=== PATIENT | male | born 1950 | race Hispanic/Latino ===

== ENCOUNTER 2016-08-18 17:25 | Emergency (ER) | payer MEDICAID ==
[2016-08-18 17:47] VITALS: BP 210/121
--- NOTE | 2016-08-19 23:27 | ED Elopement Review ---
ED Pt Elopement review - Call Back decision Pt Call Back Decision: Call pt to return to ED [facility]
== END 2016-08-18 18:26 | disposition left against medical advice (07) ==
LOC: ED 17:25
DX: T18.128A Food in esophagus causing other injury, initial encounter (principal); Z53.21 Procedure and treatment not carried out due to patient leaving prior to being seen by health care provider; X58.XXXA Exposure to other specified factors, initial encounter; Y93.9 Activity, unspecified; Y92.9 Unspecified place or not applicable

== ENCOUNTER 2016-10-05 18:11 | Emergency (ER) | payer MEDICAID | END 2016-10-05 19:30 | disposition left against medical advice (07) | LOC: ED 18:11 | DX: R07.0 Pain in throat (principal); Z88.8 Allergy status to other drugs, medicaments and biological substances; Z53.21 Procedure and treatment not carried out due to patient leaving prior to being seen by health care provider ==

== ENCOUNTER 2017-04-03 16:49 | Emergency (ER) | payer MEDICAID ==
[2017-04-03] MEDS ORDERED: NACL 0.9% 1000 ML 1,000 ML IV ONE (17:11)
[2017-04-03 17:12] VITALS: BP 186/118
[2017-04-03 17:51] LABS: Basophils % (Auto) 0.8 % (0.0-1.8); Eosinophils % (Auto) 5.3 % (0.0-4.3); Hematocrit 47.4 % (35.5-45.6); Hemoglobin 15.8 gm/dl (11.8-15.2); Mean Corpuscular HGB Conc 33 % (32-34); Mean Corpuscular Hemoglobin 29 pg (28-32); Mean Corpuscular Volume 85 fl (84-94); Platelet Count 210 K/mm3 (140-440); Red Blood Count 5.55 M/mm3 (3.65-5.03); White Blood Count 6.6 K/mm3 (4.5-11.0)
[2017-04-03 18:09] LABS: Albumin 4.6 g/dL (3.9-5); Albumin/Globulin Ratio 1.7 %; BUN/Creatinine Ratio 6.92; Bilirubin,Total 0.4 mg/dL (0.1-1.2); Calcium 9.1 mg/dL (8.4-10.2); Chloride 104.2 mmol/L (98-107); Potassium 3.9 mmol/L (3.6-5.0); Total Protein 7.3 g/dL (6.3-8.2)
[2017-04-03 18:26] LABS: INR 0.99 (0.87-1.13)
== END 2017-04-03 18:05 | disposition left against medical advice (07) ==
LOC: ED 16:49
DX: K92.1 Melena (principal); Z53.21 Procedure and treatment not carried out due to patient leaving prior to being seen by health care provider
CPT/HCPCS: 36415; 80053; 83690; 85025; 85610; 85730; 86850; 86900; 86901

== ENCOUNTER 2017-09-21 18:41 | Emergency (ER) | payer MEDICARE, MEDICAID ==
[2017-09-21 20:18] VITALS: BP 183/99
[2017-09-21 21:27] LABS: Basophils # (Auto) 0.1 K/mm3 (0.0-0.1); Basophils % (Auto) 1.2 % (0.0-1.8); Eosinophils # (Auto) 0.2 K/mm3 (0.0-0.4); Lymphocytes # (Auto) 1.1 K/mm3 (1.2-5.4); Lymphocytes % (Auto) 16.7 % (13.4-35.0); Mean Corpuscular HGB Conc 30 % (32-34); Mean Corpuscular Volume 85 fl (84-94); Monocytes # (Auto) 0.4 K/mm3 (0.0-0.8); Monocytes % (Auto) 6.2 % (0.0-7.3); Platelet Count 147 K/mm3 (140-440); Red Blood Count 4.38 M/mm3 (3.65-5.03); Red Cell Distribution Width 14.9 % (13.2-15.2)
[2017-09-21 21:28] LABS: Hematocrit 37.2 % (35.5-45.6); Hemoglobin 11.3 gm/dl (11.8-15.2); Mean Corpuscular Hemoglobin 26 pg (28-32)
[2017-09-21 21:35] LABS: BUN/Creatinine Ratio 9; Blood Urea Nitrogen 10 mg/dL (9-20); Calcium 8.5 mg/dL (8.4-10.2); Hemolysis Index 24
--- NOTE | 2017-09-21 22:43 | XRay Report ---
FINAL REPORT PROCEDURE: XR CHEST ROUTINE 2V TECHNIQUE: PA and lateral chest radiographs were obtained. CPT 18702 HISTORY: Shortness of breath COMPARISON: No prior studies are available for comparison. FINDINGS: Heart: Normal. Mediastinum/Vessels: Prominent jenny, right greater than left. Lungs/Pleural space: There is right perihilar opacity and diffuse bilateral increased reticular markings. Bony thorax: No acute osseous abnormality. Other: IMPRESSION: Findings may be related to congestive heart failure with pulmonary edema. Recommend follow-up radiograph after treatment to exclude possible right perihilar infiltrate or mass.
== END 2017-09-21 21:00 | disposition left against medical advice (07) ==
LOC: ED 18:41
DX: R06.09 Other forms of dyspnea (principal); Z53.21 Procedure and treatment not carried out due to patient leaving prior to being seen by health care provider
CPT/HCPCS: 36415; 71046; 80048; 84484; 85025; 93005; 93010

== ENCOUNTER 2017-10-05 16:36 | Inpatient (IN) | payer MEDICAID, MEDICARE ==
[2017-10-05] MEDS ORDERED: NORMODYNE IV ONE ×2 (16:55→16:57)
[2017-10-05] MEDS ORDERED: ATROVENT IH ONE ×2 (17:31→18:53)
[2017-10-05] MEDS ORDERED: PROVENTIL IH ONE ×2 (17:31→18:52)
[2017-10-05 17:45] LABS: Basophils # (Auto) 0.1 K/mm3 (0.0-0.1); Eosinophils # (Auto) 0.3 K/mm3 (0.0-0.4); Eosinophils % (Auto) 3.9 % (0.0-4.3); Hematocrit 45.6 % (35.5-45.6); Hemoglobin 14.9 gm/dl (11.8-15.2); Lymphocytes # (Auto) 1.8 K/mm3 (1.2-5.4); Lymphocytes % (Auto) 22.6 % (13.4-35.0); Mean Corpuscular HGB Conc 33 % (32-34); Mean Corpuscular Hemoglobin 27 pg (28-32); Mean Corpuscular Volume 81 fl (84-94); Monocytes # (Auto) 0.3 K/mm3 (0.0-0.8); Monocytes % (Auto) 4.3 % (0.0-7.3); Platelet Count 248 K/mm3 (140-440)
[2017-10-05 18:05] LABS: Alanine Aminotransferase 19 units/L (7-56); Albumin 4.3 g/dL (3.9-5); BUN/Creatinine Ratio 8; Blood Urea Nitrogen 9 mg/dL (9-20); Calcium 8.6 mg/dL (8.4-10.2); Hemolysis Index 7
[2017-10-05] MEDS ORDERED: LASIX IV ONE (18:25)
[2017-10-05] MEDS ORDERED: SUBLIMAZE IV ONE (18:40)
[2017-10-05] MEDS ORDERED: BABY ASPIRIN PO ONE (18:57)
--- NOTE | 2017-10-05 18:57 | Emergency Department Report ---
HPI - General Chief Complaint: Dyspnea/Respdistress Time Seen by Provider: 10/05/17 16:52 - HPI HPI: The patient since 67-year-old male with a history of hypertension, who presents for evaluation of chest pain or shortness of breath. The patient reports chest pain for the past 1-2 hours prior to arrival, tightness like in quality, and shortness of breath for the past day, both severe, exacerbated with exertion or activity, improved at rest. The patient denies fever, trauma to the chest, syncope, hemoptysis, unilateral leg swelling, recent immobilization, history of DVT or PE, recent cancer. 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, bronchitis - Surgical History Past Surgical History?: Yes Additional Surgical History: finger surgery - Social History Smoking Status: Former Smoker Substance Use Type: None - Medications Home Medications: Home Medications Medication Instructions Recorded Confirmed Last Taken Type Lisinopril [Zestril TAB] 20 mg PO QDAY #30 tablet 07/14/16 10/05/17 Unknown Rx Aspirin 81 mg PO DAILY 10/05/17 10/05/17 Unknown History AtorvaSTATin 80 mg PO HS 10/05/17 10/05/17 Unknown History Carvedilol 6.25 mg PO DAILY 10/05/17 10/05/17 Unknown History Imdur ER 30 mg PO DAILY 10/05/17 10/05/17 Unknown History Plavix 75 mg PO DAILY 10/05/17 10/05/17 Unknown History Tamsulosin 0.4 mg PO HS 10/05/17 10/05/17 Unknown History ED Review of Systems ROS: Stated complaint: CHEST PAIN/DIFFICULTY BREATHING Other details as noted in HPI Constitutional: denies: fever ENT: denies: throat or neck pain Respiratory: denies: cough reports shortness of breath Cardiovascular: reports chest pain Endocrine: denies unexplained weight loss or gain Gastrointestinal: denies: abdominal pain, nausea Genitourinary: denies: dysuria Musculoskeletal: denies: leg swelling Skin: denies: rash Neurological: denies: headache Hematological/Lymphatic: denies: easy bleeding or easy bruising Psych: denies sadness or hopelessness Physical Exam - Physical Exam Vital Signs: Vital Signs 10/05/17 10/05/17 10/05/17 16:40 17:02 18:11 Temperature 97.4 F L Pulse Rate 114 H 95 H 98 H Respiratory 40 H 20 Rate Blood Pressure 256/154 212/134 Blood Pressure 153/97 [Left] O2 Sat by Pulse 95 97 Oximetry Physical Exam: General: well-nourished, well-developed, no acute distress Head: Normocephalic, atraumatic Eyes: normal sclera ENT: Mucous membranes are pale and dry Neck: trachea midline, neck supple, No neck stiffness, no cervical adenopathy Respiratory: Diminished breath sounds and crackles present and bibasilar lung baez Cardio: S1 and S2 present, no murmurs, rubs, gallops, capillary refill is delayed Abdomen: Normoactive bowel sounds, soft abdomen, no rigidity, no guarding or rebound tenderness Chest WALL/Back: No tenderness to palpation of the chest wall, no CVA tenderness with percussion Musc: 1+ pitting edema of bilateral legs present Skin: No rash Neuro: no facial drooping, normal speech Psych: Normal affect ED Course Vital Signs 10/05/17 10/05/17 10/05/17 16:40 17:02 18:11 Temperature 97.4 F L Pulse Rate 114 H 95 H 98 H Respiratory 40 H 20 Rate Blood Pressure 256/154 212/134 Blood Pressure 153/97 [Left] O2 Sat by Pulse 95 97 Oximetry ED Medical Decision Making - Lab Data Result diagrams: 10/05/17 17:23 10/05/17 17:23 - Medical Decision Making The patient was seen and examined by myself. The patient is placed on a cardiac exercise specialist and continuous pulse ox. On initial evaluation, the patient was found to be in no distress, although with critically elevated blood pressure 156 /150. The patient is given labetalol for crit elevated blood pressure. EKG was negative for findings suggestive of acute cardiac infarct. The patient is given an aspirin and a nitroglycerin tablet. Labs and imaging are obtained. Chest x-ray exhibits pulmonary vascular congestion. Lab results exhibited elevated BNP >1000, and otherwise labs were non-revealing including negative troponin, WBC, hemoglobin, hematocrit, electrolytes, renal function. As the patient's found to have elevated BNP vascular congestion on chest x-ray, the patient likely has undiagnosed congestive heart failure. The patient is given Lasix for treatment of likely undiagnosed congestive heart failure. The patient was reevaluated and reported that their symptoms were improved. As the patient has chest pain and risk factors for development of acute coronary event, and is found to have evaluation findings concerning for undiagnosed congestive heart failure, the patient will be admitted for close cardiopulmonary monitoring, serial troponins, likely echocardiogram, and evaluation by cardiology. The physician on-call was contacted. They presented to the emergency department and evaluated the patient. They agreed to admit the patient. The ED admit order was placed. The patient was admitted in guarded condition. Critical care attestation.: If time is entered above; I have spent that time in minutes in the direct care of this critically ill patient, excluding procedure time. ED Disposition Clinical Impression: Acute chest pain, New onset of congestive heart failure, Hypertensive crisis Disposition: 09 OP ADMIT IP TO THIS HOSP Is pt being admited?: Yes Does the pt Need Aspirin: Yes Condition: Serious Instructions: Chest Pain (ED) Referrals: PRIMARY CARE, [Primary Care Provider] - 3-5 Days Time of Disposition: 17:57
--- NOTE | 2017-10-05 20:28 | XRay Report ---
FINAL REPORT EXAM: XR CHEST 1V AP HISTORY: chest pain TECHNIQUE: Portable AP upright chest x-ray Comparison: 09/21/2017 FINDINGS: Heart size is enlarged. There is calcified right hilar lymph nodes. The previously noted prominence of the right hilum has become more congested. There is pulmonary vascular cephalization. There is blooming of bilateral perihilar infiltrates with a lower lobe predominance. There is dense consolidative change in the infrahilar regions. Heart size is mildly enlarged. IMPRESSION: Constellation of findings most suggestive of progressive congestive heart failure versus less likely infectious infiltrates.
[2017-10-05] MEDS ORDERED: TRIDIL DRIP 50MG/250ML 50 MG/250 ML BOTTLE IV ONE (21:03)
[2017-10-06] MEDS ORDERED: ZOFRAN IV PRN (00:50)
[2017-10-06] MEDS ORDERED: MILK OF MAGNESIA PO PRN (00:50)
[2017-10-06] MEDS ORDERED: TYLENOL PO PRN (00:50)
[2017-10-06] MEDS ORDERED: REGLAN IV PRN (00:50)
[2017-10-06] MEDS ORDERED: DULCOLAX PR PRN (00:50)
--- NOTE | 2017-10-06 01:04 | History and Physical Report ---
History of Present Illness Date of examination: 10/06/17 Chief complaint: Chest pain and shortness of breath History of present illness: Patient is a 67-year-old male who presents to the ED after several days of tenderness. No shortness of breath which he said there has been progressive but just Was today. Patient does have a cardiac history . At this point patient denies any chest pain and states he's feeling a little better since presentation to the ED. [facility] but does not remember the particular name of the physician patient was evaluated the ED and found to be in congestive heart failure. Patient is thus admitted for congestive heart failure. Past History Past Medical History: acute [place], hypertension, other (Asthma) Past Surgical History: No surgical history Medications and Allergies Allergies Allergy/AdvReac Type Severity Reaction Status Date / Time hydralazine AdvReac Unknown Verified 10/05/17 16:47 Home Medications Medication Instructions Recorded Confirmed Last Taken Type Lisinopril [Zestril TAB] 20 mg PO QDAY #30 tablet 07/14/16 10/05/17 Unknown Rx Aspirin 81 mg PO DAILY 10/05/17 10/05/17 Unknown History AtorvaSTATin 80 mg PO HS 10/05/17 10/05/17 Unknown History Carvedilol 6.25 mg PO DAILY 10/05/17 10/05/17 Unknown History Imdur ER 30 mg PO DAILY 10/05/17 10/05/17 Unknown History Plavix 75 mg PO DAILY 10/05/17 10/05/17 Unknown History Tamsulosin 0.4 mg PO HS 10/05/17 10/05/17 Unknown History Active Meds: Active Medications Acetaminophen (Tylenol) 650 mg PO Q4H PRN PRN Reason: Pain MILD(1-3)/Fever >100.5/RAMOS Bisacodyl (Dulcolax) 10 mg [place] QDAY PRN PRN Reason: Constipation unrelieved by MOM Enoxaparin Sodium (Lovenox) 40 mg SUB-Q QDAY QUAN Nitroglycerin/Dextrose (Tridil Drip 50mg/250ml) 50 mg in 250 mls @ 3 mls/hr IV TITR ONE; 10 MCG/MIN PRN Reason: Protocol Stop: 10/09/17 08:22 Last Admin: 10/05/17 23:37 Dose: 10 mcg/min, 3 mls/hr Magnesium Hydroxide (Milk Of Magnesia) 30 ml PO Q4H PRN PRN Reason: Constipation Metoclopramide HCl (Reglan) 10 mg IV Q6H PRN PRN Reason: Nausea And Vomiting Ondansetron HCl (Zofran) 4 mg IV Q8H PRN PRN Reason: N/V unrelieved by Reglan Review of Systems All systems: negative (SOB) Exam - Constitutional Vitals: Temp Pulse Resp BP Pulse Ox 97.4 F L 85 19 154/106 96 10/05/17 16:40 10/06/17 00:15 10/06/17 00:15 10/06/17 00:15 10/06/17 00:15 General appearance: Present: no acute distress, well-nourished - EENT Eyes: Present: PERRL ENT: hearing intact, clear oral mucosa - Neck Neck: Present: supple, normal ROM - Respiratory Respiratory effort: normal Respiratory: bilateral: CTA, rales - Cardiovascular Heart Sounds: Present: S1 & S2, gallop (S3). Absent: rub, click - Extremities Extremities: pulses symmetrical Extremity abnormal: edema (1+) Peripheral Pulses: within normal limits - Abdominal General gastrointestinal: Present: soft, non-tender, non-distended, normal bowel sounds Male genitourinary: Present: normal - Integumentary Integumentary: Present: clear, warm, dry - Musculoskeletal Musculoskeletal: gait normal, strength equal bilaterally - Psychiatric Psychiatric: appropriate mood/affect, intact judgment & insight - Neurologic Neurologic: CNII-XII intact, moves all extremities Results - Labs CBC & Chem 7: 10/05/17 17:23 10/05/17 17:23 Labs: Laboratory Last Values WBC 8.2 K/mm3 (4.5-11.0) 10/05/17 17:23 RBC 5.60 M/mm3 (3.65-5.03) H 10/05/17 17:23 Hgb 14.9 gm/dl (11.8-15.2) 10/05/17 17:23 Hct 45.6 % (35.5-45.6) 10/05/17 17:23 MCV 81 fl (84-94) L 10/05/17 17:23 MCH 27 pg (28-32) L 10/05/17 17:23 MCHC 33 % (32-34) 10/05/17 17:23 RDW 16.0 % (13.2-15.2) H 10/05/17 17:23 Plt Count 248 K/mm3 (140-440) 10/05/17 17:23 Lymph % (Auto) 22.6 % (13.4-35.0) 10/05/17 17:23 [place] % (Auto) 4.3 % (0.0-7.3) 10/05/17 17:23 Eos % (Auto) 3.9 % (0.0-4.3) 10/05/17 17:23 Baso % (Auto) 1.0 % (0.0-1.8) 10/05/17 17:23 Lymph # 1.8 K/mm3 (1.2-5.4) 10/05/17 17:23 [place] # 0.3 K/mm3 (0.0-0.8) 10/05/17 17:23 Eos # 0.3 K/mm3 (0.0-0.4) 10/05/17 17:23 Baso # 0.1 K/mm3 (0.0-0.1) 10/05/17 17:23 Seg Neutrophils % 68.2 % (40.0-70.0) 10/05/17 17:23 Seg Neutrophils # 5.6 K/mm3 (1.8-7.7) 10/05/17 17:23 Sodium 137 mmol/L (137-145) 10/05/17 17:23 Potassium 4.0 mmol/L (3.6-5.0) 10/05/17 17:23 Chloride 99.5 mmol/L (98-107) 10/05/17 17:23 Carbon Dioxide 20 mmol/L (22-30) L 10/05/17 17:23 Anion Gap 22 mmol/L 10/05/17 17:23 BUN 9 mg/dL (9-20) 10/05/17 17:23 Creatinine 1.1 mg/dL (0.8-1.5) 10/05/17 17:23 Estimated GFR > 60 ml/min 10/05/17 17:23 BUN/Creatinine Ratio 8 % 10/05/17 17:23 Glucose 141 mg/dL (75-100) H 10/05/17 17:23 Calcium 8.6 mg/dL (8.4-10.2) 10/05/17 17:23 Total Bilirubin 0.70 mg/dL (0.1-1.2) 10/05/17 17:23 AST 14 units/L (5-40) 10/05/17 17:23 ALT 19 units/L (7-56) 10/05/17 17:23 Alkaline Phosphatase 91 units/L (35-129) 10/05/17 17:23 NT-Pro-B Natriuret Pep 1263 pg/mL (0-900) H 10/05/17 17:23 Total Protein 7.0 g/dL (6.3-8.2) 10/05/17 17:23 Albumin 4.3 g/dL (3.9-5) 10/05/17 17:23 Albumin/Globulin Ratio 1.6 % 10/05/17 17:23 Assessment and Plan Assessment and plan: Congestive heart failure--acute systolic Advance Directives: No VTE prophylaxis?: Chemical Plan of care discussed with patient/family: Yes
[2017-10-06] MEDS: LOVENOX SUB-Q SCH (09:10)
--- NOTE | 2017-10-06 12:10 | Progress Note ---
Assessment and Plan Assessment and plan: --Acute hypoxic respiratory failure; secondary to acute exacerbation of systolic congestive heart failure Continue oxygen and titrate O2 sats to more than 90%, anti-failure medications --Acute on chronic systolic congestive heart failure; ejection fraction: --Coronary artery disease; continue aspirin and Plavix, beta blockers and juli inhibitors nitrates and statins --Hypertension; closely monitor blood pressures continue current antihypertensives and when necessary medications --Dyslipidemia; stable on lipid-lowering medications --DVT prophylaxis; on Lovenox and Lovenox. Cardiology evaluation and recommendations were appreciated, continue current management Plan of care reviewed with the patient, answered all his questions. History Interval history: Patient seen and examined medical records reviewed Admitted with chest pain and shortness of breath, Feels slightly better Cardiology evaluation noted and appreciated Patient is alert awake oriented 3 Vital signs reviewed Hospitalist Physical - Constitutional Vitals: Temp Pulse Resp BP Pulse Ox 97.4 F L 74 24 116/74 97 10/05/17 16:40 10/06/17 01:10 10/06/17 10:00 10/06/17 01:10 10/06/17 10:00 General appearance: Present: no acute distress, well-nourished - EENT Eyes: Present: PERRL, EOM intact - Neck Neck: Present: supple, normal ROM - Respiratory Respiratory effort: normal - Cardiovascular Rhythm: regular Heart Sounds: Present: S1 & S2 - Extremities Extremities: no ischemia Extremity abnormal: edema - Abdominal General gastrointestinal: soft, non-tender, non-distended, normal bowel sounds - Integumentary Integumentary: Present: clear, warm - Psychiatric Psychiatric: appropriate mood/affect, cooperative - Neurologic Neurologic: CNII-XII intact, moves all extremities Results - Labs CBC & Chem 7: 10/05/17 17:23 10/05/17 17:23 Labs: Laboratory Last Values WBC 8.2 K/mm3 (4.5-11.0) 10/05/17 17:23 RBC 5.60 M/mm3 (3.65-5.03) H 10/05/17 17:23 Hgb 14.9 gm/dl (11.8-15.2) 10/05/17 17:23 Hct 45.6 % (35.5-45.6) 10/05/17 17:23 MCV 81 fl (84-94) L 10/05/17 17:23 MCH 27 pg (28-32) L 10/05/17 17:23 MCHC 33 % (32-34) 10/05/17 17:23 RDW 16.0 % (13.2-15.2) H 10/05/17 17:23 Plt Count 248 K/mm3 (140-440) 10/05/17 17:23 Lymph % (Auto) 22.6 % (13.4-35.0) 10/05/17 17:23 [place] % (Auto) 4.3 % (0.0-7.3) 10/05/17 17:23 Eos % (Auto) 3.9 % (0.0-4.3) 10/05/17 17:23 Baso % (Auto) 1.0 % (0.0-1.8) 10/05/17 17:23 Lymph # 1.8 K/mm3 (1.2-5.4) 10/05/17 17:23 [place] # 0.3 K/mm3 (0.0-0.8) 10/05/17 17:23 Eos # 0.3 K/mm3 (0.0-0.4) 10/05/17 17:23 Baso # 0.1 K/mm3 (0.0-0.1) 10/05/17 17:23 Seg Neutrophils % 68.2 % (40.0-70.0) 10/05/17 17:23 Seg Neutrophils # 5.6 K/mm3 (1.8-7.7) 10/05/17 17:23 Sodium 137 mmol/L (137-145) 10/05/17 17:23 Potassium 4.0 mmol/L (3.6-5.0) 10/05/17 17:23 Chloride 99.5 mmol/L (98-107) 10/05/17 17:23 Carbon Dioxide 20 mmol/L (22-30) L 10/05/17 17:23 Anion Gap 22 mmol/L 10/05/17 17:23 BUN 9 mg/dL (9-20) 10/05/17 17:23 Creatinine 1.1 mg/dL (0.8-1.5) 10/05/17 17:23 Estimated GFR > 60 ml/min 10/05/17 17:23 BUN/Creatinine Ratio 8 % 10/05/17 17:23 Glucose 141 mg/dL (75-100) H 10/05/17 17:23 Calcium 8.6 mg/dL (8.4-10.2) 10/05/17 17:23 Total Bilirubin 0.70 mg/dL (0.1-1.2) 10/05/17 17:23 AST 14 units/L (5-40) 10/05/17 17:23 ALT 19 units/L (7-56) 10/05/17 17:23 Alkaline Phosphatase 91 units/L (35-129) 10/05/17 17:23 NT-Pro-B Natriuret Pep 2311 pg/mL (0-900) H 10/06/17 02:42 Total Protein 7.0 g/dL (6.3-8.2) 10/05/17 17:23 Albumin 4.3 g/dL (3.9-5) 10/05/17 17:23 Albumin/Globulin Ratio 1.6 % 10/05/17 17:23
--- NOTE | 2017-10-06 12:56 | Consultation ---
History of Present Illness Consult date: 10/06/17 Consult reason: congestive heart failure History of present illness: The patient is a 67-year-old man who presents to the hospital with several days of shortness of breath, chest x-ray and clinical findings consistent with decompensated congestive heart failure. EKG was sinus tachycardia at 115, old anterior myocardial infarction, but no acute ischemic changes. Had a consultation was requested. The patient has an extensive, recent cardiac history. Three months ago, he was admitted to this hospital with an acute inferior ST elevation myocardial infarction. On emergency cardiac catheterization was found a chronic total occlusion of the LAD in its proximal segment, an eccentric 80% stenosis of the proximal circumflex, and the infarct related lesion was a proximal 100% occlusion of the right coronary artery. There was an underlying severe ischemic cardiomyopathy. We recommended emergency surgical revascularization, and he was transferred to [facility] with intra-aortic balloon pump counterpulsation. Ultimately, he was turned down for surgery, assessed as high risk. He then underwent single-vessel revascularization with angioplasty of the right coronary artery with stenting. His chronic total LAD occlusion and the 80% stenosis of the circumflex were recommended for medical management. Patient is currently on the telemetry floor, still appears dyspneic on bedrest, denies chest pain. Past History Past Medical History: acute CT, CAD, heart failure, hypertension, other (Asthma) Past Surgical History: No surgical history Medications and Allergies Allergies Allergy/AdvReac Type Severity Reaction Status Date / Time hydralazine AdvReac Unknown Verified 10/05/17 16:47 Home Medications Medication Instructions Recorded Confirmed Last Taken Type Lisinopril [Zestril TAB] 20 mg PO QDAY #30 tablet 07/14/16 10/05/17 Unknown Rx Aspirin 81 mg PO DAILY 10/05/17 10/05/17 Unknown History AtorvaSTATin 80 mg PO HS 10/05/17 10/05/17 Unknown History Carvedilol 6.25 mg PO DAILY 10/05/17 10/05/17 Unknown History Imdur ER 30 mg PO DAILY 10/05/17 10/05/17 Unknown History Plavix 75 mg PO DAILY 10/05/17 10/05/17 Unknown History Tamsulosin 0.4 mg PO HS 10/05/17 10/05/17 Unknown History Active Meds: Active Medications Acetaminophen (Tylenol) 650 mg PO Q4H PRN PRN Reason: Pain MILD(1-3)/Fever >100.5/RAMOS Bisacodyl (Dulcolax) 10 mg [place] QDAY PRN PRN Reason: Constipation unrelieved by MOM Enoxaparin Sodium (Lovenox) 40 mg SUB-Q QDAY QUAN Last Admin: 10/06/17 09:10 Dose: 40 mg Furosemide (Lasix) 40 mg IV QDAY QUAN Nitroglycerin/Dextrose (Tridil Drip 50mg/250ml) 50 mg in 250 mls @ 3 mls/hr IV TITR ONE; Protocol Stop: 10/09/17 08:22 Last Admin: 10/05/17 23:37 Dose: 10 mcg/min, 3 mls/hr Magnesium Hydroxide (Milk Of Magnesia) 30 ml PO Q4H PRN PRN Reason: Constipation Metoclopramide HCl (Reglan) 10 mg IV Q6H PRN PRN Reason: Nausea And Vomiting Ondansetron HCl (Zofran) 4 mg IV Q8H PRN PRN Reason: N/V unrelieved by Reglan Review of Systems Cardiovascular: orthopnea, shortness of breath, no chest pain, no palpitations, no rapid/irregular heart beat, no edema, no syncope, no lightheadedness Physical Examination Vital Signs Temp Pulse Resp BP Pulse Ox 97.4 F L 114 H 40 H 256/154 95 10/05/17 16:40 10/05/17 16:40 10/05/17 16:40 10/05/17 16:40 10/05/17 16:40 General appearance: mild distress HEENT: Positive: PERRL Neck: Positive: neck supple Cardiac: Positive: Reg Rate and Rhythm Lungs: Positive: Decreased Breath Sounds Neuro: Positive: Grossly Intact Abdomen: Positive: Soft Male genitourinary: Positive: deferred Skin: Positive: Clear Extremities: Absent: edema Results 10/05/17 17:23 10/05/17 17:23 Cardiac Enzymes 10/05/17 Range/Units 17:23 AST 14 (5-40) units/L CBC 10/05/17 Range/Units 17:23 WBC 8.2 (4.5-11.0) K/mm3 RBC 5.60 H (3.65-5.03) M/mm3 Hgb 14.9 (11.8-15.2) gm/dl Hct 45.6 (35.5-45.6) % Plt Count 248 (140-440) K/mm3 Lymph # 1.8 (1.2-5.4) K/mm3 [place] # 0.3 (0.0-0.8) K/mm3 Eos # 0.3 (0.0-0.4) K/mm3 Baso # 0.1 (0.0-0.1) K/mm3 Comprehensive Metabolic Panel 10/05/17 Range/Units 17:23 Sodium 137 (137-145) mmol/L Potassium 4.0 (3.6-5.0) mmol/L Chloride 99.5 (98-107) mmol/L Carbon Dioxide 20 L (22-30) mmol/L BUN 9 (9-20) mg/dL Creatinine 1.1 (0.8-1.5) mg/dL Glucose 141 H (75-100) mg/dL Calcium 8.6 (8.4-10.2) mg/dL AST 14 (5-40) units/L ALT 19 (7-56) units/L Alkaline Phosphatase 91 (35-129) units/L Total Protein 7.0 (6.3-8.2) g/dL Albumin 4.3 (3.9-5) g/dL EKG interpretations - Telemetry EKG Rhythm: Sinus Tachycardia Assessment and Plan - Patient Problems (1) Acute on chronic systolic heart failure Current Visit: Yes Status: Acute Plan to address problem: Patient has a severe ischemic cardiomyopathy, partial coronary revascularization 3 months ago, and presents with decompensated heart failure. Recommendations: 1. Aggressive heart failure treatment with diuretics, and intravenous inotropic support. In addition, optimal medical therapy with afterload recently agents, beta blockers and dual oral antiplatelet therapy. 2. Ultimately, he will need further ischemic workup with a myocardial perfusion scan predischarge after heart failure is resolved. He may need a second vessel intervention to the circumflex if ischemia is demonstrated in this territory. 3. He is also a candidate for LifeVest on discharge.
[2017-10-06] MEDS: PLAVIX PO SCH (14:26)
[2017-10-06] MEDS: IMDUR PO SCH (14:26)
[2017-10-06] MEDS ORDERED: MILRINONE-D5W 20 MG/100 ML 20 MG/100 ML BAG IV SCH (14:30)
[2017-10-06] MEDS: BABY ASPIRIN PO SCH (14:32)
[2017-10-06] MEDS: LASIX IV SCH (17:11)
[2017-10-06] MEDS ORDERED: XANAX PO PRN (17:13)
[2017-10-06] MEDS ORDERED: AMBIEN PO PRN (20:43)
[2017-10-06] MEDS: COREG PO SCH (21:48)
[2017-10-07] MEDS: LASIX IV SCH (06:19)
[2017-10-07 08:29] LABS: BUN/Creatinine Ratio 13; Blood Urea Nitrogen 16 mg/dL (9-20); Calcium 8.9 mg/dL (8.4-10.2); Hemolysis Index 5
[2017-10-07] MEDS ORDERED: LASIX IV SCH (10:00)
--- NOTE | 2017-10-07 10:20 | Progress Note ---
Assessment and Plan Assessment and plan: --Acute hypoxic respiratory failure; secondary to acute exacerbation of systolic congestive heart failure Symptoms slightly improved, continue oxygen and telemetry medications and supportive care, cardiology following --Acute on chronic systolic congestive heart failure; continue anti-failure medications --Severe ischemic cardiomyopathy; fluid restriction, low sodium diet, anti-failure medications ,input output monitoring --Coronary artery disease; partial coronary revascularization 3 months ago, per cardiology, Continue aspirin and Plavix and beta blockers and DIAZ inhibitor since statins Stress test tomorrow --Hypertension; closely monitor blood pressures continue current antihypertensives and when necessary medications --Dyslipidemia; stable on lipid-lowering medications --DVT prophylaxis; on Lovenox Follow stress test, if negative and patient is stable can be discharged home tomorrow Plan of care reviewed with the patient, and his nurse History Interval history: Patient seen and examined in his room this morning medical records reviewed No new events reported by the nursing staff Patient denies chest pain or shortness of breath Vital signs reviewed Alert awake oriented 3 not in acute distress Hospitalist Physical - Constitutional Vitals: Temp Pulse Resp BP Pulse Ox 98.4 F 60 16 121/69 94 10/07/17 03:58 10/07/17 04:00 10/07/17 03:58 10/07/17 03:58 10/07/17 03:58 General appearance: Present: no acute distress, well-nourished - EENT Eyes: Present: PERRL, EOM intact - Neck Neck: Present: supple, normal ROM - Respiratory Respiratory effort: normal Respiratory: bilateral: diminished, negative: rales, rhonchi, wheezing - Cardiovascular Rhythm: regular Heart Sounds: Present: S1 & S2 - Extremities Extremities: no ischemia, No edema - Abdominal General gastrointestinal: soft, non-tender, non-distended, normal bowel sounds - Integumentary Integumentary: Present: clear, warm - Psychiatric Psychiatric: appropriate mood/affect, cooperative - Neurologic Neurologic: CNII-XII intact, moves all extremities Results - Labs CBC & Chem 7: 10/05/17 17:23 10/07/17 07:04 Labs: Laboratory Last Values WBC 8.2 K/mm3 (4.5-11.0) 10/05/17 17:23 RBC 5.60 M/mm3 (3.65-5.03) H 10/05/17 17:23 Hgb 14.9 gm/dl (11.8-15.2) 10/05/17 17:23 Hct 45.6 % (35.5-45.6) 10/05/17 17:23 MCV 81 fl (84-94) L 10/05/17 17:23 MCH 27 pg (28-32) L 10/05/17 17:23 MCHC 33 % (32-34) 10/05/17 17:23 RDW 16.0 % (13.2-15.2) H 10/05/17 17:23 Plt Count 248 K/mm3 (140-440) 10/05/17 17:23 Lymph % (Auto) 22.6 % (13.4-35.0) 10/05/17 17:23 [place] % (Auto) 4.3 % (0.0-7.3) 10/05/17 17:23 Eos % (Auto) 3.9 % (0.0-4.3) 10/05/17 17:23 Baso % (Auto) 1.0 % (0.0-1.8) 10/05/17 17:23 Lymph # 1.8 K/mm3 (1.2-5.4) 10/05/17 17:23 [place] # 0.3 K/mm3 (0.0-0.8) 10/05/17 17:23 Eos # 0.3 K/mm3 (0.0-0.4) 10/05/17 17:23 Baso # 0.1 K/mm3 (0.0-0.1) 10/05/17 17:23 Seg Neutrophils % 68.2 % (40.0-70.0) 10/05/17 17:23 Seg Neutrophils # 5.6 K/mm3 (1.8-7.7) 10/05/17 17:23 Sodium 140 mmol/L (137-145) 10/07/17 07:04 Potassium 4.1 mmol/L (3.6-5.0) 10/07/17 07:04 Chloride 100.4 mmol/L (98-107) 10/07/17 07:04 Carbon Dioxide 25 mmol/L (22-30) 10/07/17 07:04 Anion Gap 19 mmol/L 10/07/17 07:04 BUN 16 mg/dL (9-20) 10/07/17 07:04 Creatinine 1.2 mg/dL (0.8-1.5) 10/07/17 07:04 Estimated GFR > 60 ml/min 10/07/17 07:04 BUN/Creatinine Ratio 13 % 10/07/17 07:04 Glucose 95 mg/dL (75-100) 10/07/17 07:04 Calcium 8.9 mg/dL (8.4-10.2) 10/07/17 07:04 Total Bilirubin 0.70 mg/dL (0.1-1.2) 10/05/17 17:23 AST 14 units/L (5-40) 10/05/17 17:23 ALT 19 units/L (7-56) 10/05/17 17:23 Alkaline Phosphatase 91 units/L (35-129) 10/05/17 17:23 NT-Pro-B Natriuret Pep 2311 pg/mL (0-900) H 10/06/17 02:42 Total Protein 7.0 g/dL (6.3-8.2) 10/05/17 17:23 Albumin 4.3 g/dL (3.9-5) 10/05/17 17:23 Albumin/Globulin Ratio 1.6 % 10/05/17 17:23
--- NOTE | 2017-10-07 10:50 | Progress Note ---
Assessment and Plan Decompenstated systolic heart failure Hx of CAD [facility] 06/2017: showed ROR ENGINEER's of the LAD and RCA and eccentric 80% stenosis of the proximal circumflex. We recommended emergency surgical revascularization, and he was transferred to [place] with intra-aortic balloon pump counterpulsation. Ultimately, he was turned down for surgery, assessed as high risk. He then underwent single-vessel revascularization with angioplasty of the RCA with stenting. His chronic total LAD occlusion and the 80% stenosis of the circumflex were recommended for medical management. Severe ischemic cardiomyopathy Hypertension Recommendations: Medical management for heart failure treatment with IV diuretics. Echocardiogram for LVEF assessment. Ischemic workup with a myocardial perfusion scan tomorrow morning. LifeVest placement on discharge. Subjective Date of service: 10/07/17 Interval history: IV milrinone held as patient reports "feeling hot all over". Objective Vital Signs Temp Pulse Resp BP BP Pulse Ox 10/07/17 04:00 60 10/07/17 03:58 98.4 F 63 16 121/69 94 10/07/17 00:52 98.3 F 64 18 117/69 92 10/06/17 22:04 98.7 F 73 18 122/78 94 10/06/17 22:00 20 97 10/06/17 21:48 68 122/78 10/06/17 20:47 98.7 F 73 18 122/78 94 10/06/17 20:00 76 10/06/17 16:31 98.0 F 77 18 133/83 93 10/06/17 14:56 97.5 F L 99 H 24 172/98 94 10/06/17 13:30 98.1 F 89 18 146/102 100 10/06/17 13:21 97.8 F 78 18 130/79 94 - Physical Examination General: No Apparent Distress HEENT: Positive: PERRL Cardiac: Positive: Reg Rate and Rhythm Lungs: Positive: clear to auscultation Neuro: Positive: Grossly Intact Extremities: Absent: edema - Labs and Meds Comprehensive Metabolic Panel 10/07/17 Range/Units 07:04 Sodium 140 (137-145) mmol/L Potassium 4.1 (3.6-5.0) mmol/L Chloride 100.4 (98-107) mmol/L Carbon Dioxide 25 (22-30) mmol/L BUN 16 (9-20) mg/dL Creatinine 1.2 (0.8-1.5) mg/dL Glucose 95 (75-100) mg/dL Calcium 8.9 (8.4-10.2) mg/dL
[2017-10-07] MEDS: LOVENOX SUB-Q SCH (11:19)
[2017-10-07] MEDS: IMDUR PO SCH (11:20)
[2017-10-07] MEDS: BABY ASPIRIN PO SCH (11:20)
[2017-10-07] MEDS: ZESTRIL PO SCH (11:21)
[2017-10-07] MEDS: COREG PO SCH ×2 (11:22→21:24)
[2017-10-07] MEDS: PLAVIX PO SCH (11:22)
[2017-10-07] MEDS: LASIX PO SCH (19:19)
[2017-10-07] MEDS: FLOMAX PO SCH (21:24)
[2017-10-07] MEDS ORDERED: NON-FORMULARY (Tamsulosin 0.4 MG) PO SCH (22:00)
[2017-10-07] MEDS ORDERED: NON-FORMULARY (Atorvastatin 80 MG) PO SCH (22:00)
[2017-10-08] MEDS: LASIX PO SCH ×3 (05:55→19:00)
[2017-10-08] MEDS: ZESTRIL PO SCH (09:19)
[2017-10-08] MEDS: IMDUR PO SCH (09:20)
[2017-10-08] MEDS: BABY ASPIRIN PO SCH (09:21)
[2017-10-08] MEDS: LOVENOX SUB-Q SCH (09:21)
[2017-10-08] MEDS: COREG PO SCH ×2 (09:30→21:38)
[2017-10-08] MEDS ORDERED: LEXISCAN IV ONE ×2 (10:28→10:29)
[2017-10-08] MEDS: PLAVIX PO SCH (12:37)
--- NOTE | 2017-10-08 16:34 | Discharge Summary ---
Providers - Providers Date of Admission: 10/05/17 22:00 Date of discharge: 10/08/17 Attending physician: BAILEE KIRKLAND 10/06/17 00:50 Consult to Physician [CONS] Routine Consulting Provider: JACKSON DORADO Reason For Exam: CHF Place consult to:: Dr. Dorado Notified:: Alexandra ELIZONDO Phone number called:: Was contact made?: Yes If yes, spoke with:: Emilio service Time called:: 08:16 Primary care physician: REHABILITATION CASE COORDINATOR Hospitalization Condition: Serious Disposition: DC-01 TO HOME OR SELFCARE Core Measure Documentation - Palliative Care Palliative Care/ Comfort Measures: Not Applicable - Core Measures Any of the following diagnoses?: heart failure - Heart Failure Discharge Requirements DIAZ/ARB for LVSD if EF <40%: Yes Beta luis at discharge: Yes Exam - Constitutional Vitals: Temp Pulse Resp BP Pulse Ox 97.8 F 71 18 127/72 96 10/08/17 12:07 10/08/17 12:07 10/08/17 12:07 10/08/17 12:07 10/08/17 12:07 General appearance: Present: no acute distress, well-nourished - EENT Eyes: Present: PERRL, EOM intact - Neck Neck: Present: supple, normal ROM - Respiratory Respiratory effort: normal Respiratory: bilateral: diminished, negative: rales, rhonchi, wheezing - Cardiovascular Rhythm: regular Heart Sounds: Present: S1 & S2 - Extremities Extremities: no ischemia, No edema - Abdominal General gastrointestinal: Present: soft, non-tender, non-distended, normal bowel sounds - Integumentary Integumentary: Present: clear, warm - Musculoskeletal Musculoskeletal: strength equal bilaterally, generalized weakness - Psychiatric Psychiatric: appropriate mood/affect, cooperative - Neurologic Neurologic: CNII-XII intact, moves all extremities Plan Activity: advance as tolerated Diet: low salt, other (cardiac diet) Special Instructions: restrict fluid intake to (< 1200 ml/24 hrs) Follow up with: JUNE STONE MD [Primary Care Provider] - 3-5 Days JACKSON DORADO MD [Staff Physician] - 3 Days Prescriptions: Furosemide [Lasix TAB] 40 mg PO DAILY #30 tablet
--- NOTE | 2017-10-08 20:14 | Progress Note ---
Assessment and Plan Assessment and plan: --Stress test is negative; no current cardiac medications --Acute hypoxic respiratory failure; secondary to acute exacerbation of systolic congestive heart failure Symptoms slightly improved, continue oxygen and telemetry medications and supportive care, cardiology following --Acute on chronic systolic congestive heart failure; continue anti-failure medications --Severe ischemic cardiomyopathy; ejection fraction 10-20% fluid restriction, low sodium diet, anti-failure medications ,input output monitoring LifeVest prior to discharge --Coronary artery disease; partial coronary revascularization 3 months ago, per cardiology, Continue aspirin and Plavix and beta blockers and DIAZ inhibitor since statins Stress test tomorrow --Hypertension; closely monitor blood pressures continue current antihypertensives and when necessary medications --Dyslipidemia; stable on lipid-lowering medications --DVT prophylaxis; on Lovenox Plan of care reviewed with the patient, and his nurse LifeVest prior to discharge Patient is medically stable to be discharged home, waiting for LifeVest History Interval history: Patient seen and examined medical records reviewed Patient underwent stress test which was negative Denies chest pain shortness of breath Vital signs stable Hospitalist Physical - Constitutional Vitals: Temp Pulse Resp BP Pulse Ox 97.7 F 73 18 151/84 97 10/08/17 16:04 10/08/17 16:04 10/08/17 16:04 10/08/17 16:04 10/08/17 16:04 General appearance: Present: no acute distress, well-nourished - EENT Eyes: Present: PERRL, EOM intact - Neck Neck: Present: supple, normal ROM - Respiratory Respiratory effort: normal Respiratory: bilateral: diminished, negative: rales, rhonchi, wheezing - Cardiovascular Rhythm: regular Heart Sounds: Present: S1 & S2 - Extremities Extremities: no ischemia, No edema - Abdominal General gastrointestinal: soft, non-tender, non-distended, normal bowel sounds - Integumentary Integumentary: Present: clear, warm - Psychiatric Psychiatric: appropriate mood/affect, cooperative - Neurologic Neurologic: CNII-XII intact, moves all extremities Results - Labs CBC & Chem 7: 10/05/17 17:23 10/07/17 07:04 Labs: Laboratory Last Values WBC 8.2 K/mm3 (4.5-11.0) 10/05/17 17:23 RBC 5.60 M/mm3 (3.65-5.03) H 10/05/17 17:23 Hgb 14.9 gm/dl (11.8-15.2) 10/05/17 17:23 Hct 45.6 % (35.5-45.6) 10/05/17 17:23 MCV 81 fl (84-94) L 10/05/17 17:23 MCH 27 pg (28-32) L 10/05/17 17: MCHC 33 % (32-34) 10/05/17 17:23 RDW 16.0 % (13.2-15.2) H 10/05/17 17:23 Plt Count 248 K/mm3 (140-440) 10/05/17 17:23 Lymph % (Auto) 22.6 % (13.4-35.0) 10/05/17 17:23 [place] % (Auto) 4.3 % (0.0-7.3) 10/05/17 17:23 Eos % (Auto) 3.9 % (0.0-4.3) 10/05/17 17:23 Baso % (Auto) 1.0 % (0.0-1.8) 10/05/17 17:23 Lymph # 1.8 K/mm3 (1.2-5.4) 10/05/17 17:23 [place] # 0.3 K/mm3 (0.0-0.8) 10/05/17 17:23 Eos # 0.3 K/mm3 (0.0-0.4) 10/05/17 17:23 Baso # 0.1 K/mm3 (0.0-0.1) 10/05/17 17:23 Seg Neutrophils % 68.2 % (40.0-70.0) 10/05/17 17: Seg Neutrophils # 5.6 K/mm3 (1.8-7.7) 10/05/17 17:23 Sodium 140 mmol/L (137-145) 10/07/17 07:04 Potassium 4.1 mmol/L (3.6-5.0) 10/07/17 07:04 Chloride 100.4 mmol/L (98-107) 10/07/17 07:04 Carbon Dioxide 25 mmol/L (22-30) 10/07/17 07:04 Anion Gap 19 mmol/L 10/07/17 07:04 BUN 16 mg/dL (9-20) 10/07/17 07:04 Creatinine 1.2 mg/dL (0.8-1.5) 10/07/17 07:04 Estimated GFR > 60 ml/min 10/07/17 07:04 BUN/Creatinine Ratio 13 % 10/07/17 07:04 Glucose 95 mg/dL (75-100) 10/07/17 07:04 Calcium 8.9 mg/dL (8.4-10.2) 10/07/17 07:04 Total Bilirubin 0.70 mg/dL (0.1-1.2) 10/05/17 17:23 AST 14 units/L (5-40) 10/05/17 17:23 ALT 19 units/L (7-56) 10/05/17 17:23 Alkaline Phosphatase 91 units/L (35-129) 10/05/17 17:23 NT-Pro-B Natriuret Pep 2311 pg/mL (0-900) H 10/06/17 02:42 Total Protein 7.0 g/dL (6.3-8.2) 10/05/17 17:23 Albumin 4.3 g/dL (3.9-5) 10/05/17 17:23 Albumin/Globulin Ratio 1.6 % 10/05/17 17:23
[2017-10-08] MEDS: FLOMAX PO SCH (21:38)
[2017-10-09] MEDS: LASIX PO SCH ×2 (06:28→17:23)
[2017-10-09] MEDS: COREG PO SCH (09:58)
[2017-10-09] MEDS: BABY ASPIRIN PO SCH (09:58)
[2017-10-09] MEDS: PLAVIX PO SCH (09:58)
[2017-10-09] MEDS: ZESTRIL PO SCH (09:58)
[2017-10-09] MEDS: LOVENOX SUB-Q SCH (09:58)
[2017-10-09] MEDS: IMDUR PO SCH (09:58)
--- NOTE | 2017-10-09 10:25 | Progress Note ---
Assessment and Plan Decompenstated systolic heart failure Hx of CAD [facility] 06/2017: showed SUPERVISOR INTERMEDIATES's of the LAD and RCA and eccentric 80% stenosis of the proximal circumflex. We recommended emergency surgical revascularization, and he was transferred to [place] with intra-aortic balloon pump counterpulsation. Ultimately, he was turned down for surgery, assessed as high risk. He then underwent single-vessel revascularization with angioplasty of the RCA with stenting. His chronic total LAD occlusion and the 80% stenosis of the circumflex were recommended for medical management. no ischemia on MPI this admission. Severe ischemic cardiomyopathy 15-20% on echocardiogram this admission Hypertension Recommendations: Continue medical therapy for coronary and ischemic cardiomyopathy. LifeVest placement on discharge. In the future, patient should be considered for elective ICD therapy by his primary maintenance data analyst. Once discharged, follow up with [facility]. as scheduled on October 14. Subjective Date of service: 10/09/17 Interval history: Patient has no complaints. Reports his breathing is better. Awaits lifevest placement. Objective Vital Signs Temp Pulse Resp BP BP Pulse Ox 10/09/17 08:40 98.4 F 64 20 132/83 96 10/09/17 06:21 113/69 10/09/17 04:43 63 95 10/09/17 04:42 97.7 F 67 20 105/64 96 10/09/17 01:34 97.5 F L 62 20 93/56 92 10/09/17 01:06 61 93 10/08/17 22:00 20 10/08/17 21:38 75 110/64 10/08/17 21:13 97.9 F 63 20 110/64 96 10/08/17 20:41 61 96 10/08/17 19:41 62 10/08/17 16:04 97.7 F 73 18 151/84 97 10/08/17 12:07 97.8 F 71 18 127/72 96 10/08/17 10:57 76 139/83 10/08/17 10:56 80 151/82 10/08/17 10:55 91 H 147/87 10/08/17 10:54 98 H 154/85 10/08/17 10:53 108 H 154/89 10/08/17 10:38 61 145/91 - Physical Examination General: No Apparent Distress HEENT: Positive: PERRL Cardiac: Positive: Reg Rate and Rhythm Neuro: Positive: Grossly Intact Extremities: Absent: edema
--- NOTE | 2017-10-09 15:35 | Progress Note ---
Assessment and Plan Assessment and plan: --Stress test is negative; no current cardiac medications --Acute hypoxic respiratory failure; secondary to acute exacerbation of systolic congestive heart failure Symptoms slightly improved, continue oxygen and telemetry medications and supportive care, cardiology following --Acute on chronic systolic congestive heart failure; continue anti-failure medications --Severe ischemic cardiomyopathy; ejection fraction 10-20% fluid restriction, low sodium diet, anti-failure medications ,input output monitoring LifeVest prior to discharge --Coronary artery disease; partial coronary revascularization 3 months ago, per cardiology, Continue aspirin and Plavix and beta blockers and DIAZ inhibitor since statins Stress test tomorrow --Hypertension; closely monitor blood pressures continue current antihypertensives and when necessary medications --Dyslipidemia; stable on lipid-lowering medications --DVT prophylaxis; on Lovenox Plan of care reviewed with the patient, and his nurse LifeVest prior to discharge Patient is medically stable to be discharged home, waiting for LifeVest Hospitalist Physical - Constitutional Vitals: Temp Pulse Resp BP Pulse Ox 98.9 F 63 20 110/61 97 10/09/17 11:33 10/09/17 11:33 10/09/17 11:33 10/09/17 11:33 10/09/17 11:33 General appearance: Present: no acute distress, well-nourished Results - Labs CBC & Chem 7: 10/05/17 17:23 10/07/17 07:04 Labs: Laboratory Last Values WBC 8.2 K/mm3 (4.5-11.0) 10/05/17 17:23 RBC 5.60 M/mm3 (3.65-5.03) H 10/05/17 17:23 Hgb 14.9 gm/dl (11.8-15.2) 10/05/17 17:23 Hct 45.6 % (35.5-45.6) 10/05/17 17:23 MCV 81 fl (84-94) L 10/05/17 17:23 MCH 27 pg (28-32) L 10/05/17 17:23 MCHC 33 % (32-34) 10/05/17 17:23 RDW 16.0 % (13.2-15.2) H 10/05/17 17:23 Plt Count 248 K/mm3 (140-440) 10/05/17 17:23 Lymph % (Auto) 22.6 % (13.4-35.0) 10/05/17 17:23 [place] % (Auto) 4.3 % (0.0-7.3) 10/05/17 17:23 Eos % (Auto) 3.9 % (0.0-4.3) 10/05/17 17:23 Baso % (Auto) 1.0 % (0.0-1.8) 10/05/17 17: Lymph # 1.8 K/mm3 (1.2-5.4) 10/05/17 17:23 [place] # 0.3 K/mm3 (0.0-0.8) 10/05/17 17: Eos # 0.3 K/mm3 (0.0-0.4) 10/05/17 17: Baso # 0.1 K/mm3 (0.0-0.1) 10/05/17 17: Seg Neutrophils % 68.2 % (40.0-70.0) 10/05/17 17: Seg Neutrophils # 5.6 K/mm3 (1.8-7.7) 10/05/17 17:23 Sodium 140 mmol/L (137-145) 10/07/17 07:04 Potassium 4.1 mmol/L (3.6-5.0) 10/07/17 07:04 Chloride 100.4 mmol/L (98-107) 10/07/17 07:04 Carbon Dioxide 25 mmol/L (22-30) 10/07/17 07:04 Anion Gap 19 mmol/L 10/07/17 07:04 BUN 16 mg/dL (9-20) 10/07/17 07:04 Creatinine 1.2 mg/dL (0.8-1.5) 10/07/17 07:04 Estimated GFR > 60 ml/min 10/07/17 07:04 BUN/Creatinine Ratio 13 % 10/07/17 07:04 Glucose 95 mg/dL (75-100) 10/07/17 07:04 Calcium 8.9 mg/dL (8.4-10.2) 10/07/17 07:04 Total Bilirubin 0.70 mg/dL (0.1-1.2) 10/05/17 17:23 AST 14 units/L (5-40) 10/05/17 17:23 ALT 19 units/L (7-56) 10/05/17 17:23 Alkaline Phosphatase 91 units/L (35-129) 10/05/17 17:23 NT-Pro-B Natriuret Pep 2311 pg/mL (0-900) H 10/06/17 02:42 Total Protein 7.0 g/dL (6.3-8.2) 10/05/17 17:23 Albumin 4.3 g/dL (3.9-5) 10/05/17 17:23 Albumin/Globulin Ratio 1.6 % 10/05/17 17:23
--- NOTE | 2017-10-09 20:33 | Discharge Summary ---
Providers - Providers Date of Admission: 10/05/17 22:00 Date of discharge: 10/09/17 Attending physician: BAILEE KIRKLAND 10/06/17 00:50 Consult to Physician [CONS] Routine Consulting Provider: JACKSON DORADO Reason For Exam: CHF Place consult to:: Dr. Dorado Notified:: Alexandra ELIZODNO Phone number called:: Was contact made?: Yes If yes, spoke with:: Leni-answering service Time called:: 08:16 Primary care physician: ANIMAL PATHOLOGY TEACHER Hospitalization Condition: Serious Hospital course: --Stress test is negative; no current cardiac medications --Acute hypoxic respiratory failure; secondary to acute exacerbation of systolic congestive heart failure Symptoms slightly improved, continue oxygen and telemetry medications and supportive care, cardiology following --Acute on chronic systolic congestive heart failure; continue anti-failure medications --Severe ischemic cardiomyopathy; ejection fraction 10-20% fluid restriction, low sodium diet, anti-failure medications ,input output monitoring LifeVest prior to discharge --Coronary artery disease; partial coronary revascularization 3 months ago, per cardiology, Continue aspirin and Plavix and beta blockers and DIAZ inhibitor since statins Stress test tomorrow --Hypertension; closely monitor blood pressures continue current antihypertensives and when necessary medications --Dyslipidemia; stable on lipid-lowering medications Disposition: DC-01 TO HOME OR SELFCARE Exam - Constitutional Vitals: Temp Pulse Resp BP Pulse Ox 97.8 F 59 L 18 123/73 96 10/09/17 16:12 10/09/17 16:12 10/09/17 16:12 10/09/17 16:12 10/09/17 16:12 Plan Follow up with: JACKSON DORADO MD [Staff Physician] - 3 Days PRIMARY CAREMD [Primary Care Provider] - 3-5 Days Prescriptions: Furosemide [Lasix TAB] 40 mg PO DAILY #30 tablet Potassium Chloride 10 meq PO QDAY #30 capsule.er
[2017-10-09 21:58] VITALS: BP 168/86
== END 2017-10-09 22:00 | disposition home or self-care (01) | DRG 291 ==
LOC: ED 16:36 → 4A 22:00
PROVIDERS: ADMIT Family Medicine; ATTEND Internal Medicine
DX: I11.0 Hypertensive heart disease with heart failure (principal); J96.01 Acute respiratory failure with hypoxia; I50.23 Acute on chronic systolic (congestive) heart failure; I25.5 Ischemic cardiomyopathy; I25.10 Atherosclerotic heart disease of native coronary artery without angina pectoris; E78.5 Hyperlipidemia, unspecified; I16.9 Hypertensive crisis, unspecified; I25.82 Chronic total occlusion of coronary artery; I25.2 Old myocardial infarction; Z79.82 Long term (current) use of aspirin; Z79.899 Other long term (current) drug therapy
CPT/HCPCS: 36415; 71045; 78452; 80048; 80053; 83880; 85025; 93005; 93010; 93017; 93306; 94640; 94760; 96365; 96375; A9270-GY; A9502; J1650; J1940; J2260; J2785; J3010

== ENCOUNTER 2017-11-15 10:07 | Emergency (ER) | payer MEDICARE ==
[2017-11-15 11:55] LABS: Creatine Kinase MB 2.9 ng/mL (0.0-4.0)
[2017-11-15 12:00] LABS: Alanine Aminotransferase 19 units/L (7-56); Albumin 4.2 g/dL (3.9-5); BUN/Creatinine Ratio 18; Blood Urea Nitrogen 22 mg/dL (9-20); Hemolysis Index 5
[2017-11-15 12:15] LABS: Bacteria,Urine 1+ /HPF (Negative); Bilirubin,Urine NEG (Negative); Blood,Urine LG (Negative); Color,Urine Red (Yellow); Mucus,Urine FEW /HPF; Urobilinogen,Urine < 2.0 mg/dL (<2.0)
[2017-11-15 12:16] LABS: Bilirubin,Direct < 0.2 mg/dL (0-0.2)
[2017-11-15 12:17] LABS: Basophils % (Auto) 0.4 % (0.0-1.8); Eosinophils # (Auto) 0.1 K/mm3 (0.0-0.4); Eosinophils % (Auto) 1.2 % (0.0-4.3); Hematocrit 45.5 % (35.5-45.6); Hemoglobin 14.9 gm/dl (11.8-15.2); Lymphocytes # (Auto) 1.4 K/mm3 (1.2-5.4); Lymphocytes % (Auto) 14.6 % (13.4-35.0); Mean Corpuscular HGB Conc 33 % (32-34); Mean Corpuscular Hemoglobin 26 pg (28-32); Mean Corpuscular Volume 80 fl (84-94); Monocytes # (Auto) 0.8 K/mm3 (0.0-0.8); Monocytes % (Auto) 7.7 % (0.0-7.3); Platelet Count 188 K/mm3 (140-440); Red Blood Count 5.72 M/mm3 (3.65-5.03); Red Cell Distribution Width 16.3 % (13.2-15.2)
[2017-11-15 12:27] LABS: INR 0.95 (0.87-1.13); Partial Thromboplastin Time 27.3 Sec. (24.2-36.6)
[2017-11-15] MEDS ORDERED: XYLOCAINE 1% MPF 5 mL INFILTRATI ONE (12:35)
[2017-11-15] MEDS ORDERED: ROCEPHIN IM ONE (12:35)
--- NOTE | 2017-11-15 12:55 | Emergency Department Report ---
ED General Adult HPI - General Chief complaint: Urogenital-Male Stated complaint: HEMATURIA Time Seen by Provider: 11/15/17 11:02 Source: patient Mode of arrival: Ambulatory Limitations: No Limitations - History of Present Illness Initial comments: This is a 67-year-old man who is recently admitted for a cardiac workup and diuresis. He had a Jaimes catheter. He was discharged yesterday and improved condition. There was no apparent complication in the hospital. I did note that his creatinine was 1.4 on discharge. Patient has a long history of prostate enlargement but states he has never seen a urologist. He has an appointment to see one tomorrow. The reason why he is here today is because he has dysuria and has noted some hematuria. He denies fever or chills. He has had prior UTIs. He does not complain of abdominal or back pain. He is not nauseated. -: Gradual, hour(s) Severity scale (0 -10): 0 Consistency: intermittent Improves with: none Worsens with: none Associated Symptoms: denies other symptoms (states able to empty his bladder) - Related Data Home Medications Medication Instructions Recorded Confirmed Last Taken Aspirin [Aspirin EC] 81 mg PO DAILY #0 10/05/17 11/12/17 1 Day Ago ~11/11/17 Atorvastatin Calcium [Lipitor] 80 mg PO QHS #0 10/05/17 11/12/17 1 Day Ago ~11/11/17 Carvedilol [Coreg] 6.25 mg PO DAILY #0 10/05/17 11/12/17 1 Day Ago ~11/11/17 Clopidogrel Bisulfate [Plavix] 75 mg PO DAILY #0 10/05/17 11/12/17 1 Day Ago ~11/11/17 ISOSORBIDE MONOnitrate [Imdur ER] 30 mg PO DAILY #0 10/05/17 11/12/17 1 Day Ago ~11/11/17 Tamsulosin [Flomax] 0.4 mg PO QHS #0 10/05/17 11/12/17 1 Day Ago ~11/11/17 Previous Rx's Medication Instructions Recorded Last Taken Type Lisinopril [Zestril TAB] 20 mg PO QDAY #30 tablet 07/14/16 1 Day Ago Rx ~11/11/17 Furosemide [Lasix TAB] 40 mg PO DAILY #30 tablet 10/08/17 1 Day Ago Rx ~11/11/17 Potassium Chloride 10 meq PO QDAY #30 capsule.er 10/08/17 1 Day Ago Rx ~11/11/17 Polyethylene Glycol 3350 [Miralax 17 gm PO QDAY 14 Days powd.pack 11/14/17 Unknown Rx 3350] Cefuroxime [Ceftin] 250 mg PO Q12H #20 tablet 11/15/17 Unknown Rx Allergies Allergy/AdvReac Type Severity Reaction Status Date / Time hydralazine AdvReac Unknown Verified 10/05/17 16:47 ED Review of Systems ROS: Stated complaint: HEMATURIA Other details as noted in HPI Constitutional: denies: chills, fever Eyes: denies: eye pain, eye discharge, vision change ENT: denies: ear pain, throat pain Respiratory: denies: cough, shortness of breath, wheezing Cardiovascular: denies: chest pain, palpitations Endocrine: no symptoms reported Gastrointestinal: denies: abdominal pain, nausea, diarrhea Genitourinary: dysuria, frequency, hematuria. 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, bronchitis - Surgical History Past Surgical History?: Yes Hx Coronary Stent: Yes (unknown date) Additional Surgical History: finger surgery - Social History Smoking Status: Never Smoker Substance Use Type: None - Medications Home Medications: Home Medications Medication Instructions Recorded Confirmed Last Taken Type Lisinopril [Zestril TAB] 20 mg PO QDAY #30 tablet 07/14/16 11/12/17 1 Day Ago Rx ~11/11/17 Aspirin [Aspirin EC] 81 mg PO DAILY #0 10/05/17 11/12/17 1 Day Ago History ~11/11/17 Atorvastatin Calcium [Lipitor] 80 mg PO QHS #0 10/05/17 11/12/17 1 Day Ago History ~11/11/17 Carvedilol [Coreg] 6.25 mg PO DAILY #0 10/05/17 11/12/17 1 Day Ago History ~11/11/17 Clopidogrel Bisulfate [Plavix] 75 mg PO DAILY #0 10/05/17 11/12/17 1 Day Ago History ~11/11/17 ISOSORBIDE MONOnitrate [Imdur ER] 30 mg PO DAILY #0 10/05/17 11/12/17 1 Day Ago History ~11/11/17 Tamsulosin [Flomax] 0.4 mg PO QHS #0 10/05/17 11/12/17 1 Day Ago History ~11/11/17 Furosemide [Lasix TAB] 40 mg PO DAILY #30 tablet 10/08/17 11/12/17 1 Day Ago Rx ~11/11/17 Potassium Chloride 10 meq PO QDAY #30 capsule.er 10/08/17 11/12/17 1 Day Ago Rx ~11/11/17 Polyethylene Glycol 3350 [Miralax 17 gm PO QDAY 14 Days powd.pack 11/14/17 Unknown Rx 3350] Cefuroxime [Ceftin] 250 mg PO Q12H #20 tablet 11/15/17 Unknown Rx ED Physical Exam - General Limitations: No Limitations General appearance: alert, in no apparent distress - Head Head exam: Present: atraumatic, normocephalic - Eye Eye exam: Present: normal appearance, PERRL, EOMI. Absent: scleral icterus - ENT ENT exam: Present: mucous membranes moist - Neck Neck exam: Present: normal inspection. Absent: tenderness, meningismus - Respiratory Respiratory exam: Present: normal lung sounds bilaterally. Absent: respiratory distress - Cardiovascular Cardiovascular Exam: Present: regular rate, normal rhythm. Absent: systolic murmur, diastolic murmur, rubs, gallop - GI/Abdominal GI/Abdominal exam: Present: soft, normal bowel sounds. Absent: distended, tenderness, guarding, rebound, rigid - Rectal Rectal exam: Present: deferred - Extremities Exam Extremities exam: Present: normal inspection. Absent: pedal edema, calf tenderness - Back Exam Back exam: Present: normal inspection - Neurological Exam Neurological exam: Present: alert, oriented X3, CN II-XII intact, normal gait. Absent: motor sensory deficit - Psychiatric Psychiatric exam: Present: normal affect, normal mood - Skin Skin exam: Present: warm, dry, intact, normal color. Absent: rash ED Course Vital Signs 11/15/17 11/15/17 10:14 11:00 Temperature 98 F 97.5 F L Pulse Rate 74 80 Respiratory 18 10 L Rate Blood Pressure 134/78 Blood Pressure 123/61 [Left] O2 Sat by Pulse 97 97 Oximetry - Reevaluation(s) Reevaluation #1: Patient was given IM ceftriaxone while he was here. He looked well and was requesting discharge. He will follow-up with the urologist tomorrow as planned. A urine culture is pending. 11/15/17 12:56 ED Medical Decision Making - Lab Data Result diagrams: 11/15/17 11:25 11/15/17 11:25 Laboratory Results - last 24 hr 11/15/17 11/15/17 11/15/17 10:26 11:25 11:25 WBC 9.8 RBC 5.72 H Hgb 14.9 Hct 45.5 MCV 80 L MCH 26 L MCHC 33 RDW 16.3 H Plt Count 188 Lymph % (Auto) 14.6 [place] % (Auto) 7.7 H Eos % (Auto) 1.2 Baso % (Auto) 0.4 Lymph # 1.4 [place] # 0.8 Eos # 0.1 Baso # 0.0 Seg Neutrophils % 76.1 H Seg Neutrophils # 7.4 PT 13.2 INR 0.95 APTT 27.3 Sodium Potassium Chloride Carbon Dioxide Anion Gap BUN Creatinine Estimated GFR BUN/Creatinine Ratio Glucose Calcium Total Bilirubin Direct Bilirubin AST ALT Alkaline Phosphatase Total Creatine Kinase CK-MB (CK-2) CK-MB (CK-2) Rel Index Total Protein Albumin Albumin/Globulin Ratio Prostate Specific Ag Urine Color Red Urine Turbidity Clear Urine pH 8.0 H Ur Specific [place] 1.013 Urine Protein 100 mg/dl Urine Glucose (UA) Neg Urine Ketones Neg Urine Blood Lg Urine Nitrite Neg Urine Bilirubin Neg Urine Urobilinogen < 2.0 Ur Leukocyte Esterase Lg Urine WBC (Auto) 154.0 H Urine RBC (Auto) 167.0 Urine Bacteria (Auto) 1+ Urine WBC Clumps 2+ Urine Mucus Few 11/15/17 11/15/17 11:25 11:25 WBC RBC Hgb Hct MCV MCH MCHC RDW Plt Count Lymph % (Auto) [place] % (Auto) Eos % (Auto) Baso % (Auto) Lymph # [place] # Eos # Baso # Seg Neutrophils % Seg Neutrophils # PT INR APTT Sodium 138 Potassium 3.6 Chloride 95.2 L Carbon Dioxide 29 D Anion Gap 17 BUN 22 H Creatinine 1.2 Estimated GFR > 60 BUN/Creatinine Ratio 18 Glucose 114 H Calcium 9.0 Total Bilirubin 1.00 Direct Bilirubin < 0.2 AST 13 ALT 19 Alkaline Phosphatase 71 Total Creatine Kinase 143 CK-MB (CK-2) 2.9 CK-MB (CK-2) Rel Index 2.0 Total Protein 7.1 Albumin 4.2 Albumin/Globulin Ratio 1.4 Prostate Specific Ag 5.99 H Urine Color Urine Turbidity Urine pH Ur Specific [place] Urine Protein Urine Glucose (UA) Urine Ketones Urine Blood Urine Nitrite Urine Bilirubin Urine Urobilinogen Ur Leukocyte Esterase Urine WBC (Auto) Urine RBC (Auto) Urine Bacteria (Auto) Urine WBC Clumps Urine Mucus Critical care attestation.: If time is entered above; I have spent that time in minutes in the direct care of this critically ill patient, excluding procedure time. ED Disposition Clinical Impression: Acute cystitis with hematuria, Elevated PSA Disposition: TO HOME OR SELFCARE Is pt being admited?: No Does the pt Need Aspirin: No Condition: Stable Instructions: Urinary Tract Infection in Men (ED) Additional Instructions: Increase fluids. Follow-up with urologist on your urine culture. Keep her appointment tomorrow. Rx as directed. May start antibiotic in a.m. as you have already had your first dose here. Your PSA test was 5.99. Your urologist will like to know that information. Prescriptions: Cefuroxime [Ceftin] 250 mg PO Q12H #20 tablet Referrals: JAXSON WILKINSON JR, MD [Primary Care Provider] - 3-5 Days [facility] [Provider Group] - 24 Hours Time of Disposition: 13:01
[2017-11-15 13:45] VITALS: BP 129/75
== END 2017-11-15 13:35 | disposition home or self-care (01) ==
LOC: ED 10:07
DX: N30.01 Acute cystitis with hematuria (principal)
CPT/HCPCS: 36415; 80048; 80074; 81001; 82550; 82553; 84153; 85025; 85610; 85730; 87086; 96372; 99283; J0696; 87076; 87186

== ENCOUNTER 2018-01-19 10:37 | Emergency (ER) | payer MEDICARE ==
[2018-01-19 10:44] VITALS: BP 177/100
--- NOTE | 2018-01-19 12:22 | Emergency Department Report ---
ED ENT HPI - General Chief complaint: Earache Stated complaint: EAR PAIN Time Seen by Provider: 01/19/18 12:17 Source: patient Mode of arrival: Ambulatory Limitations: No Limitations - History of Present Illness Initial comments: Patient appears for earache 4 days history of same patient pain medicines and antibiotics present to pain no shortness of breath no dizziness no lightheadedness no fever or chills complaint: ear pain Onset/Timin -: days(s) Location: L ear Severity: moderate Severity scale (0 -10): 4 Quality: aching Consistency: intermittent Improves with: none Worsens with: none Context-Epistaxis: other Associated Symptoms: tinnitus - Related Data Home Medications Medication Instructions Recorded Confirmed Last Taken Aspirin [Aspirin EC] 81 mg PO DAILY #0 10/05/17 11/12/17 1 Day Ago ~11/11/17 Atorvastatin Calcium [Lipitor] 80 mg PO QHS #0 10/05/17 11/12/17 1 Day Ago ~11/11/17 Carvedilol [Coreg] 6.25 mg PO DAILY #0 10/05/17 11/12/17 1 Day Ago ~11/11/17 Clopidogrel Bisulfate [Plavix] 75 mg PO DAILY #0 10/05/17 11/12/17 1 Day Ago ~11/11/17 ISOSORBIDE MONOnitrate [Imdur ER] 30 mg PO DAILY #0 10/05/17 11/12/17 1 Day Ago ~11/11/17 Tamsulosin [Flomax] 0.4 mg PO QHS #0 10/05/17 11/12/17 1 Day Ago ~11/11/17 Previous Rx's Medication Instructions Recorded Last Taken Type Lisinopril [Zestril TAB] 20 mg PO QDAY #30 tablet 07/14/16 1 Day Ago Rx ~11/11/17 Furosemide [Lasix TAB] 40 mg PO DAILY #30 tablet 10/08/17 1 Day Ago Rx ~11/11/17 Potassium Chloride 10 meq PO QDAY #30 capsule.er 10/08/17 1 Day Ago Rx ~11/11/17 Polyethylene Glycol 3350 [Miralax 17 gm PO QDAY 14 Days powd.pack 11/14/17 Unknown Rx 3350] Cefuroxime [Ceftin] 250 mg PO Q12H #20 tablet 11/15/17 Unknown Rx Acetaminophen [Tylenol Extra 500 mg PO QID PRN #30 tablet 01/19/18 Unknown Rx Strength] Amoxicillin 500 mg PO TID #30 capsule 01/19/18 Unknown Rx Allergies Allergy/AdvReac Type Severity Reaction Status Date / Time hydralazine AdvReac Unknown Verified 10/05/17 16:47 ED Dental HPI - General Chief complaint: Earache Stated complaint: EAR PAIN Time Seen by Provider: 01/19/18 12:17 Source: patient Mode of arrival: Ambulatory Limitations: No Limitations - Related Data Home Medications Medication Instructions Recorded Confirmed Last Taken Aspirin [Aspirin EC] 81 mg PO DAILY #0 10/05/17 11/12/17 1 Day Ago ~11/11/17 Atorvastatin Calcium [Lipitor] 80 mg PO QHS #0 10/05/17 11/12/17 1 Day Ago ~11/11/17 Carvedilol [Coreg] 6.25 mg PO DAILY #0 10/05/17 11/12/17 1 Day Ago ~11/11/17 Clopidogrel Bisulfate [Plavix] 75 mg PO DAILY #0 10/05/17 11/12/17 1 Day Ago ~11/11/17 ISOSORBIDE MONOnitrate [Imdur ER] 30 mg PO DAILY #0 10/05/17 11/12/17 1 Day Ago ~11/11/17 Tamsulosin [Flomax] 0.4 mg PO QHS #0 10/05/17 11/12/17 1 Day Ago ~11/11/17 Previous Rx's Medication Instructions Recorded Last Taken Type Lisinopril [Zestril TAB] 20 mg PO QDAY #30 tablet 07/14/16 1 Day Ago Rx ~11/11/17 Furosemide [Lasix TAB] 40 mg PO DAILY #30 tablet 10/08/17 1 Day Ago Rx ~11/11/17 Potassium Chloride 10 meq PO QDAY #30 capsule.er 10/08/17 1 Day Ago Rx ~11/11/17 Polyethylene Glycol 3350 [Miralax 17 gm PO QDAY 14 Days powd.pack 11/14/17 Unknown Rx 3350] Cefuroxime [Ceftin] 250 mg PO Q12H #20 tablet 11/15/17 Unknown Rx Acetaminophen [Tylenol Extra 500 mg PO QID PRN #30 tablet 01/19/18 Unknown Rx Strength] Amoxicillin 500 mg PO TID #30 capsule 01/19/18 Unknown Rx Allergies Allergy/AdvReac Type Severity Reaction Status Date / Time hydralazine AdvReac Unknown Verified 10/05/17 16:47 ED Review of Systems ROS: Stated complaint: EAR PAIN Other details as noted in HPI Constitutional: denies: chills, fever Eyes: eye discharge ENT: denies: ear pain, throat pain Respiratory: denies: cough, shortness of breath, wheezing Cardiovascular: denies: chest pain, palpitations Endocrine: no symptoms reported Gastrointestinal: denies: abdominal pain, nausea, diarrhea Genitourinary: denies: urgency, dysuria Musculoskeletal: denies: back pain, joint swelling, arthralgia Skin: denies: rash, lesions Neurological: denies: headache, weakness, paresthesias Psychiatric: denies: anxiety, depression Hematological/Lymphatic: denies: easy bleeding, easy bruising ED Past Medical Hx - Past Medical History Hx Hypertension: Yes Hx Heart Attack/AMI: Yes Hx Congestive Heart Failure: Yes Hx Asthma: Yes Additional medical history: 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, bronchitis - Surgical History Hx Coronary Stent: Yes (unknown date) Additional Surgical History: finger surgery - Social History Smoking Status: Never Smoker Substance Use Type: None - Medications Home Medications: Home Medications Medication Instructions Recorded Confirmed Last Taken Type Lisinopril [Zestril TAB] 20 mg PO QDAY #30 tablet 07/14/16 11/12/17 1 Day Ago Rx ~11/11/17 Aspirin [Aspirin EC] 81 mg PO DAILY #0 10/05/17 11/12/17 1 Day Ago History ~11/11/17 Atorvastatin Calcium [Lipitor] 80 mg PO QHS #0 10/05/17 11/12/17 1 Day Ago History ~11/11/17 Carvedilol [Coreg] 6.25 mg PO DAILY #0 10/05/17 11/12/17 1 Day Ago History ~11/11/17 Clopidogrel Bisulfate [Plavix] 75 mg PO DAILY #0 10/05/17 11/12/17 1 Day Ago History ~11/11/17 ISOSORBIDE MONOnitrate [Imdur ER] 30 mg PO DAILY #0 10/05/17 11/12/17 1 Day Ago History ~11/11/17 Tamsulosin [Flomax] 0.4 mg PO QHS #0 10/05/17 11/12/17 1 Day Ago History ~11/11/17 Furosemide [Lasix TAB] 40 mg PO DAILY #30 tablet 10/08/17 11/12/17 1 Day Ago Rx ~11/11/17 Potassium Chloride 10 meq PO QDAY #30 capsule.er 10/08/17 11/12/17 1 Day Ago Rx ~11/11/17 Polyethylene Glycol 3350 [Miralax 17 gm PO QDAY 14 Days powd.pack 11/14/17 Unknown Rx 3350] Cefuroxime [Ceftin] 250 mg PO Q12H #20 tablet 11/15/17 Unknown Rx Acetaminophen [Tylenol Extra 500 mg PO QID PRN #30 tablet 01/19/18 Unknown Rx Strength] Amoxicillin 500 mg PO TID #30 capsule 01/19/18 Unknown Rx ED Physical Exam - General Limitations: No Limitations General appearance: alert, in no apparent distress - Head Head exam: Present: atraumatic, normocephalic - Eye Eye exam: Present: normal appearance, PERRL, EOMI Pupils: Present: normal accommodation - ENT ENT exam: Present: normal orophraynx, mucous membranes moist, normal external ear exam - Expanded ENT Exam Expanded TM/Canal exam: Erythema: Left TM, Right TM, Canal Tenderness: Left TM, Right TM Mouth exam: Absent: trismus Teeth exam: Present: normal inspection Throat exam: Positive: normal inspection - Neck Neck exam: Present: normal inspection, full ROM. Absent: tenderness - Respiratory Respiratory exam: Present: normal lung sounds bilaterally. Absent: respiratory distress - Cardiovascular Cardiovascular Exam: Present: regular rate, normal rhythm. Absent: systolic murmur, diastolic murmur, rubs, gallop - GI/Abdominal GI/Abdominal exam: Present: soft, normal bowel sounds - Rectal Rectal exam: Present: deferred - Extremities Exam Extremities exam: Present: normal inspection - Back Exam Back exam: Present: normal inspection - Neurological Exam Neurological exam: Present: alert, oriented X3, CN II-XII intact, normal gait, reflexes normal - Psychiatric Psychiatric exam: Present: normal affect, normal mood - Skin Skin exam: Present: warm, dry, intact, normal color. Absent: rash ED Course Vital Signs 01/19/18 10:42 Temperature 98.5 F Pulse Rate 68 Respiratory 17 Rate Blood Pressure 177/100 O2 Sat by Pulse 97 Oximetry ED Medical Decision Making - Medical Decision Making AOM, OE plan amoxicillin , tylenol, follow up with pcp in 2-3 days. Critical care attestation.: If time is entered above; I have spent that time in minutes in the direct care of this critically ill patient, excluding procedure time. ED Disposition Clinical Impression: AOM (acute otitis media) Qualifiers: Otitis media type: unspecified Qualified Code(s): H66.90 - Otitis media, unspecified, unspecified ear Disposition: - TO HOME OR SELFCARE Is pt being admited?: No Does the pt Need Aspirin: No Condition: Good Instructions: Otitis Media (ED) Prescriptions: Acetaminophen [Tylenol Extra Strength] 500 mg PO QID PRN #30 tablet PRN Reason: Pain , Severe (7-10) Amoxicillin 500 mg PO TID #30 capsule Referrals: PRIMARY CARE,MD [Primary Care Provider] - 3-5 Days Forms: Work/School Release Form(ED) Time of Disposition: 12:24
== END 2018-01-19 12:29 | disposition home or self-care (01) ==
LOC: ED 10:37
DX: H66.91 Otitis media, unspecified, right ear (principal); I10 Essential (primary) hypertension; I25.2 Old myocardial infarction; I50.9 Heart failure, unspecified; J45.909 Unspecified asthma, uncomplicated; Z88.8 Allergy status to other drugs, medicaments and biological substances; Z79.82 Long term (current) use of aspirin; Z95.5 Presence of coronary angioplasty implant and graft
CPT/HCPCS: 99282

== ENCOUNTER 2018-02-17 15:19 | Emergency (ER) | payer MEDICARE ==
[2018-02-17] MEDS ORDERED: CATAPRES ONE (18:09)
[2018-02-17] MEDS ORDERED: CATAPRES PO ONE (18:13)
[2018-02-17] MEDS ORDERED: EAR WAX DROPS AU ONE (20:34)
[2018-02-17] MEDS ORDERED: ZESTRIL PO ONE (20:34)
[2018-02-17] MEDS ORDERED: COREG PO ONE (20:34)
[2018-02-17] MEDS ORDERED: ZOFRAN ODT PO ONE (20:35)
[2018-02-17 20:50] LABS: Basophils # (Auto) 0.1 K/mm3 (0.0-0.1); Basophils % (Auto) 0.8 % (0.0-1.8); Eosinophils # (Auto) 0.1 K/mm3 (0.0-0.4); Eosinophils % (Auto) 2.2 % (0.0-4.3); Hemoglobin 14.8 gm/dl (11.8-15.2); Lymphocytes # (Auto) 1.8 K/mm3 (1.2-5.4); Mean Corpuscular HGB Conc 33 % (32-34); Mean Corpuscular Hemoglobin 28 pg (28-32); Mean Corpuscular Volume 84 fl (84-94); Monocytes # (Auto) 0.5 K/mm3 (0.0-0.8); Monocytes % (Auto) 7.6 % (0.0-7.3); Platelet Count 177 K/mm3 (140-440); Red Blood Count 5.37 M/mm3 (3.65-5.03); Red Cell Distribution Width 16.6 % (13.2-15.2)
[2018-02-17 21:06] LABS: BUN/Creatinine Ratio 13; Blood Urea Nitrogen 12 mg/dL (9-20); Calcium 9.3 mg/dL (8.4-10.2); Hemolysis Index 3
--- NOTE | 2018-02-17 21:49 | Emergency Department Report ---
ED General Adult HPI - General Chief complaint: Earache Stated complaint: EAR PAIN AND HTN Time Seen by Provider: 02/17/18 20:11 Source: patient, EMS Mode of arrival: Ambulatory Limitations: Other - History of Present Illness Initial comments: Earlier today, patient heard buzzing and thought an insect flew into his left ear. He called EMS, which flushed his ear. While EMS was there they noted that his blood pressure is high with a systolic in the 200s. Patient has been compliant with his home blood pressure medication. He says for the past couple of days he has been having intermittent lightheaded episodes, which is consistent with his blood pressure being high. Normally, his blood pressure runs systolic in the 180s. Severity scale (0 -10): 0 - Related Data Home Medications Medication Instructions Recorded Confirmed Last Taken Aspirin [Aspirin EC] 81 mg PO DAILY #0 10/05/17 11/12/17 1 Day Ago ~11/11/17 Atorvastatin Calcium [Lipitor] 80 mg PO QHS #0 10/05/17 11/12/17 1 Day Ago ~11/11/17 Carvedilol [Coreg] 6.25 mg PO DAILY #0 10/05/17 11/12/17 1 Day Ago ~11/11/17 Clopidogrel Bisulfate [Plavix] 75 mg PO DAILY #0 10/05/17 11/12/17 1 Day Ago ~11/11/17 ISOSORBIDE MONOnitrate [Imdur ER] 30 mg PO DAILY #0 10/05/17 11/12/17 1 Day Ago ~11/11/17 Tamsulosin [Flomax] 0.4 mg PO QHS #0 10/05/17 11/12/17 1 Day Ago ~11/11/17 Previous Rx's Medication Instructions Recorded Last Taken Type Lisinopril [Zestril TAB] 20 mg PO QDAY #30 tablet 07/14/16 1 Day Ago Rx ~11/11/17 Furosemide [Lasix TAB] 40 mg PO DAILY #30 tablet 10/08/17 1 Day Ago Rx ~11/11/17 Potassium Chloride 10 meq PO QDAY #30 capsule.er 10/08/17 1 Day Ago Rx ~11/11/17 Polyethylene Glycol 3350 [Miralax 17 gm PO QDAY 14 Days powd.pack 11/14/17 Unknown Rx 3350] Cefuroxime [Ceftin] 250 mg PO Q12H #20 tablet 11/15/17 Unknown Rx Acetaminophen [Tylenol Extra 500 mg PO QID PRN #30 tablet 01/19/18 Unknown Rx Strength] Amoxicillin 500 mg PO TID #30 capsule 01/19/18 Unknown Rx Allergies Allergy/AdvReac Type Severity Reaction Status Date / Time ampicillin Allergy Nausea Verified 02/17/18 15:29 hydralazine AdvReac Unknown Verified 10/05/17 16:47 ED Review of Systems ROS: Stated complaint: EAR PAIN AND HTN Other details as noted in HPI Comment: All other systems reviewed and negative Neurological: other (lightheaded) ED Past Medical Hx - Past Medical History Previous Medical History?: Yes Hx Hypertension: Yes Hx Heart Attack/AMI: Yes Hx Congestive Heart Failure: Yes Hx Asthma: Yes Additional medical history: 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, bronchitis, Left ear infection - Surgical History Past Surgical History?: Yes Hx Coronary Stent: Yes (unknown date) Additional Surgical History: finger surgery - Social History Smoking Status: Former Smoker Substance Use Type: Prescribed - Medications Home Medications: Home Medications Medication Instructions Recorded Confirmed Last Taken Type Lisinopril [Zestril TAB] 20 mg PO QDAY #30 tablet 07/14/16 11/12/17 1 Day Ago Rx ~11/11/17 Aspirin [Aspirin EC] 81 mg PO DAILY #0 10/05/17 11/12/17 1 Day Ago History ~11/11/17 Atorvastatin Calcium [Lipitor] 80 mg PO QHS #0 10/05/17 11/12/17 1 Day Ago History ~11/11/17 Carvedilol [Coreg] 6.25 mg PO DAILY #0 10/05/17 11/12/17 1 Day Ago History ~11/11/17 Clopidogrel Bisulfate [Plavix] 75 mg PO DAILY #0 10/05/17 11/12/17 1 Day Ago History ~11/11/17 ISOSORBIDE MONOnitrate [Imdur ER] 30 mg PO DAILY #0 10/05/17 11/12/17 1 Day Ago History ~11/11/17 Tamsulosin [Flomax] 0.4 mg PO QHS #0 10/05/17 11/12/17 1 Day Ago History ~11/11/17 Furosemide [Lasix TAB] 40 mg PO DAILY #30 tablet 10/08/17 11/12/17 1 Day Ago Rx ~11/11/17 Potassium Chloride 10 meq PO QDAY #30 capsule.er 10/08/17 11/12/17 1 Day Ago Rx ~11/11/17 Polyethylene Glycol 3350 [Miralax 17 gm PO QDAY 14 Days powd.pack 11/14/17 Unknown Rx 3350] Cefuroxime [Ceftin] 250 mg PO Q12H #20 tablet 11/15/17 Unknown Rx Acetaminophen [Tylenol Extra 500 mg PO QID PRN #30 tablet 01/19/18 Unknown Rx Strength] Amoxicillin 500 mg PO TID #30 capsule 01/19/18 Unknown Rx ED Physical Exam - General Limitations: Other General appearance: alert, in no apparent distress - Head Head exam: Present: atraumatic, normocephalic - Eye Eye exam: Present: normal appearance - ENT ENT exam: Present: mucous membranes moist, other (left ear with significant amouot of cerumen. No insects seen. ) - Neck Neck exam: Present: normal inspection - Respiratory Respiratory exam: Present: normal lung sounds bilaterally. Absent: respiratory distress - Cardiovascular Cardiovascular Exam: Present: regular rate, normal rhythm. Absent: systolic murmur, diastolic murmur, rubs, gallop - GI/Abdominal GI/Abdominal exam: Present: soft, normal bowel sounds. Absent: tenderness - Rectal Rectal exam: Present: deferred - Extremities Exam Extremities exam: Present: normal inspection - Back Exam Back exam: Present: normal inspection - Neurological Exam Neurological exam: Present: alert, oriented X3 - Psychiatric Psychiatric exam: Present: normal affect, normal mood - Skin Skin exam: Present: warm, dry, intact, normal color. Absent: rash ED Course Vital Signs 02/17/18 02/17/18 02/17/18 15:25 18:06 18:16 Temperature 97.8 F 98.6 F Pulse Rate 100 H 95 H 95 H Respiratory 20 18 Rate Blood Pressure 206/104 203/110 203/110 Blood Pressure [Right] O2 Sat by Pulse 97 99 Oximetry 02/17/18 02/17/18 02/17/18 20:13 21:00 21:30 Temperature 98 F Pulse Rate 83 68 63 Respiratory 17 18 12 Rate Blood Pressure 161/90 158/95 Blood Pressure 183/124 [Right] O2 Sat by Pulse 100 99 97 Oximetry ED Medical Decision Making - Lab Data Result diagrams: 02/17/18 20:39 02/17/18 20:39 - EKG Data -: EKG Interpreted by Me EKG shows normal: sinus rhythm, axis, intervals, QRS complexes Rate: normal - EKG Data When compared to previous EKG there are: no significant change Interpretation: nonspecific ST-T wave leo - Medical Decision Making 67-year-old male with past medical history of hypertension on lisinopril/ carvedilol that presents with concerns for insect in the ear and lightheadedness. EKG is unremarkable. Patient is asymptomatic at time of presentation. Vital signs significant for systolic blood pressure in the low 200s. Patient was given an extra dose of his home blood pressure medication lisinopril/carvedilol. His ears were cleaned out. Labs unremarkable. 2212: Pt feels better on re-eval. Bilateral ears look improved. Cleared for dc. he will follow up with his PCP in 2 days for a recheck. - Differential Diagnosis AOM, AOE, insect foreign body, htn malignancy vs urgency Critical care attestation.: If time is entered above; I have spent that time in minutes in the direct care of this critically ill patient, excluding procedure time. ED Disposition Clinical Impression: Hypertension, Impacted cerumen of left ear Disposition: DC-01 TO HOME OR SELFCARE Is pt being admited?: No Does the pt Need Aspirin: No Condition: Stable Instructions: Hypertension (ED) Additional Instructions: Please follow up with your family doctor in 2 days for re-check of your blood pressure and ears. Referrals: PRIMARY CARE, [Primary Care Provider] - 3-5 Days
[2018-02-17 21:51] VITALS: BP 158/95
== END 2018-02-17 22:46 | disposition home or self-care (01) ==
LOC: ED 15:19
DX: H61.22 Impacted cerumen, left ear (principal); I11.0 Hypertensive heart disease with heart failure; I25.2 Old myocardial infarction; I50.9 Heart failure, unspecified; J45.909 Unspecified asthma, uncomplicated; Z87.891 Personal history of nicotine dependence
CPT/HCPCS: 36415; 80048; 84484; 85025; 93005; 93010; Q0162

== ENCOUNTER 2018-02-19 14:04 | Emergency (ER) | payer MEDICARE, MEDICAID ==
[2018-02-19 14:24] VITALS: BP 191/112
== END 2018-02-19 14:30 | disposition left against medical advice (07) ==
LOC: ED 14:04
DX: K59.00 Constipation, unspecified (principal); Z53.21 Procedure and treatment not carried out due to patient leaving prior to being seen by health care provider

== ENCOUNTER 2018-04-09 13:36 | Emergency (ER) | payer MEDICARE ==
[2018-04-09 15:54] LABS: Bilirubin,Urine NEG (Negative); Blood,Urine NEG (Negative); Color,Urine Yellow (Yellow); Mucus,Urine FEW /HPF; Protein,Urine <15 mg/dL mg/dL (Negative); Urobilinogen,Urine < 2.0 mg/dL (<2.0); WBC,Urine < 1.0 /HPF (0.0-6.0)
[2018-04-09] MEDS ORDERED: NORCO 7.5/325 PO ONE (16:43)
[2018-04-09] MEDS ORDERED: ZOFRAN ODT PO ONE (16:43)
[2018-04-09] MEDS ORDERED: PEPCID PO ONE (16:43)
--- NOTE | 2018-04-09 16:46 | Emergency Department Report ---
Blank Doc - Documentation Documentation: Patient is a 68-year-old male who is presenting with right upper quadrant pain. Patient states this started several hours ago after eating a soft taco. Patient states he is nauseous but has not vomited denies any fever. Patient focused physical exam does have some right upper quadrant discomfort on palpation but no rebound or guarding.
[2018-04-09 17:24] LABS: Basophils # (Auto) 0.1 K/mm3 (0.0-0.1); Eosinophils # (Auto) 0.4 K/mm3 (0.0-0.4); Eosinophils % (Auto) 6.2 % (0.0-4.3); Hematocrit 44.1 % (35.5-45.6); Hemoglobin 14.8 gm/dl (11.8-15.2); Lymphocytes # (Auto) 1.9 K/mm3 (1.2-5.4); Lymphocytes % (Auto) 27.7 % (13.4-35.0); Mean Corpuscular HGB Conc 34 % (32-34); Mean Corpuscular Hemoglobin 29 pg (28-32); Mean Corpuscular Volume 86 fl (84-94); Monocytes # (Auto) 0.5 K/mm3 (0.0-0.8); Monocytes % (Auto) 6.9 % (0.0-7.3); Platelet Count 209 K/mm3 (140-440); Red Blood Count 5.15 M/mm3 (3.65-5.03); Red Cell Distribution Width 14.3 % (13.2-15.2)
[2018-04-09 17:41] LABS: Alanine Aminotransferase 23 units/L (7-56); Albumin 4.5 g/dL (3.9-5); BUN/Creatinine Ratio 11; Blood Urea Nitrogen 12 mg/dL (9-20); Calcium 9.2 mg/dL (8.4-10.2); Hemolysis Index 4; Lipase 31 units/L (13-60)
--- NOTE | 2018-04-09 18:04 | Emergency Department Report ---
ED Abdominal Pain HPI - General Chief Complaint: Abdominal Pain Stated Complaint: ABD PAIN Time Seen by Provider: 04/09/18 16:35 Source: patient Mode of arrival: Ambulatory Limitations: No Limitations - History of Present Illness Initial Comments: 68-year-old male with an extensive past medical history of hypertension uncontrolled, heart failure, stents placed, high cholesterol, with sudden onset of right-sided flank pain at about 1321. Patient also reported right upper abdominal pain. Patient denies any nausea vomiting. Patient patient now denies any pain no nausea no vomiting. Patient is noted to have elevated blood pressure of 161/100. A repeat of his blood pressure showed it was 190/110 by this provider. Patient is followed by Dr. Vernon his primary care provider. Patient reports he is taking his blood pressure medicine as prescribed. He denies any chest pain no shortness of breathing no headache or change in vision no swelling of his lower extremities. MD Complaint: abdominal pain -: This afternoon Time: 13:20 Location: RLQ, R flank Radiation: none Migration to: no migration Severity scale (0 -10): 8 Quality: aching Consistency: intermittent Improves With: nothing Worsens With: nothing Associated Symptoms: denies: nausea, vomiting, diarrhea, fever, chills, constipation, dysuria - Related Data Home Medications Medication Instructions Recorded Confirmed Last Taken Aspirin [Aspirin EC] 81 mg PO DAILY #0 10/05/17 03/02/18 1 Day Ago ~11/11/17 Atorvastatin Calcium [Lipitor] 80 mg PO QHS #0 10/05/17 03/02/18 1 Day Ago ~11/11/17 Carvedilol [Coreg] 12.5 mg PO DAILY #0 10/05/17 03/02/18 1 Day Ago ~11/11/17 Clopidogrel Bisulfate [Plavix] 75 mg PO DAILY #0 10/05/17 03/02/18 1 Day Ago ~11/11/17 ISOSORBIDE MONOnitrate [Imdur ER] 30 mg PO DAILY #0 10/05/17 03/02/18 1 Day Ago ~11/11/17 Tamsulosin [Flomax] 0.4 mg PO QHS #0 10/05/17 03/02/18 1 Day Ago ~11/11/17 Lisinopril [Zestril TAB] 40 mg PO QDAY 03/02/18 03/02/18 Unknown Previous Rx's Medication Instructions Recorded Last Taken Type Furosemide [Lasix TAB] 40 mg PO DAILY #30 tablet 10/08/17 1 Day Ago Rx ~11/11/17 Meclizine [Antivert] 12.5 mg PO BID PRN #30 tablet 03/04/18 Unknown Rx Allergies Allergy/AdvReac Type Severity Reaction Status Date / Time ampicillin Allergy Nausea Verified 03/02/18 16:07 hydralazine AdvReac Unknown Verified 03/02/18 16:07 ED Review of Systems ROS: Stated complaint: ABD PAIN Other details as noted in HPI Comment: All other systems reviewed and negative Gastrointestinal: abdominal pain (right upper quadrant pain) Musculoskeletal: other (right flank pain) ED Past Medical Hx - Past Medical History Previous Medical History?: Yes Hx Hypertension: Yes Hx Heart Attack/AMI: Yes Hx Congestive Heart Failure: Yes Hx Asthma: Yes Additional medical history: 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, bronchitis, Left ear infection - Surgical History Past Surgical History?: Yes Hx Coronary Stent: Yes (unknown date) Additional Surgical History: finger surgery - Social History Smoking Status: Never Smoker - Medications Home Medications: Home Medications Medication Instructions Recorded Confirmed Last Taken Type Aspirin [Aspirin EC] 81 mg PO DAILY #0 10/05/17 03/02/18 1 Day Ago History ~11/11/17 Atorvastatin Calcium [Lipitor] 80 mg PO QHS #0 10/05/17 03/02/18 1 Day Ago History ~11/11/17 Carvedilol [Coreg] 12.5 mg PO DAILY #0 10/05/17 03/02/18 1 Day Ago History ~11/11/17 Clopidogrel Bisulfate [Plavix] 75 mg PO DAILY #0 10/05/17 03/02/18 1 Day Ago History ~11/11/17 ISOSORBIDE MONOnitrate [Imdur ER] 30 mg PO DAILY #0 10/05/17 03/02/18 1 Day Ago History ~11/11/17 Tamsulosin [Flomax] 0.4 mg PO QHS #0 10/05/17 03/02/18 1 Day Ago History ~11/11/17 Furosemide [Lasix TAB] 40 mg PO DAILY #30 tablet 10/08/17 03/02/18 1 Day Ago Rx ~11/11/17 Lisinopril [Zestril TAB] 40 mg PO QDAY 03/02/18 03/02/18 Unknown History Meclizine [Antivert] 12.5 mg PO BID PRN #30 tablet 03/04/18 Unknown Rx ED Physical Exam - General Limitations: No Limitations General appearance: alert, in no apparent distress - Head Head exam: Present: atraumatic, normocephalic - Eye Eye exam: Present: EOMI - ENT ENT exam: Present: mucous membranes moist - Respiratory Respiratory exam: Present: normal lung sounds bilaterally. Absent: respiratory distress - Cardiovascular Cardiovascular Exam: Present: regular rate, normal rhythm. Absent: systolic murmur, diastolic murmur, rubs, gallop - GI/Abdominal GI/Abdominal exam: Present: soft, normal bowel sounds. Absent: distended, tenderness, guarding, rebound, rigid - Extremities Exam Extremities exam: Present: normal inspection, full ROM. Absent: tenderness - Back Exam Back exam: Present: normal inspection, full ROM. Absent: tenderness, CVA tenderness (R), CVA tenderness (L), muscle spasm - Neurological Exam Neurological exam: Present: alert, oriented X3 - Psychiatric Psychiatric exam: Present: normal affect, normal mood - Skin Skin exam: Present: warm, dry, intact, normal color. Absent: rash ED Course Vital Signs 04/09/18 04/09/18 04/09/18 14:21 14:50 16:54 Temperature 97.7 F 97.7 F Pulse Rate 73 87 Respiratory 20 22 18 Rate Blood Pressure 169/100 203/115 Blood Pressure [Right] O2 Sat by Pulse 97 98 Oximetry 04/09/18 04/09/18 20:07 20:17 Temperature Pulse Rate 103 H Respiratory 18 Rate Blood Pressure Blood Pressure 190/110 [Right] O2 Sat by Pulse 98 Oximetry - Reevaluation(s) Reevaluation #1: 04/09/18 21:12 Since patient has been evaluated by this provider he denies any right flank pain denies any right upper quadrant pain. ED Medical Decision Making - Lab Data Result diagrams: 04/09/18 16:58 04/09/18 16:58 - Radiology Data Radiology results: report reviewed, image reviewed FINAL REPORT PROCEDURE: US ABDOMEN COMPLETE TECHNIQUE: Real-time sonography in multiple planes of the abdomen was performed with image documentation. HISTORY: Right upper quadrant pain COMPARISON: No prior studies are available for comparison. FINDINGS: Liver: Normal size and echotexture with no evidence of cystic or solid mass lesions. Gallbladder: Fluid filled. No gallstones, wall thickening, pericholecystic fluid, or sonographic Rojas's sign. Gallbladder wall thickness 2 mm. Common bile duct 2 mm. Intrahepatic bile ducts: Normal caliber . Extrahepatic bile ducts: Normal caliber. Pancreas: Pancreas is echogenic. Aorta: Visualized portions appear normal. Proximal abdominal aorta 2.6 cm. IVC: Visualized portions appear normal. RIGHT kidney: Normal echotexture. No focal renal mass, calculus, or hydronephrosis. 11.1 x 4.8 x 5.8 cm, cortical thickness 1.3 cm. LEFT kidney: Normal echotexture. No focal renal mass, calculus, or hydronephrosis. 11.5 x 5.7 x 5.9 cm, cortical thickness 1.6 cm. 6 x 4.5 mm cyst. Spleen: Normal size and echotexture. No focal lesions. Intraperitoneal fluid: None . Other: None . IMPRESSION: Echogenic pancreas, likely fatty infiltration. Subcentimeter left renal cyst. Transcribed By: DIO Dictated By: DEYANIRA RIVERO MD Electronically Authenticated By: DEYANIRA RIVERO MD Signed Date/Time: 04/09/181927 DD/ 27 TD/TT: 04/09/181927 - Medical Decision Making Patient has been evaluated by this provider in fast track. Patient was also evaluated by Dr. Maher and orders were placed. Ultrasound of abdomen shows echogenic pancreas and a small renal cysts on the left. IV contrast for CT of abdomen and pelvis, labs troponin CK and CK-MB. Patient declined to have any further testing. This provider explained to patient her concerns regarding to his multiple comorbidities and abrupt right flank pain and right upper quadrant pain. Patient declined to stay stating that his son needed to get home and it would be too much for his son to come back to pick him up. Critical care attestation.: If time is entered above; I have spent that time in minutes in the direct care of this critically ill patient, excluding procedure time. ED Disposition Clinical Impression: Acute right flank pain Disposition: DC-07 LEFT AGAINST MED ADVICE Is pt being admited?: No Does the pt Need Aspirin: No Condition: Stable Referrals: PRIMARY CARE, [Primary Care Provider] - 3-5 Days Forms: AMA Form
--- NOTE | 2018-04-09 19:30 | Ultrasound Report ---
FINAL REPORT PROCEDURE: US ABDOMEN COMPLETE TECHNIQUE: Real-time sonography in multiple planes of the abdomen was performed with image documentation. HISTORY: Right upper quadrant pain COMPARISON: No prior studies are available for comparison. FINDINGS: Liver: Normal size and echotexture with no evidence of cystic or solid mass lesions. Gallbladder: Fluid filled. No gallstones, wall thickening, pericholecystic fluid, or sonographic Rojas's sign. Gallbladder wall thickness 2 mm. Common bile duct 2 mm. Intrahepatic bile ducts: Normal caliber . Extrahepatic bile ducts: Normal caliber. Pancreas: Pancreas is echogenic. Aorta: Visualized portions appear normal. Proximal abdominal aorta 2.6 cm. IVC: Visualized portions appear normal. RIGHT kidney: Normal echotexture. No focal renal mass, calculus, or hydronephrosis. 11.1 x 4.8 x 5.8 cm, cortical thickness 1.3 cm. LEFT kidney: Normal echotexture. No focal renal mass, calculus, or hydronephrosis. 11.5 x 5.7 x 5.9 cm, cortical thickness 1.6 cm. 6 x 4.5 mm cyst. Spleen: Normal size and echotexture. No focal lesions. Intraperitoneal fluid: None . Other: None . IMPRESSION: Echogenic pancreas, likely fatty infiltration. Subcentimeter left renal cyst.
[2018-04-09 20:08] VITALS: BP 190/110
[2018-04-09 22:02] LABS: Creatine Kinase MB 2.9 ng/mL (0.0-4.0)
== END 2018-04-09 21:45 | disposition left against medical advice (07) ==
LOC: ED 13:36
DX: R10.11 Right upper quadrant pain (principal); I11.0 Hypertensive heart disease with heart failure; I21.9 Acute myocardial infarction, unspecified; J45.909 Unspecified asthma, uncomplicated; Z79.82 Long term (current) use of aspirin; Z88.8 Allergy status to other drugs, medicaments and biological substances; Z88.1 Allergy status to other antibiotic agents
CPT/HCPCS: 36415; 76700; 80053; 81001; 82550; 82553; 83690; 84484; 85025; 93005; 93010; Q0162

== ENCOUNTER 2018-05-04 16:00 | Emergency (ER) | payer MEDICARE ==
[2018-05-04 16:10] VITALS: BP 139/92
--- NOTE | 2018-05-04 18:09 | Emergency Department Report ---
ED Male HPI - General Chief complaint: Extremity Problem,Nontraumatic Stated complaint: SWOLLEN GROIN Time Seen by Provider: 05/04/18 18:02 Source: patient, family, EMS Mode of arrival: Ambulatory Limitations: No Limitations - History of Present Illness Initial comments: This is a 68-year-old male here report that he has swelling to his left groin for 3 days. He denies any trauma. Pain is 2/10 and sore. Pain is worse with bending, lifting and weightbearing. Denies any abdominal pain or back pain. Denies any blood in his urine. Denies any penile discharge or rash or lesions. Denies any concerns of STD. Denies any redness or drainage site. No medication taken. Pain is alleviated with rest. MD Complaint: groin pain (swelling left groin) Onset/Timin -: days(s) Location: left inguinal region Radiation: none Severity: mild Severity scale (0 -10): 3 Quality: other (sore) Consistency: constant Improves with: rest Worsens with: palpation, movement swelling (left groin). denies: discharge, mass, rash, urinary retention, blood in urine, dysuria, fever, nausea/vomiting, incontinence, other - Related Data Sexually active: Yes Home Medications Medication Instructions Recorded Confirmed Last Taken Aspirin [Aspirin EC] 81 mg PO DAILY #0 10/05/17 03/02/18 1 Day Ago ~11/11/17 Atorvastatin Calcium [Lipitor] 80 mg PO QHS #0 10/05/17 03/02/18 1 Day Ago ~11/11/17 Carvedilol [Coreg] 12.5 mg PO DAILY #0 10/05/17 03/02/18 1 Day Ago ~11/11/17 Clopidogrel Bisulfate [Plavix] 75 mg PO DAILY #0 10/05/17 03/02/18 1 Day Ago ~11/11/17 ISOSORBIDE MONOnitrate [Imdur ER] 30 mg PO DAILY #0 10/05/17 03/02/18 1 Day Ago ~11/11/17 Tamsulosin [Flomax] 0.4 mg PO QHS #0 10/05/17 03/02/18 1 Day Ago ~11/11/17 Lisinopril [Zestril TAB] 40 mg PO QDAY 03/02/18 03/02/18 Unknown Previous Rx's Medication Instructions Recorded Last Taken Type Furosemide [Lasix TAB] 40 mg PO DAILY #30 tablet 10/08/17 1 Day Ago Rx ~11/11/17 Meclizine [Antivert] 12.5 mg PO BID PRN #30 tablet 03/04/18 Unknown Rx Ibuprofen [Motrin] 600 mg PO Q8H PRN #12 tablet 05/04/18 Unknown Rx Allergies Allergy/AdvReac Type Severity Reaction Status Date / Time ampicillin Allergy Nausea Verified 03/02/18 16:07 hydralazine AdvReac Unknown Verified 03/02/18 16:07 ED Review of Systems ROS: Stated complaint: SWOLLEN GROIN Other details as noted in HPI Constitutional: denies: chills, fever Eyes: denies: eye pain, eye discharge, vision change Respiratory: denies: cough, shortness of breath, SOB with exertion, SOB at rest , stridor, wheezing Cardiovascular: denies: chest pain, palpitations, dyspnea on exertion, edema, syncope, paroxysmal nocturnal dyspnea Endocrine: no symptoms reported Gastrointestinal: denies: abdominal pain, nausea, vomiting, diarrhea, constipation, hematemesis, melena, hematochezia Genitourinary: other (left groin swelling and pain). 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, bronchitis, Left ear infection - Surgical History Past Surgical History?: Yes Hx Coronary Stent: Yes (unknown date) Additional Surgical History: finger surgery - Family History Family history: hypertension - Social History Smoking Status: Never Smoker Substance Use Type: None - Medications Home Medications: Home Medications Medication Instructions Recorded Confirmed Last Taken Type Aspirin [Aspirin EC] 81 mg PO DAILY #0 10/05/17 03/02/18 1 Day Ago History ~11/11/17 Atorvastatin Calcium [Lipitor] 80 mg PO QHS #0 10/05/17 03/02/18 1 Day Ago History ~11/11/17 Carvedilol [Coreg] 12.5 mg PO DAILY #0 10/05/17 03/02/18 1 Day Ago History ~11/11/17 Clopidogrel Bisulfate [Plavix] 75 mg PO DAILY #0 10/05/17 03/02/18 1 Day Ago History ~11/11/17 ISOSORBIDE MONOnitrate [Imdur ER] 30 mg PO DAILY #0 10/05/17 03/02/18 1 Day Ago History ~11/11/17 Tamsulosin [Flomax] 0.4 mg PO QHS #0 10/05/17 03/02/18 1 Day Ago History ~11/11/17 Furosemide [Lasix TAB] 40 mg PO DAILY #30 tablet 10/08/17 03/02/18 1 Day Ago Rx ~11/11/17 Lisinopril [Zestril TAB] 40 mg PO QDAY 03/02/18 03/02/18 Unknown History Meclizine [Antivert] 12.5 mg PO BID PRN #30 tablet 03/04/18 Unknown Rx Ibuprofen [Motrin] 600 mg PO Q8H PRN #12 tablet 05/04/18 Unknown Rx ED Physical Exam - General Limitations: No Limitations General appearance: alert, in no apparent distress - Head Head exam: Present: atraumatic, normocephalic, normal inspection - Eye Eye exam: Present: normal appearance, PERRL, EOMI - ENT ENT exam: Present: normal exam, normal orophraynx, mucous membranes moist - Neck Neck exam: Present: normal inspection, full ROM. Absent: tenderness, lymphadenopathy - Respiratory Respiratory exam: Present: normal lung sounds bilaterally. Absent: respiratory distress, chest wall tenderness - Cardiovascular Cardiovascular Exam: Present: regular rate, normal rhythm, normal heart sounds - GI/Abdominal GI/Abdominal exam: Present: soft, normal bowel sounds. Absent: distended, tenderness, guarding, rebound, rigid, organomegaly, mass - Expanded Exam Expanded Male exam: Absent: phimosis, paraphimosis, penile swelling, lesions, induration, erythema, perineal induration, balanitis, priapism exam: Inguinal Hernia: Left (reducible) - Extremities Exam Extremities exam: Present: normal inspection, full ROM, normal capillary refill , calf tenderness, other (No cce. + 2 pulses in all extremities, no neurovascular compromise). Absent: tenderness, pedal edema, joint swelling - Back Exam Back exam: Present: normal inspection, full ROM (1), other (tablets without any difficulties). Absent: tenderness, CVA tenderness (R), CVA tenderness (L), muscle spasm, paraspinal tenderness, vertebral tenderness, rash noted - Neurological Exam Neurological exam: Present: alert, oriented X3, normal gait - Psychiatric Psychiatric exam: Present: normal affect, normal mood - Skin Skin exam: Present: warm, dry, intact, normal color. Absent: rash ED Course Vital Signs 05/04/18 16:04 Temperature 97.9 F Pulse Rate 96 H Respiratory 16 Rate Blood Pressure 139/92 O2 Sat by Pulse 95 Oximetry - Reevaluation(s) Reevaluation #1: 05/04/18 18:28 Patient's stable. Hernia to left inguinal ear reducible. Reduction done without any problems. ED Medical Decision Making - Medical Decision Making This is a 68-year-old male here report that he has left groin swelling 3 days and here for evaluation. Assessment/plan 1: Left inguinal hernia-reduced at bedside. Patient tolerated well. Patient's will be sent home with Motrin and to follow up with urologist. I discussed the patient diagnoses, treatment plan, medication and need to follow up with urologist regarding left inguinal hernia and he voiced understanding. Patient is stable and discharged home in stable condition with prescription for Motrin. Vital signs stable, he is afebrile and he is in no pain at present. Critical care attestation.: If time is entered above; I have spent that time in minutes in the direct care of this critically ill patient, excluding procedure time. ED Disposition Clinical Impression: Reducible left inguinal hernia Disposition: DC-01 TO HOME OR SELFCARE Is pt being admited?: No Does the pt Need Aspirin: No Condition: Stable Instructions: Inguinal Hernia (ED) Additional Instructions: Avoid heavy lifting , straining and stooping for too long Follow up urologist as instructed in 2-3 days See discharge instructions on hernia. Referrals: PRIMARY CARE, [Primary Care Provider] - 2-3 Days [facility] [Provider Group] - 2-3 Days Forms: Work/School Release Form(ED)
== END 2018-05-04 18:40 | disposition home or self-care (01) ==
LOC: ED 16:00
DX: K40.90 Unilateral inguinal hernia, without obstruction or gangrene, not specified as recurrent (principal); I10 Essential (primary) hypertension; I21.9 Acute myocardial infarction, unspecified; I50.9 Heart failure, unspecified; J45.909 Unspecified asthma, uncomplicated; Z88.1 Allergy status to other antibiotic agents; Z88.8 Allergy status to other drugs, medicaments and biological substances
CPT/HCPCS: 99283

== ENCOUNTER 2018-05-06 10:42 | Emergency (ER) | payer MEDICARE ==
[2018-05-06 11:00] VITALS: BP 170/103
--- NOTE | 2018-05-06 11:18 | Emergency Department Report ---
ED General Adult HPI - General Chief complaint: Abdominal Pain Stated complaint: ABD PAIN Time Seen by Provider: 05/06/18 11:09 Source: patient Mode of arrival: Ambulatory Limitations: No Limitations - History of Present Illness Initial comments: Patient is 68-year-old male who has had some swelling to the left groin for the past week. Patient denies any nausea vomiting diarrhea or painful urination. Patient was here several days ago diagnosed with inguinal hernia but referred to [facility] who Patient away because they don't do that type surgery. Patient is here trying to find out where he needs to go next. - Related Data Home Medications Medication Instructions Recorded Confirmed Last Taken Aspirin [Aspirin EC] 81 mg PO DAILY #0 10/05/17 03/02/18 1 Day Ago ~11/11/17 Atorvastatin Calcium [Lipitor] 80 mg PO QHS #0 10/05/17 03/02/18 1 Day Ago ~11/11/17 Carvedilol [Coreg] 12.5 mg PO DAILY #0 10/05/17 03/02/18 1 Day Ago ~11/11/17 Clopidogrel Bisulfate [Plavix] 75 mg PO DAILY #0 10/05/17 03/02/18 1 Day Ago ~11/11/17 ISOSORBIDE MONOnitrate [Imdur ER] 30 mg PO DAILY #0 10/05/17 03/02/18 1 Day Ago ~11/11/17 Tamsulosin [Flomax] 0.4 mg PO QHS #0 10/05/17 03/02/18 1 Day Ago ~11/11/17 Lisinopril [Zestril TAB] 40 mg PO QDAY 03/02/18 03/02/18 Unknown Previous Rx's Medication Instructions Recorded Last Taken Type Furosemide [Lasix TAB] 40 mg PO DAILY #30 tablet 10/08/17 1 Day Ago Rx ~11/11/17 Meclizine [Antivert] 12.5 mg PO BID PRN #30 tablet 03/04/18 Unknown Rx Ibuprofen [Motrin] 600 mg PO Q8H PRN #12 tablet 05/04/18 Unknown Rx Docusate Sodium [Colace] 100 mg PO BID #30 capsule 05/06/18 Unknown Rx methOCARBAMOL [Robaxin TAB] 500 mg PO Q6H PRN #15 tablet 05/06/18 Unknown Rx Allergies Allergy/AdvReac Type Severity Reaction Status Date / Time ampicillin Allergy Nausea Verified 03/02/18 16:07 hydralazine AdvReac Unknown Verified 03/02/18 16:07 ED Review of Systems ROS: Stated complaint: ABD PAIN Other details as noted in HPI Comment: All other systems reviewed and negative ED Past Medical Hx - Past Medical History Previous Medical History?: Yes Hx Hypertension: Yes Hx Heart Attack/AMI: Yes Hx Congestive Heart Failure: Yes Hx Asthma: Yes Additional medical history: 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, bronchitis, Left ear infection - Surgical History Past Surgical History?: Yes Hx Coronary Stent: Yes (unknown date) Additional Surgical History: finger surgery - Social History Smoking Status: Never Smoker Substance Use Type: None - Medications Home Medications: Home Medications Medication Instructions Recorded Confirmed Last Taken Type Aspirin [Aspirin EC] 81 mg PO DAILY #0 10/05/17 03/02/18 1 Day Ago History ~11/11/17 Atorvastatin Calcium [Lipitor] 80 mg PO QHS #0 10/05/17 03/02/18 1 Day Ago History ~11/11/17 Carvedilol [Coreg] 12.5 mg PO DAILY #0 10/05/17 03/02/18 1 Day Ago History ~11/11/17 Clopidogrel Bisulfate [Plavix] 75 mg PO DAILY #0 10/05/17 03/02/18 1 Day Ago History ~11/11/17 ISOSORBIDE MONOnitrate [Imdur ER] 30 mg PO DAILY #0 10/05/17 03/02/18 1 Day Ago History ~11/11/17 Tamsulosin [Flomax] 0.4 mg PO QHS #0 10/05/17 03/02/18 1 Day Ago History ~11/11/17 Furosemide [Lasix TAB] 40 mg PO DAILY #30 tablet 10/08/17 03/02/18 1 Day Ago Rx ~11/11/17 Lisinopril [Zestril TAB] 40 mg PO QDAY 03/02/18 03/02/18 Unknown History Meclizine [Antivert] 12.5 mg PO BID PRN #30 tablet 03/04/18 Unknown Rx Ibuprofen [Motrin] 600 mg PO Q8H PRN #12 tablet 05/04/18 Unknown Rx Docusate Sodium [Colace] 100 mg PO BID #30 capsule 05/06/18 Unknown Rx methOCARBAMOL [Robaxin TAB] 500 mg PO Q6H PRN #15 tablet 05/06/18 Unknown Rx ED Physical Exam - General Limitations: No Limitations General appearance: alert, in no apparent distress - Head Head exam: Present: atraumatic, normocephalic - Eye Eye exam: Present: normal appearance - ENT ENT exam: Present: mucous membranes moist - Neck Neck exam: Present: normal inspection - Respiratory Respiratory exam: Present: normal lung sounds bilaterally. Absent: respiratory distress - Cardiovascular Cardiovascular Exam: Present: regular rate, normal rhythm. Absent: systolic murmur, diastolic murmur, rubs, gallop - GI/Abdominal GI/Abdominal exam: Present: soft, normal bowel sounds - Rectal Rectal exam: Present: deferred - exam: Present: other (patient has a reducible hernia in the left inguinal area). Absent: testicular tenderness, urethral discharge, scrotal swelling - Extremities Exam Extremities exam: Present: normal inspection - Back Exam Back exam: Present: normal inspection - Neurological Exam Neurological exam: Present: alert, oriented X3 - Psychiatric Psychiatric exam: Present: normal affect, normal mood - Skin Skin exam: Present: warm, dry, intact, normal color. Absent: rash ED Course Vital Signs 05/06/18 10:56 Temperature 97.5 F L Pulse Rate 86 Respiratory 18 Rate Blood Pressure 170/103 O2 Sat by Pulse 97 Oximetry ED Medical Decision Making - Medical Decision Making A sugar referred to general surgery will be discharged home Critical care attestation.: If time is entered above; I have spent that time in minutes in the direct care of this critically ill patient, excluding procedure time. ED Disposition Clinical Impression: Inguinal hernia Disposition: DC-01 TO HOME OR SELFCARE Is pt being admited?: No Does the pt Need Aspirin: No Condition: Stable Instructions: Inguinal Hernia (ED) Referrals: BRANDON CAMPBELL DO [Staff Physician] - 3-5 Days Time of Disposition: 11:17
== END 2018-05-06 11:29 | disposition home or self-care (01) ==
LOC: ED 10:42
DX: K40.90 Unilateral inguinal hernia, without obstruction or gangrene, not specified as recurrent (principal); I11.0 Hypertensive heart disease with heart failure; I21.9 Acute myocardial infarction, unspecified; J45.909 Unspecified asthma, uncomplicated; Z79.82 Long term (current) use of aspirin; Z88.1 Allergy status to other antibiotic agents; Z88.8 Allergy status to other drugs, medicaments and biological substances
CPT/HCPCS: 99282

== ENCOUNTER 2018-05-08 13:10 | Emergency (ER) | payer MEDICARE ==
[2018-05-08] MEDS ORDERED: ASPIRIN PO ONE (13:19)
[2018-05-08 13:48] LABS: Basophils # (Auto) 0.1 K/mm3 (0.0-0.1); Basophils % (Auto) 1.1 % (0.0-1.8); Eosinophils # (Auto) 0.2 K/mm3 (0.0-0.4); Eosinophils % (Auto) 3.1 % (0.0-4.3); Hematocrit 44.8 % (35.5-45.6); Lymphocytes # (Auto) 1.9 K/mm3 (1.2-5.4); Lymphocytes % (Auto) 32.8 % (13.4-35.0); Mean Corpuscular HGB Conc 34 % (32-34); Mean Corpuscular Hemoglobin 29 pg (28-32); Mean Corpuscular Volume 87 fl (84-94); Monocytes # (Auto) 0.4 K/mm3 (0.0-0.8); Platelet Count 188 K/mm3 (140-440); Red Blood Count 5.14 M/mm3 (3.65-5.03)
[2018-05-08 14:02] LABS: INR 0.99 (0.87-1.13); Partial Thromboplastin Time 26.9 Sec. (24.2-36.6)
[2018-05-08 14:21] LABS: BUN/Creatinine Ratio 10; Blood Urea Nitrogen 12 mg/dL (9-20); Calcium 9.2 mg/dL (8.4-10.2); Hemolysis Index 4; Lipase 29 units/L (13-60)
[2018-05-08] MEDS ORDERED: NACL 0.9% 500 ML 500 ML IV ONE (15:41)
[2018-05-08] MEDS ORDERED: MORPHINE IV ONE (15:41)
[2018-05-08] MEDS ORDERED: ZOFRAN IV ONE (15:41)
--- NOTE | 2018-05-08 15:47 | Emergency Department Report ---
ED Abdominal Pain HPI - General Chief Complaint: Dizziness Stated Complaint: ABD PAIN Time Seen by Provider: 05/08/18 15:21 Source: patient, EMS Mode of arrival: Wheelchair Limitations: No Limitations - History of Present Illness Initial Comments: 68-year-old male presents to the ED with complaints of abdominal pain since yesterday. Patient reports epigastric pain after eating pizza. Reports history of stomach ulcer. Patient reports loose stools last night with nausea. Pt denies vomiting, fever, chills, chest pain. Reports dizziness because pain was so bad. Did not take anything for pain at home. MD Complaint: abdominal pain -: Last night Location: epigastric Radiation: none Migration to: no migration Severity: moderate Quality: fullness Consistency: constant Improves With: nothing Worsens With: nothing Associated Symptoms: nausea, diarrhea, other (reports dizziness). denies: vomiting, fever, chills - Related Data Home Medications Medication Instructions Recorded Confirmed Last Taken Aspirin [Aspirin EC] 81 mg PO DAILY #0 10/05/17 03/02/18 1 Day Ago ~11/11/17 Atorvastatin Calcium [Lipitor] 80 mg PO QHS #0 10/05/17 03/02/18 1 Day Ago ~11/11/17 Carvedilol [Coreg] 12.5 mg PO DAILY #0 10/05/17 03/02/18 1 Day Ago ~11/11/17 Clopidogrel Bisulfate [Plavix] 75 mg PO DAILY #0 10/05/17 03/02/18 1 Day Ago ~11/11/17 ISOSORBIDE MONOnitrate [Imdur ER] 30 mg PO DAILY #0 10/05/17 03/02/18 1 Day Ago ~11/11/17 Tamsulosin [Flomax] 0.4 mg PO QHS #0 10/05/17 03/02/18 1 Day Ago ~11/11/17 Lisinopril [Zestril TAB] 40 mg PO QDAY 03/02/18 03/02/18 Unknown Previous Rx's Medication Instructions Recorded Last Taken Type Furosemide [Lasix TAB] 40 mg PO DAILY #30 tablet 10/08/17 1 Day Ago Rx ~11/11/17 Meclizine [Antivert] 12.5 mg PO BID PRN #30 tablet 03/04/18 Unknown Rx Ibuprofen [Motrin] 600 mg PO Q8H PRN #12 tablet 05/04/18 Unknown Rx Docusate Sodium [Colace] 100 mg PO BID #30 capsule 05/06/18 Unknown Rx methOCARBAMOL [Robaxin TAB] 500 mg PO Q6H PRN #15 tablet 05/06/18 Unknown Rx Dicyclomine [Bentyl] 20 mg PO QID PRN #20 tablet 05/08/18 Unknown Rx Ondansetron [Zofran Odt] 4 mg PO Q8HR PRN #20 tab.rapdis 05/08/18 Unknown Rx Allergies Allergy/AdvReac Type Severity Reaction Status Date / Time ampicillin Allergy Nausea Verified 03/02/18 16:07 hydralazine AdvReac Unknown Verified 03/02/18 16:07 ED Review of Systems ROS: Stated complaint: ABD PAIN Other details as noted in HPI Comment: All other systems reviewed and negative Constitutional: denies: chills, fever Respiratory: denies: shortness of breath Cardiovascular: denies: chest pain Gastrointestinal: abdominal pain, nausea, diarrhea. 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 hx Inguinal hernia - Surgical History Hx Coronary Stent: Yes (unknown date) Additional Surgical History: finger surgery - Social History Smoking Status: Never Smoker - Medications Home Medications: Home Medications Medication Instructions Recorded Confirmed Last Taken Type Aspirin [Aspirin EC] 81 mg PO DAILY #0 10/05/17 03/02/18 1 Day Ago History ~11/11/17 Atorvastatin Calcium [Lipitor] 80 mg PO QHS #0 10/05/17 03/02/18 1 Day Ago History ~11/11/17 Carvedilol [Coreg] 12.5 mg PO DAILY #0 10/05/17 03/02/18 1 Day Ago History ~11/11/17 Clopidogrel Bisulfate [Plavix] 75 mg PO DAILY #0 10/05/17 03/02/18 1 Day Ago History ~11/11/17 ISOSORBIDE MONOnitrate [Imdur ER] 30 mg PO DAILY #0 10/05/17 03/02/18 1 Day Ago History ~11/11/17 Tamsulosin [Flomax] 0.4 mg PO QHS #0 10/05/17 03/02/18 1 Day Ago History ~11/11/17 Furosemide [Lasix TAB] 40 mg PO DAILY #30 tablet 10/08/17 03/02/18 1 Day Ago Rx ~11/11/17 Lisinopril [Zestril TAB] 40 mg PO QDAY 03/02/18 03/02/18 Unknown History Meclizine [Antivert] 12.5 mg PO BID PRN #30 tablet 03/04/18 Unknown Rx Ibuprofen [Motrin] 600 mg PO Q8H PRN #12 tablet 05/04/18 Unknown Rx Docusate Sodium [Colace] 100 mg PO BID #30 capsule 05/06/18 Unknown Rx methOCARBAMOL [Robaxin TAB] 500 mg PO Q6H PRN #15 tablet 05/06/18 Unknown Rx Dicyclomine [Bentyl] 20 mg PO QID PRN #20 tablet 05/08/18 Unknown Rx Ondansetron [Zofran Odt] 4 mg PO Q8HR PRN #20 tab.rapdis 05/08/18 Unknown Rx ED Physical Exam - General Limitations: No Limitations General appearance: alert, other (appears uncomfortable) - Head Head exam: Present: atraumatic, normocephalic - Eye Eye exam: Present: normal appearance - ENT ENT exam: Present: mucous membranes moist - Neck Neck exam: Present: normal inspection - Respiratory Respiratory exam: Present: normal lung sounds bilaterally. Absent: respiratory distress - Cardiovascular Cardiovascular Exam: Present: regular rate, normal rhythm - GI/Abdominal GI/Abdominal exam: Present: soft, tenderness (epigastric tenderness present). 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, otherwise normal extremity inspection) - Neurological Exam Neurological exam: Present: alert, oriented X3 - Psychiatric Psychiatric exam: Present: normal affect, normal mood - Skin Skin exam: Present: warm, dry, intact, normal color ED Course Vital Signs 05/08/18 13:15 Temperature 97.3 F L Pulse Rate 88 Blood Pressure 142/96 ED Medical Decision Making - Lab Data Result diagrams: 05/08/18 13:35 05/08/18 13:35 - EKG Data -: EKG Interpreted by Nh EKG shows normal: sinus rhythm, axis, intervals, QRS complexes Rate: normal - EKG Data When compared to previous EKG there are: no significant change Interpretation: no acute changes, other (lateral T wave inversions, old anterior infarct) - Radiology Data Radiology results: report reviewed, image reviewed - Medical Decision Making 68 yo M with epigastric abdominal pain, nausea, and diarrhea since yesterday. Morphine ordered, but pt did not want anything for pain. Labs unremarkable. EKG unchanged from previous, trop negative. Likely not cardiac. CT shows no cause for epigastric pain. Possibly gastritis, since pt has hx of ulcer, or gastroenteritis. Of note, small saccular abdominal aneurysm found on CT. Pt informed of this finding and advised to f/u with vascular surgeon. Pt appears well, feels better. Will d/c home. Return precautions given. - Differential Diagnosis pancreatitis, ACS, bowel obstruction, bowel perforation Critical care attestation.: If time is entered above; I have spent that time in minutes in the direct care of this critically ill patient, excluding procedure time. ED Disposition Clinical Impression: Gastroenteritis, Abdominal aneurysm without mention of rupture Disposition: DC-01 TO HOME OR SELFCARE Is pt being admited?: No Condition: Stable Instructions: Gastroenteritis (ED) Additional Instructions: Your CT scan shows that you have a saccular abdominal aneurysm. This needs to be followed up by a surgeon so that they may monitor the size of it and determine need for repair. Prescriptions: Dicyclomine [Bentyl] 20 mg PO QID PRN #20 tablet PRN Reason: abdominal pain Ondansetron [Zofran Odt] 4 mg PO Q8HR PRN #20 tab.rapdis PRN Reason: Vomiting Referrals: RANJAN DAVILA MD [Staff Physician] - 2-3 Days PRIMARY CARE, [Primary Care Provider] - 2-3 Days Time of Disposition: 17:04
[2018-05-08 16:21] LABS: Albumin 4.9 g/dL (3.9-5); Bilirubin,Direct 0.2 mg/dL (0-0.2)
--- NOTE | 2018-05-08 16:54 | Cat Scan Report ---
FINAL REPORT EXAM: CT ABDOMEN PELVIS W CON HISTORY: abd pain TECHNIQUE: CT examination of the ABDOMEN after IV contrast CT examination of the PELVIS after IV contrast PRIORS: Abdomen ultrasound 04/09/2018 FINDINGS: Minimal nonspecific focal fluid in the anterior pericardium may be physiologic. Normal-appearing liver, gallbladder, adrenals, pancreas, and spleen. Small left saccular aneurysm abdominal aorta with 3.2 cm diameter. Moderate calcified and noncalcified plaque throughout the abdominal aorta and its branches. No evidence of aortic dissection. Normal caliber IVC. A nonspecific, smoothly marginated, low density, simple appearing left renal lesion is statistically most likely a cyst. It is too small to characterize. No renal calculus or hydronephrosis. No ureteral calculus or distention. Moderate fat containing left inguinal hernia. No right inguinal or umbilical hernia. No retroperitoneal adenopathy. No evidence of mesenteric mass. Normal-appearing stomach and duodenum. No small bowel distention in the abdomen and pelvis. No pelvic free fluid. Normal-appearing rectum. No gross ascites, free air, or colonic distention. Normal-appearing cecum and terminal ileum. Normal appendix. Prostate enlargement with mass effect on the urinary bladder base. Nonspecific prominence of seminal vesicles without focal lesion. Small Hutch diverticulum right posterolateral urinary bladder adjacent to the trigone. No definite urinary bladder wall thickening. Minimal sigmoid diverticulosis without CT evidence of diverticulitis. 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 Nonspecific prominence of the seminal vesicles Right posterolateral urinary bladder Hutch diverticulum Minimal sigmoid diverticulosis
[2018-05-08 17:57] VITALS: BP 140/82
== END 2018-05-08 17:42 | disposition home or self-care (01) ==
LOC: ED 13:10
DX: K52.9 Noninfective gastroenteritis and colitis, unspecified (principal); I71.4 Abdominal aortic aneurysm, without rupture; I11.0 Hypertensive heart disease with heart failure; I50.9 Heart failure, unspecified; J45.909 Unspecified asthma, uncomplicated; I25.2 Old myocardial infarction; Z88.1 Allergy status to other antibiotic agents
CPT/HCPCS: 36415; 74177; 80048; 80074; 82150; 83690; 84484; 85025; 85610; 85730; 93005; 93010; 96374; 99285; J2405; J7040; Q9967; J2270

== ENCOUNTER 2018-05-13 13:06 | Emergency (ER) | payer MEDICARE ==
[2018-05-13 13:24] VITALS: BP 174/106
[2018-05-13] MEDS ORDERED: LIDOCAINE VISCOUS 2% PO ONE (14:19)
[2018-05-13] MEDS ORDERED: ALUM-MAG HYDROX-SIMETH 200-200-20MG/5ML PO ONE (14:19)
--- NOTE | 2018-05-13 14:21 | Emergency Department Report ---
Blank Doc - Documentation Documentation: Patient is a 68-year-old male who has been to the emergency department multiple times in the last 2 weeks for very abdominal complaints. Patient was diagnosed with inguinal hernia a suspected ulcer as well as a small aortic aneurysm in the abdomen. Patient previous visit show the patient had some nausea vomiting diarrhea with some generalized abdominal discomfort mostly in the epigastrium. CT was performed that was relatively within normal limits except for a small aneurysm in the abdomen. Patient is complaining today of epigastric and right upper flank pain. Patient's gallbladder appeared normal on CT and ultrasound within the last several weeks. Because of the patient's aneurysm d-dimer has been ordered. D-dimer should be elevated the patient has a dissection as well as elevated if the patient is having a PE. Patient does have some pleuritic component to the right flank pain that he states is in the lower ribs. Patient's should be a candidate for discharge if the d-dimer is normal. His d-dimer is elevated additional studies will be obtained.
[2018-05-13] MEDS ORDERED: BENTYL IM ONE (14:49)
--- NOTE | 2018-05-13 15:22 | Emergency Department Report ---
ED Abdominal Pain HPI - General Chief Complaint: Abdominal Pain Stated Complaint: STOMACH PAIN Time Seen by Provider: 05/13/18 14:10 Source: patient Mode of arrival: Ambulatory Limitations: No Limitations - History of Present Illness Initial Comments: This is a 68-year-old male nontoxic, well nourished in appearance, no acute signs of distress presents to the ED with c/o of acute on chronic intermittent abdominal pain 1 2 weeks. Patient denies any nausea or vomiting. Patient describes abdominal pain as cramping and aching with level of 3/10 in epigastric area. Patient stated was here last week and was diagnosed with ulcer and a small aortic aneurysm in the abdomen. Patient denies chest pain, short of breath, fever, chills, headache, stiff neck, numbness or tingling. Patient denies any diarrhea or constipation. Patient denies any recent travels. Patient stated allergies to Ampicillin and Hydralazine. PMH includes asthma, CHF, [place], hypertension. MD Complaint: abdominal pain -: week(s) (2) Location: epigastric Radiation: R flank Migration to: no migration Severity: mild Severity scale (0 -10): 3 Quality: cramping Consistency: intermittent Improves With: nothing Worsens With: nothing Associated Symptoms: denies other symptoms. denies: nausea, vomiting, diarrhea , fever, chills, constipation, dysuria, hematemesis, hematochezia, melena, hematuria, anorexia, syncope - Related Data Home Medications Medication Instructions Recorded Confirmed Last Taken Aspirin [Aspirin EC] 81 mg PO DAILY #0 10/05/17 03/02/18 1 Day Ago ~11/11/17 Atorvastatin Calcium [Lipitor] 80 mg PO QHS #0 10/05/17 03/02/18 1 Day Ago ~11/11/17 Carvedilol [Coreg] 12.5 mg PO DAILY #0 10/05/17 03/02/18 1 Day Ago ~11/11/17 Clopidogrel Bisulfate [Plavix] 75 mg PO DAILY #0 10/05/17 03/02/18 1 Day Ago ~11/11/17 ISOSORBIDE MONOnitrate [Imdur ER] 30 mg PO DAILY #0 10/05/17 03/02/18 1 Day Ago ~11/11/17 Tamsulosin [Flomax] 0.4 mg PO QHS #0 10/05/17 03/02/18 1 Day Ago ~11/11/17 Lisinopril [Zestril TAB] 40 mg PO QDAY 03/02/18 03/02/18 Unknown Previous Rx's Medication Instructions Recorded Last Taken Type Furosemide [Lasix TAB] 40 mg PO DAILY #30 tablet 10/08/17 1 Day Ago Rx ~11/11/17 Meclizine [Antivert] 12.5 mg PO BID PRN #30 tablet 03/04/18 Unknown Rx Ibuprofen [Motrin] 600 mg PO Q8H PRN #12 tablet 05/04/18 Unknown Rx Docusate Sodium [Colace] 100 mg PO BID #30 capsule 05/06/18 Unknown Rx methOCARBAMOL [Robaxin TAB] 500 mg PO Q6H PRN #15 tablet 05/06/18 Unknown Rx Dicyclomine [Bentyl] 20 mg PO QID PRN #20 tablet 05/08/18 Unknown Rx Ondansetron [Zofran Odt] 4 mg PO Q8HR PRN #20 tab.rapdis 05/08/18 Unknown Rx Dicyclomine [Bentyl] 20 mg PO QID #10 tablet 05/13/18 Unknown Rx Omeprazole 20 mg PO DAILY #30 tablet. 05/13/18 Unknown Rx Tramadol HCl [Ultram] 50 mg PO Q6HR #7 tablet 05/13/18 Unknown Rx Allergies Allergy/AdvReac Type Severity Reaction Status Date / Time ampicillin Allergy Nausea Verified 05/13/18 13:21 hydralazine AdvReac Unknown Verified 05/13/18 13:21 ED Review of Systems ROS: Stated complaint: STOMACH PAIN Other details as noted in HPI Constitutional: denies: chills, fever Eyes: denies: eye pain, eye discharge, vision change ENT: denies: ear pain, throat pain Respiratory: denies: cough, shortness of breath, wheezing Cardiovascular: denies: chest pain, palpitations Endocrine: no symptoms reported Gastrointestinal: denies: abdominal pain, nausea, diarrhea Genitourinary: denies: urgency, dysuria Musculoskeletal: denies: back pain, joint swelling, arthralgia Skin: denies: rash, lesions Neurological: denies: headache, weakness, paresthesias Psychiatric: denies: anxiety, depression Hematological/Lymphatic: denies: easy bleeding, easy bruising ED Past Medical Hx - Past Medical History Hx Hypertension: Yes Hx Heart Attack/AMI: Yes Hx Congestive Heart Failure: Yes Hx Asthma: Yes Additional medical history: 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 hx Inguinal hernia - Surgical History Hx Coronary Stent: Yes (unknown date) Additional Surgical History: finger surgery - Social History Smoking Status: Never Smoker Substance Use Type: None - Medications Home Medications: Home Medications Medication Instructions Recorded Confirmed Last Taken Type Aspirin [Aspirin EC] 81 mg PO DAILY #0 10/05/17 03/02/18 1 Day Ago History ~11/11/17 Atorvastatin Calcium [Lipitor] 80 mg PO QHS #0 10/05/17 03/02/18 1 Day Ago History ~11/11/17 Carvedilol [Coreg] 12.5 mg PO DAILY #0 10/05/17 03/02/18 1 Day Ago History ~11/11/17 Clopidogrel Bisulfate [Plavix] 75 mg PO DAILY #0 10/05/17 03/02/18 1 Day Ago History ~11/11/17 ISOSORBIDE MONOnitrate [Imdur ER] 30 mg PO DAILY #0 10/05/17 03/02/18 1 Day Ago History ~11/11/17 Tamsulosin [Flomax] 0.4 mg PO QHS #0 10/05/17 03/02/18 1 Day Ago History ~11/11/17 Furosemide [Lasix TAB] 40 mg PO DAILY #30 tablet 10/08/17 03/02/18 1 Day Ago Rx ~11/11/17 Lisinopril [Zestril TAB] 40 mg PO QDAY 03/02/18 03/02/18 Unknown History Meclizine [Antivert] 12.5 mg PO BID PRN #30 tablet 03/04/18 Unknown Rx Ibuprofen [Motrin] 600 mg PO Q8H PRN #12 tablet 05/04/18 Unknown Rx Docusate Sodium [Colace] 100 mg PO BID #30 capsule 05/06/18 Unknown Rx methOCARBAMOL [Robaxin TAB] 500 mg PO Q6H PRN #15 tablet 05/06/18 Unknown Rx Dicyclomine [Bentyl] 20 mg PO QID PRN #20 tablet 05/08/18 Unknown Rx Ondansetron [Zofran Odt] 4 mg PO Q8HR PRN #20 tab.rapdis 05/08/18 Unknown Rx Dicyclomine [Bentyl] 20 mg PO QID #10 tablet 05/13/18 Unknown Rx Omeprazole 20 mg PO DAILY #30 tablet. 05/13/18 Unknown Rx Tramadol HCl [Ultram] 50 mg PO Q6HR #7 tablet 05/13/18 Unknown Rx ED Physical Exam - General Limitations: No Limitations General appearance: alert, in no apparent distress - Head Head exam: Present: atraumatic, normocephalic - Eye Eye exam: Present: normal appearance - ENT ENT exam: Present: mucous membranes moist - Neck Neck exam: Present: normal inspection, full ROM. Absent: tenderness, meningismus - Respiratory Respiratory exam: Present: normal lung sounds bilaterally. Absent: respiratory distress, wheezes, rales, rhonchi, stridor, chest wall tenderness, accessory muscle use, decreased breath sounds, prolonged expiratory - Cardiovascular Cardiovascular Exam: Present: regular rate, normal rhythm, normal heart sounds. Absent: irregular rhythm, systolic murmur, diastolic murmur, rubs, gallop - GI/Abdominal GI/Abdominal exam: Present: soft, normal bowel sounds. Absent: distended, tenderness, guarding, rebound, rigid, diminished bowel sounds - Expanded GI/Abdominal Exam Expanded GI/Abdominal exam: Absent: psoas sign, Rojas's sign, Rovsing's sign, tenderness at Mcburney's Point - Rectal Rectal exam: Present: deferred - Extremities Exam Extremities exam: Present: normal inspection, full ROM, normal capillary refill. Absent: tenderness - Back Exam Back exam: Present: normal inspection, full ROM. Absent: tenderness, CVA tenderness (R), CVA tenderness (L), muscle spasm, paraspinal tenderness, vertebral tenderness, rash noted - Neurological Exam Neurological exam: Present: alert, oriented X3, normal gait - Psychiatric Psychiatric exam: Present: normal affect, normal mood - Skin Skin exam: Present: warm, dry, intact, normal color. Absent: rash ED Course Vital Signs 05/13/18 13:21 Temperature 97.9 F Pulse Rate 109 H Respiratory 20 Rate Blood Pressure 174/106 O2 Sat by Pulse 96 Oximetry - Reevaluation(s) Reevaluation #1: 05/13/18 15:23 Patient is speaking in full sentences with no signs of distress noted. - Consultations Consultation #1: 05/13/18 15:23 Patient has been consulted with Will Valadez about patient history, physical exam, and labs and examined and screened patient and pt for discharge with follow-up. ED Medical Decision Making - Medical Decision Making This is a 68-year-old male that presents with abdominal pain. Patient is stable and was examined by me and Dr. Maher. Due to recent labs and CTs obtained, no more imaging and labs to be obtained today as per Dr. Maher. D- dimmer normal. There is no abdominal tenderness. Negative signs of symptoms of appendicitis. Labs obtained. UA obtained. US of abdomen obtained and dictated by the radiologist. Patient is notified of the report with no questions noted by the patient. Vital signs are stable prior to discharge. Patient was notified of strict precatuions of appendictis symptoms and to return to the ED if symptoms occurs as soon as possible. Patient discharged by Dr. Maher. Patient was also instructed to Follow-up with a primary care doctor in 3-5 days or if symptoms worsen and continue return to emergency room as soon as possible. At time of discharge, the patient does not seem toxic or ill in appearance. No acute signs of distress noted. Patient agrees to discharge treatment plan of care. No further questions noted by the patient. Critical care attestation.: If time is entered above; I have spent that time in minutes in the direct care of this critically ill patient, excluding procedure time. ED Disposition Clinical Impression: PUD (peptic ulcer disease) Disposition: DC-01 TO HOME OR SELFCARE Is pt being admited?: No Condition: Stable Instructions: Peptic Ulcer (ED) Prescriptions: Dicyclomine [Bentyl] 20 mg PO QID #10 tablet Omeprazole 20 mg PO DAILY #30 tablet. Tramadol HCl [Ultram] 50 mg PO Q6HR #7 tablet Referrals: KELLY MATHEWS MD [Staff Physician] - 3-5 Days
== END 2018-05-13 15:43 | disposition home or self-care (01) ==
LOC: ED 13:06
DX: K27.9 Peptic ulcer, site unspecified, unspecified as acute or chronic, without hemorrhage or perforation (principal); I11.0 Hypertensive heart disease with heart failure; I50.9 Heart failure, unspecified; I25.2 Old myocardial infarction; J45.909 Unspecified asthma, uncomplicated; Z79.82 Long term (current) use of aspirin; Z88.1 Allergy status to other antibiotic agents; Z88.8 Allergy status to other drugs, medicaments and biological substances
CPT/HCPCS: 36415; 85379; 99283

== ENCOUNTER 2018-08-19 05:47 | Inpatient (IN) | payer MEDICARE, MEDICAID ==
[2018-08-16 12:52] LABS: Basophils # (Auto) 0.1 K/mm3 (0.0-0.1); Basophils % (Auto) 1.2 % (0.0-1.8); Eosinophils # (Auto) 0.1 K/mm3 (0.0-0.4); Eosinophils % (Auto) 2.1 % (0.0-4.3); Hematocrit 42.8 % (35.5-45.6); Hemoglobin 14.6 gm/dl (11.8-15.2); Lymphocytes # (Auto) 1.5 K/mm3 (1.2-5.4); Lymphocytes % (Auto) 25.4 % (13.4-35.0); Mean Corpuscular HGB Conc 34 % (32-34); Mean Corpuscular Volume 87 fl (84-94); Monocytes # (Auto) 0.5 K/mm3 (0.0-0.8); Monocytes % (Auto) 7.7 % (0.0-7.3); Platelet Count 184 K/mm3 (140-440); Red Cell Distribution Width 13.7 % (13.2-15.2)
[2018-08-16 13:14] LABS: BUN/Creatinine Ratio 8; Blood Urea Nitrogen 7 mg/dL (9-20); Calcium 8.8 mg/dL (8.4-10.2); Hemolysis Index 45
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
[2018-08-19] MEDS ORDERED: NACL BACTERIOSTATIC INFILTRATI ONE (06:28)
[2018-08-19] MEDS ORDERED: MARCAINE 0.25% INFILTRATI ONE (06:30)
[2018-08-19] MEDS ORDERED: XYLOCAINE 1% 20 mL ONE (06:30)
[2018-08-19] MEDS ORDERED: LACTATED RINGERS 1,000 ML IV SCH ×2 (07:00→08:00)
[2018-08-19] MEDS ORDERED: DILAUDID IV PRN (07:09)
--- NOTE | 2018-08-19 07:09 | Anesthesia Day of Surgery ---
Anesthesia Day of Surgery - Day of Surgery Patient Examined: Yes Patient H&P Reviewed: Yes Patient is NPO: Yes
[2018-08-19] MEDS ORDERED: XYLOCAINE CARDIAC IV ONE (07:28)
[2018-08-19] MEDS ORDERED: DIPRIVAN 10 MG/ML IV ONE (07:28)
[2018-08-19] MEDS ORDERED: QUELICIN ONE (07:29)
[2018-08-19] MEDS ORDERED: ZOFRAN ONE (07:29)
[2018-08-19] MEDS ORDERED: DECADRON ONE (07:29)
[2018-08-19] MEDS ORDERED: VANCOMYCIN/NS 1 GM/250 ML 1 GM/250 ML BAG IV NR (07:30)
[2018-08-19] MEDS ORDERED: SUBLIMAZE ONE (07:36)
[2018-08-19] MEDS ORDERED: ZOFRAN IV PRN (08:57)
[2018-08-19] MEDS ORDERED: MORPHINE IV PRN (08:57)
[2018-08-19] MEDS ORDERED: NARCAN 0.4 MG/1 ML IV PRN (08:57)
[2018-08-19] MEDS ORDERED: TYLENOL PO PRN (08:57)
[2018-08-19] MEDS ORDERED: SODIUM CHLORIDE FLUSH SYRINGE 10 ML IV PRN (08:57)
--- NOTE | 2018-08-19 09:05 | Post Operative Note ---
Date of procedure: 08/19/18 Pre-op diagnosis: left inguinal hernia Post-op diagnosis: same Findings: direct inguinal hernia, small cord lipoma. hernia repaired with bard medium plug and patch Procedure: left inguinal hernia repair with mesh Anesthesia: RAO, local Surgeon: BRANDON CAMPBELL Fire Engine Pump Operator: JESSICA MEREDITH Estimated blood loss: minimal Pathology: list (cord lipoma) Specimen disposition: to lab Condition: stable Disposition: PACU
[2018-08-19] MEDS: ZOFRAN IV PRN (10:20)
--- NOTE | 2018-08-19 10:49 | Consultation ---
History of Present Illness Consult date: 08/19/18 Requesting physician: BRANDON CAMPBELL Reason for consult: other (S/P Left Inguinal Hernioraphy; Chronic CHF (EF 10- 15%)) History of present illness: PULMONARY/CCM CONSULT NOTE (Full dictation # [id number]) Please see dictated notes for full details Medications and Allergies Allergies Allergy/AdvReac Type Severity Reaction Status Date / Time ampicillin Allergy Nausea Verified 08/13/18 10:27 hydralazine AdvReac Unknown Verified 08/13/18 10:27 Home Medications Medication Instructions Recorded Confirmed Last Taken Type ISOSORBIDE MONOnitrate [Imdur ER] 30 mg PO DAILY #0 10/05/17 08/19/18 08/19/18 04:30 History Aspirin [Aspirin EC] 81 mg PO DAILY #30 05/24/18 08/16/18 08/18/18 Rx Atorvastatin Calcium [Lipitor] 80 mg PO QHS #30 05/24/18 08/16/18 08/18/18 Rx Carvedilol [Coreg] 12.5 mg PO BID #60 05/24/18 08/19/18 08/19/18 04:30 Rx Clopidogrel Bisulfate [Plavix] 75 mg PO DAILY #30 05/24/18 08/16/18 08/13/18 Rx Furosemide [Lasix TAB] 40 mg PO DAILY #30 tablet 05/24/18 08/16/18 08/18/18 Rx Lisinopril [Zestril] 40 mg PO QDAY #30 05/24/18 08/16/18 08/18/18 Rx Tamsulosin HCl [Flomax] 0.4 mg PO QHS #30 05/24/18 08/16/18 08/18/18 Rx Active Meds: Active Medications Acetaminophen (Tylenol) 650 mg PO Q4H PRN PRN Reason: Pain MILD(1-3)/Fever >100.5/RAMOS Acetaminophen/Hydrocodone Bitart ([place]liver 5/325) 2 each PO Q6H PRN PRN Reason: Pain, Moderate (4-6) Aspirin (Halfprin Ec) 81 mg PO QDAY QUAN Atorvastatin Calcium (Lipitor) 80 mg PO QHS QUAN Carvedilol (Coreg) 12.5 mg PO BID QUAN Furosemide (Lasix) 40 mg PO QDAY QUAN Heparin Sodium (Porcine) (Heparin) 5,000 unit SUB-Q Q8HR QUAN Hydromorphone HCl (Dilaudid) 0.5 mg IV Q10MIN PRN PRN Reason: Pain , Severe (7-10) Stop: 08/19/18 20:00 Vancomycin HCl (Vancomycin/Ns 1 Gm/250 Ml) 1 gm in 250 mls @ 167.007 mls/hr IV PREOP NR; Protocol Stop: 08/19/18 23:59 Last Admin: 08/19/18 07:01 Dose: 167.007 mls/hr Documented by: Lactated Ringer's (Lactated Ringers) 1,000 mls @ 100 mls/hr IV DIRECT QUAN Isosorbide Mononitrate (Imdur) 30 mg PO QDAY QUAN Lisinopril (Zestril) 40 mg PO QDAY QUAN Morphine Sulfate (Morphine) 2 mg IV Q4H PRN PRN Reason: Pain , Severe (7-10) Naloxone HCl (Narcan 0.4 Mg/1 Ml) 0.1 mg IV Q2MIN PRN PRN Reason: Res Rate </= 8 or 02 SAT < 92% Ondansetron HCl (Zofran) 4 mg IV Q6H PRN PRN Reason: Nausea And Vomiting Last Admin: 08/19/18 10:20 Dose: 4 mg Documented by: Sodium Chloride (Sodium Chloride Flush Syringe 10 Ml) 10 ml IV BID QUAN Sodium Chloride (Sodium Chloride Flush Syringe 10 Ml) 10 ml IV PRN PRN PRN Reason: LINE FLUSH Physical Examination Vital signs: Vital Signs Temp Pulse Resp BP 98 F 80 20 180/100 08/16/18 12:30 08/16/18 12:30 08/16/18 12:30 08/16/18 12:30 Results - Laboratory Findings CBC and BMP: 08/16/18 12:35 08/16/18 12:35 Abnormal lab findings: Abnormal Labs 08/16/18 08/16/18 12:35 12:35 [place] % (Auto) 7.7 H BUN 7 L
--- NOTE | 2018-08-19 11:18 | XRay Report ---
AP CHEST: HISTORY: Cardiomyopathy, hypoxemia AP view of the chest demonstrates a normal mediastinal and cardiac contour with clear lungs and normal bony and soft tissue structures. IMPRESSION: Unremarkable AP chest.
[2018-08-19] MEDS ORDERED: IMDUR PO SCH (12:00)
[2018-08-19 12:56] LABS: Hematocrit 44.6 % (35.5-45.6); Hemoglobin 15.2 gm/dl (11.8-15.2); Mean Corpuscular HGB Conc 34 % (32-34); Mean Corpuscular Volume 86 fl (84-94); Platelet Count 192 K/mm3 (140-440); Red Blood Count 5.16 M/mm3 (3.65-5.03); Red Cell Distribution Width 13.9 % (13.2-15.2)
--- NOTE | 2018-08-19 13:01 | Operative Report ---
PREOPERATIVE DIAGNOSIS: Left inguinal hernia. POSTOPERATIVE DIAGNOSIS: Left inguinal hernia. FINDINGS: Direct inguinal hernia and a small cord lipoma, hernia repaired with a Bard medium plug and patch mesh. PROCEDURE: Left inguinal hernia repair with mesh, ilioinguinal nerve block all the way down. ANESTHESIA: General endotracheal anesthesia, local. SURGEON: Josefina Ware DO. OIL WINTERIZER: Liset Santana MD ESTIMATED BLOOD LOSS: Minimal. PATHOLOGY: Cord lipoma specimen. DISPOSITION: To lab. CONDITION: Stable. DISPOSITION: To PACU. HISTORY OF PRESENT ILLNESS: The patient is a 68-year-old male with a past medical history significant for CAD, CHF, who presented to the office as a referral for a left inguinal hernia. The patient also has a history of a drug-eluting stent, placed back in 06/2016 and managed on Plavix. The patient was having pain in his left groin for several months and was found to have a moderate-sized inguinal hernia on physical exam. The hernia was reducible and repair was recommended and the patient did obtain Cardiology clearance prior to surgery. All risks, benefits, alternatives to surgery were discussed with the patient and his son at the bedside and consent was obtained in the office. PROCEDURE IN DETAIL: The patient was identified in the preoperative area and taken back to the operating room and placed on the operating table in supine position. After anesthesia was induced, the left groin hair was clipped and the abdomen was prepped and draped in the usual sterile fashion. A timeout was performed. An oblique incision was made in the left groin between ASIS and pubic tubercle using a 15 blade. Local anesthetic was infiltrated into the skin incision site prior to incision. Dissection was carried down through the skin and subcutaneous tissue using Bovie electrocautery until the external oblique fascia was encountered. A small luis was made in the external oblique fascia using a #15 blade and the external oblique fascia was opened in the direction of its fibers using a Metzenbaum scissor. The two leaves of the external oblique fascia were grasped using hemostat respectively. The underlying cord structures and cremaster muscles were then from the underside of the external oblique fascia and the shelving edge was visualized. The ilioinguinal nerve was identified and protected. The cord structures were then encircled with a [place] drain and retracted laterally. A moderate-size direct inguinal hernia was visualized along with a small cord lipoma. The cord lipoma was from the cord using Metzenbaum scissors. No indirect hernia sac was identified. At this point, because of the laxity of the floor of the inguinal canal, the direct inguinal hernia was imbricated by suturing the transversalis fascia to the shelving edge of the inguinal ligament using 2-0 PDS interrupted sutures. It was then decided to repair the hernia with a plug and patch mesh by Bard. A medium-size was chosen. The plug was then sutured to the proximal part of the cord lipoma using a 2-0 PDS suture and the remaining cord lipoma was transected and passed off the table as a specimen. The plug was then placed into the deep inguinal ring and the leaflets sutured to the shelving edge of the inguinal ligament and the transversalis fascia using 2-0 PDS interrupted sutures. The patch was then cut to size and a slit made to accommodate the cord structures. The apex of the patch was sutured to the pubic tubercle using a 2-0 PDS suture. The lateral edge was sutured to the shelving edge of the inguinal ligament and the medial edge was sutured to the transverse fascia using interrupted 2-0 PDS sutures. The two leaflets were brought around the cord structures and sutured to each other using 2-0 PDS and then tucked underneath the external oblique fascia. The hemostasis was meticulously achieved and then the external oblique fascia was closed over the cord structures using a 2-0 Vicryl running suture. Prior to this, the ilioinguinal nerve was identified and protected. The subcutaneous tissue was irrigated and hemostasis was ensured. The deep dermal layer was then closed with interrupted 3-0 Vicryl sutures. The skin closed with 4-0 Monocryl subcuticular running stitch and skin glue. The scrotum was palpated and both testicles were in an anatomic position. At the end of the case, all sponge, instrument and sharp counts were correct x 2. The patient was awoken from anesthesia, extubated, and taken to PACU in stable condition. JOB# [id number] RICH/SANDRA PACHECO
--- NOTE | 2018-08-19 13:09 | Progress Note ---
Addendum entered and electronically signed by JACKSON DORADO MD 08/19/18 13:39: Patient is status post hernia surgery, currently in the ICU, awake and comfortab le. A Jaimes catheter is being inserted for complaints of urinary retention and inability to void. On the telemetry monitoring sinus sinus rhythm, blood pressure 160 systolic. Recommendations: Patient has severe multivessel coronary artery disease and severe ischemic cardiomyopathy, status post hernia surgery with a moderate to high risk perioperative assessment. We will continue aggressive postoperative cardiac management with daily ECGs, beta blockers, nitrates and oral antiplatelet therapy. For the first 24hr, will use intravenous nitroglycerin in place of oral nitrates for better management of his elevated blood pressure. Original Note: Assessment and Plan s/p inguinal hernia repair Hx of COPD Hx of CAD [facility] 06/2017: pt was turned down for bypass and instead had coronary intervention to the right coronary artery due to his multiple co-morbidities.The LAD and circumflex occlusions were recommended for medical therapy. [facility] 09/2017: no ischemia. Ischemic cardiomyopathy, EF 20-25% patient has previously declined an AICD implant. Hypertension Recommendations: Continue medical therapy for coronary artery disease and ischemic cardiomyopathy. We will initiate intravenous nitroglycerin for optimal BP control. Daily ECG, post op, for 2 days. Fluid/sodium restriction. Subjective Date of service: 08/19/18 Interval history: Patient is post hernia surgery. There are no reports of chest pain or shortness of breath. post operative ECG reviewed, no acute ischemic changes. Noted with a systolic blood pressure of 167. Objective Vital Signs Temp Pulse Resp BP Pulse Ox 08/19/18 10:00 63 18 163/89 100 08/19/18 09:45 98 F 68 22 147/90 100 08/19/18 09:30 66 16 127/89 100 08/19/18 09:15 64 20 140/85 100 08/19/18 09:10 65 18 139/79 100 08/19/18 09:05 65 20 128/84 99 08/19/18 09:00 97.2 F L 68 20 143/80 99 08/19/18 07:03 156/91 08/19/18 06:45 98.3 F 70 20 156/91 98 08/19/18 06:20 98.3 F 70 20 157/103 98 - Physical Examination General: No Apparent Distress HEENT: Positive: PERRL Cardiac: Positive: Reg Rate and Rhythm Lungs: Positive: Decreased Breath Sounds Neuro: Positive: Grossly Intact
--- NOTE | 2018-08-19 13:13 | Post Anesthesia Evaluation ---
- Post Anesthesia Evaluation Patient Participated: Yes Airway Patent: Yes Stable Respiratory Function: Yes Nausea/Vomiting: No Temp > 96.8F: Yes Pain Manageable: Yes Adequeate Hydration: Yes Anesthesia Complications: No
[2018-08-19 13:20] LABS: BUN/Creatinine Ratio 9; Blood Urea Nitrogen 8 mg/dL (9-20); Calcium 9.1 mg/dL (8.4-10.2); Hemolysis Index 4
[2018-08-19] MEDS: ZESTRIL PO SCH (13:50)
[2018-08-19] MEDS: HALFPRIN EC PO SCH (13:50)
[2018-08-19] MEDS: LASIX PO SCH (13:50)
[2018-08-19] MEDS: FLOMAX PO SCH (13:50)
[2018-08-19] MEDS: HEPARIN SUB-Q SCH ×2 (13:51→22:15)
[2018-08-19] MEDS: SODIUM CHLORIDE FLUSH SYRINGE 10 ML IV SCH ×2 (13:53→22:15)
[2018-08-19] MEDS: COREG PO SCH ×2 (13:54→22:15)
[2018-08-19 13:57] LABS: Basophils % (Manual) 0 % (0.0-1.8); Eosinophils % (Manual) 0 % (0.0-4.3); Total Cells Counted 100
[2018-08-19 13:59] LABS: Platelet Estimate Consistent w Auto
[2018-08-19] MEDS ORDERED: TRIDIL DRIP 50MG/250ML 50 MG/250 ML BOTTLE IV SCH (14:00)
[2018-08-19] MEDS: NORCO 5/325 PO PRN (16:31)
--- NOTE | 2018-08-19 16:41 | Event Note ---
Date: 08/19/18 Checked on patient post op. He sitting up in a chair in his room. VSS. Incisional pain is moderate. He was having issues with urinary retention and a bladder scan showed 600cc. An attempt was made to insert a cruz by nursing, however this was unsuccessful due to patient's hx of BPH. Now, he has been urinating clear yellow urine in small amounts. Total of 450cc voided with 400cc residual on bladder scan. Dr. Mazariegos was consulted by ICU. The patient is refusing cruz at this time. He does not c/o abdominal pain. He understands that if he cannot urinate and his bladder is holding too much urine, he can have issues such as infection. He understands. Will continue to monitor overnight and hold off on cruz. I discussed this with Dr. Mazariegos. ICU and cardiology input also appreciated.
--- NOTE | 2018-08-19 20:04 | Event Note ---
Date: 08/19/18 Unable to transfer patient from my out of hospital computer Asked Hospitalist team to please assist with transfer and input appreciated
--- NOTE | 2018-08-19 21:30 | Consultation ---
PULMONARY CRITICAL CARE CONSULT NOTE CONSULTING PHYSICIAN: Josefina Ware DO REASON FOR CONSULTATION: Status post repair of inguinal hernia, severe cardiomyopathy, need for ICU observation postop. CHIEF COMPLAINT AND HISTORY OF PRESENT ILLNESS: As follows: The patient is a 68-year-old male with past medical history significant indeed for a diagnosis of cardiomyopathy, ejection fraction reportedly about 20% or less, who came in for semi-elective inguinal herniorrhaphy, left inguinal hernia repair. He did undergo successful surgical intervention. No preoperative or perioperative complications as far as I can tell. Postop, he was transferred into the Intensive Care Unit on the advice of the ice cream dipper to monitor closely for hemodynamic instability. When I stopped by to see him, he was actually on supplemental oxygen, which is new. He did deny any chest pains. He denied palpitations. He was complaining mostly of suprapubic pain or urinary urgency, but not being able to void. He denied any cough or expectoration. Denied fevers or chills. He does have a remote 10+ pack year tobacco smoking history. He tells me he does not smoke again, but at the last visit a few months back, he was described as an everyday smoker. This really is as much of the history of presentation as I have. PAST MEDICAL HISTORY: Again, history of cardiomyopathy, heart failure with reduced ejection fraction, history of coronary artery disease, history of hypertension, history of benign prostatic hyperplasia, history of asthma. He also has a history of the inguinal hernia. PAST SURGICAL HISTORY: He has had finger surgery in the past. He has had coronary artery stenting and now he is status post left inguinal herniorrhaphy. MEDICATIONS: He was on at the time I stopped by to see him were reviewed. Pertinent medications include the following: Tylenol 650 mg p.o. q. 4 hours p.r.n. mild pain and fevers, Marshall 5/325 mg 2 tablets p.o. q. 6 hours p.r.n. moderate pain, aspirin 81 mg p.o. daily, Lipitor 80 mg p.o. at bedtime, carvedilol 12.5 mg p.o. b.i.d., Lasix 40 mg p.o. daily, heparin 5000 units subcutaneous q. 8 hours scheduled, Imdur 30 mg p.o. daily, lactated Ringer's was going at 100 mL per hour earlier, he is on lisinopril 40 mg p.o. daily, morphine 2 mg IV q. 4 hours p.r.n. severe pain, Zofran 4 mg IV q. 6 hours p.r.n. nausea and vomiting, vancomycin. He received a 1 gram dose preoperatively. ALLERGIES: AMPICILLIN AND HYDRALAZINE. Nature of this allergy is unknown. DIET: Obese gentleman. Denies acute weight loss or gain in the preceding few weeks to months. FAMILY AND SOCIAL HISTORY: Lives in the community, has a 10+ pack year tobacco smoking history. Denies current alcohol, tobacco or illicit drug use or abuse. Family history, otherwise, noncontributory. REVIEW OF SYSTEMS: No loss of consciousness. No new-onset seizures. No new onset focal weakness. No gross hematochezia or melena. He has dysuria. Denied hematuria. No palpitations, no chest pains. Denies heat or cold intolerance. Denies polydipsia or polyuria. Denies any new rashes or lesions on his body. Denies any new leg pain or swelling either unilaterally or bilaterally. Denies any uncontrolled anxiety or depression. Complete 13-system review of systems obtained. Pertinent positives and/or negatives as in the body of history above, otherwise, they are noncontributory. PHYSICAL EXAMINATION: VITAL SIGNS: At presentation, he was afebrile, temperature 97.2 degrees Fahrenheit with a pulse of 68, respiratory rate of 20, blood pressure 143/80, O2 sats were 99% that was on 2 liters nasal cannula. GENERAL: He is an elderly-looking male. Normocephalic, atraumatic, talking to me in full sentences at worst in mildly increased respiratory effort. HEAD, EYES, EARS, NOSE AND THROAT: He is anicteric. No conjunctival erythema. Oropharynx is moist. Oropharynx is a Mallampati #2 oropharynx. Grossly, no palpable lymph nodes in the supraclavicular or submandibular lymph node chains. No gross jugular venous distention. LUNGS: Auscultation of both lung baez really unremarkable. Lungs are clear bilaterally. HEART: Heart sounds 1 and 2 are heard. Regular rate and rhythm with a soft systolic murmur. ABDOMEN: Soft, full, bowel sounds are positive. He is tender over the lower abdominal regions, and in particular, over the left lower quadrant. He does have a scar about 10 cm clean postop scar. No significant suprapubic tenderness. EXTREMITIES: Without overt digital clubbing, cyanosis or pedal edema. NEUROLOGIC: Pupils are equal, round, about 4 mm, reactive to light. Extraocular muscle movements are intact. He moves all 4 extremities spontaneously. SKIN: The skin is of normal turgor without overt cellulitis or rashes. LABORATORY DATA: From my review from the 7th at that time, white count was 6100, hemoglobin 14.6, hematocrit 42.8, platelet count 184. No significant band forms. Serum sodium was 141, potassium 4.1, chloride 105, bicarb 25, BUN 7, creatinine 0.9 and glucose was 95. No microbiology studies. I do have radiographic studies from x-ray I just ordered and x-ray shows chronic-looking increased interstitial markings without overt cardiomegaly. He has some kyphoscoliosis. No gross pneumothorax. No gross bony fracture. No pleural effusion of significance. ASSESSMENT: 1. Left inguinal hernia, status post repair. 2. Cardiomyopathy, heart failure with reduced ejection fraction. 3. Acute hypoxemic respiratory failure, now on 2 liters nasal cannula. 4. History of benign prostatic hyperplasia. 5. Dysuria. 6. Coronary artery disease. 7. History of asthma. 8. Obesity. PLAN: We will continue supplemental oxygen. We will wean to keep sats greater than or equal to over 90%. Aspiration precautions will be maintained. Cardiology consultation has been requested. He may be started on a nitroglycerin drip. We will place a Urology consult. Bladder scan demonstrates about 700 mL of urine in his bladder. He is unable to go. We were unable to pass a Jaimes catheter at the bedside. I will get routine labs, BMP, CBC and make sure nothing is being missed, but in particular also get a magnesium level. He reportedly has a significant history of arrhythmias. He will be placed on GI prophylaxis as well as DVT prophylaxis. Flu and pneumonia vaccination will be addressed per protocol. Hopefully, he does well and can be transferred out of the Intensive Care Unit after an observation period of about 24 hours. Thank you very much for the consult Dr. Ware. We will follow along and make further recommendations as picture progresses/becomes clearer. JOB# [id number] AJM/SANDRA ELLERD
[2018-08-20] MEDS: HALFPRIN EC PO SCH (10:00)
[2018-08-20] MEDS ORDERED: FLOMAX PO SCH (10:00)
[2018-08-20] MEDS: ZESTRIL PO SCH (10:17)
[2018-08-20] MEDS: LASIX PO SCH (10:17)
[2018-08-20] MEDS: SODIUM CHLORIDE FLUSH SYRINGE 10 ML IV SCH ×2 (10:17→23:08)
[2018-08-20] MEDS ORDERED: TORADOL IV ONE ×3 (12:22→23:15)
--- NOTE | 2018-08-20 12:31 | Progress Note ---
Addendum entered and electronically signed by MARIO DICKEY MD 08/20/18 12:43: Cardiac rush stable postop with no events Cardiac meds resumed Follow-up daily ECG Original Note: Assessment and Plan s/p inguinal hernia repair Hx of COPD Hx of CAD [facility] 06/2017: pt was turned down for bypass and instead had coronary intervention to the right coronary artery due to his multiple co-morbidities.The LAD and circumflex occlusions were recommended for medical therapy. MPI 09/2017: no ischemia. Ischemic cardiomyopathy, EF 20-25% patient has previously declined an AICD implant. Hypertension Recommendations: Continue medical therapy for coronary artery disease and ischemic cardiomy opathy. Daily ECG, post op, for 2 days. Fluid/sodium restriction. Subjective Date of service: 08/20/18 Interval history: Patient denies chest pain and shortness of breath. ECG pending. Objective Vital Signs Temp Pulse Pulse Resp BP Pulse Ox 08/20/18 08:20 70 18 99 08/20/18 04:48 98.0 F 08/20/18 04:00 69 22 95 08/20/18 01:19 97.6 F 08/20/18 00:00 68 13 96 08/19/18 22:15 67 109/69 08/19/18 22:00 69 08/19/18 20:00 77 14 97 08/19/18 19:47 98.4 F 08/19/18 13:50 78 146/94 - Physical Examination General: No Apparent Distress HEENT: Positive: PERRL Cardiac: Positive: Reg Rate and Rhythm Lungs: Positive: Decreased Breath Sounds Neuro: Positive: Grossly Intact - Labs and Meds CBC 08/19/18 Range/Units 12:34 WBC 11.6 H (4.5-11.0) K/mm3 RBC 5.16 H (3.65-5.03) M/mm3 Hgb 15.2 (11.8-15.2) gm/dl Hct 44.6 (35.5-45.6) % Plt Count 192 (140-440) K/mm3 Comprehensive Metabolic Panel 08/19/18 Range/Units 12:34 Sodium 140 (137-145) mmol/L Potassium 4.0 (3.6-5.0) mmol/L Chloride 102.1 (98-107) mmol/L Carbon Dioxide 24 (22-30) mmol/L BUN 8 L (9-20) mg/dL Creatinine 0.9 (0.8-1.5) mg/dL Glucose 144 H (75-100) mg/dL Calcium 9.1 (8.4-10.2) mg/dL
[2018-08-20] MEDS: HEPARIN SUB-Q SCH ×3 (13:16→23:15)
--- NOTE | 2018-08-20 15:07 | Progress Note ---
Assessment and Plan Left inguinal hernia, status post repair. Cardiomyopathy, heart failure with reduced ejection fraction. Acute hypoxemic respiratory failure, now on 2 liters nasal cannula. History of benign prostatic hyperplasia. Dysuria. Coronary artery disease. History of asthma. Obesity. - continue supplemental oxygen as needed to keep O2 Sats > 90% - continue prn bronchodilators - cardiology evaluation ongoing - continue chronic DMOD's for CAD and COPD - resume Plavix once OK with surgeon - PT/OT as tolerated - prn BIPAP - will benefit from pulmonary / sleep clinic f/up post discharge - continue G.I. & VTE prophylaxis ..... re-evaluate in am & prn Subjective Date of service: 08/20/18 Principal diagnosis: L inguinal hernia (s/p repair); CMOP (EF 20-25%); Ac hypoxemic Resp failure Interval history: Patient is seen today for: Left inguinal hernia, status post repair; Cardiomyopathy (heart failure with reduced ejection fraction); Acute hypoxemic respiratory failure, now on 2 liters nasal cannula; History of benign prostatic hyperplasia. Seen and examined at bedside; 24hour events reviewed; nursing and respiratory care staff consulted; no adverse overnight events reported to me; resting peacefuly in bed; denies acute chest pains or palpitations; no N/V/F/C Objective Vital Signs - 12hr 08/20/18 08/20/18 08/20/18 04:00 04:48 08:20 Temperature 98.0 F Pulse Rate [ 69 70 From Monitor] Respiratory 22 18 Rate O2 Sat by Pulse 95 99 Oximetry Constitutional: no acute distress, alert, other (Elderly looking CM, normocephalic and atraumatic with mildly increased respiratory effort at rest) Eyes: non-icteric ENT: oropharynx moist Neck: supple, no lymphadenopathy, no JVD, other (large neck circumference) Effort: mildly labored Ascultation: Bilateral: clear, diminished breath sounds Percussion: Bilateral: not dull Cardiovascular: regular rate and rhythm, murmur noted (systolic) Gastrointestinal: normoactive bowel sounds, soft, non-tender, non-distended, other (LLQ post-op scar) Integumentary: normal Extremities: no cyanosis, no edema, pink and warm, pulses normal Neurologic: normal mental status, non-focal exam, pupils equal and round, CN II- XII normal Psychiatric: mood appropriate, affect normal CBC and BMP: 08/19/18 12:34 08/19/18 12:34 Abnormal lab findings: Abnormal Labs 08/16/18 08/16/18 08/19/18 12:35 12:35 12:34 WBC 11.6 H RBC 5.16 H Mayes % (Auto) 7.7 H Seg Neuts % (Manual) 94.0 H Lymphocytes % (Manual) 3.0 L Seg Neutrophils # Man 10.9 H Lymphocytes # (Manual) 0.3 L BUN 7 L Glucose 08/19/18 12:34 WBC RBC Mayes % (Auto) Seg Neuts % (Manual) Lymphocytes % (Manual) Seg Neutrophils # Man Lymphocytes # (Manual) BUN 8 L Glucose 144 H Chest x-ray: image reviewed (no acute process) Allied health notes reviewed: nursing
--- NOTE | 2018-08-20 16:19 | Progress Note ---
Assessment and Plan 68 yo M s/p left inguinal hernia repair with mesh, POD 1 1. left inguinal hernia 2. CHF 3. hx CAD with stent Plan: 1. cardiac diet with fluid restriction 2. Pt refuses narcotic pain medications, I encouraged him to take tylenol for incisional pain 3. OOB to chair 4. serial EKGs per cardiology, recommendations appreciated 5. start plavix tomorrow 6. c/w home meds 7. will discharge home when ok with cardiology. Subjective Date of service: 08/20/18 Narrative: Pt seen and examined. c/o burning pain at left groin incision. No drainage. No f/c, cp, sob, n/v, abd pain. Tolerating a diet and urinating without difficulty. Objective Vital Signs - 12hr 08/20/18 08/20/18 04:48 08:20 Temperature 98.0 F Pulse Rate [ 70 From Monitor] Respiratory 18 Rate O2 Sat by Pulse 99 Oximetry - General physical appearance Narrative Exam: Gen: AAOx3. NAD ENT: no scleral icterus or conjunctival pallor CV: s1, S2+ resp: even and unlabored Abd: soft, ND, mild TTP over left groin incision. Incision is c/d/i. Ext: no c/c/e - Labs 08/19/18 12:34 08/19/18 12:34
[2018-08-20] MEDS: COREG PO SCH ×2 (23:09→23:16)
[2018-08-20] MEDS: IMDUR PO SCH (23:16)
[2018-08-20] MEDS: FLOMAX PO SCH (23:16)
[2018-08-21] MEDS: HEPARIN SUB-Q SCH ×3 (06:10→22:58)
[2018-08-21] MEDS: IMDUR PO SCH (09:01)
[2018-08-21] MEDS: COREG PO SCH ×2 (09:01→23:00)
[2018-08-21] MEDS: LASIX PO SCH (09:50)
[2018-08-21] MEDS: ZESTRIL PO SCH (09:50)
[2018-08-21] MEDS: FLOMAX PO SCH (09:50)
[2018-08-21] MEDS: HALFPRIN EC PO SCH (09:50)
[2018-08-21] MEDS: PLAVIX PO SCH (09:51)
[2018-08-21] MEDS: SODIUM CHLORIDE FLUSH SYRINGE 10 ML IV SCH ×2 (09:54→23:27)
[2018-08-21] MEDS: NORCO 5/325 PO PRN (10:27)
[2018-08-21] MEDS ORDERED: ULTRAM PO PRN (12:07)
--- NOTE | 2018-08-21 12:07 | Progress Note ---
Assessment and Plan s/p inguinal hernia repair Hx of COPD Hx of CAD [facility] 06/2017: pt was turned down for bypass and instead had coronary intervention to the right coronary artery due to his multiple co-morbidities.The LAD and circumflex occlusions were recommended for medical therapy. MPI 09/2017: no ischemia. Ischemic cardiomyopathy, EF 20-25% patient has previously declined an AICD implant. Hypertension Recommendations: Continue medical therapy for coronary artery disease and ischemic cardiomyopathy - cardiac status is currently stable Continue post-operative management Subjective Date of service: 08/21/18 Interval history: Pt complains of surgical site pain and is having trouble urinating ECG reviewed and unremarkable. Objective Vital Signs Temp Pulse Pulse Pulse Resp BP Pulse Ox 08/21/18 10:00 58 L 08/21/18 09:50 60 117/68 08/21/18 09:01 56 L 100/56 08/21/18 08:12 95 08/21/18 08:00 97.5 F L 56 L 19 97 08/21/18 06:00 61 12 108/64 08/21/18 05:00 53 L 14 96/51 08/21/18 04:00 53 L 58 L 15 90/51 99 08/21/18 03:00 50 L 12 95/50 08/21/18 02:00 56 L 14 91/50 08/21/18 01:00 59 L 13 87/52 08/21/18 00:25 53 L 20 99 08/21/18 00:00 59 L 11 L 111/63 08/20/18 23:09 59 L 93/51 08/20/18 22:00 59 L 08/20/18 20:00 98.5 F 60 20 99 08/20/18 19:49 96 - Physical Examination General: No Apparent Distress HEENT: Positive: PERRL Cardiac: Positive: Reg Rate and Rhythm Lungs: Positive: clear to auscultation Neuro: Positive: Grossly Intact Abdomen: Positive: Soft, Active Bowel Sounds Extremities: Absent: edema
--- NOTE | 2018-08-21 12:10 | Discharge Summary ---
Providers - Providers Date of Admission: 08/19/18 08:57 Date of discharge: 08/21/18 Attending physician: BRANDON CAMPBELL DO 08/19/18 09:02 Consult to Physician [CONS] Routine Comment: Consulting Provider: JACKSON DORADO Physician Instructions: known to you Reason For Exam: periop comanagement Consult to Physician [CONS] Routine Comment: I discussed with Dr. Zhou Consulting Provider: REAL ZHOU Physician Instructions: Reason For Exam: ICU care 08/19/18 12:08 Consult to Physician [CONS] Routine Comment: Consulting Provider: TJ TAY Physician Instructions: Reason For Exam: Bladder obstruction/BPH hx/ unable to place cruz Primary care physician: JAXSON WILKINSON Hospitalization Reason for admission: inguinal hernia, CHF, CAD Condition: Good Procedures: left inguinal hernia repair with mesh Hospital course: Patient underwent uneventful left inguinal hernia repair with mesh. He was monitored per cardiology in ICU and IMCU postop and had serial EKGs. Patient remained stable and was cleared for dc from cardiology standpoint. Disposition: DC-01 TO HOME OR SELFCARE Core Measure Documentation - Palliative Care Palliative Care/ Comfort Measures: Not Applicable - Core Measures Any of the following diagnoses?: none Exam - Physical Exam Narrative exam: Gen: AAOx3. NAD CV: S1, S2+ Resp: no wheezes Abd: soft, NT, ND. left groin incision c/d/i. Ext: no c/c/e - Constitutional Vitals: Temp Pulse Resp BP Pulse Ox 97.5 F L 58 L 19 117/68 95 08/21/18 08:00 08/21/18 10:00 08/21/18 08:00 08/21/18 09:50 08/21/18 08:12 Plan Activity: other (no heavy lifting) Diet: low cholesterol, low salt Wound: open to air Follow up with: JAXSON WILKINSON JR, MD [Primary Care Provider] - 7 Days BRANDON CAMPBELL DO [Staff Physician] - 14 Days Prescriptions: traMADol [Ultram 50 MG tab] 50 mg PO Q6H PRN #30 tablet PRN Reason: Pain, Moderate (4-6)
--- NOTE | 2018-08-21 14:14 | Consultation ---
History of Present Illness - Reason for Consult Consult date: 08/21/18 Requesting physician: BRANDON CAMPBELL - History of Present Illness 68 YO Male with Ischemic Cardiomyopathy(EF 20%), CAD, HTN, MT admitted for elective hernia repair. Pt resting comfortable in bed. Pt denies fever, chills, CP, palpitations, NVD, skin rash, or recent ill contacts. Pt reports that he is anxious about going home and has limited family support. Pt reports that he has to walk up 5 steps to gain access to his home and is concerned that he will injure himself. No reported nursing events. Pt medically optimized. Past History Past Medical History: acute MT, CAD, heart failure, hypertension Past Surgical History: hernia repair Social history: . denies: smoking, alcohol abuse, prescription drug abuse Family history: no significant family history Medications and Allergies Allergies Allergy/AdvReac Type Severity Reaction Status Date / Time ampicillin Allergy Nausea Verified 08/13/18 10:27 hydralazine AdvReac Unknown Verified 08/13/18 10:27 Home Medications Medication Instructions Recorded Confirmed Last Taken Type ISOSORBIDE MONOnitrate [Imdur ER] 30 mg PO DAILY #0 10/05/17 08/19/18 08/19/18 04:30 History Aspirin [Aspirin EC] 81 mg PO DAILY #30 05/24/18 08/16/18 08/18/18 Rx Atorvastatin Calcium [Lipitor] 80 mg PO QHS #30 05/24/18 08/16/18 08/18/18 Rx Carvedilol [Coreg] 12.5 mg PO BID #60 05/24/18 08/19/18 08/19/18 04:30 Rx Clopidogrel Bisulfate [Plavix] 75 mg PO DAILY #30 05/24/18 08/16/18 08/13/18 Rx Furosemide [Lasix TAB] 40 mg PO DAILY #30 tablet 05/24/18 08/16/18 08/18/18 Rx Lisinopril [Zestril] 40 mg PO QDAY #30 05/24/18 08/16/18 08/18/18 Rx Tamsulosin HCl [Flomax] 0.4 mg PO QHS #30 05/24/18 08/16/18 08/18/18 Rx traMADol [Ultram 50 MG tab] 50 mg PO Q6H PRN #30 tablet 08/21/18 Unknown Rx Active Meds: Active Medications Acetaminophen (Tylenol) 650 mg PO Q4H PRN PRN Reason: Pain MILD(1-3)/Fever >100.5/RAMOS Acetaminophen/Hydrocodone Bitart (Hudson 5/325) 2 each PO Q6H PRN PRN Reason: Pain, Moderate (4-6) Last Admin: 08/21/18 10:27 Dose: 2 each Documented by: Aspirin (Halfprin Ec) 81 mg PO QDAY [facility] Last Admin: 08/21/18 09:50 Dose: 81 mg Documented by: Atorvastatin Calcium (Lipitor) 80 mg PO QHS [facility] Last Admin: 08/20/18 23:08 Dose: 80 mg Documented by: Carvedilol (Coreg) 12.5 mg PO BID [facility] Last Admin: 08/21/18 09:01 Dose: Not Given Documented by: Clopidogrel Bisulfate (Plavix) 75 mg PO QDAY [facility] Last Admin: 08/21/18 09:51 Dose: 75 mg Documented by: Furosemide (Lasix) 40 mg PO QDAY [facility] Last Admin: 08/21/18 09:50 Dose: 40 mg Documented by: Heparin Sodium (Porcine) (Heparin) 5,000 unit SUB-Q Q8HR [facility] Last Admin: 08/21/18 13:42 Dose: 5,000 unit Documented by: Isosorbide Mononitrate (Imdur) 30 mg PO QDAY [facility] Last Admin: 08/21/18 09:01 Dose: Not Given Documented by: Lisinopril (Zestril) 40 mg PO QDAY [facility] Last Admin: 08/21/18 09:50 Dose: 40 mg Documented by: Naloxone HCl (Narcan 0.4 Mg/1 Ml) 0.1 mg IV Q2MIN PRN PRN Reason: Res Rate </= 8 or 02 SAT < 92% Ondansetron HCl (Zofran) 4 mg IV Q6H PRN PRN Reason: Nausea And Vomiting Last Admin: 08/19/18 10:20 Dose: 4 mg Documented by: Sodium Chloride (Sodium Chloride Flush Syringe 10 Ml) 10 ml IV BID [facility] Last Admin: 08/21/18 09:54 Dose: 10 ml Documented by: Sodium Chloride (Sodium Chloride Flush Syringe 10 Ml) 10 ml IV PRN PRN PRN Reason: LINE FLUSH Tamsulosin HCl (Flomax) 0.4 mg PO QDAY [facility]AN Last Admin: 08/21/18 09:50 Dose: 0.4 mg Documented by: Tramadol HCl (Ultram) 50 mg PO Q6H PRN PRN Reason: Pain, Moderate (4-6) Review of Systems Constitutional: no weight loss, no weight gain, no fever, no chills Ears, nose, mouth and throat: no ear pain, no ear discharge, no tinnitis, no decreased hearing, no nose pain Respiratory: no cough, no cough with sputum, no excessive sputum, no hemoptysis Gastrointestinal: no nausea, no vomiting, no diarrhea, no constipation Genitourinary Male: no hematuria, no flank pain, no discharge, no urinary frequency, no urinary hesitancy Rectal: no pain, no incontinence, no bleeding Musculoskeletal: no neck stiffness, no neck pain, no shooting arm pain, no arm numbness/tingling, no low back pain Integumentary: no rash, no pruritis, no redness, no wounds, no jaundice Neurological: no head injury, no transient paralysis, no parathesias, no numbness Psychiatric: no anxiety, no memory loss, no change in sleep habits, no sleep disturbances, no insomnia, no hypersomnia Endocrine: no cold intolerance, no heat intolerance, no polyphagia, no excessive thirst, no polydipsia, no polyuria, no weight change Hematologic/Lymphatic: no easy bruising, no easy bleeding, no lymphadenopathy, no lymphedema Allergic/Immunologic: no urticaria, no persistent infections Exam - Constitutional Vitals: Temp Pulse Resp BP Pulse Ox 97.5 F L 61 15 117/68 97 08/21/18 08:00 08/21/18 12:00 08/21/18 12:00 08/21/18 09:50 08/21/18 12:00 General appearance: Present: no acute distress - EENT Eyes: Present: PERRL ENT: hearing intact, clear oral mucosa - Neck Neck: Present: supple, normal ROM - Respiratory Respiratory effort: normal Respiratory: bilateral: CTA - Cardiovascular Heart Sounds: Present: S1 & S2. Absent: rub, click - Extremities Extremities: pulses symmetrical, No edema Peripheral Pulses: within normal limits - Abdominal General gastrointestinal: Present: soft, non-tender, non-distended, normal bowel sounds Male genitourinary: Present: normal, left inguinal hernia (Incision CDI, no signs/symptoms of infection) - Integumentary Integumentary: Present: clear, warm, dry - Musculoskeletal Musculoskeletal: gait normal, strength equal bilaterally - Psychiatric Psychiatric: appropriate mood/affect, intact judgment & insight - Neurologic Neurologic: CNII-XII intact, moves all extremities Results - Labs CBC & Chem 7: 08/19/18 12:34 08/19/18 12:34 Assessment and Plan Pt counseled: Recommend Physical Therapy, Home Health, Bedside Commode, Shower chair.
--- NOTE | 2018-08-21 14:58 | Progress Note ---
Assessment and Plan 68 yo M s/p left inguinal hernia repair with mesh, POD 2 1. cleared by cards for dc 2. cleared from surgery standpoint and medical standpoint for dc 3. pt needs home health and shower chair per hospitalist service on dc 4. PT consult pending 5. case management consult pending Will cancel discharge as there is no way for us to set up home health care, get PT eval, or medical equipment needed at home on the weekend. This will likely de lay discharge until Thursday. Subjective Date of service: 08/21/18 Narrative: Pt seen and examined this am. mild incisional pain in groin. Tylenol helped with pain, he was declining stronger pain medication. Tolerating diet. Patient was OOB to chair however states he could not walk well due to pain. I explained to him that he will have pain at the incision but he needs to try and get OOB and walk. After I saw him and discharged him this am, the patient told the nurse he had lightheadedness. His VSS. I consulted hospitalist Dr. Berry who saw patient and cleared him for discharge with home health and shower chair. I was notified by nursing that there is no case management or PT here in hospital at this time and so these things cannot be arranged over the weekend. The patient also states now that he has trouble getting around at home and has no help. He has 2 sons. Objective Vital Signs - 12hr 08/21/18 08/21/18 08/21/18 03:00 04:00 05:00 Temperature Pulse Rate Pulse Rate [ 53 L From Monitor] Pulse Rate [ 50 L 58 L 53 L None] Respiratory 12 15 14 Rate Blood Pressure 95/50 90/51 96/51 O2 Sat by Pulse 99 Oximetry 08/21/18 08/21/18 08/21/18 06:00 08:00 08:12 Temperature 97.5 F L Pulse Rate Pulse Rate [ 56 L From Monitor] Pulse Rate [ 61 None] Respiratory 12 19 Rate Blood Pressure 108/64 O2 Sat by Pulse 97 95 Oximetry 08/21/18 08/21/18 08/21/18 09:01 09:50 10:00 Temperature Pulse Rate 56 L 60 58 L Pulse Rate [ From Monitor] Pulse Rate [ None] Respiratory Rate Blood Pressure 100/56 117/68 O2 Sat by Pulse Oximetry 08/21/18 12:00 Temperature Pulse Rate Pulse Rate [ 61 From Monitor] Pulse Rate [ None] Respiratory 15 Rate Blood Pressure O2 Sat by Pulse 97 Oximetry - General physical appearance Narrative Exam: Gen: AAOx3. NAD CV: S1, S2+ Resp: no wheezes Abd: soft, NT, ND. left groin incision c/d/i. Ext: no c/c/e - Labs 08/19/18 12:34 08/19/18 12:34
--- NOTE | 2018-08-21 20:43 | Progress Note ---
Assessment and Plan Patient alert, awake. No complaint of chest pain or shortness of breath or cough. Patient S/P left inguinal hernia repair.Patient is on room air. O2 saturation 95%. - Patient Problems (1) Acute chest pain Current Visit: No Status: Acute Plan to address problem: Patient has history of CAD and stent placement. Management as per cardiology. (2) Acute on chronic systolic heart failure Current Visit: No Status: Acute Plan to address problem: Management as per primary care and cardiology. (3) Acute respiratory failure Current Visit: No Status: Acute Qualifiers: Respiratory failure complication: hypoxia Qualified Code(s): J96.01 - Acute respiratory failure with hypoxia Plan to address problem: Improved. No complaint of shortness of breath or cough. (4) CVA (cerebral vascular accident) Current Visit: No Status: Acute Qualifiers: Laterality of affected vessel: unspecified Plan to address problem: Management as per primary care. (5) HTN (hypertension) Current Visit: No Status: Chronic Qualifiers: Hypertension type: essential hypertension Qualified Code(s): I10 - Essential (primary) hypertension Plan to address problem: Management as per primary care. Subjective Date of service: 08/21/18 Interval history: Patient alert, awake. No complaint of chest pain or shortness of breath or cough. Patient S/P left inguinal hernia repair.Patient is on room air. O2 saturation 95%. Objective Vital Signs - 12hr 08/21/18 08/21/18 08/21/18 09:01 09:50 10:00 Temperature Pulse Rate 56 L 60 58 L Pulse Rate [ From Monitor] Pulse Rate [ 60 None] Respiratory 16 Rate Blood Pressure 100/56 117/68 117/68 O2 Sat by Pulse 94 Oximetry 08/21/18 08/21/18 08/21/18 12:00 14:00 16:00 Temperature Pulse Rate Pulse Rate [ 61 69 From Monitor] Pulse Rate [ 54 L 81 77 None] Respiratory 19 13 13 Rate Blood Pressure 133/72 147/80 109/64 O2 Sat by Pulse 98 96 98 Oximetry 08/21/18 08/21/18 08/21/18 17:22 19:36 20:32 Temperature 97.5 F L 97.4 F L Pulse Rate 74 68 Pulse Rate [ From Monitor] Pulse Rate [ None] Respiratory 18 20 Rate Blood Pressure 148/88 115/64 O2 Sat by Pulse 97 96 95 Oximetry Constitutional: no acute distress, alert Eyes: non-icteric ENT: oropharynx moist Ascultation: Bilateral: other (Prolonged expiratory phase.) Cardiovascular: regular rate and rhythm Gastrointestinal: normoactive bowel sounds, soft, non-tender Integumentary: normal Extremities: no cyanosis, no edema Neurologic: normal mental status, non-focal exam, pupils equal and round, CN II- XII normal Psychiatric: mood appropriate CBC and BMP: 08/19/18 12:34 08/19/18 12:34 Abnormal lab findings: Abnormal Labs 08/16/18 08/16/18 08/19/18 12:35 12:35 12:34 WBC 11.6 H RBC 5.16 H [place] % (Auto) 7.7 H Seg Neuts % (Manual) 94.0 H Lymphocytes % (Manual) 3.0 L Seg Neutrophils # Man 10.9 H Lymphocytes # (Manual) 0.3 L BUN 7 L Glucose 08/19/18 12:34 WBC RBC [place] % (Auto) Seg Neuts % (Manual) Lymphocytes % (Manual) Seg Neutrophils # Man Lymphocytes # (Manual) BUN 8 L Glucose 144 H Chest x-ray: report reviewed (Reported unremarkable AP chest.), image reviewed
[2018-08-22] MEDS: NORCO 5/325 PO PRN (02:23)
[2018-08-22] MEDS: HEPARIN SUB-Q SCH ×4 (06:06→22:15)
[2018-08-22] MEDS: ZOFRAN IV PRN (09:20)
[2018-08-22] MEDS: SODIUM CHLORIDE FLUSH SYRINGE 10 ML IV SCH ×3 (09:21→22:16)
[2018-08-22] MEDS: LASIX PO SCH (09:23)
[2018-08-22] MEDS: PLAVIX PO SCH (09:23)
[2018-08-22] MEDS: FLOMAX PO SCH (09:23)
[2018-08-22] MEDS: HALFPRIN EC PO SCH (09:23)
[2018-08-22] MEDS: COREG PO SCH ×2 (09:28→22:15)
[2018-08-22] MEDS: IMDUR PO SCH (09:28)
[2018-08-22] MEDS: ZESTRIL PO SCH (09:29)
--- NOTE | 2018-08-22 09:55 | Progress Note ---
Assessment and Plan Assessment and plan: 68 YO Male with Ischemic Cardiomyopathy(EF 20%), CAD, HTN, MO admitted for elective hernia repair. Pt resting comfortable in bed. Pt denies fever, chills, CP, palpitations, NVD, skin rash, or recent ill contacts. Pt reports that he is anxious about going home and has limited family support. Pt reports that he has to walk up 5 steps to gain access to his home and is concerned that he will injure himself. No reported nursing events. Pt medically optimized. S/p inguinal hernia repair COPD CAD [facility] 06/2017: pt was turned down for bypass and instead had coronary intervention to the right coronary artery due to his multiple co-morbidities.The LAD and circumflex occlusions were recommended for medical therapy. MPI 09/2017: no ischemia. Ischemic cardiomyopathy, EF 20-25% patient has previously declined an AICD implant. Hypertension Deconditioning. Recommendations: Continue medical therapy for coronary artery disease and ischemic cardiomyopathy. PT/OT CONSULT Case management for Home Health set up [facility], SCHEDULED AND PRN Daily ECG, post op, for 2 days. Fluid/sodium restriction. cardiology and pulmonary input noted DVT/GI stable for discharge in am History Interval history: Patient seen and examined, no new complaints. Hospitalist Physical - Physical exam Narrative exam: VITAL SIGNS: Reviewed. GENERAL: The patient appeared well nourished and normally developed. Vital signs as documented. HEAD: No signs of head trauma. EYES: Pupils are equal. Extraocular motions intact. EARS: Hearing grossly intact. MOUTH: Oropharynx is normal. NECK: No adenopathy, no JVD. CHEST: Chest with clear breath sounds bilaterally. No wheezes, rales, or rhonchi. CARDIAC: Regular rate and rhythm. S1 and S2, without murmurs, gallops, or rubs. VASCULAR: No Edema. Peripheral pulses normal and equal in all extremities. ABDOMEN: Soft, without detectable tenderness. No sign of distention. No rebound or guarding, and no masses palpated. Bowel Sounds normal. MUSCULOSKELETAL: Good range of motion of all major joints. Extremities without clubbing, cyanosis or edema. NEUROLOGIC EXAM: Alert and oriented x 3. No focal sensory or strength deficits. Speech normal. Follows commands. PSYCHIATRIC: Mood normal. SKIN: left groin incision. - Constitutional Vitals: Temp Pulse Resp BP Pulse Ox 97.4 F L 71 18 120/62 96 08/22/18 07:37 08/22/18 09:29 08/22/18 07:37 08/22/18 09:29 08/22/18 07:37 General appearance: Present: no acute distress Results - Labs CBC & Chem 7: 08/19/18 12:34 08/19/18 12:34 Labs: Laboratory Last Values WBC 11.6 K/mm3 (4.5-11.0) H 08/19/18 12:34 RBC 5.16 M/mm3 (3.65-5.03) H 08/19/18 12:34 Hgb 15.2 gm/dl (11.8-15.2) 08/19/18 12:34 Hct 44.6 % (35.5-45.6) 08/19/18 12:34 MCV 86 fl (84-94) 08/19/18 12:34 MCH 29 pg (28-32) 08/19/18 12:34 MCHC 34 % (32-34) 08/19/18 12:34 RDW 13.9 % (13.2-15.2) 08/19/18 12:34 Plt Count 192 K/mm3 (140-440) 08/19/18 12:34 Lymph % (Auto) 25.4 % (13.4-35.0) 08/16/18 12:35 [place] % (Auto) 7.7 % (0.0-7.3) H 08/16/18 12:35 Eos % (Auto) 2.1 % (0.0-4.3) 08/16/18 12:35 Baso % (Auto) 1.2 % (0.0-1.8) 08/16/18 12:35 Lymph # 1.5 K/mm3 (1.2-5.4) 08/16/18 12:35 [place] # 0.5 K/mm3 (0.0-0.8) 08/16/18 12:35 Eos # 0.1 K/mm3 (0.0-0.4) 08/16/18 12:35 Baso # 0.1 K/mm3 (0.0-0.1) 08/16/18 12:35 Add Manual Diff Complete 08/19/18 12:34 Total Counted 100 08/19/18 12:34 Seg Neutrophils % Costing Manager 01/10/19 12:34 Seg Neuts % (Manual) 94.0 % (40.0-70.0) H 08/19/18 12:34 Band Neutrophils % 0 % 08/19/18 12:34 Lymphocytes % (Manual) 3.0 % (13.4-35.0) L 08/19/18 12:34 Reactive Lymphs % (Man) 0 % 08/19/18 12:34 Monocytes % (Manual) 3.0 % (0.0-7.3) 08/19/18 12:34 Eosinophils % (Manual) 0 % (0.0-4.3) 08/19/18 12:34 Basophils % (Manual) 0 % (0.0-1.8) 08/19/18 12:34 Metamyelocytes % 0 % 08/19/18 12:34 Myelocytes % 0 % 08/19/18 12:34 Promyelocytes % 0 % 08/19/18 12:34 Blast Cells % 0 % 08/19/18 12:34 Nucleated RBC % Not Reportable 08/19/18 12:34 Seg Neutrophils # 3.9 K/mm3 (1.8-7.7) 08/16/18 12:35 Seg Neutrophils # Man 10.9 K/mm3 (1.8-7.7) H 08/19/18 12:34 Band Neutrophils # 0.0 K/mm3 08/19/18 12:34 Lymphocytes # (Manual) 0.3 K/mm3 (1.2-5.4) L 08/19/18 12:34 Abs React Lymphs (Man) 0.0 K/mm3 08/19/18 12:34 Monocytes # (Manual) 0.3 K/mm3 (0.0-0.8) 08/19/18 12:34 Eosinophils # (Manual) 0.0 K/mm3 (0.0-0.4) 08/19/18 12:34 Basophils # (Manual) 0.0 K/mm3 (0.0-0.1) 08/19/18 12:34 Metamyelocytes # 0.0 K/mm3 08/19/18 12:34 Myelocytes # 0.0 K/mm3 08/19/18 12:34 Promyelocytes # 0.0 K/mm3 08/19/18 12:34 Blast Cells # 0.0 K/mm3 08/19/18 12:34 WBC Morphology Not Reportable 08/19/18 12:34 Hypersegmented Neuts Not Reportable 08/19/18 12:34 Hyposegmented Neuts Not Reportable 08/19/18 12:34 Hypogranular Neuts Not Reportable 08/19/18 12:34 Smudge Cells Not Reportable 08/19/18 12:34 Toxic Granulation Not Reportable 08/19/18 12:34 Toxic Vacuolation Not Reportable 08/19/18 12:34 Dohle Bodies Not Reportable 08/19/18 12:34 Pel[place]-Huet Anomaly Not Reportable 08/19/18 12:34 Jessica Rods Not Reportable 08/19/18 12:34 Platelet Estimate Consistent w auto 08/19/18 12:34 Clumped Platelets Not Reportable 08/19/18 12:34 Plt Clumps, EDTA Not Reportable 08/19/18 12:34 Large Platelets Not Reportable 08/19/18 12:34 Giant Platelets Not Reportable 08/19/18 12:34 Platelet Satelliting Not Reportable 08/19/18 12:34 Plt Morphology Comment Not Reportable 08/19/18 12:34 RBC Morphology Not Reportable 08/19/18 12:34 Dimorphic RBCs Not Reportable 08/19/18 12:34 Polychromasia 1+ 08/19/18 12:34 Hypochromasia Not Reportable 08/19/18 12:34 Poikilocytosis Not Reportable 08/19/18 12:34 Anisocytosis Not Reportable 08/19/18 12:34 Microcytosis Not Reportable 08/19/18 12:34 Macrocytosis Not Reportable 08/19/18 12:34 Spherocytes Not Reportable 08/19/18 12:34 Pappenheimer Bodies Not Reportable 08/19/18 12:34 Sickle Cells Not Reportable 08/19/18 12:34 Target Cells Not Reportable 08/19/18 12:34 Tear Drop Cells Not Reportable 08/19/18 12:34 Ovalocytes Not Reportable 08/19/18 12:34 Helmet Cells Not Reportable 08/19/18 12:34 [place] Bodies Not Reportable 08/19/18 12:34 [place] Rings Not Reportable 08/19/18 12:34 [place] Cells Not Reportable 08/19/18 12:34 Bite Cells Not Reportable 08/19/18 12:34 Crenated Cell Not Reportable 08/19/18 12:34 Elliptocytes Few 08/19/18 12:34 Acanthocytes (Spur) Not Reportable 08/19/18 12:34 Rouleaux Not Reportable 08/19/18 12:34 Hemoglobin C Crystals Not Reportable 08/19/18 12:34 Schistocytes Not Reportable 08/19/18 12:34 Malaria parasites Not Reportable 08/19/18 12:34 Elliot Bodies Not Reportable 08/19/18 12:34 Hem Pathologist Commnt No 08/19/18 12:34 Sodium 140 mmol/L (137-145) 08/19/18 12:34 Potassium 4.0 mmol/L (3.6-5.0) 08/19/18 12:34 Chloride 102.1 mmol/L (98-107) 08/19/18 12:34 Carbon Dioxide 24 mmol/L (22-30) 08/19/18 12:34 Anion Gap 18 mmol/L 08/19/18 12:34 BUN 8 mg/dL (9-20) L 08/19/18 12:34 Creatinine 0.9 mg/dL (0.8-1.5) 08/19/18 12:34 Estimated GFR > 60 ml/min 08/19/18 12:34 BUN/Creatinine Ratio 9 % 08/19/18 12:34 Glucose 144 mg/dL (75-100) H 08/19/18 12:34 Calcium 9.1 mg/dL (8.4-10.2) 08/19/18 12:34 Magnesium 2.00 mg/dL (1.7-2.3) 08/19/18 12:34
--- NOTE | 2018-08-22 11:01 | Progress Note ---
Assessment and Plan 68 yo M s/p left inguinal hernia repair with mesh, POD 3 1. c/w cardiac meds. cleared by cards for dc 2. cleared from surgery standpoint and medical standpoint for dc 3. pt needs home health and shower chair per hospitalist service on dc 4. PT consult pending 5. case management consult pending 6. OOB/ambulate with walker 7. prn PO pain control Anticipate dc tomorrow once home care and DME set up. Subjective Date of service: 08/22/18 Narrative: Pt seen and examined. He has no acute complaints. c/o some numbness around left groin incision. Pain is better control. He states he feels nauseated and lightheaded at times. This is NOT new. This happens to him at home from time to time. He is tolerating a diet. No f/c. He has been OOB with the walker. He is urinating. Objective Vital Signs - 12hr 08/21/18 08/21/18 08/22/18 23:00 23:09 02:00 Temperature Pulse Rate 60 57 L Respiratory 20 Rate Respiratory Rate [Left Groin] Blood Pressure 109/63 Blood Pressure [Right] O2 Sat by Pulse 96 95 96 Oximetry 08/22/18 08/22/18 08/22/18 02:20 02:23 02:45 Temperature 97.8 F Pulse Rate Respiratory 20 18 Rate Respiratory 20 Rate [Left Groin] Blood Pressure 84/46 Blood Pressure [Right] O2 Sat by Pulse Oximetry 08/22/18 08/22/18 08/22/18 03:23 06:05 07:37 Temperature 97.6 F 97.4 F L Pulse Rate 62 58 L Respiratory 20 20 18 Rate Respiratory Rate [Left Groin] Blood Pressure 109/64 110/63 Blood Pressure [Right] O2 Sat by Pulse 100 96 Oximetry 08/22/18 08/22/18 08/22/18 09:27 09:28 09:29 Temperature Pulse Rate 71 71 Respiratory Rate Respiratory Rate [Left Groin] Blood Pressure 120/62 120/62 120/62 Blood Pressure [Right] O2 Sat by Pulse Oximetry 08/22/18 10:21 Temperature 97.4 F L Pulse Rate 58 L Respiratory 18 Rate Respiratory Rate [Left Groin] Blood Pressure Blood Pressure 110/63 [Right] O2 Sat by Pulse 96 Oximetry - General physical appearance Narrative Exam: Gen: AAOx3. NAD CV: s1, s2+ resp: even and unlabored Abd: soft, NT, ND. incision left groin c/d/i Ext: no c/c/e - Labs 08/19/18 12:34 08/19/18 12:34
--- NOTE | 2018-08-22 15:11 | Progress Note ---
Assessment and Plan Patient alert, awake. No complaint of chest pain or shortness of breath or cough. Patient S/P left inguinal hernia repair.Patient is on room air. O2 saturation 96%. - Patient Problems (1) Acute chest pain Current Visit: No Status: Acute Plan to address problem: Patient has history of CAD and stent placement. Management as per cardiology. (2) Acute on chronic systolic heart failure Current Visit: No Status: Acute Plan to address problem: Management as per primary care and cardiology. (3) Acute respiratory failure Current Visit: No Status: Acute Qualifiers: Respiratory failure complication: hypoxia Qualified Code(s): J96.01 - Acute respiratory failure with hypoxia Plan to address problem: Improved. No complaint of shortness of breath or cough. O2 saturation 96% on room air. (4) CVA (cerebral vascular accident) Current Visit: No Status: Acute Qualifiers: Laterality of affected vessel: unspecified Plan to address problem: Management as per primary care. (5) HTN (hypertension) Current Visit: No Status: Chronic Qualifiers: Hypertension type: essential hypertension Qualified Code(s): I10 - Essential (primary) hypertension Plan to address problem: Management as per primary care. Subjective Date of service: 08/22/18 Interval history: Patient alert, awake. No complaint of chest pain or shortness of breath or cough. Patient S/P left inguinal hernia repair.Patient is on room air. O2 saturation 96%. Objective Vital Signs - 12hr 08/22/18 08/22/18 08/22/18 03:23 06:05 07:37 Temperature 97.6 F 97.4 F L Pulse Rate 62 58 L Respiratory 20 20 18 Rate Blood Pressure 109/64 110/63 Blood Pressure [Right] O2 Sat by Pulse 100 96 Oximetry 08/22/18 08/22/18 08/22/18 09:00 09:27 09:28 Temperature Pulse Rate 71 Respiratory 18 Rate Blood Pressure 120/62 120/62 Blood Pressure [Right] O2 Sat by Pulse 96 Oximetry 08/22/18 08/22/18 08/22/18 09:29 10:21 13:41 Temperature 97.4 F L 97.9 F Pulse Rate 71 58 L 81 Respiratory 18 18 Rate Blood Pressure 120/62 96/58 Blood Pressure 110/63 [Right] O2 Sat by Pulse 96 96 Oximetry Constitutional: no acute distress, alert Eyes: non-icteric ENT: oropharynx moist Ascultation: Bilateral: other (Prolonged expiratory phase.) Cardiovascular: regular rate and rhythm Gastrointestinal: normoactive bowel sounds, soft, non-tender Integumentary: normal Extremities: no cyanosis, no edema Neurologic: normal mental status, non-focal exam, pupils equal and round, CN II- XII normal Psychiatric: mood appropriate CBC and BMP: 08/19/18 12:34 08/19/18 12:34 Abnormal lab findings: Abnormal Labs 08/16/18 08/16/18 08/19/18 12:35 12:35 12:34 WBC 11.6 H RBC 5.16 H [place] % (Auto) 7.7 H Seg Neuts % (Manual) 94.0 H Lymphocytes % (Manual) 3.0 L Seg Neutrophils # Man 10.9 H Lymphocytes # (Manual) 0.3 L BUN 7 L Glucose 08/19/18 12:34 WBC RBC [place] % (Auto) Seg Neuts % (Manual) Lymphocytes % (Manual) Seg Neutrophils # Man Lymphocytes # (Manual) BUN 8 L Glucose 144 H
[2018-08-23] MEDS: HEPARIN SUB-Q SCH ×2 (05:07→15:18)
--- NOTE | 2018-08-23 08:59 | Progress Note ---
Assessment and Plan Left inguinal hernia, status post repair. Cardiomyopathy, heart failure with reduced ejection fraction. Acute hypoxemic respiratory failure, now on 2 liters nasal cannula. History of benign prostatic hyperplasia. Dysuria. Coronary artery disease. History of asthma. Obesity. - continue supplemental oxygen as needed to keep O2 Sats > 90% - continue prn bronchodilators - cardiology evaluation ongoing - continue chronic DMOD's for CAD and COPD - resume Plavix once OK with surgeon - PT/OT as tolerated - prn BIPAP - will benefit from pulmonary / sleep clinic f/up post discharge - continue G.I. & VTE prophylaxis ..... re-evaluate in am & prn Subjective Date of service: 08/23/18 Principal diagnosis: L inguinal hernia (s/p repair); CMOP (EF 20-25%); Ac hypoxemic Resp failure Interval history: Patient is seen today for: Left inguinal hernia, status post repair; Cardiomyopathy (heart failure with reduced ejection fraction); Acute hypoxemic respiratory failure, now on 2 liters nasal cannula; History of benign prostatic hyperplasia. Seen and examined at bedside; 24hour events reviewed; nursing and respiratory care staff consulted; no adverse overnight events reported to me; Objective Vital Signs - 12hr 08/22/18 08/23/18 08/23/18 22:00 03:15 07:30 Temperature 97.8 F 97.2 F L Pulse Rate 55 L Respiratory 18 18 20 Rate Blood Pressure 101/56 125/73 O2 Sat by Pulse 97 98 Oximetry 08/23/18 08:48 Temperature Pulse Rate Respiratory 20 Rate Blood Pressure O2 Sat by Pulse 98 Oximetry Constitutional: no acute distress, alert, other (Elderly looking CM, normocepha lic and atraumatic with mildly increased respiratory effort at rest) Eyes: non-icteric ENT: oropharynx moist Neck: supple, no lymphadenopathy, no JVD, other (large neck circumference) Effort: mildly labored Ascultation: Bilateral: clear, diminished breath sounds, other (Prolonged expiratory phase.) Percussion: Bilateral: not dull Cardiovascular: regular rate and rhythm, murmur noted (systolic) Gastrointestinal: normoactive bowel sounds, soft, non-tender, non-distended, other (LLQ post-op scar) Integumentary: normal Extremities: no cyanosis, no edema, pink and warm, pulses normal Neurologic: normal mental status, non-focal exam, pupils equal and round, CN II- XII normal Psychiatric: mood appropriate, affect normal CBC and BMP: 08/19/18 12:34 08/19/18 12:34 Abnormal lab findings: Abnormal Labs 08/16/18 08/16/18 08/19/18 12:35 12:35 12:34 WBC 11.6 H RBC 5.16 H [place] % (Auto) 7.7 H Seg Neuts % (Manual) 94.0 H Lymphocytes % (Manual) 3.0 L Seg Neutrophils # Man 10.9 H Lymphocytes # (Manual) 0.3 L BUN 7 L Glucose 08/19/18 12:34 WBC RBC [place] % (Auto) Seg Neuts % (Manual) Lymphocytes % (Manual) Seg Neutrophils # Man Lymphocytes # (Manual) BUN 8 L Glucose 144 H Allied health notes reviewed: nursing
[2018-08-23] MEDS: HALFPRIN EC PO SCH (09:36)
[2018-08-23] MEDS: FLOMAX PO SCH (09:36)
[2018-08-23] MEDS: LASIX PO SCH (09:36)
[2018-08-23] MEDS: IMDUR PO SCH (09:36)
[2018-08-23] MEDS: PLAVIX PO SCH (09:36)
[2018-08-23] MEDS: SODIUM CHLORIDE FLUSH SYRINGE 10 ML IV SCH (09:37)
[2018-08-23] MEDS: COREG PO SCH (09:38)
[2018-08-23] MEDS: ZESTRIL PO SCH (09:38)
--- NOTE | 2018-08-23 11:53 | Progress Note ---
Addendum entered and electronically signed by JACKSON DORADO MD 08/23/18 13:07: Postoperative cardiac status is stable, on medical therapy. Original Note: Assessment and Plan s/p inguinal hernia repair Hx of COPD Hx of CAD [facility] 06/2017: pt was turned down for bypass and instead had coronary intervention to the right coronary artery due to his multiple co-morbidities.The LAD and circumflex occlusions were recommended for medical therapy. MPI 09/2017: no ischemia. Ischemic cardiomyopathy, EF 20-25% patient has previously declined an AICD implant. Hypertension Recommendations: Fluid/sodium restriction. Continue medical therapy for coronary artery disease and ischemic cardiomyopathy. Subjective Date of service: 08/23/18 Principal diagnosis: L inguinal hernia (s/p repair); CMOP (EF 20-25%); Ac hypoxemic Resp failure Interval history: Patient is resting in bed comfortably. No cardiac events reported overnight. Objective Vital Signs Temp Pulse Resp BP Pulse Ox 08/23/18 10:00 20 98 08/23/18 09:36 73 120/51 08/23/18 07:30 97.2 F L 55 L 20 125/73 98 08/23/18 03:15 97.8 F 18 101/56 08/22/18 22:00 18 97 08/22/18 19:49 97.6 F 59 L 18 96/51 97 08/22/18 13:41 97.9 F 81 18 96/58 96 - Physical Examination General: No Apparent Distress HEENT: Positive: PERRL Cardiac: Positive: Reg Rate and Rhythm Lungs: Positive: Decreased Breath Sounds Neuro: Positive: Grossly Intact Abdomen: Positive: Soft, Active Bowel Sounds Extremities: Absent: edema - Allied health notes Allied health notes reviewed: nursing
--- NOTE | 2018-08-23 13:19 | Discharge Summary ---
Providers - Providers Date of Admission: 08/19/18 08:57 Date of discharge: 08/23/18 Attending physician: BRANDON CAMPBELL DO 08/19/18 09:02 Consult to Physician [CONS] Routine Comment: Consulting Provider: JACKSON DORADO Physician Instructions: known to you Reason For Exam: periop comanagement Consult to Physician [CONS] Routine Comment: I discussed with Dr. Zhou Consulting Provider: REAL ZHOU Physician Instructions: Reason For Exam: ICU care 08/19/18 12:08 Consult to Physician [CONS] Routine Comment: Consulting Provider: TJ TAY Physician Instructions: Reason For Exam: Bladder obstruction/BPH hx/ unable to place cruz 08/21/18 13:53 Consult to Physician [CONS] Routine Comment: Consulting Provider: DAMON WOOD Physician Instructions: I SPOKE WITH DR WOOD Reason For Exam: lightheadedness post op 08/21/18 13:57 Physical Therapy Evaluation and Treat [CONS] Routine Comment: PENDING DISCHARGE Reason For Exam: DECONDITIONING, POST OP 08/21/18 14:56 Consult to Case Management [CONS] Routine Services Needed at Discharge: Home Health Services Physical Therapy Notified:: LIONEL Comment:: stable for discharge Primary care physician: JAXSON WILKINSON Hospitalization Reason for admission: inguinal hernia, heart failure Condition: Good Procedures: inguinal hernia repair left with mesh Hospital course: 68 yo M admitted post operatively from left inguinal hernia repair per cardiology preop recommendations. The patient was monitored with serial EKGs and cardiac condition remained stable. On POD 2 the patient was deemed stable for discharge but did not feel he could go home because he did not have help. He refused to take anything stronger than tylenol for incisional pain and therefore found it difficult to ambulate. He was seen by physical therapy on POD 5 and was ok for dc from their standpoint without need for outpatient therapy. He was ordered a shower chair and rolling walker by case management and discharged home in stable condition. Disposition: DC-01 TO HOME OR SELFCARE Core Measure Documentation - Palliative Care Palliative Care/ Comfort Measures: Not Applicable - Core Measures Any of the following diagnoses?: none Exam - Physical Exam Narrative exam: Gen: AAOx3. NAD CV: S1, S2+ Resp: even and unlabored Abd: soft, NT. Left groin incision c/d/i Ext: no c/c/e - Constitutional Vitals: Temp Pulse Resp BP Pulse Ox 97.2 F L 73 20 120/51 98 08/23/18 07:30 08/23/18 09:36 08/23/18 10:00 08/23/18 09:36 08/23/18 10:00 Plan Activity: other (no heavy lifting) Diet: low fat, low salt Wound: open to air Additional Instructions: see paper printed dc instructions Follow up with: JAXSON WILKINSON JR, MD [Primary Care Provider] - 7 Days BRANDON CAMPBELL DO [Staff Physician] - 14 Days Prescriptions: traMADol [Ultram 50 MG tab] 50 mg PO Q6H PRN #30 tablet PRN Reason: Pain, Moderate (4-6) Other Discharge Orders: Home Health Care (Amb) Location: None Selected Physicial Therapy (Amb) Location: None Selected Bedside Commode- Elevator (Amb) Location: None Selected Shower Chair (Amb) Location: None Selected
--- NOTE | 2018-08-23 13:23 | Progress Note ---
Assessment and Plan Patient alert, awake. No complaint of chest pain or shortness of breath or cough. Patient S/P left inguinal hernia repair.Patient is on room air. O2 saturation 98%.Patient says he is going home to day.If any pulmonary help needed can come to my office for follow up. - Patient Problems (1) Acute chest pain Current Visit: No Status: Acute Plan to address problem: Patient has history of CAD and stent placement. Management as per cardiology. (2) Acute on chronic systolic heart failure Current Visit: No Status: Acute Plan to address problem: Management as per primary care and cardiology. (3) Acute respiratory failure Current Visit: No Status: Acute Qualifiers: Respiratory failure complication: hypoxia Qualified Code(s): J96.01 - Acute respiratory failure with hypoxia Plan to address problem: Improved. No complaint of shortness of breath or cough. O2 saturation 96% on room air. (4) CVA (cerebral vascular accident) Current Visit: No Status: Acute Qualifiers: Laterality of affected vessel: unspecified Plan to address problem: Management as per primary care. (5) HTN (hypertension) Current Visit: No Status: Chronic Qualifiers: Hypertension type: essential hypertension Qualified Code(s): I10 - Essential (primary) hypertension Plan to address problem: Management as per primary care. Subjective Date of service: 08/23/18 Principal diagnosis: L inguinal hernia (s/p repair); CMOP (EF 20-25%); Ac hypoxemic Resp failure Interval history: Patient alert, awake. No complaint of chest pain or shortness of breath or cough. Patient S/P left inguinal hernia repair.Patient is on room air. O2 saturation 98%.Patient says he is going home to day.If any pulmonary help needed can come to my office for follow up. Objective Vital Signs - 12hr 08/23/18 08/23/18 08/23/18 03:15 07:30 09:36 Temperature 97.8 F 97.2 F L Pulse Rate 55 L 73 Respiratory 18 20 Rate Blood Pressure 101/56 125/73 120/51 O2 Sat by Pulse 98 Oximetry 08/23/18 10:00 Temperature Pulse Rate Respiratory 20 Rate Blood Pressure O2 Sat by Pulse 98 Oximetry Constitutional: no acute distress, alert, other (Elderly looking CM, normocephalic and atraumatic with mildly increased respiratory effort at rest) Eyes: non-icteric ENT: oropharynx moist Neck: supple, no lymphadenopathy, no JVD, other (large neck circumference) Effort: mildly labored Ascultation: Bilateral: diminished breath sounds, other (Prolonged expiratory phase.) Percussion: Bilateral: not dull Cardiovascular: regular rate and rhythm, murmur noted (systolic) Gastrointestinal: normoactive bowel sounds, soft, non-tender, non-distended, other (LLQ post-op scar) Integumentary: normal Extremities: no cyanosis, no edema, pink and warm, pulses normal Neurologic: normal mental status, non-focal exam, pupils equal and round, CN II- XII normal Psychiatric: mood appropriate, affect normal CBC and BMP: 08/19/18 12:34 08/19/18 12:34 Abnormal lab findings: Abnormal Labs 08/16/18 08/16/18 08/19/18 12:35 12:35 12:34 WBC 11.6 H RBC 5.16 H Towner % (Auto) 7.7 H Seg Neuts % (Manual) 94.0 H Lymphocytes % (Manual) 3.0 L Seg Neutrophils # Man 10.9 H Lymphocytes # (Manual) 0.3 L BUN 7 L Glucose 08/19/18 12:34 WBC RBC Towner % (Auto) Seg Neuts % (Manual) Lymphocytes % (Manual) Seg Neutrophils # Man Lymphocytes # (Manual) BUN 8 L Glucose 144 H Allied health notes reviewed: nursing
[2018-08-23 15:01] VITALS: BP 121/71
--- NOTE | 2018-08-23 17:02 | Progress Note ---
Assessment and Plan Assessment and plan: 68 YO Male with Ischemic Cardiomyopathy(EF 20%), CAD, HTN, ME admitted for elective hernia repair. Pt resting comfortable in bed. Pt denies fever, chills, CP, palpitations, NVD, skin rash, or recent ill contacts. Pt reports that he is anxious about going home and has limited family support. Pt reports that he has to walk up 5 steps to gain access to his home and is concerned that he will injure himself. No reported nursing events. Pt medically optimized. S/p inguinal hernia repair COPD CAD [facility] 06/2017: pt was turned down for bypass and instead had coronary intervention to the right coronary artery due to his multiple co-morbidities.The LAD and circumflex occlusions were recommended for medical therapy. [facility] 09/2017: no ischemia. Ischemic cardiomyopathy, EF 20-25% patient has previously declined an AICD implant. Hypertension Deconditioning. Recommendations: Continue medical therapy for coronary artery disease and ischemic cardiomyopathy. PT/OT CONSULT Case management for Home Health set up NEBS, SCHEDULED AND PRN Daily ECG, post op, for 2 days. Fluid/sodium restriction. cardiology and pulmonary input noted DVT/GI stable for discharge today History Interval history: Patient seen and examined, no new complaints. Hospitalist Physical - Physical exam Narrative exam: VITAL SIGNS: Reviewed. GENERAL: The patient appeared well nourished and normally developed. Vital signs as documented. HEAD: No signs of head trauma. EYES: Pupils are equal. Extraocular motions intact. EARS: Hearing grossly intact. MOUTH: Oropharynx is normal. NECK: No adenopathy, no JVD. CHEST: Chest with clear breath sounds bilaterally. No wheezes, rales, or rhonchi. CARDIAC: Regular rate and rhythm. S1 and S2, without murmurs, gallops, or rubs. VASCULAR: No Edema. Peripheral pulses normal and equal in all extremities. ABDOMEN: Soft, without detectable tenderness. No sign of distention. No rebound or guarding, and no masses palpated. Bowel Sounds normal. MUSCULOSKELETAL: Good range of motion of all major joints. Extremities without clubbing, cyanosis or edema. NEUROLOGIC EXAM: Alert and oriented x 3. No focal sensory or strength deficits. Speech normal. Follows commands. PSYCHIATRIC: Mood normal. SKIN: left groin incision. - Constitutional Vitals: Temp Pulse Resp BP Pulse Ox 99.5 F 90 20 121/71 96 01/14/19 14:28 08/23/18 14:28 08/23/18 14:28 08/23/18 14:28 08/23/18 14:28 General appearance: Present: no acute distress Results - Labs CBC & Chem 7: 08/19/18 12:34 08/19/18 12:34 Labs: Laboratory Last Values WBC 11.6 K/mm3 (4.5-11.0) H 08/19/18 12:34 RBC 5.16 M/mm3 (3.65-5.03) H 08/19/18 12:34 Hgb 15.2 gm/dl (11.8-15.2) 08/19/18 12:34 Hct 44.6 % (35.5-45.6) 08/19/18 12:34 MCV 86 fl (84-94) 08/19/18 12:34 MCH 29 pg (28-32) 08/19/18 12:34 MCHC 34 % (32-34) 08/19/18 12:34 RDW 13.9 % (13.2-15.2) 08/19/18 12:34 Plt Count 192 K/mm3 (140-440) 08/19/18 12:34 Lymph % (Auto) 25.4 % (13.4-35.0) 08/16/18 12:35 [place] % (Auto) 7.7 % (0.0-7.3) H 08/16/18 12:35 Eos % (Auto) 2.1 % (0.0-4.3) 08/16/18 12:35 Baso % (Auto) 1.2 % (0.0-1.8) 08/16/18 12:35 Lymph # 1.5 K/mm3 (1.2-5.4) 08/16/18 12:35 [place] # 0.5 K/mm3 (0.0-0.8) 08/16/18 12:35 Eos # 0.1 K/mm3 (0.0-0.4) 08/16/18 12:35 Baso # 0.1 K/mm3 (0.0-0.1) 08/16/18 12:35 Add Manual Diff Complete 08/19/18 12:34 Total Counted 100 08/19/18 12:34 Seg Neutrophils % Railroad Car Repairman 08/19/18 12:34 Seg Neuts % (Manual) 94.0 % (40.0-70.0) H 08/19/18 12:34 Band Neutrophils % 0 % 08/19/18 12:34 Lymphocytes % (Manual) 3.0 % (13.4-35.0) L 08/19/18 12:34 Reactive Lymphs % (Man) 0 % 08/19/18 12:34 Monocytes % (Manual) 3.0 % (0.0-7.3) 08/19/18 12:34 Eosinophils % (Manual) 0 % (0.0-4.3) 08/19/18 12:34 Basophils % (Manual) 0 % (0.0-1.8) 08/19/18 12:34 Metamyelocytes % 0 % 08/19/18 12:34 Myelocytes % 0 % 08/19/18 12:34 Promyelocytes % 0 % 08/19/18 12:34 Blast Cells % 0 % 08/19/18 12:34 Nucleated RBC % Not Reportable 08/19/18 12:34 Seg Neutrophils # 3.9 K/mm3 (1.8-7.7) 08/16/18 12:35 Seg Neutrophils # Man 10.9 K/mm3 (1.8-7.7) H 08/19/18 12:34 Band Neutrophils # 0.0 K/mm3 08/19/18 12:34 Lymphocytes # (Manual) 0.3 K/mm3 (1.2-5.4) L 08/19/18 12:34 Abs React Lymphs (Man) 0.0 K/mm3 08/19/18 12:34 Monocytes # (Manual) 0.3 K/mm3 (0.0-0.8) 08/19/18 12:34 Eosinophils # (Manual) 0.0 K/mm3 (0.0-0.4) 08/19/18 12:34 Basophils # (Manual) 0.0 K/mm3 (0.0-0.1) 08/19/18 12:34 Metamyelocytes # 0.0 K/mm3 08/19/18 12:34 Myelocytes # 0.0 K/mm3 08/19/18 12:34 Promyelocytes # 0.0 K/mm3 08/19/18 12:34 Blast Cells # 0.0 K/mm3 08/19/18 12:34 WBC Morphology Not Reportable 08/19/18 12:34 Hypersegmented Neuts Not Reportable 08/19/18 12:34 Hyposegmented Neuts Not Reportable 08/19/18 12:34 Hypogranular Neuts Not Reportable 08/19/18 12:34 Smudge Cells Not Reportable 08/19/18 12:34 Toxic Granulation Not Reportable 08/19/18 12:34 Toxic Vacuolation Not Reportable 08/19/18 12:34 Dohle Bodies Not Reportable 08/19/18 12:34 Pelger-Huet Anomaly Not Reportable 08/19/18 12:34 Jessica Rods Not Reportable 08/19/18 12:34 Platelet Estimate Consistent w auto 08/19/18 12:34 Clumped Platelets Not Reportable 08/19/18 12:34 Plt Clumps, EDTA Not Reportable 08/19/18 12:34 Large Platelets Not Reportable 08/19/18 12:34 Giant Platelets Not Reportable 08/19/18 12:34 Platelet Satelliting Not Reportable 08/19/18 12:34 Plt Morphology Comment Not Reportable 08/19/18 12:34 RBC Morphology Not Reportable 08/19/18 12:34 Dimorphic RBCs Not Reportable 08/19/18 12:34 Polychromasia 1+ 08/19/18 12:34 Hypochromasia Not Reportable 08/19/18 12:34 Poikilocytosis Not Reportable 08/19/18 12:34 Anisocytosis Not Reportable 08/19/18 12:34 Microcytosis Not Reportable 08/19/18 12:34 Macrocytosis Not Reportable 08/19/18 12:34 Spherocytes Not Reportable 08/19/18 12:34 Pappenheimer Bodies Not Reportable 08/19/18 12:34 Sickle Cells Not Reportable 08/19/18 12:34 Target Cells Not Reportable 08/19/18 12:34 Tear Drop Cells Not Reportable 08/19/18 12:34 Ovalocytes Not Reportable 08/19/18 12:34 Helmet Cells Not Reportable 08/19/18 12:34 [place] Bodies Not Reportable 08/19/18 12:34 [place] Rings Not Reportable 08/19/18 12:34 [place] Cells Not Reportable 08/19/18 12:34 Bite Cells Not Reportable 08/19/18 12:34 Crenated Cell Not Reportable 08/19/18 12:34 Elliptocytes Few 08/19/18 12:34 Acanthocytes (Spur) Not Reportable 08/19/18 12:34 Rouleaux Not Reportable 08/19/18 12:34 Hemoglobin C Crystals Not Reportable 08/19/18 12:34 Schistocytes Not Reportable 08/19/18 12:34 Malaria parasites Not Reportable 08/19/18 12:34 Elliot Bodies Not Reportable 08/19/18 12:34 Hem Pathologist Commnt No 08/19/18 12:34 Sodium 140 mmol/L (137-145) 08/19/18 12:34 Potassium 4.0 mmol/L (3.6-5.0) 08/19/18 12:34 Chloride 102.1 mmol/L (98-107) 08/19/18 12:34 Carbon Dioxide 24 mmol/L (22-30) 08/19/18 12:34 Anion Gap 18 mmol/L 08/19/18 12:34 BUN 8 mg/dL (9-20) L 08/19/18 12:34 Creatinine 0.9 mg/dL (0.8-1.5) 08/19/18 12:34 Estimated GFR > 60 ml/min 08/19/18 12:34 BUN/Creatinine Ratio 9 % 08/19/18 12:34 Glucose 144 mg/dL (75-100) H 08/19/18 12:34 Calcium 9.1 mg/dL (8.4-10.2) 08/19/18 12:34 Magnesium 2.00 mg/dL (1.7-2.3) 08/19/18 12:34
== END 2018-08-23 18:30 | disposition home or self-care (01) | DRG 350 ==
LOC: OR 05:47 → CC1 08:57 → IMCU 20:48 → 2B-ACE 08-21 17:21
PROVIDERS: ADMIT Surgery; ATTEND Surgery
PROC: 0YU60JZ Supplement Left Inguinal Region with Synthetic Substitute, Open Approach (ICD-10-PCS; principal; 2018-08-19)
DX: K40.90 Unilateral inguinal hernia, without obstruction or gangrene, not specified as recurrent (principal); I50.23 Acute on chronic systolic (congestive) heart failure; J96.21 Acute and chronic respiratory failure with hypoxia; I25.5 Ischemic cardiomyopathy; I25.10 Atherosclerotic heart disease of native coronary artery without angina pectoris; I11.0 Hypertensive heart disease with heart failure; I25.2 Old myocardial infarction; J44.9 Chronic obstructive pulmonary disease, unspecified; E66.9 Obesity, unspecified; D17.79 Benign lipomatous neoplasm of other sites; N40.1 Benign prostatic hyperplasia with lower urinary tract symptoms; R33.8 Other retention of urine; Z68.29 Body mass index [BMI] 29.0-29.9, adult; Z86.73 Personal history of transient ischemic attack (TIA), and cerebral infarction without residual deficits
CPT/HCPCS: 36415; 71045; 80048; 83735; 85007; 85025; 88304; 93005; 93010; G0378; A9270-GY; C1781; G8978-GP; G8979-GP; J0330; J1100; J1644; J1885; J2001; J2405; J2704; J3010; J3370; J7120

== ENCOUNTER 2018-09-14 12:50 | Emergency (ER) | payer MEDICARE ==
[2018-09-14] MEDS ORDERED: IBUPROFEN PO ONE (17:09)
--- NOTE | 2018-09-14 17:09 | Emergency Department Report ---
ED Fall HPI - General Chief Complaint: Fall Stated Complaint: SIDE PAIN Source: patient Mode of arrival: Ambulatory - History of Present Illness Initial Comments: This is a 68-year-old male that reports with left sided rib pain from a fall last night. Patient states he was getting out of the shower when he slipped and fell hitting his left upper torso on the tub. He reports pain currently as 6 out of 10 on pain scale as a dull achy sensation that is constant. Past medical history of arthritis, congestive heart failure, GERD, migraines, hypertension, and AMI. Patient states he has not taken anything for pain or applied ice or heat. He denies loss of consciousness, nausea or vomiting, head injury, numbness or tingling, chest pain, swelling, or bruising. 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 Fall Witnessed: no Place Fall Occurred: home Loss of Consciousness: none Prolonged Down Time?: no Symptoms Prior to Fall: none Location: chest (left sided ribs) Severity: moderate Severity scale (0 -10): 6 Quality: dull, aching Context: tripped/slipped Associated Symptoms: denies - Related Data Home Medications Medication Instructions Recorded Confirmed Last Taken ISOSORBIDE MONOnitrate [Imdur ER] 30 mg PO DAILY #0 10/05/17 08/19/18 08/19/18 04:30 Previous Rx's Medication Instructions Recorded Last Taken Type Aspirin [Aspirin EC] 81 mg PO DAILY #30 05/24/18 08/18/18 Rx Atorvastatin Calcium [Lipitor] 80 mg PO QHS #30 05/24/18 08/18/18 Rx Carvedilol [Coreg] 12.5 mg PO BID #60 05/24/18 08/19/18 04:30 Rx Clopidogrel Bisulfate [Plavix] 75 mg PO DAILY #30 05/24/18 08/13/18 Rx Furosemide [Lasix TAB] 40 mg PO DAILY #30 tablet 05/24/18 08/18/18 Rx Lisinopril [Zestril] 40 mg PO QDAY #30 05/24/18 08/18/18 Rx Tamsulosin HCl [Flomax] 0.4 mg PO QHS #30 05/24/18 08/18/18 Rx traMADol [Ultram 50 MG tab] 50 mg PO Q6H PRN #30 tablet 08/21/18 Unknown Rx Ibuprofen [Motrin 600 MG tab] 600 mg PO Q8H PRN #12 tablet 09/14/18 Unknown Rx Allergies Allergy/AdvReac Type Severity Reaction Status Date / Time ampicillin Allergy Nausea Verified 08/13/18 10:27 hydralazine AdvReac Unknown Verified 08/13/18 10:27 ED Review of Systems ROS: Stated complaint: SIDE PAIN Other details as noted in HPI Constitutional: denies: chills, fever Respiratory: denies: cough, shortness of breath, wheezing Cardiovascular: other (left sided rib pain). denies: chest pain, palpitations Gastrointestinal: denies: abdominal pain, nausea, diarrhea Skin: denies: rash, lesions Neurological: denies: headache, weakness, paresthesias Psychiatric: denies: anxiety, depression ED Past Medical Hx - Past Medical History Hx Hypertension: Yes Hx Heart Attack/AMI: Yes (1 year ago) Hx Congestive Heart Failure: Yes Hx GERD: Yes Hx Arthritis: Yes (Hands) Hx Headaches / Migraines: Yes Additional medical history: 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 hx Inguinal hernia - Surgical History Hx Coronary Stent: Yes (1 year ago) Additional Surgical History: finger surgery, hernia repair - Social History Smoking Status: Former Smoker Substance Use Type: None - Medications Home Medications: Home Medications Medication Instructions Recorded Confirmed Last Taken Type ISOSORBIDE MONOnitrate [Imdur ER] 30 mg PO DAILY #0 10/05/17 08/19/18 08/19/18 04:30 History Aspirin [Aspirin EC] 81 mg PO DAILY #30 05/24/18 08/16/18 08/18/18 Rx Atorvastatin Calcium [Lipitor] 80 mg PO QHS #30 05/24/18 08/16/18 08/18/18 Rx Carvedilol [Coreg] 12.5 mg PO BID #60 05/24/18 08/19/18 08/19/18 04:30 Rx Clopidogrel Bisulfate [Plavix] 75 mg PO DAILY #30 05/24/18 08/16/18 08/13/18 Rx Furosemide [Lasix TAB] 40 mg PO DAILY #30 tablet 05/24/18 08/16/18 08/18/18 Rx Lisinopril [Zestril] 40 mg PO QDAY #30 05/24/18 08/16/18 08/18/18 Rx Tamsulosin HCl [Flomax] 0.4 mg PO QHS #30 05/24/18 08/16/18 08/18/18 Rx traMADol [Ultram 50 MG tab] 50 mg PO Q6H PRN #30 tablet 08/21/18 Unknown Rx Ibuprofen [Motrin 600 MG tab] 600 mg PO Q8H PRN #12 tablet 09/14/18 Unknown Rx ED Physical Exam - General Limitations: No Limitations General appearance: alert, in no apparent distress - Head Head exam: Present: atraumatic, normocephalic - Respiratory Respiratory exam: Present: normal lung sounds bilaterally, chest wall tenderness (tenderness on palpation of ribs 4th-6th). Absent: respiratory distress - Cardiovascular Cardiovascular Exam: Present: tachycardia. Absent: systolic murmur, diastolic murmur, rubs, gallop - GI/Abdominal GI/Abdominal exam: Present: soft, normal bowel sounds. Absent: distended, tenderness, guarding, rebound, rigid, organomegaly, mass, bruit, pulsatile mass, hernia - Neurological Exam Neurological exam: Present: alert, oriented X3 - Psychiatric Psychiatric exam: Present: normal affect, normal mood - Skin Skin exam: Present: warm, dry, intact, normal color. Absent: rash ED Course Vital Signs 09/14/18 09/14/18 09/14/18 12:59 17:37 18:11 Temperature 96 F L 98.7 F Pulse Rate 110 H 103 H Respiratory 17 18 16 Rate Blood Pressure 136/100 Blood Pressure 170/107 [Right] O2 Sat by Pulse 97 96 Oximetry 09/14/18 18:24 Temperature Pulse Rate Respiratory 16 Rate Blood Pressure Blood Pressure [Right] O2 Sat by Pulse Oximetry ED Medical Decision Making - Radiology Data Radiology results: report reviewed FINAL REPORT EXAM: XR RIBS UNI W PA CHEST 3+V LT HISTORY: left side rib pain 4th-8th TECHNIQUE: Left ribs 4 views PRIORS: None. FINDINGS: No rib fracture identified. No bony lesions seen. No evidence off pneumothorax or pleural effusion within the left yu thorax. Otherwise no acute findings. IMPRESSION: Negative rib series - Medical Decision Making Patient was examined by me. Vitals are normal and patient is in no acute distress. Obtained a x-rays of left ribs. X-rays dictated by radiologist report reviewed by myself. Negative rib series. Patient informed of results. Muscle strain Start ibuprofen for pain. Plan discussed with patient to discharge home and treat outpatient. He agrees with ER plan. Patient discharged home in stable condition. Follow up with PCP in 2-3 days. Critical care attestation.: If time is entered above; I have spent that time in minutes in the direct care of this critically ill patient, excluding procedure time. ED Disposition Clinical Impression: Rib pain on left side, Muscle strain, Acute costochondritis Fall Qualifiers: Encounter type: initial encounter Qualified Code(s): W19.XXXA - Unspecified fall, initial encounter Disposition: TO HOME OR SELFCARE Is pt being admited?: No Does the pt Need Aspirin: No Condition: Stable Instructions: Chest Pain (ED), Costochondritis (ED), Fall Prevention for Older Adults (ED) Additional Instructions: Take ibuprofen every 6-8 hours as needed for pain control. Follow up with primary care provider in 24-72 hours. Return to ER if chest pain unresolved, shortness of breath, or difficulty breathing. Prescriptions: Ibuprofen [Motrin 600 MG tab] 600 mg PO Q8H PRN #12 tablet PRN Reason: Pain Referrals: JAXSON WILKINSON JR, MD [Primary Care Provider] - 3-5 Days [facility] [Provider Group] - 3-5 Days [facility] [Provider Group] - 3-5 Days Time of Disposition: 19:09
[2018-09-14 18:24] VITALS: BP 136/100
--- NOTE | 2018-09-14 18:47 | XRay Report ---
FINAL REPORT EXAM: XR RIBS UNI W PA CHEST 3+V LT HISTORY: left side rib pain 4th-8th TECHNIQUE: Left ribs 4 views PRIORS: None. FINDINGS: No rib fracture identified. No bony lesions seen. No evidence off pneumothorax or pleural effusion wi thin the left yu thorax. Otherwise no acute findings. IMPRESSION: Negative rib series
== END 2018-09-14 19:14 | disposition home or self-care (01) ==
LOC: ED 12:50
DX: S29.011A Strain of muscle and tendon of front wall of thorax, initial encounter (principal); M94.0 Chondrocostal junction syndrome [Tietze]; I11.0 Hypertensive heart disease with heart failure; I50.9 Heart failure, unspecified; I25.2 Old myocardial infarction; K21.9 Gastro-esophageal reflux disease without esophagitis; M19.042 Primary osteoarthritis, left hand; M19.041 Primary osteoarthritis, right hand; Z87.891 Personal history of nicotine dependence; Z88.1 Allergy status to other antibiotic agents; Z88.8 Allergy status to other drugs, medicaments and biological substances; W01.0XXA Fall on same level from slipping, tripping and stumbling without subsequent striking against object, initial encounter; Y93.89 Activity, other specified; Y92.89 Other specified places as the place of occurrence of the external cause; Y99.8 Other external cause status

== ENCOUNTER 2018-11-30 09:30 | Emergency (ER) | payer MEDICARE ==
[2018-11-30 11:10] VITALS: BP 136/80
[2018-11-30] MEDS ORDERED: COLACE PO ONE (11:10)
--- NOTE | 2018-11-30 11:11 | Emergency Department Report ---
HPI - General Chief Complaint: Upper Respiratory Infection Time Seen by Provider: 11/30/18 10:52 - HPI HPI: 68-year-old male presents to the emergency department with a one-week history of chest congestion and cough. He also complains of some left ear congestion and discomfort. He has not taken anything for his symptoms prior to presentation. His primary care physician is Dr. Jaxson Masterson but he has not seen them regarding his symptoms. No recent travel or sick contacts at home. He has a past medical history of CHF, GERD, migraines, coronary artery disease with ND, hypertension. He denies any fever, chest pain, nausea, vomiting, s hortness of breath, back pain or diaphoresis. 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 hx Inguinal hernia - Surgical History Past Surgical History?: Yes Hx Coronary Stent: Yes (1 year ago) Additional Surgical History: finger surgery, hernia repair - Social History Smoking Status: Never Smoker Substance Use Type: None - Medications Home Medications: Home Medications Medication Instructions Recorded Confirmed Last Taken Type ISOSORBIDE MONOnitrate [Imdur ER] 30 mg PO DAILY #0 10/05/17 08/19/18 08/19/18 04:30 History Aspirin [Aspirin EC] 81 mg PO DAILY #30 05/24/18 08/16/18 08/18/18 Rx Atorvastatin Calcium [Lipitor] 80 mg PO QHS #30 05/24/18 08/16/18 08/18/18 Rx Carvedilol [Coreg] 12.5 mg PO BID #60 05/24/18 08/19/18 08/19/18 04:30 Rx Clopidogrel Bisulfate [Plavix] 75 mg PO DAILY #30 05/24/18 08/16/18 08/13/18 Rx Furosemide [Lasix TAB] 40 mg PO DAILY #30 tablet 05/24/18 08/16/18 08/18/18 Rx Lisinopril [Zestril] 40 mg PO QDAY #30 05/24/18 08/16/18 08/18/18 Rx Tamsulosin HCl [Flomax] 0.4 mg PO QHS #30 05/24/18 08/16/18 08/18/18 Rx traMADol [Ultram 50 MG tab] 50 mg PO Q6H PRN #30 tablet 08/21/18 Unknown Rx Ibuprofen [Motrin 600 MG tab] 600 mg PO Q8H PRN #12 tablet 09/14/18 Unknown Rx Sulfamethoxazole/Trimethoprim 1 each PO BID #14 tablet 11/30/18 Unknown Rx [Bactrim DS TAB] guaiFENesin [Mucinex] 600 mg PO BID #10 tab.er.12h 11/30/18 Unknown Rx guaiFENesin/CODEINE [Robitussin AC] 5 ml PO Q6H PRN #100 ml 11/30/18 Unknown Rx ED Review of Systems ROS: Stated complaint: CHEST PAIN WHEN COUGH Other details as noted in HPI Comment: All other systems reviewed and negative Constitutional: denies: chills, fever Eyes: denies: eye pain, vision change ENT: ear pain. denies: throat pain Respiratory: cough. denies: shortness of breath Cardiovascular: denies: chest pain, palpitations, edema Gastrointestinal: denies: abdominal pain, vomiting Genitourinary: denies: dysuria, discharge Musculoskeletal: denies: back pain, arthralgia Skin: denies: rash, lesions Neurological: denies: headache, weakness Physical Exam - Physical Exam Vital Signs: Vital Signs 11/30/18 09:35 Temperature 97.5 F L Pulse Rate 97 H Respiratory 24 Rate Blood Pressure 190/98 O2 Sat by Pulse 99 Oximetry Physical Exam: GENERAL: The patient is well-developed well-nourished. HEENT: Normocephalic. Atraumatic. Patient has moist mucous membranes. Normal-appearing right-sided tympanic membrane and external ear canal. Left external ear canal has cerumen impaction, but once removed the canal appears normal but there are signs of left otitis media with erythematous tympanic m embrane. EYES: Extraocular motions are intact. Pupils are equal and reactive to light bilaterally. NECK: Supple. Trachea is midline. CHEST/LUNGS: Clear to auscultation. Occasional productive sounding cough heard during examination. No tachypnea or accessory muscle use. There is no respiratory distress noted. HEART/CARDIOVASCULAR: Regular. There is no tachycardia. There is no obvious murmur. ABDOMEN: Abdomen is soft, nontender. Patient has normal bowel sounds. There is no abdominal distention. SKIN: Skin is warm and dry. NEURO: The patient is awake, alert, and oriented. The patient is cooperative. The patient has no focal neurologic deficits. The patient has normal speech. MUSCULOSKELETAL: There is no tenderness or deformity. There is no limitation range of motion. There is no evidence of acute injury. ED Course Vital Signs 11/30/18 09:35 Temperature 97.5 F L Pulse Rate 97 H Respiratory 24 Rate Blood Pressure 190/98 O2 Sat by Pulse 99 Oximetry ED Medical Decision Making - Radiology Data Radiology results: image reviewed interpreted by me: Chest x-ray does not show any pneumothorax, pleural effusion, pneumonia or obvious focal consolidation. - Medical Decision Making Patient presents with a one-week history of a productive cough and also complains of some left ear pain. He has not followed up with his primary care physician or taken anything prior to arrival. The left ear canal is impacted with cerumen but once it was cleaned out he appears to have a mild left otitis media. Chest x-ray does not show any pneumonia, pleural effusions, pneumothorax, focal consolidation, or any other acute process. He does not appear in any respiratory distress. The patient will be discharged home with some Robitussin-AC for his cough and an antibiotic for his otitis media. He is instructed to follow-up with his primary care physician and return to the ER with any worsening of his symptoms or any acute distress. - Differential Diagnosis otitis externa, otitis media, bronchitis, asthma, pneumonia Critical Care Time: No Critical care attestation.: If time is entered above; I have spent that time in minutes in the direct care of this critically ill patient, excluding procedure time. ED Disposition Clinical Impression: Bronchitis Left otitis media Qualifiers: Otitis media type: unspecified Qualified Code(s): H66.92 - Otitis media, unspec ified, left ear Impacted ear wax Qualifiers: Laterality: left Qualified Code(s): H61.22 - Impacted cerumen, left ear Disposition: -01 TO HOME OR SELFCARE Is pt being admited?: No Condition: Stable Instructions: Acute Bronchitis (ED) Additional Instructions: Please follow-up with your primary care physician in the next few days. Return to the emergency Department with any worsening of your symptoms or any acute distress. Take the antibiotics as prescribed. You have been prescribed a medication that can be sedating. Therefore, this medication cannot be taken prior to driving, working, being responsible for children, and cannot be mixed with alcohol of any quantity. Prescriptions: Sulfamethoxazole/Trimethoprim [Bactrim DS TAB] 1 each PO BID #14 tablet guaiFENesin [Mucinex] 600 mg PO BID #10 tab.er.12h guaiFENesin/CODEINE [Robitussin AC] 5 ml PO Q6H PRN #100 ml PRN Reason: Cough Referrals: JAXSON MASTERSON JR, MD [Primary Care Provider] - [facility] Time of Disposition: 16:16
--- NOTE | 2018-11-30 11:35 | XRay Report ---
XRAY CHEST TWO VIEWS: 11/30/18 09:30:00 CLINICAL: Cough. COMPARISON: 09/14/18 FINDINGS: Normal heart and pulmonary vasculature. The lungs are normally expanded and clear.Spondylosis of the thoracic spine. IMPRESSION: No acute cardiopulmonary process.
== END 2018-11-30 12:39 | disposition home or self-care (01) ==
LOC: ED 09:30
DX: J40 Bronchitis, not specified as acute or chronic (principal); H66.92 Otitis media, unspecified, left ear; H61.22 Impacted cerumen, left ear; I11.0 Hypertensive heart disease with heart failure; I50.9 Heart failure, unspecified; I25.2 Old myocardial infarction; K21.9 Gastro-esophageal reflux disease without esophagitis; M19.90 Unspecified osteoarthritis, unspecified site; G43.909 Migraine, unspecified, not intractable, without status migrainosus; Z95.5 Presence of coronary angioplasty implant and graft; Z79.899 Other long term (current) drug therapy; Z88.0 Allergy status to penicillin; Z88.6 Allergy status to analgesic agent
CPT/HCPCS: 71046; 99283

== ENCOUNTER 2020-04-18 16:54 | Emergency (ER) | payer MEDICARE ==
[2020-04-18 17:08] VITALS: BP 188/109
== END 2020-04-18 18:20 | disposition left against medical advice (07) ==
LOC: ED 16:54
DX: R13.10 Dysphagia, unspecified (principal); Z53.21 Procedure and treatment not carried out due to patient leaving prior to being seen by health care provider

== ENCOUNTER 2020-06-17 12:54 | Emergency (ER) | payer MEDICARE ==
--- NOTE | 2020-06-17 13:14 | Event Note ---
ED Screening Note Date of service: 06/17/20 Time: 13:13 ED Screening Note: 70-year-old male presents to the emergency room for chest congestion x1 week with no improvement with edcx-ref-heobmdu meds. Patient reports he has a history of hypertension and congestive heart failure. He denies any fever chills no nausea no vomiting. He denies any leg swelling. This initial assessment/diagnostic orders/clinical plan/treatment(s) is/are subject to change based on patients health status, clinical progression and re- assessment by fellow clinical providers in the ED. Further treatment and workup at subsequent clinical providers discretion. Patient/guardian urged not to elope from the ED as their condition may be serious if not clinically assessed and managed. Initial orders include: Chest x-ray BMP CMP hepatic function CBC and BNP
[2020-06-17 13:49] LABS: Hematocrit 45.8 % (35.5-45.6); Hemoglobin 15.3 gm/dl (11.8-15.2); Mean Corpuscular HGB Conc 34 % (32-34); Mean Corpuscular Volume 86 fl (84-94); Platelet Count 220 K/mm3 (140-440); Red Blood Count 5.31 M/mm3 (3.65-5.03)
--- NOTE | 2020-06-17 13:51 | XRay Report ---
CHEST 2 VIEWS INDICATION / CLINICAL INFORMATION: Chest congestion x1 week. COMPARISON: 11/30/2018 FINDINGS: SUPPORT DEVICES: None. HEART / MEDIASTINUM: No significant abnormality. LUNGS / PLEURA: No significant pulmonary or pleural abnormality. No pneumothorax. ADDITIONAL FINDINGS: No significant additional findings. IMPRESSION: 1. No acute findings. Signer Name: Donald Hunt MD Signed: 06/17/2020 1:47 PM Workstation Name: [id number]
[2020-06-17 14:16] LABS: Alanine Aminotransferase 19 units/L (7-56); Albumin 4.3 g/dL (3.9-5); BUN/Creatinine Ratio 11; Blood Urea Nitrogen 12 mg/dL (9-20); Calcium 9.3 mg/dL (8.4-10.2); Hemolysis Index 16
[2020-06-17 14:17] LABS: Bilirubin,Direct < 0.2 mg/dL (0-0.2)
[2020-06-17] MEDS ORDERED: IPRATROPIUM/ALBUTEROL SULFATE 3 ML AMPUL.NEB IH ONE (16:11)
[2020-06-17] MEDS ORDERED: predniSONE 50 MG TAB PO ONE (16:11)
[2020-06-17] MEDS ORDERED: BENZONATATE 100 MG CAP PO ONE (16:12)
--- NOTE | 2020-06-17 16:14 | Emergency Department Report ---
HPI - General Chief Complaint: Upper Respiratory Infection Time Seen by Provider: 06/17/20 16:04 - HPI HPI: This is a 70-year-old male presents to the emergency department from home with a complaint of a 1 week history of chest congestion and a mixed dry and productive cough. Patient says that he has used multiple different [id number] medications without any relief. He has a past medical history that includes hypertension, CHF, coronary artery disease, GERD, osteoarthritis. He denies any tobacco or illicit drug use. No known aggravating or alleviating factors. His primary care physician is Dr. Gabe Scott and his paralegal secretary is through [facility]. No recent travel or sick contacts at home. He denies any fever, chest pain, lower extremity swelling, nausea, vomiting or diaphoresis. 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 hx Inguinal hernia - Surgical History Past Surgical History?: Yes Hx Coronary Stent: Yes (1 year ago) Additional Surgical History: finger surgery, hernia repair - Social History Smoking Status: Former Smoker Substance Use Type: None - Medications Home Medications: Home Medications Medication Instructions Recorded Confirmed Last Taken Type ISOSORBIDE MONOnitrate [Imdur ER] 30 mg PO DAILY #0 10/05/17 08/19/18 08/19/18 04:30 History Aspirin [Aspirin EC] 81 mg PO DAILY #30 05/24/18 08/16/18 08/18/18 Rx Atorvastatin Calcium [Lipitor] 80 mg PO QHS #30 05/24/18 08/16/18 08/18/18 Rx Carvedilol [Coreg] 12.5 mg PO BID #60 05/24/18 08/19/18 08/19/18 04:30 Rx Clopidogrel Bisulfate [Plavix] 75 mg PO DAILY #30 05/24/18 08/16/18 08/13/18 Rx Furosemide [Lasix TAB] 40 mg PO DAILY #30 tablet 05/24/18 08/16/18 08/18/18 Rx Lisinopril [Zestril] 40 mg PO QDAY #30 05/24/18 08/16/18 08/18/18 Rx Tamsulosin HCl [Flomax] 0.4 mg PO QHS #30 05/24/18 08/16/18 08/18/18 Rx traMADoL [Ultram 50 MG tab] 50 mg PO Q6H PRN #30 tablet 08/21/18 Unknown Rx Ibuprofen [Motrin 600 MG tab] 600 mg PO Q8H PRN #12 tablet 09/14/18 Unknown Rx Sulfamethoxazole/Trimethoprim 1 each PO BID #14 tablet 11/30/18 Unknown Rx [Bactrim DS TAB] guaiFENesin [Mucinex] 600 mg PO BID #10 tab.er.12h 11/30/18 Unknown Rx guaiFENesin/CODEINE [Robitussin AC] 5 ml PO Q6H PRN #100 ml 11/30/18 Unknown Rx ALBUTEROL NEB's [Proventil 0.083% 2.5 mg IH Q6H PRN #1 box 06/17/20 Unknown Rx NEBS] Albuterol Mdi (or & Nicu Only) 2 puff IH QID PRN #8.5 gram 06/17/20 Unknown Rx [ProAir HFA Inhaler] Benzonatate [Tessalon Perles] 100 mg PO Q8HR PRN #20 capsule 06/17/20 Unknown Rx predniSONE [Deltasone] 20 mg PO QDAY #4 tab 06/17/20 Unknown Rx ED Review of Systems ROS: Stated complaint: CHEST CONGESTION Other details as noted in HPI Comment: All other systems reviewed and negative Constitutional: denies: chills, fever Eyes: denies: eye pain, vision change ENT: denies: ear pain, throat pain Respiratory: cough, wheezing Cardiovascular: denies: chest pain, edema Gastrointestinal: denies: abdominal pain, vomiting Genitourinary: denies: dysuria, discharge Musculoskeletal: denies: back pain, arthralgia Skin: denies: rash, lesions Neurological: denies: headache, weakness Physical Exam - Physical Exam Vital Signs: Vital Signs 06/17/20 13:04 Temperature 97.6 F Pulse Rate 97 H Respiratory 20 Rate Blood Pressure 194/104 O2 Sat by Pulse 96 Oximetry Physical Exam: GENERAL: The patient is well-developed well-nourished. HENT: Normocephalic. Atraumatic. Patient has moist mucous membranes. EYES: Extraocular motions are intact. NECK: Supple. Trachea is midline. CHEST/LUNGS: Mild wheezing throughout the chest. There is a dry cough heard during examination. No tachypnea or accessory muscle use. There is no respiratory distress noted. HEART/CARDIOVASCULAR: Regular. There is no tachycardia. There is no murmur. ABDOMEN: Abdomen is soft, nontender. Patient has normal bowel sounds. SKIN: Skin is warm and dry. NEURO: The patient is awake, alert, and oriented. The patient is cooperative. Normal speech. MUSCULOSKELETAL: There is no tenderness or deformity. There is no limitation range of motion. ED Course Vital Signs 06/17/20 13:04 Temperature 97.6 F Pulse Rate 97 H Respiratory 20 Rate Blood Pressure 194/104 O2 Sat by Pulse 96 Oximetry - Reevaluation(s) Reevaluation #1: 06/17/20 18:04 Lab Results 06/17/20 06/17/20 Range/Units 13:36 13:36 WBC 7.8 (4.5-11.0) K/mm3 RBC 5.31 H (3.65-5.03) M/mm3 Hgb 15.3 H (11.8-15.2) gm/dl Hct 45.8 H (35.5-45.6) % MCV 86 (84-94) fl MCH 29 (28-32) pg MCHC 34 (32-34) % RDW 15.0 (13.2-15.2) % Plt Count 220 (140-440) K/mm3 Sodium 141 (137-145) mmol/L Potassium 4.0 (3.6-5.0) mmol/L Chloride 104.0 (98-107) mmol/L Carbon Dioxide 26 (22-30) mmol/L Anion Gap 15 mmol/L BUN 12 (9-20) mg/dL Creatinine 1.1 (0.8-1.3) mg/dL Estimated GFR > 60 ml/min BUN/Creatinine Ratio 11 % Glucose 141 H (75-100) mg/dL Calcium 9.3 (8.4-10.2) mg/dL Total Bilirubin 0.40 (0.1-1.2) mg/dL Direct Bilirubin < 0.2 (0-0.2) mg/dL Indirect Bilirubin 0.2 mg/dL AST 17 (5-40) units/L ALT 19 (7-56) units/L Alkaline Phosphatase 64 (35-129) units/L NT-Pro-B Natriuret Pep 557.0 (0-900) pg/mL Total Protein 7.0 (6.3-8.2) g/dL Albumin 4.3 (3.9-5) g/dL Albumin/Globulin Ratio 1.6 % Reevaluation #2: 06/17/20 18:04 Vital Signs 06/17/20 06/17/20 06/17/20 13:04 16:43 16:47 Temperature 97.6 F Pulse Rate 97 H Pulse Rate [ 91 H Anterior Bilateral Throughout] Respiratory 20 Rate Respiratory 18 Rate [Anterior Bilateral Throughout] Blood Pressure 194/104 183/114 O2 Sat by Pulse 96 Oximetry 06/17/20 06/17/20 16:59 17:00 Temperature 98.4 F Pulse Rate Pulse Rate [ Anterior Bilateral Throughout] Respiratory 20 Rate Respiratory Rate [Anterior Bilateral Throughout] Blood Pressure O2 Sat by Pulse 96 97 Oximetry ED Medical Decision Making - Lab Data Result diagrams: 06/17/20 13:36 06/17/20 13:36 - Radiology Data Radiology results: image reviewed interpreted by me: Chest x-ray does not show any acute process. There are no pleural effusions, obvious pneumonia and there is no pneumothorax. No significant cardiomegaly. - Medical Decision Making This patient presents with some chest congestion and coughing has been going on for the past week. On examination the patient has some mild wheezing and a dry cough heard, but there is no tachypnea or accessory muscle use. He does not appear in any respiratory or acute distress. A chest x-ray was done that does not show any pneumonia, pleural effusions, pneumothorax, or any other acute process. Patient's labs have been mostly unremarkable including CBC, metabolic panel, BNP. Patient was given a dose of steroids, Tessalon Perles for his cough, and a DuoNeb breathing treatment. Upon reevaluation he says he is feeling greatly improved and asking for discharge home. He did not want any antihypertensive medications here and says that he will go home and take his meds. We also discussed staying away from foods that are high in salt and caffeinated products and keeping a blood pressure log. Patient has good outpatient follow-up with both primary care and cardiology. He will return to the ER with any worsening of his symptoms or with any acute distress. Critical Care Time: No Critical care attestation.: If time is entered above; I have spent that time in minutes in the direct care of this critically ill patient, excluding procedure time. ED Disposition Clinical Impression: Bronchitis, Bronchospasm Hypertension Qualifiers: Hypertension type: essential hypertension Qualified Code(s): I10 - Essential (primary) hypertension Disposition: TO HOME OR SELFCARE Is pt being admited?: No Condition: Stable Instructions: Bronchospasm, Adult, Hypertension, Adult, Acute Bronchitis, Adult, Chronic Bronchitis (ED), Hypertension (ED) Additional Instructions: Please follow-up with your primary care physician in the next few days. Take both your medications as prescribed. Try to stay away from foods that are high in salt and caffeinated products. Keep a blood pressure log. Return to the emergency department with any worsening of your symptoms, new or concerning symptoms not addressed during this current emergency department visit, or with any acute distress. Prescriptions: predniSONE [Deltasone] 20 mg PO QDAY #4 tab Albuterol Mdi (or & Nicu Only) [ProAir HFA Inhaler] 2 puff IH QID PRN #8.5 gram PRN Reason: Shortness Of Breath ALBUTEROL NEB's [Proventil 0.083% NEBS] 2.5 mg IH Q6H PRN #1 box PRN Reason: Wheezing Benzonatate [Tessalon Perles] 100 mg PO Q8HR PRN #20 capsule PRN Reason: Cough Referrals: GABE SCOTT MD [Staff Physician] - 2-3 Days Time of Disposition: 17:48
[2020-06-17] MEDS ORDERED: cloNIDine 0.2 MG TAB PO ONE (17:12)
[2020-06-17 17:30] VITALS: BP 183/114
== END 2020-06-17 17:58 | disposition home or self-care (01) ==
LOC: ED 12:54
DX: J40 Bronchitis, not specified as acute or chronic (principal); J98.01 Acute bronchospasm; I50.9 Heart failure, unspecified; I11.0 Hypertensive heart disease with heart failure; I25.2 Old myocardial infarction; K21.9 Gastro-esophageal reflux disease without esophagitis; M19.91 Primary osteoarthritis, unspecified site; G43.909 Migraine, unspecified, not intractable, without status migrainosus; Z98.890 Other specified postprocedural states; Z87.891 Personal history of nicotine dependence; Z79.1 Long term (current) use of non-steroidal anti-inflammatories (NSAID); Z79.899 Other long term (current) drug therapy; Z88.8 Allergy status to other drugs, medicaments and biological substances
CPT/HCPCS: 36415; 71046; 80048; 80076; 83880; 85027; 94640; 99284; J7512; 94644

== ENCOUNTER 2021-02-14 06:01 | Day surgery (SDC) | payer MEDICARE ==
--- NOTE | 2021-02-07 10:18 | Anesthesia Consultation ---
Anesthesia Consult and Med Hx Date of service: 02/14/21 - Airway Anesthetic Teeth Evaluation: Edentulous ROM Head & Neck: Adequate Mental/Hyoid Distance: Adequate Mallampati Class: Class I Intubation Access Assessment: Good - Pre-Operative Health Status ASA Pre-Surgery Classification: ASA3 Proposed Anesthetic Plan: General Nerve Block: TAP - Pulmonary Hx Smoking: Yes (STOPPED 1969') Hx Respiratory Symptoms: No SOB: Yes (SOB WITH ACTIVITY) Home Oxygen Therapy: No (Chronic bronchitits) Hx Sleep Apnea: No (MICKY PRE SCREEN HIGH RISK) - Cardiovascular System Hx Hypertension: Yes (X AT LEAST 10 YRS) Hx Coronary Artery Disease: Yes (Cardiomyopathy) Hx Heart Attack/AMI: Yes (2018) Hx Angina: No Hx Percutaneous Transluminal Coronary Angioplasty (PTCA): Yes (Stent-2018) - Central Nervous System CVA: Yes (2018 , 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 No records available at this time.
[2021-02-07 11:00] LABS: BUN/Creatinine Ratio 12; Blood Urea Nitrogen 13 mg/dL (9-20); Calcium 9.3 mg/dL (8.4-10.2); Hemolysis Index 7
[2021-02-07 11:54] LABS: Hematocrit 44.4 % (35.5-45.6); Hemoglobin 14.9 gm/dl (11.8-15.2); Mean Corpuscular HGB Conc 34 % (32-34); Mean Corpuscular Volume 84 fl (84-94); Platelet Count 187 K/mm3 (140-440); Red Blood Count 5.29 M/mm3 (3.65-5.03); Red Cell Distribution Width 16.2 % (13.2-15.2)
[~2021-02-14 06:01] MED LIST: ACETAMINOPHEN 325 MG TAB PO NR; CELECOXIB 200 MG CAP PO NR; LACTATED RINGERS 1,000 ML IV SCH; MAGNESIUM OXIDE 400 MG TAB PO NR; MIDAZOLAM 2 MG/2 ML INJ IV NR; VANCOMYCIN 1,500 MG in SODIUM CHLORIDE 0.9% 500 ML 500 ML IV NR; fentaNYL 100 MCG/2 ML INJ IV NR
[2021-02-14] MEDS ORDERED: LIDOCAINE MPF (2%) 20 MG/1 ML VIAL 5 ML ONE (06:34)
[2021-02-14] MEDS ORDERED: KETOROLAC 30 MG/1 ML INJ ONE (06:34)
[2021-02-14] MEDS ORDERED: fentaNYL 100 MCG/2 ML INJ ONE (06:34)
[2021-02-14] MEDS ORDERED: ONDANSETRON 4 MG/2 ML INJ ONE (06:34)
[2021-02-14] MEDS ORDERED: dexAMETHasone 20 MG/5 ML VIAL ONE (06:34)
[2021-02-14] MEDS ORDERED: ROCURONIUM 50 MG/5 ML INJ IV ONE (06:34)
[2021-02-14] MEDS ORDERED: GLYCOPYRROLATE 0.4 MG/2 ML INJ ONE (06:34)
[2021-02-14] MEDS ORDERED: KETAMINE/STERILE WATER 50 MG/ML SYRINGE ONE (06:35)
[2021-02-14] MEDS ORDERED: propofoL 200 MG/20 ML VIAL IV ONE (06:35)
[2021-02-14] MEDS ORDERED: VANCOMYCIN/NS 1 GM/250 ML 1 GM/250 ML BAG IV NR (07:00)
[2021-02-14] MEDS ORDERED: BUPIVACAINE/PF (0.25%) 2.5 MG/ML 30 ML VIAL INFILTRATI ONE (07:26)
[2021-02-14] MEDS ORDERED: dexAMETHasone 4 MG/ML VIAL ONE (07:27)
[2021-02-14] MEDS ORDERED: HYDROmorphone 1 MG/1 ML INJ IV PRN (07:44)
[2021-02-14] MEDS ORDERED: ONDANSETRON 4 MG/2 ML INJ IV PRN (07:44)
[2021-02-14] MEDS ORDERED: oxyCODONE /ACETAMINOPHEN 5-325MG TAB PO PRN (07:44)
--- NOTE | 2021-02-14 07:44 | Anesthesia Day of Surgery ---
Anesthesia Day of Surgery - Day of Surgery Patient Examined: Yes Patient H&P Reviewed: Yes Patient is NPO: Yes Cardiac Clearance: Yes
[2021-02-14] MEDS ORDERED: ePHEDrine SULFATE 50 MG/1 ML INJ ONE (08:25)
[2021-02-14] MEDS ORDERED: WATER FOR IRRIG STERILE 1,500 ML BOTTLE IR ONE (08:44)
[2021-02-14] MEDS ORDERED: PHENYLEPHRINE/NS 1,000 MCG/10 ML SYRINGE (OR USE) IV ONE (09:52)
[2021-02-14] MEDS ORDERED: NEOSTIGMINE 10MG/10 ML INJ MDV ONE (09:52)
--- NOTE | 2021-02-14 10:19 | Short Stay Summary ---
Short Stay Documentation Date of service: 02/14/21 - History Principal diagnosis: ventral hernia H&P: obtained from office - Allergies and Medications Current Medications: Allergies ampicillin Allergy (Verified 08/13/18 10:27) Nausea hydralazine Adverse Reaction (Verified 08/13/18 10:27) Unknown Home Medications Medication Instructions Recorded Confirmed Last Taken Type ISOSORBIDE MONOnitrate [Imdur ER] 30 mg PO DAILY #0 10/05/17 02/14/21 02/13/21 09:00 History Atorvastatin Calcium [Lipitor] 80 mg PO QHS #30 05/24/18 02/14/21 02/13/21 20:00 Rx Clopidogrel Bisulfate [Plavix] 75 mg PO DAILY #30 05/24/18 02/14/21 02/12/21 09:00 Rx Tamsulosin HCl [Flomax] 0.4 mg PO QHS #30 05/24/18 02/14/21 02/13/21 20:00 Rx ALBUTEROL NEB's [Proventil 0.083% 2.5 mg IH Q6H PRN #1 box 06/17/20 02/14/21 09:00 Rx NEBS] Albuterol Mdi (or & Nicu Only) 2 puff IH QID PRN #8.5 gram 06/17/20 02/14/21 02/13/21 17:00 Rx [ProAir HFA Inhaler] Doxazosin Mesylate 2 mg PO DAILY 02/14/21 02/14/21 02/14/21 05:00 History Nifedipine ER 60 mg PO DAILY 02/14/21 02/14/21 02/14/21 05:00 History Spironolactone 25 mg PO DAILY 02/14/21 02/14/21 02/13/21 09:00 History Active Medications Acetaminophen (Acetaminophen 325 Mg Tab) 650 mg PO ONCE NR Stop: 02/14/21 23:59 Last Admin: 02/14/21 06:35 Dose: 650 mg Documented by: Celecoxib (Celecoxib 200 Mg Cap) 200 mg PO PREOP NR Stop: 02/14/21 23:59 Last Admin: 02/14/21 06:35 Dose: 200 mg Documented by: Fentanyl (Fentanyl 100 Mcg/2 Ml Inj) 100 mcg IV ONCE NR Stop: 02/14/21 23:59 Last Admin: 02/14/21 07:28 Dose: 100 mcg Documented by: Hydromorphone HCl (Hydromorphone 1 Mg/1 Ml Inj) 0.5 mg IV Q10MIN PRN PRN Reason: Pain , Severe (7-10) Stop: 02/14/21 23:00 Lactated Ringer's (Lactated Ringers) 1,000 mls @ 75 mls/hr IV DIRECT QUAN Last Admin: 02/14/21 07:05 Dose: 75 mls/hr Documented by: Vancomycin HCl 1,500 mg/ (Sodium Chloride) 530 mls @ 333.333 mls/hr IV PREOP NR Stop: 02/14/21 20:00 Magnesium Oxide (Magnesium Oxide 400 Mg Tab) 400 mg PO ONCE NR Stop: 02/14/21 23:59 Last Admin: 02/14/21 06:35 Dose: 400 mg Documented by: Midazolam HCl (Midazolam 2 Mg/2 Ml Inj) 2 mg IV PREOP NR Stop: 02/14/21 23:59 Last Admin: 02/14/21 07:28 Dose: 2 mg Documented by: Ondansetron HCl (Ondansetron 4 Mg/2 Ml Inj) 4 mg IV ONCE PRN PRN Reason: Nausea And Vomiting Stop: 02/14/21 16:00 Oxycodone/Acetaminophen (Oxycodone /Acetaminophen 5-325mg Tab) 1 tab PO ONCE PRN PRN Reason: Pain, Moderate (4-6) Stop: 02/14/21 16:00 - Brief post op/procedure progress note Date of procedure: 02/14/21 Pre-op diagnosis: ventral hernia Post-op diagnosis: same Procedure: robotic assisted ventral hernia repair with mesh Anesthesia: RAO, other (Tap block) Findings: 1 cm supraumbilical ventral hernia containing preperitoneal fat Surgeon: BRANDON CAMPBELL Geriatrics Physician: GERARDO RUIZ Estimated blood loss: minimal Pathology: none Condition: stable - Hospital course Hospital course: Pt observed in PACU and discharged to home in stable condition when criteria met - Disposition Condition at discharge: Good Disposition: DC-01 TO HOME OR SELFCARE Short Stay Discharge Plan Activity: other (no heavy lifting greater than 15lbs for next 6 weeks) Diet: regular Wound: open to air, per your surgeon's advice Additional Instructions: Resume Plavix in 2 days - on 02/16/21 SEE PRINTED DISCHARGE INSTRUCTIONS Follow up with: ANGIE SCOTT MD [Primary Care Provider] - 7 Days BRANDON CAMPBELL DO [Staff Physician] - 14 Days Prescriptions: oxyCODONE /ACETAMINOPHEN [Percocet 5/325 mg] 1 tab PO Q6H PRN #20 tablet PRN Reason: Pain , Severe (7-10)
[2021-02-14] MEDS ORDERED: SCOPOLAMINE TRANSDERMAL PATCH 72 HR TD ONE ×2 (12:55→13:55)
[2021-02-14 13:33] LABS: Hematocrit 48.5 % (35.5-45.6); Hemoglobin 15.9 gm/dl (11.8-15.2); Mean Corpuscular HGB Conc 33 % (32-34); Mean Corpuscular Volume 85 fl (84-94); Platelet Count 227 K/mm3 (140-440); Red Blood Count 5.71 M/mm3 (3.65-5.03); Red Cell Distribution Width 15.8 % (13.2-15.2)
[2021-02-14] MEDS ORDERED: cloNIDine 0.1 MG TAB PO ONE (13:37)
[2021-02-14 13:56] LABS: BUN/Creatinine Ratio 12; Blood Urea Nitrogen 15 mg/dL (9-20); Calcium 8.3 mg/dL (8.4-10.2); Hemolysis Index 9
[2021-02-14] MEDS ORDERED: PROMETHAZINE 25 MG RECT SUPP PR ONE (14:11)
[2021-02-14] MEDS ORDERED: PROMETHAZINE 25 MG RECT SUPP PR SCH (14:30)
--- NOTE | 2021-02-14 15:49 | Post Anesthesia Evaluation ---
- Post Anesthesia Evaluation Patient Participated: Yes Airway Patent: Yes Stable Respiratory Function: Yes Nausea/Vomiting: Yes (improved with antiemetics) Temp > 96.8F: Yes Pain Manageable: Yes Adequeate Hydration: Yes Anesthesia Complications: No Other Comments: While in PACU, patient became increasingly diaphorectic, hypertensive, and dyspneic in addition to nausea/vomiting. Given significant cardiac hx, stat EKG, troponins, CBC, BMP were ordered. POCT glucose 190s. EKG showed no significant changes from previous on chart, troponins negative, no significant anemia or electrolyte abnormalities. During this time, symptoms resolved with IV/PO antihypertensives and IV/MN antiemetics. BP returned to preop baseline at time of d/c.
[2021-02-14 17:11] VITALS: BP 170/95
--- NOTE | 2021-02-14 21:31 | Operative Report ---
Operative Report Operative Report: Date of procedure: 02/14/21 Pre-op diagnosis: ventral hernia Post-op diagnosis: same Procedure: robotic assisted ventral hernia repair with mesh Anesthesia: GETA, other (Tap block) Findings: 1 cm supraumbilical ventral hernia containing preperitoneal fat Surgeon: BRANDON CAMPBELL Maintenance Apprentice: GERARDO RUIZ Estimated blood loss: minimal Pathology: none Condition: stable Hospital course: Pt observed in PACU and discharged to home in stable condition when criteria met HPI and indication: 70 yo M who was seen in surgery clinic with symptomatic ventral hernia. Hernia soft and reducible exam. It was recommended that hernia be repaired. All risks, benefits, and alternatives to surgery were discussed and questions answered. Consent obtained for robotic assisted ventral hernia repair with mesh, possible open. The patient was evaluated by his embossing machine operator helper and advised to hold plavix 5 days before surgery which has he done. Procedure in detail: Patient identified in preoperative area. TAP block perfo rmed by anesthesia. Patient was taken back to operating room and placed on operating room table in supine position. After anesthesia was induced, both arms were tucked and all bony prominences padded appropriately. The abdomen was prepped and draped in the usual sterile fashion and a time out performed. A luis incision was made at the umbilicus through which a veress needle was inserted. The veress needle positioning was confirmed using the saline drop test and the abdomen insufflated to 15mmHg without incident. A 5mm RUQ optiview trocar was then placed under direct visualization. The abdomen was inspected and there was no underlying injury to any of the abdominal structures. The hernia was visualized just superior to the umbilicus containing preperitoneal fat. An additional 12mm balloon trocar was placed in the right lateral abdomen and a 8mm RLQ robotic trocar under direct visualization. The 5mm RUQ trocar was replaced with an 8mm robotic trocar. A raytec was placed into the abdomen and the robot docked. A monopolar scissor was placed in arm 1 and a fenestrated bipolar in arm 2. The surgeon was transferred to the console. I started by creating a preperitoneal flap several cm to the right of the hernia. The peritoneum was scored and a flap created in an avascular place using blunt dissection and electrocautery. The hernia was encountered and preperitoneal fat and the hernia sac gently reduced. Once reduced, the flap was dissected to the left of the hernia defect to make room for mesh placement. Once the dissection was complete the flap was checked for hemostasis which was ensured. The hernia measured approximately 1cm. It was decided to repair the hernia with a 10cm Bard flat mesh. The mesh along with suture material was placed into the abdomen by the assistant toddler teacher surgeon. The abdominal pressure was reduced to 10mmHg. The hernia defect was closed using an 0-vloc running stitch. The mesh was positioned in the preperitoneal space and centered over the hernia with excellent overlap. The mesh was sutured to the abdominal wall in the center and in all 4 quadrants using interrupted 2-0 vicryl stitches. The mesh was seen to lay flat against the abdominal wall. The peritoneum was then reapproximated using 3-0 vlock running stitch. A few small holes in the peritoneum were closed using 3-0 vlock running stitch. The entire mesh was covered with peritoneum. The robot was then undocked and the surgeon scrubbed back in. The raytec and all suture/sharps were removed from the abdomen under direct visualization. The 8mm RLQ port and 12mm balloon port fascia was approximated using an interrupted 0 vicryl stitch with the jayme saba device. The remaining port was removed and the abdomen desufflated. The skin incisions were closed using 4-0 monocryl subcuticular stitches and skin glue. A 4x4 gauze was placed at the site of the hernia and secured with tegaderm. An abdominal binder was applied to the patient. At the end of the case, all sponge, instrument, sharp counts were correct x2. The patient was awoken from anesthesia and taken to PACU in stable condition.
== END 2021-02-14 15:50 | disposition home or self-care (01) ==
LOC: OR 06:01
PROVIDERS: ATTEND Surgery
DX: K43.9 Ventral hernia without obstruction or gangrene (principal); Z20.822 Contact with and (suspected) exposure to COVID-19; Z88.6 Allergy status to analgesic agent; Z88.8 Allergy status to other drugs, medicaments and biological substances; Z79.899 Other long term (current) drug therapy; Z98.890 Other specified postprocedural states; Z86.73 Personal history of transient ischemic attack (TIA), and cerebral infarction without residual deficits; G43.909 Migraine, unspecified, not intractable, without status migrainosus; I25.10 Atherosclerotic heart disease of native coronary artery without angina pectoris; I11.0 Hypertensive heart disease with heart failure; I50.9 Heart failure, unspecified; Z95.5 Presence of coronary angioplasty implant and graft; E78.00 Pure hypercholesterolemia, unspecified; K21.9 Gastro-esophageal reflux disease without esophagitis; Z85.46 Personal history of malignant neoplasm of prostate; M19.90 Unspecified osteoarthritis, unspecified site
CPT/HCPCS: 36415; 49560; 49568; 64488; 80048; 82962; 84484; 85027; 93005; C1781; J1100; J1170; J1885; J2250; J2370; J2405; J2704; J2710; J3010; J3370; J3490; J7040; J7120; U0003; 64450

== ENCOUNTER 2021-02-15 20:21 | Observation (INO) | payer MEDICARE ==
[2021-02-15 21:45] LABS: Basophils # (Auto) 0.1 K/mm3 (0.0-0.1); Basophils % (Auto) 0.6 % (0.0-1.8); Eosinophils # (Auto) 0.1 K/mm3 (0.0-0.4); Eosinophils % (Auto) 0.6 % (0.0-4.3); Hematocrit 41.8 % (35.5-45.6); Lymphocytes # (Auto) 2.1 K/mm3 (1.2-5.4); Lymphocytes % (Auto) 18.1 % (13.4-35.0); Mean Corpuscular HGB Conc 33 % (32-34); Mean Corpuscular Volume 84 fl (84-94); Monocytes # (Auto) 1.1 K/mm3 (0.0-0.8); Monocytes % (Auto) 9.7 % (0.0-7.3); Platelet Count 223 K/mm3 (140-440); Red Blood Count 5.01 M/mm3 (3.65-5.03); Red Cell Distribution Width 16.4 % (13.2-15.2)
[2021-02-15 21:53] LABS: Albumin 4.2 g/dL (3.9-5); Calcium 8.2 mg/dL (8.4-10.2)
[2021-02-15 21:54] LABS: Bilirubin,Urine NEG (Negative); Blood,Urine NEG (Negative); Color,Urine Yellow (Yellow); Mucus,Urine FEW /HPF; Protein,Urine <15 mg/dL mg/dL (Negative); RBC,Urine < 1.0 /HPF (0.0-6.0); Urobilinogen,Urine < 2.0 mg/dL (<2.0)
[2021-02-15] MEDS ORDERED: SODIUM CHLORIDE 0.9% 1000 ML 1,000 ML IV ONE (22:03)
[2021-02-15] MEDS ORDERED: ONDANSETRON 4 MG/2 ML INJ IV ONE (22:03)
[2021-02-15] MEDS ORDERED: HYDROmorphone 1 MG/1 ML INJ IV ONE (22:03)
--- NOTE | 2021-02-15 22:03 | Emergency Department Report ---
ED Abdominal Pain HPI - General Chief Complaint: Abdominal Pain Stated Complaint: ABD PAIN PUI?: No Time Seen by Provider: 02/15/21 22:00 Source: patient Mode of arrival: Ambulatory Limitations: No Limitations - History of Present Illness Initial Comments: Patient is a 70-year-old male that presents emergency room with complaints of abdominal pain. Patient states he is having generalized abdominal comfort and right flank pain. Patient states his symptoms started today. Patient states he had a hernia surgery yesterday. Patient states he is also having constipation. Patient states he called his surgeon she told him to take a laxative. Patient states had a bowel movement and with a laxative. Patient denies nausea vom iting. Patient denies diarrhea. Patient denies fever or chills. Patient states the pain is a 10 out of 10. Patient states the pain is better with rest and worse with movement. Patient denies chest pain and shortness of breath. Patient denies dysuria. Patient denies recent travel. Patient denies recent international travel. Patient denies exposure to the novel coronavirus. Patient denies sick contacts. Patient denies fever and chills. Patient denies cough. Patient denies diarrhea. Patient denies coming in contact with anybody with symptoms of the novel coronavirus. MD Complaint: abdominal pain -: Sudden Location: diffuse, R flank Radiation: none Migration to: no migration Severity: severe Severity scale (0 -10): 10 Quality: stabbing Consistency: constant Improves With: rest Worsens With: movement Context: recent surgery/procedure Associated Symptoms: constipation. denies: nausea, vomiting, diarrhea, fever, chills, dysuria, hematemesis, hematochezia, melena, hematuria, syncope Treatments Prior to Arrival: prescription analgesics - Related Data Home Medications Medication Instructions Recorded Confirmed Last Taken ISOSORBIDE MONOnitrate [Imdur ER] 30 mg PO DAILY #0 10/05/17 02/14/21 02/13/21 09:00 Doxazosin Mesylate 2 mg PO DAILY 02/14/21 02/14/21 02/14/21 05:00 Nifedipine ER 60 mg PO DAILY 02/14/21 02/14/21 02/14/21 05:00 Spironolactone 25 mg PO DAILY 02/14/21 02/14/21 02/13/21 09:00 Previous Rx's Medication Instructions Recorded Last Taken Type Atorvastatin Calcium [Lipitor] 80 mg PO QHS #30 05/24/18 02/13/21 20:00 Rx Clopidogrel Bisulfate [Plavix] 75 mg PO DAILY #30 05/24/18 02/12/21 09:00 Rx Tamsulosin HCl [Flomax] 0.4 mg PO QHS #30 05/24/18 02/13/21 20:00 Rx ALBUTEROL NEB's [Proventil 0.083% 2.5 mg IH Q6H PRN #1 box 06/17/20 02/13/21 09:00 Rx NEBS] Albuterol Mdi (or & Nicu Only) 2 puff IH QID PRN #8.5 gram 06/17/20 02/13/21 17:00 Rx [ProAir HFA Inhaler] oxyCODONE /ACETAMINOPHEN [Percocet 1 tab PO Q6H PRN #20 tablet 02/14/21 Unknown Rx 5/325 mg] Allergies Allergy/AdvReac Type Severity Reaction Status Date / Time ampicillin Allergy Nausea Verified 08/13/18 10:27 hydralazine AdvReac Unknown Verified 08/13/18 10:27 ED Review of Systems ROS: Stated complaint: ABD PAIN Other details as noted in HPI Constitutional: denies: chills, fever Eyes: denies: eye pain, eye discharge, vision change ENT: denies: ear pain, throat pain Respiratory: denies: cough, shortness of breath, wheezing Cardiovascular: denies: chest pain, palpitations Endocrine: no symptoms reported Gastrointestinal: abdominal pain, constipation. denies: nausea, diarrhea, hematemesis, melena Genitourinary: denies: urgency, dysuria Musculoskeletal: denies: back pain, joint swelling, arthralgia Skin: denies: rash, lesions Neurological: denies: headache, weakness, paresthesias Psychiatric: denies: anxiety, depression Hematological/Lymphatic: denies: easy bleeding, easy bruising ED Past Medical Hx - Past Medical History Previous Medical History?: Yes Hx Hypertension: Yes (X AT LEAST 10 YRS) Hx Heart Attack/AMI: Yes (2018) Hx Congestive Heart Failure: Yes (2019) Hx GERD: Yes Hx Arthritis: Yes (HANDS) Hx Headaches / Migraines: Yes (MIGRAINES) Additional medical history: 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 hx Inguinal hernia - Surgical History Past Surgical History?: Yes Hx Coronary Stent: Yes (X 2 (2018)) Additional Surgical History: finger surgery, hernia repair - Family History Family history: no significant - Social History Smoking Status: Never Smoker Substance Use Type: None - Medications Home Medications: Home Medications Medication Instructions Recorded Confirmed Last Taken Type ISOSORBIDE MONOnitrate [Imdur ER] 30 mg PO DAILY #0 10/05/17 02/14/21 02/13/21 09:00 History Atorvastatin Calcium [Lipitor] 80 mg PO QHS #30 05/24/18 02/14/21 02/13/21 20:00 Rx Clopidogrel Bisulfate [Plavix] 75 mg PO DAILY #30 05/24/18 02/14/21 02/12/21 09:00 Rx Tamsulosin HCl [Flomax] 0.4 mg PO QHS #30 05/24/18 02/14/21 02/13/21 20:00 Rx ALBUTEROL NEB's [Proventil 0.083% 2.5 mg IH Q6H PRN #1 box 06/17/20 02/14/21 02/13/21 09:00 Rx NEBS] Albuterol Mdi (or & Nicu Only) 2 puff IH QID PRN #8.5 gram 06/17/20 02/14/21 02/13/21 17:00 Rx [ProAir HFA Inhaler] Doxazosin Mesylate 2 mg PO DAILY 02/14/21 02/14/21 02/14/21 05:00 History Nifedipine ER 60 mg PO DAILY 02/14/21 02/14/21 02/14/21 05:00 History Spironolactone 25 mg PO DAILY 02/14/21 02/14/21 02/13/21 09:00 History oxyCODONE /ACETAMINOPHEN [Percocet 1 tab PO Q6H PRN #20 tablet 02/14/21 Unknown Rx 5/325 mg] ED Physical Exam - General Limitations: No Limitations General appearance: alert, in no apparent distress - Head Head exam: Present: atraumatic, normocephalic - Eye Eye exam: Present: normal appearance - ENT ENT exam: Present: mucous membranes moist - Neck Neck exam: Present: normal inspection - Respiratory Respiratory exam: Present: normal lung sounds bilaterally. Absent: respiratory distress, wheezes, rales, rhonchi - Cardiovascular Cardiovascular Exam: Present: regular rate, normal rhythm. Absent: systolic murmur, diastolic murmur, rubs, gallop - GI/Abdominal GI/Abdominal exam: Present: soft, distended, tenderness, normal bowel sounds - Rectal Rectal exam: Present: deferred - Extremities Exam Extremities exam: Present: normal inspection - Back Exam Back exam: Present: normal inspection - Neurological Exam Neurological exam: Present: alert, oriented X3 - Psychiatric Psychiatric exam: Present: normal affect, normal mood - Skin Skin exam: Present: warm, dry, intact, normal color. Absent: rash ED Course Vital Signs 02/15/21 02/15/21 02/15/21 21:01 22:40 22:41 Temperature 98.3 F Pulse Rate 99 H 90 Respiratory 16 20 20 Rate Blood Pressure 177/105 Blood Pressure 164/100 [Left] O2 Sat by Pulse 96 96 Oximetry 02/15/21 22:42 Temperature Pulse Rate Respiratory 20 Rate Blood Pressure Blood Pressure [Left] O2 Sat by Pulse 96 Oximetry - Reevaluation(s) Reevaluation #1: I discussed all results with patient. I discussed plan of care with patient. Patient agrees with plan of care and admission. Patient to be admitted to the hospitalist service. 02/16/21 02:01 - Consultations Consultation #1: I discussed case with Dr. Horvath the covering general surgeon. Dr. Horvath r ecommends transfer to place with urologic support. 02/16/21 01:38 Consultation #2: I discussed the case with [facility] transfer [facility]. The transfer center states they will contact the urologist. 02/16/21 01:44 I discussed the case with neurology at [facility], Dr Duckworth. Dr. Duckworth states that this does not require transfer and is not a urologic emergency. 02/16/21 01:59 Consultation #3: Hospitalist consulted for admission. Hospitalist to admit patient. 02/16/21 02:00 ED Medical Decision Making - Lab Data Result diagrams: 02/15/21 21:19 02/15/21 21:19 - Radiology Data Radiology results: report reviewed CT abdomen pelvis w con INDICATION / CLINICAL INFORMATION: abd pain. TECHNIQUE: Axial CT images were obtained through the abdomen and pelvis after IV contrast. All CT scans at this location are performed using CT dose reduction for ALARA by means of automated exposure control. COMPARISON: 05/08/2018 FINDINGS: LOWER CHEST: No significant abnormality LIVER: No significant abnormality GALLBLADDER/BILIARY TREE: No significant abnormality PANCREAS: No significant abnormality SPLEEN: No significant abnormality ADRENALS: No significant abnormality KIDNEYS / URETER: The kidneys enhance symmetrically. There is no solid renal mass. There is mild prominence of both renal collecting systems without leonarda hydronephrosis. Moderate bilateral fluid is seen along the course of the right ureter. No discrete obstructing stone identified. URINARY BLADDER: Bladder is distended. There is a prominent bladder diverticulum at the right posterolateral aspect of the bladder. REPRODUCTIVE ORGANS: Prostate is enlarged. STOMACH / BOWEL:Small hiatal hernia. Colonic diverticulosis without evidence of diverticulitis.Small bowel is normal in caliber. The appendix is normal in caliber. LYMPH NODES: No significant adenopathy. VASCULATURE: No significant abnormality. OTHER: Moderate volume free fluid along the right ureter and on the right paracolic gutter. No organized collection. SKELETAL SYSTEM: No acute osseous findings. IMPRESSION: 1. Moderate volume free fluid along the right ureter and in the right paracolic gutter. This is of uncertain etiology and may be postoperative. Right ureteral injury/forniceal rupture could produce these findings. No discrete ureteral calculus identified. Clinical correlation is recommended. If there is concern for injury of the ureter, recommend follow-up with CT abdomen/pelvis with delayed images. 2. There is distention of the bladder with prominent bladder diverticulum, likely related to chronic outlet obstruction given prostatomegaly. 3. No other acute findings in the abdomen or pelvis. - Medical Decision Making Patient is a 70-year-old male who presents emergency room complaints of gene ralized abdominal pain and right flank pain. Patient had a CT scan of the abdomen which showed moderate free fluid around the right ureter and the paracolic gutter of unknown etiology. Patient had labs done which were essentially unremarkable except for renal insufficiency. Patient admitted [facility] for further evaluation treatment. Critical care time documented due to the multiple reassessments, prolonged time at the bedside, interpretation of diagnostics and labs and multiple consultants.. - Differential Diagnosis Abdominal pain, constipation, obstruction, postop pain. Critical Care Time: Yes Critical care time in (mins) excluding proc time.: 35 Critical care attestation.: If time is entered above; I have spent that time in minutes in the direct care of this critically ill patient, excluding procedure time. Critical Care Time: 35 minutes ED Disposition Clinical Impression: Right flank pain, Renal insufficiency Right ureteral injury Qualifiers: Encounter type: initial encounter Qualified Code(s): S37.10XA - Unspecified injury of ureter, initial encounter Abdominal pain Qualifiers: Abdominal location: generalized Qualified Code(s): R10.84 - Generalized abdominal pain Constipation Qualifiers: Constipation type: unspecified constipation type Qualified Code(s): K59.00 - Constipation, unspecified Disposition: -09 OP ADMIT IP TO THIS HOSP Is pt being admited?: Yes Does the pt Need Aspirin: No Condition: Critical Time of Disposition: 02:02
--- NOTE | 2021-02-15 23:34 | Cat Scan Report ---
CT abdomen pelvis w con INDICATION / CLINICAL INFORMATION: abd pain. TECHNIQUE: Axial CT images were obtained through the abdomen and pelvis after IV contrast. All CT sc ans at this location are performed using CT dose reduction for ALARA by means of automated exposure c ontrol. COMPARISON: 05/08/2018 FINDINGS: LOWER CHEST: No significant abnormality LIVER: No significant abnormality GALLBLADDER/BILIARY TREE: No significant abnormality PANCREAS: No significant abnormality SPLEEN: No significant abnormality ADRENALS: No significant abnormality KIDNEYS / URETER: The kidneys enhance symmetrically. There is no solid renal mass. There is mild prom inence of both renal collecting systems without leonarda hydronephrosis. Moderate bilateral fluid is see n along the course of the right ureter. No discrete obstructing stone identified. URINARY BLADDER: Bladder is distended. There is a prominent bladder diverticulum at the right postero lateral aspect of the bladder. REPRODUCTIVE ORGANS: Prostate is enlarged. STOMACH / BOWEL:Small hiatal hernia. Colonic diverticulosis without evidence of diverticulitis.Small bowel is normal in caliber. The appendix is normal in caliber. LYMPH NODES: No significant adenopathy. VASCULATURE: No significant abnormality. OTHER: Moderate volume free fluid along the right ureter and on the right paracolic gutter. No organi zed collection. SKELETAL SYSTEM: No acute osseous findings. IMPRESSION: 1. Moderate volume free fluid along the right ureter and in the right paracolic gutter. This is of un certain etiology and may be postoperative. Right ureteral injury/forniceal rupture could produce thes e findings. No discrete ureteral calculus identified. Clinical correlation is recommended. If there i s concern for injury of the ureter, recommend follow-up with CT abdomen/pelvis with delayed images. 2. There is distention of the bladder with prominent bladder diverticulum, likely related to chronic outlet obstruction given prostatomegaly. 3. No other acute findings in the abdomen or pelvis. Signer Name: Nagi Loya MD Signed: 02/15/2021 11:30 PM Workstation Name: [id number]
[2021-02-16] MEDS ORDERED: PIPERACIL/TAZOBACTA 4.5/NS 100 4.5 GM/100 ML VIAL IV ONE (02:04)
--- NOTE | 2021-02-16 02:46 | History and Physical Report ---
History of Present Illness Date of examination: 02/16/21 Date of admission: 02/16/21 02:04 Chief complaint: abdominal pain History of present illness: Patient is a 70-year-old male that presents emergency room with complaints of abdominal pain. Patient states he is having generalized abdominal comfort and right flank pain. Patient states his symptoms started today. Patient states he had a hernia surgery yesterday. Patient states he is also having constipation. Patient states he called his surgeon she told him to take a laxative. Patient states had a bowel movement and with a laxative. Patient denies nausea vomiting. Patient denies diarrhea. Patient denies fever or chills. Patient states the pain is a 10 out of 10. Patient states the pain is better with rest and worse with movement. Patient denies chest pain and shortness of breath. Patient denies dysuria ED work-up WBC 11.8, hemoglobin 14.0, platelets 222, sodium 139, potassium 4.1 creatinine 1.5 serum glucose 111 calcium 8.2. Urinalysis done negative for evidence of UTI. CT of the abdomen and pelvis donemoderate volume free fluid along the right retina and in the right paracolic gutterpatient recently had surgerylikely etiology due to post operative course. Patient seen in the ED at bedside. Patient alert oriented x3. Patient denies abdominal pain at the time of assessment. Patient denies alcohol tobacco and drug use. Past History Past Medical History: hypertension, hyperlipidemia Past Surgical History: hernia repair Social history: lives with family Family history: diabetes, hypertension Medications and Allergies Allergies Allergy/AdvReac Type Severity Reaction Status Date / Time ampicillin Allergy Nausea Verified 08/13/18 10:27 hydralazine AdvReac Unknown Verified 08/13/18 10:27 Home Medications Medication Instructions Recorded Confirmed Last Taken Type ISOSORBIDE MONOnitrate [Imdur ER] 30 mg PO DAILY #0 10/05/17 02/16/21 02/13/21 09:00 History Atorvastatin Calcium [Lipitor] 80 mg PO QHS #30 05/24/18 02/16/21 02/13/21 20:00 Rx Clopidogrel Bisulfate [Plavix] 75 mg PO DAILY #30 05/24/18 02/16/21 02/12/21 09:00 Rx Tamsulosin HCl [Flomax] 0.4 mg PO QHS #30 10/02/16/21 02/13/21 20:00 Rx ALBUTEROL NEB's [Proventil 0.083% 2.5 mg IH Q6H PRN #1 box 06/17/20 02/16/21 02/13/21 09:00 Rx NEBS] Albuterol Mdi (or & Nicu Only) 2 puff IH QID PRN #8.5 gram 06/17/20 02/16/21 02/13/21 17:00 Rx [ProAir HFA Inhaler] Doxazosin Mesylate 2 mg PO DAILY 02/14/21 02/16/21 02/14/21 05:00 History Nifedipine ER 60 mg PO DAILY 02/14/21 02/16/21 02/14/21 05:00 History Spironolactone 25 mg PO DAILY 02/14/21 02/16/21 02/13/21 09:00 History oxyCODONE /ACETAMINOPHEN [Percocet 1 tab PO Q6H PRN #20 tablet 02/14/21 02/16/21 Unknown Rx 5/325 mg] Review of Systems Constitutional: other (abdominal pain) Ears, nose, mouth and throat: no epistaxis, no bleeding gums Cardiovascular: no chest pain Gastrointestinal: abdominal pain, nausea, no melena Rectal: no itching, no hemorrhoids Integumentary: no deferred, no rash, no pruritis Psychiatric: anxiety, no suicidal ideation, no disorientation, no hallucinations Endocrine: high blood sugars Hematologic/Lymphatic: no easy bruising, no easy bleeding Allergic/Immunologic: no urticaria Exam - Constitutional Vitals: Temp Pulse Resp BP Pulse Ox 98.3 F 90 20 164/100 96 02/15/21 21:01 02/15/21 22:41 02/15/21 22:42 02/15/21 22:41 02/15/21 22:42 General appearance: Present: mild distress, well-nourished - EENT Eyes: Present: PERRL ENT: hearing intact, clear oral mucosa - Neck Neck: Present: supple, normal ROM - Respiratory Respiratory effort: normal Respiratory: bilateral: CTA - Cardiovascular Heart Sounds: Present: S1 & S2. Absent: rub, click - Extremities Extremities: pulses symmetrical, No edema Peripheral Pulses: within normal limits - Abdominal General gastrointestinal: Present: soft, non-tender, non-distended, normal bowel sounds Male genitourinary: Present: normal - Integumentary Integumentary: Present: clear, warm, dry - Musculoskeletal Musculoskeletal: gait normal, strength equal bilaterally - Psychiatric Psychiatric: appropriate mood/affect, intact judgment & insight - Neurologic Neurologic: CNII-XII intact, moves all extremities - Allied Health Allied health notes reviewed: nursing Results - Labs CBC & Chem 7: 02/15/21 21:19 02/15/21 21:19 Labs: Abnormal lab results 02/15/21 02/15/21 Range/Units 21:19 21:19 WBC 11.8 H (4.5-11.0) K/mm3 RDW 16.4 H (13.2-15.2) % [place] % (Auto) 9.7 H (0.0-7.3) % [place] # (Auto) 1.1 H (0.0-0.8) K/mm3 Seg Neutrophils % 71.0 H (40.0-70.0) % Seg Neutrophils # 8.4 H (1.8-7.7) K/mm3 Creatinine 1.5 H (0.8-1.3) mg/dL Glucose 111 H (75-100) mg/dL Calcium 8.2 L (8.4-10.2) mg/dL Assessment and Plan - Patient Problems (1) Abdominal pain Current Visit: Yes Status: Acute Qualifiers: Abdominal location: generalized Qualified Code(s): R10.84 - Generalized abdominal pain Plan to address problem: Likely secondary to to hernia surgery As needed pain management Patient surgeon will see him in the morning per ED note (2) Constipation Current Visit: Yes Status: Acute Qualifiers: Constipation type: unspecified constipation type Qualified Code(s): K59.00 - Constipation, unspecified Plan to address problem: Questionable cause As needed laxative (3) S/P hernia surgery Current Visit: Yes Status: Acute Plan to address problem: Patient is status post hernia surgery repair Patient came with abdominal painas needed pain management ED doctor spoke to patient's surgeonthe surgeon agreed to see patient in the morning (4) Acute kidney injury Current Visit: Yes Status: Acute Plan to address problem: Monitor kidney function Avoid nephrotoxic drugs Gentle IV hydration (5) HTN (hypertension) Current Visit: No Status: Chronic Qualifiers: Hypertension type: essential hypertension Plan to address problem: Monitor blood pressure Resume home antihypertensive As needed hydralazine (6) DVT prophylaxis Current Visit: Yes Status: Acute Plan to address problem: SCD (7) Full code status Current Visit: Yes Status: Acute Plan to address problem: Patient is full
[2021-02-16] MEDS ORDERED: ALUM-MAG HYDROXIDE-SIMETHICONE 200-200-20MG/5ML ORAL LIQD 30 ML PO PRN (02:54)
[2021-02-16] MEDS ORDERED: ONDANSETRON 4 MG/2 ML INJ IV PRN (02:54)
[2021-02-16] MEDS ORDERED: ACETAMINOPHEN 325 MG TAB PO PRN (02:54)
[2021-02-16] MEDS ORDERED: MAGNESIUM HYDROXIDE (MOM) ORAL LIQD UDC PO PRN (02:54)
[2021-02-16] MEDS ORDERED: traZODone 50 MG TAB PO PRN (02:58)
[2021-02-16] MEDS ORDERED: hydrALAZINE 20 MG/1 ML INJ IV PRN (02:58)
[2021-02-16] MEDS ORDERED: traMADol 50 MG TAB PO PRN (02:58)
[2021-02-16] MEDS ORDERED: PIPERACILLIN/TAZOBACTAM 3.375 3.375 GM/50 ML BAG IV SCH (04:00)
[2021-02-16] MEDS: SODIUM CHLORIDE 0.9% 1000 ML 1,000 ML IV SCH ×2 (04:40→16:20)
[2021-02-16] MEDS ORDERED: NON-FORMULARY EACH (Spironolactone 25 MG) PO SCH (10:00)
[2021-02-16] MEDS ORDERED: DOXAZOSIN MESYLATE 2 MG PO SCH (10:00)
[2021-02-16] MEDS ORDERED: FAMOTIDINE 20 MG/2 ML INJ IV SCH (10:00)
[2021-02-16 11:41] LABS: Calcium 8.4 mg/dL (8.4-10.2)
[2021-02-16] MEDS: FAMOTIDINE 20 MG/2 ML INJ IV SCH ×3 (12:59→21:54)
[2021-02-16] MEDS: SPIRONOLACTONE 25 MG TAB PO SCH ×2 (12:59→14:32)
[2021-02-16] MEDS: SENNOSIDES 8.6 MG TAB PO SCH ×3 (12:59→21:53)
[2021-02-16] MEDS: TAMSULOSIN 0.4 MG CAP PO SCH ×2 (12:59→14:33)
[2021-02-16] MEDS: CLOPIDOGREL 75 MG TAB PO SCH ×2 (12:59→14:33)
--- NOTE | 2021-02-16 14:17 | Consultation ---
History of Present Illness Consult date: 02/16/21 Reason for consult: abdominal pain Chief complaint: abd pain - History of present illness History of present illness: 70-year-old male with a history of CAD, BPH, who is status post uncomplicated robotic assisted ventral hernia repair with mesh on 02/14/2021. Patient states he has been having pressure-like abdominal discomfort since the surgery and unable to have a bowel movement. He also complains of acute onset right flank pain that started yesterday. Patient states that he took 1 dose of a laxative yesterday without any resultant bowel movement. He has not tried any stool softeners or suppository. He is tolerating a diet without nausea or vomiting. He states that he is urinating very frequently. He states that he has a large prostate and is not established with a urologist at this time. Patient had a CT scan of the abdomen and pelvis with IV contrast performed in the emergency room which was read showing fluid around the right ureter, mild prominence of both renal collecting systems, enlarged prostate, markedly distended bladder. No free air, bowel wall thickening. No other acute abdominal findings. Surgery is consulted for postoperative pain. Per notes, on-call surgeon was contacted who recommended urologic evaluation for CT scan findings. ER physician spoke with [facility] on-call who did not feel this was an emergent issue. Patient was therefore accepted to hospitalist service for admission. Past History Past Medical History: CAD, hypertension, hyperlipidemia, other (BPH) Past Surgical History: hernia repair, Other (Cardiac stent) Social history: lives with family Family history: diabetes, hypertension Medications and Allergies Allergies Allergy/AdvReac Type Severity Reaction Status Date / Time ampicillin Allergy Nausea Verified 08/13/18 10:27 hydralazine AdvReac Unknown Verified 08/13/18 10:27 Home Medications Medication Instructions Recorded Confirmed Last Taken Type ISOSORBIDE MONOnitrate [Imdur ER] 30 mg PO DAILY #0 10/05/17 02/16/21 02/13/21 09:00 History Atorvastatin Calcium [Lipitor] 80 mg PO QHS #30 05/24/18 02/16/21 02/13/21 20:00 Rx Clopidogrel Bisulfate [Plavix] 75 mg PO DAILY #30 05/24/18 02/16/21 02/12/21 09:00 Rx Tamsulosin HCl [Flomax] 0.4 mg PO QHS #30 05/24/18 02/16/21 02/13/21 20:00 Rx ALBUTEROL NEB's [Proventil 0.083% 2.5 mg IH Q6H PRN #1 box 06/17/20 02/16/21 02/13/21 09:00 Rx NEBS] Albuterol Mdi (or & Nicu Only) 2 puff IH QID PRN #8.5 gram 06/17/20 02/16/21 02/13/21 17:00 Rx [ProAir HFA Inhaler] Doxazosin Mesylate 2 mg PO DAILY 02/14/21 02/16/21 02/14/21 05:00 History Nifedipine ER 60 mg PO DAILY 02/14/21 02/16/21 02/14/21 05:00 History Spironolactone 25 mg PO DAILY 02/14/21 02/16/21 02/13/21 09:00 History oxyCODONE /ACETAMINOPHEN [Percocet 1 tab PO Q6H PRN #20 tablet 02/14/21 02/16/21 Unknown Rx 5/325 mg] Active Meds: Active Medications Acetaminophen (Acetaminophen 325 Mg Tab) 650 mg PO Q4H PRN PRN Reason: Pain MILD(1-3)/Fever >100.5/RAMOS Al Hydrox/Mg Hydrox/Simethicone (Alum-Mag Hydroxide-Simethicone [phone]/5ml Oral Liqd 30 Ml) 30 ml PO Q4H PRN PRN Reason: Indigestion Atorvastatin Calcium (Atorvastatin 40 Mg Tab) 40 mg PO QHS [facility] Clopidogrel Bisulfate (Clopidogrel 75 Mg Tab) 75 mg PO DAILY [facility] Last Admin: 02/16/21 12:59 Dose: Not Given Documented by: Famotidine (Famotidine 20 Mg/2 Ml Inj) 20 mg IV BID [facility] Last Admin: 02/16/21 12:59 Dose: Not Given Documented by: Sodium Chloride (Nacl 0.9% 1000 Ml) 1,000 mls @ 75 mls/hr IV DIRECT [facility] Last Admin: 02/16/21 04:40 Dose: 75 mls/hr Documented by: Isosorbide Mononitrate (Isosorbide Mononitrate Er 30 Mg Tab) 30 mg PO DAILY [facility] Last Admin: 02/16/21 12:59 Dose: Not Given Documented by: Labetalol HCl (Labetalol 20 Mg/4 Ml Inj) 5 mg IV Q6H PRN PRN Reason: Hypertension Magnesium Hydroxide (Magnesium Hydroxide (Mom) Oral Liqd Udc) 30 ml PO Q4H PRN PRN Reason: Constipation Ondansetron HCl (Ondansetron 4 Mg/2 Ml Inj) 4 mg IV Q8H PRN PRN Reason: Nausea And Vomiting Senna (Sennosides 8.6 Mg Tab) 8.6 mg PO Q12HR [facility] Last Admin: 02/16/21 12:59 Dose: Not Given Documented by: Sodium Chloride (Sodium Chloride 0.9% 10 Ml Flush Syringe) 10 ml IV PRN PRN PRN Reason: LINE FLUSH Spironolactone (Spironolactone 25 Mg Tab) 25 mg PO QDAY [facility] Last Admin: 02/16/21 12:59 Dose: Not Given Documented by: Tamsulosin HCl (Tamsulosin 0.4 Mg Cap) 0.4 mg PO QDAY [facility] Last Admin: 02/16/21 12:59 Dose: Not Given Documented by: Tramadol HCl (Tramadol 50 Mg Tab) 50 mg PO Q6H PRN PRN Reason: Pain, Moderate (4-6) Trazodone HCl (Trazodone 50 Mg Tab) 50 mg PO QHS PRN PRN Reason: Insomnia Review of Systems All systems: negative (10 point ROS performed and negative except for that listed in HPI) Exam Vital Signs Temp Pulse Resp BP Pulse Ox 98.3 F 99 H 16 177/105 96 02/15/21 21:01 02/15/21 21:01 02/15/21 21:01 02/15/21 21:02/15/21 21:01 Narrative exam: Gen.: Awake, alert, oriented x3. No apparent distress ENT: Trachea midline. No lymphadenopathy. No scleral icterus or conjunctival pallor CV: S1, S2 present Respiratory: No audible wheezes Abdomen: Soft, protuberant and mildly distended. Incisions are clean, dry, intact with ecchymosis surrounding the right lateral and lower quadrant incision. Umbilical dressing in place. Mild tenderness to palpation around the umbilicus. There is fullness of the abdomen and the pelvis. No rebound, rigidity, guarding. Abdominal binder in place. There is right flank tenderness to palpation without ecchymosis or skin changes. Extremities: No clubbing, cyanosis, edema Results - Labs 02/15/21 21:19 02/16/21 10:49 Abnormal lab results 02/15/21 02/15/21 02/16/21 Range/Units 21:19 21:19 05:27 WBC 11.8 H (4.5-11.0) K/mm3 RDW 16.4 H (13.2-15.2) % Curry % (Auto) 9.7 H (0.0-7.3) % Curry # (Auto) 1.1 H (0.0-0.8) K/mm3 Seg Neutrophils % 71.0 H (40.0-70.0) % Seg Neutrophils # 8.4 H (1.8-7.7) K/mm3 Creatinine 1.5 H (0.8-1.3) mg/dL Glucose 111 H (75-100) mg/dL Hemoglobin A1c 6.1 H (4-6) % Calcium 8.2 L (8.4-10.2) mg/dL 02/16/21 Range/Units 10:49 WBC (4.5-11.0) K/mm3 RDW (13.2-15.2) % Curry % (Auto) (0.0-7.3) % Curry # (Auto) (0.0-0.8) K/mm3 Seg Neutrophils % (40.0-70.0) % Seg Neutrophils # (1.8-7.7) K/mm3 Creatinine 1.5 H (0.8-1.3) mg/dL Glucose (75-100) mg/dL Hemoglobin A1c (4-6) % Calcium (8.4-10.2) mg/dL Diabetes panel 02/15/21 02/16/21 02/16/21 Range/Units 21:19 05:27 10:49 Sodium 139 142 (137-145) mmol/L Potassium 4.1 4.7 (3.6-5.0) mmol/L Chloride 104.4 105.3 (98-107) mmol/L Carbon Dioxide 23 26 (22-30) mmol/L BUN 17 16 (9-20) mg/dL Creatinine 1.5 H 1.5 H (0.8-1.3) mg/dL Glucose 111 H 97 (75-100) mg/dL Hemoglobin A1c 6.1 H (4-6) % Calcium 8.2 L 8.4 (8.4-10.2) mg/dL AST 29 (5-40) units/L ALT 17 (7-56) units/L Alkaline Phosphatase 57 (35-129) units/L Total Protein 6.6 (6.3-8.2) g/dL Albumin 4.2 (3.9-5) g/dL Calcium panel 02/15/21 02/16/21 Range/Units 21:19 10:49 Calcium 8.2 L 8.4 (8.4-10.2) mg/dL Albumin 4.2 (3.9-5) g/dL Pituitary panel 02/15/21 02/16/21 Range/Units 21:19 10:49 Sodium 139 142 (137-145) mmol/L Potassium 4.1 4.7 (3.6-5.0) mmol/L Chloride 104.4 105.3 (98-107) mmol/L Carbon Dioxide 23 26 (22-30) mmol/L BUN 17 16 (9-20) mg/dL Creatinine 1.5 H 1.5 H (0.8-1.3) mg/dL Glucose 111 H 97 (75-100) mg/dL Calcium 8.2 L 8.4 (8.4-10.2) mg/dL Adrenal panel 02/15/21 02/16/21 Range/Units 21:19 10:49 Sodium 139 142 (137-145) mmol/L Potassium 4.1 4.7 (3.6-5.0) mmol/L Chloride 104.4 105.3 (98-107) mmol/L Carbon Dioxide 23 26 (22-30) mmol/L BUN 17 16 (9-20) mg/dL Creatinine 1.5 H 1.5 H (0.8-1.3) mg/dL Glucose 111 H 97 (75-100) mg/dL Calcium 8.2 L 8.4 (8.4-10.2) mg/dL Total Bilirubin 0.40 (0.1-1.2) mg/dL AST 29 (5-40) units/L ALT 17 (7-56) units/L Alkaline Phosphatase 57 (35-129) units/L Total Protein 6.6 (6.3-8.2) g/dL Albumin 4.2 (3.9-5) g/dL - Imaging CT scan - abdomen: report reviewed, image reviewed CT scan - pelvis: report reviewed, image reviewed Assessment and Plan 70-year-old male with 1. abdominal pain 2. s/p robotic assisted ventral hernia repair with mesh 02/14/21 3. Hydroureter, possible bladder outlet obstruction Plan: 1. ok to start diet 2. gentle IVF 3. bowel regimen 4. Recommend consult to urology for abnormal CT scan findings 5. Abd pain likely multifactorial. Pts c/o incisional pain is appropriate in the setting of abdominal hernia repair 2 days ago. Pain control as needed 6. OOB/ambulate 7. 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 Discussed with Dr. Bolanos. Thank you, please call with questions.
[2021-02-16] MEDS: MAGNESIUM HYDROXIDE (MOM) ORAL LIQD UDC PO SCH (16:23)
--- NOTE | 2021-02-16 18:18 | Cat Scan Report ---
CT ABDOMEN AND PELVIS WITHOUT CONTRAST HISTORY: abdomen pain. COMPARISON: CT abdomen/pelvis from yesterday TECHNIQUE: CT images of the abdomen and pelvis were obtained without administration of intravenous co ntrast. All CT scans at this location are performed using CT dose reduction for ALARA by means of au tomated exposure control. FINDINGS: Lungs/bones: There is minimal atelectasis/groundglass attenuation in the lung bases with no consolid ation or pleural effusion. Degenerative changes are present spine and pelvis with nothing acute. Abdomen/pelvis: Urinary bladder remains distended and filled with contrast, with a right paracentral diverticulum measuring nearly 4 cm in maximal dimension. A small amount of fluid again tracks in the right retroperitoneum once again adjacent to the ureter. The ureter is seen throughout its entire co urse and there is no contrast extravasation previous contrast administration (again the bladder is fi lled with contrast and contrast is weakly seen in the ureters). There is mild wall thickening involving the third segment of the duodenum and fluid tracks to this re gion. There is no obstruction or free air. The liver, gallbladder, spleen, pancreas, adrenals, and remainder of the proximal GI tract appear unr emarkable. There is moderate atherosclerotic disease abdominal aorta and branch vessels. Prostate is enlarged and indents bladder base. No significant pelvic free fluid or acute colonic abno rmality identified. Terminal ileum is normal. IMPRESSION: 1. Circumferential wall thickening in the third segment of the duodenum with fluid tracking from this region to the right retroperitoneum and paracolic gutter. Volume of fluid is less than on yesterday' s exam. No free air, abscess, or obstruction. Consider inflammatory/infectious process or ulcer disea se. 2. Additional stable incidental findings as above. Signer Name: Olman Bourgeois MD Signed: 02/16/2021 6:14 PM Workstation Name: [id number]
--- NOTE | 2021-02-16 18:57 | Event Note ---
Date: 02/16/21 Patient seen and examined This is the second visit after midnight Patient complains of constipation and not able to empty his bladder completely Vital stable, no chest pain, tolerating diet S1 and S2 positive, clear to auscultate bilaterally, abdomen obese with positive bowel sounds Discussed with Dr Rowley and recommended repeat CT abdomen Reviewed CT scan abdomen showed no extravasation of contrast with a distended bladder and no hydronephrosis or hydroureter Also discussed with Dr. Ware and suggested current CT abdomen findings and not related to his recent ventral hernia surgery Jaimes catheter was recommended and was attempted but was not successful Patient is voiding, will add Lasix and will continue to follow clinically It took me about 28 minutes to reevaluate and reasses this patient, discussed with RN/CM, review medical documents, lab results, imaging, medication list and placing order.
[2021-02-16] MEDS ORDERED: FUROSEMIDE 40 MG/4 ML INJ IV ONE (19:30)
[2021-02-16] MEDS: metroNIDAZOLE/NS 500 MG/100 ML 500 MG/100 ML BAG IV SCH (20:31)
[2021-02-16] MEDS ORDERED: NON-FORMULARY EACH (Atorvastatin Calcium [Lipitor] 80 MG Tablet) PO SCH (22:00)
[2021-02-17] MEDS: metroNIDAZOLE/NS 500 MG/100 ML 500 MG/100 ML BAG IV SCH ×2 (04:28→10:29)
[2021-02-17 08:30] LABS: Basophils % (Auto) 0.5 % (0.0-1.8); Eosinophils # (Auto) 0.2 K/mm3 (0.0-0.4); Eosinophils % (Auto) 2.4 % (0.0-4.3); Hematocrit 41.4 % (35.5-45.6); Hemoglobin 13.6 gm/dl (11.8-15.2); Lymphocytes # (Auto) 1.5 K/mm3 (1.2-5.4); Lymphocytes % (Auto) 16.8 % (13.4-35.0); Mean Corpuscular HGB Conc 33 % (32-34); Mean Corpuscular Volume 85 fl (84-94); Monocytes # (Auto) 0.9 K/mm3 (0.0-0.8); Monocytes % (Auto) 9.9 % (0.0-7.3); Platelet Count 223 K/mm3 (140-440); Red Blood Count 4.86 M/mm3 (3.65-5.03); Red Cell Distribution Width 16.4 % (13.2-15.2)
[2021-02-17 09:05] LABS: Albumin 4.1 g/dL (3.9-5); Calcium 8.2 mg/dL (8.4-10.2)
[2021-02-17] MEDS ORDERED: FAMOTIDINE 20 MG TAB PO SCH (10:00)
[2021-02-17] MEDS: TAMSULOSIN 0.4 MG CAP PO SCH (10:26)
[2021-02-17] MEDS: MAGNESIUM HYDROXIDE (MOM) ORAL LIQD UDC PO SCH (10:26)
[2021-02-17] MEDS: SENNOSIDES 8.6 MG TAB PO SCH (10:26)
[2021-02-17] MEDS: SPIRONOLACTONE 25 MG TAB PO SCH (10:26)
[2021-02-17] MEDS: CLOPIDOGREL 75 MG TAB PO SCH (10:26)
[2021-02-17 12:06] VITALS: BP 165/82
[2021-02-17] MEDS ORDERED: DOCUSATE SODIUM 100 MG CAP PO SCH (13:00)
[2021-02-17] MEDS ORDERED: POLYETHYLENE GLYCOL 3350 17 GM POWDER PO SCH (13:00)
[2021-02-17] MEDS ORDERED: MAGNESIUM CITRATE 300 ML ORAL LIQD PO ONE (13:07)
--- NOTE | 2021-02-17 15:19 | Progress Note ---
Assessment and Plan 70-year-old male with 1. abdominal pain 2. s/p robotic assisted ventral hernia repair with mesh 02/14/21 3. Bladder outlet obstruction, hx BPH Plan: 1. cardiac diet 2. dc IVF 3. continue bowel regimen - patient refusing stool softeners and enema. Will continue laxative and suppository. Explained to patient that stool will be difficult to pass with degree of bladder distension. 4. Urology consult pending - patient with complex hx of BPH, difficult cruz placement now with urinary retention likely leading to constipation. Pt currently refusing another attempt at cruz placement. Will defer to urology service. 5. Prn pain control 6. OOB/ambulate 7. 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 Dispo per 1' service and urology recs Thank you, please call with questions. Subjective Date of service: 02/17/21 Narrative: Pt seen and examined. c/o a lot of pressure in the lower abdomen. Constipated. No f/c, cp, sob, reflux like symptoms, n/v. Tolerating regular diet without difficulty. Incisional pain is well controlled. States he is urinating more after receiving lasix. Cruz catheter attempted x2 by nursing yesterday and could not successfully be placed. Objective Vital Signs - 12hr 02/17/21 02/17/21 05:07 11:37 Temperature 97.5 F L 97.3 F L Pulse Rate 72 99 H Respiratory 18 24 Rate Blood Pressure 134/86 165/82 O2 Sat by Pulse 95 96 Oximetry - General physical appearance Narrative Exam: Gen: AAOx3. NAD CV: S1, S2+ Resp: even and unlabored Abd: soft, ND, TTP in lower midline abdomen where there is some fullness. Umbilical dressing removed. R sided incisions are c/d/i with stable ecchymosis of abdominal wall. - Labs 02/17/21 07:05 02/17/21 07:05 Diabetes panel 02/17/21 Range/Units 07:05 Sodium 140 (137-145) mmol/L Potassium 4.1 (3.6-5.0) mmol/L Chloride 103.7 (98-107) mmol/L Carbon Dioxide 24 (22-30) mmol/L BUN 18 (9-20) mg/dL Creatinine 1.5 H (0.8-1.3) mg/dL Glucose 100 (75-100) mg/dL Calcium 8.2 L (8.4-10.2) mg/dL AST 23 (5-40) units/L ALT 15 (7-56) units/L Alkaline Phosphatase 62 (35-129) units/L Total Protein 6.6 (6.3-8.2) g/dL Albumin 4.1 (3.9-5) g/dL Calcium panel 02/17/21 Range/Units 07:05 Calcium 8.2 L (8.4-10.2) mg/dL Albumin 4.1 (3.9-5) g/dL Pituitary panel 02/17/21 Range/Units 07:05 Sodium 140 (137-145) mmol/L Potassium 4.1 (3.6-5.0) mmol/L Chloride 103.7 (98-107) mmol/L Carbon Dioxide 24 (22-30) mmol/L BUN 18 (9-20) mg/dL Creatinine 1.5 H (0.8-1.3) mg/dL Glucose 100 (75-100) mg/dL Calcium 8.2 L (8.4-10.2) mg/dL Adrenal panel 02/17/21 Range/Units 07:05 Sodium 140 (137-145) mmol/L Potassium 4.1 (3.6-5.0) mmol/L Chloride 103.7 (98-107) mmol/L Carbon Dioxide 24 (22-30) mmol/L BUN 18 (9-20) mg/dL Creatinine 1.5 H (0.8-1.3) mg/dL Glucose 100 (75-100) mg/dL Calcium 8.2 L (8.4-10.2) mg/dL Total Bilirubin 1.20 (0.1-1.2) mg/dL AST 23 (5-40) units/L ALT 15 (7-56) units/L Alkaline Phosphatase 62 (35-129) units/L Total Protein 6.6 (6.3-8.2) g/dL Albumin 4.1 (3.9-5) g/dL
--- NOTE | 2021-02-17 15:29 | Discharge Summary ---
Providers - Providers Date of Admission: 02/16/21 02:04 Date of discharge: 02/17/21 Attending physician: EDVIN ESCALANTE 02/16/21 02:05 Consult to Physician [CONS] Routine Comment: Consulting Provider: BRANDON CAMPBELL Physician Instructions: Reason For Exam: abd pain. s/p hernia repair 02/16/21 14:06 Consult to Physician [CONS] Routine Comment: Consulting Provider: IRVING HARPER Physician Instructions: Reason For Exam: urinary obstruction Primary care physician: IN STORE MARKETER Hospitalization Condition: Critical Pertinent studies: CT abdomen/pelvis x2 Hospital course: 70-year-old male with a history of CAD, BPH, who is status post uncomplicated robotic assisted ventral hernia repair with mesh on 02/14/2021 presented with pressure-like abdominal discomfort since the surgery and unable to have a bowel movement. He also complains of acute onset right flank pain that started for a day. Patient states that he took 1 dose of a laxative without any resultant bowel movement. Patient had a CT scan of the abdomen and pelvis with IV contrast performed in the emergency room which was read showing fluid around the right ureter, mild prominence of both renal collecting systems, enlarged prostate, markedly distended bladder. No free air, bowel wall thickening. Consulted geberal surgeon Dr Campbell and recommended no surgical intervention. Discussed with Dr Rowley/urologist and recommended to repeat CT abdomen to see if there is any extravasation of contrast inside the peritoneum or retroperit oneally. Repeat CT scan abdomen showed no extravasation of contrast with a distended bladder and no hydronephrosis or hydroureter Also discussed with Dr. Campbell and suggested current CT abdomen findings and not related to his recent ventral hernia surgery Cruz catheter was recommended and was attempted but was not successful Patient is voiding, added Lasix which helped to increase urine volume. he was tolerating diet. patient also refusing stool softeners and enema. Per surgery, patient with complex hx of BPH, difficult cruz placement now with distended bladder likely leading to constipation. Patient refused another attempt of cruz placement. His Cr remained stable. Discussed with Dr Harper by phone and recommended to continue current mx and to f/u as outpt. Patient was agreeable with the plan and was discharged home with outpt f/u. Patient had a BM just before discharge. He was clinically stable. Disposition: -01 TO HOME OR SELFCARE Final Discharge Diagnosis (Prints w/discharge instructions): 1. abdominal pain, likely from constipation. 2. s/p robotic assisted ventral hernia repair with mesh 02/14/21. 3. distended bladder due to hx BPH. 4. CKD. 5. HTN Time spent for discharge: 34 minutes Core Measure Documentation - Palliative Care Palliative Care/ Comfort Measures: Not Applicable - Core Measures Any of the following diagnoses?: none Exam - Constitutional Vitals: Temp Pulse Resp BP Pulse Ox 97.3 F L 99 H 24 165/82 96 02/17/21 11:37 02/17/21 11:37 02/17/21 11:37 02/17/21 11:37 02/17/21 11:37 General appearance: Present: no acute distress, well-nourished - EENT Eyes: Present: PERRL ENT: hearing intact, clear oral mucosa - Neck Neck: Present: supple, normal ROM - Respiratory Respiratory effort: normal Respiratory: bilateral: CTA - Cardiovascular Heart Sounds: Present: S1 & S2. Absent: rub, click - Extremities Extremities: pulses symmetrical, No edema Peripheral Pulses: within normal limits - Abdominal General gastrointestinal: Present: soft, non-tender, normal bowel sounds Male genitourinary: Present: normal - Integumentary Integumentary: Present: clear, warm, dry - Musculoskeletal Musculoskeletal: gait normal, strength equal bilaterally - Psychiatric Psychiatric: appropriate mood/affect, intact judgment & insight - Neurologic Neurologic: CNII-XII intact, moves all extremities Plan Activity: advance as tolerated Weight Bearing Status: Weight Bear as Tolerated Diet: low fat, low cholesterol Additional Instructions: Please f/u with Urologist stat as outpt for enlarged prostate. Please continue home meds and f/u with dr Campbell in one week Follow up with: PRIMARY CAREMD [Primary Care Provider] - 7 Days IRVING HARPER MD [Staff Physician] - 7 Days Prescriptions: Furosemide [Lasix TAB] 40 mg PO QDAY #14 tablet
[2021-02-17] MEDS ORDERED: FUROSEMIDE 40 MG/4 ML INJ IV ONE (16:20)
== END 2021-02-17 16:10 | disposition home or self-care (01) ==
LOC: ED 20:21 → 3A 02-16 02:04
PROVIDERS: ADMIT Internal Medicine Geriatric Medicine; ATTEND Internal Medicine
DX: S37.10XA Unspecified injury of ureter, initial encounter (principal); K59.00 Constipation, unspecified; N17.9 Acute kidney failure, unspecified; I12.9 Hypertensive chronic kidney disease with stage 1 through stage 4 chronic kidney disease, or unspecified chronic kidney disease; N18.9 Chronic kidney disease, unspecified; E78.5 Hyperlipidemia, unspecified; I25.10 Atherosclerotic heart disease of native coronary artery without angina pectoris; N40.0 Benign prostatic hyperplasia without lower urinary tract symptoms; N13.4 Hydroureter; R10.9 Unspecified abdominal pain; Z98.890 Other specified postprocedural states; Z79.02 Long term (current) use of antithrombotics/antiplatelets; X58.XXXA Exposure to other specified factors, initial encounter; Y92.89 Other specified places as the place of occurrence of the external cause; Y93.89 Activity, other specified; Y99.8 Other external cause status
CPT/HCPCS: 36415; 74176; 74177; 80048; 80053; 81001; 83036; 85025; 96361; 96365; 96366; 96367; 96368; 96375; 96376; 99291; A9270; G0378; J1940; J1956; J2405; J2543; J7030; Q9967; J1170

== ENCOUNTER 2021-05-26 17:08 | Emergency (ER) | payer MEDICARE ==
--- NOTE | 2021-05-26 18:37 | Emergency Department Report ---
ED General Adult HPI - General Chief complaint: Extremity Problem,Nontraumatic Stated complaint: RT LEG KNOT Time Seen by Provider: 05/26/21 17:54 Source: patient Mode of arrival: Ambulatory Limitations: No Limitations - History of Present Illness Initial comments: 71-year-old male patient presents with complaints of sudden onset of right lower leg pain and swelling earlier today. Patient states he had a sudden onset of pain and noticed that his leg was swollen and one area on the lateral portion. He states there was also some redness. Patient states his symptoms resolved prior to arrival. He has a history of CHF and AK and is currently on blood thinners. He denies any history of DVT/PE, cough, shortness of breath, recent long travel, chest pain, or swelling elsewhere. Patient states there is no longer any pain at this time. - Related Data Home Medications Medication Instructions Recorded Confirmed Last Taken ISOSORBIDE MONOnitrate [Imdur ER] 30 mg PO DAILY #0 10/05/17 02/16/21 02/13/21 09:00 Doxazosin Mesylate 2 mg PO DAILY 02/14/21 02/16/21 02/14/21 05:00 Spironolactone 25 mg PO DAILY 02/14/21 02/16/21 02/13/21 09:00 Previous Rx's Medication Instructions Recorded Last Taken Type Atorvastatin Calcium [Lipitor] 80 mg PO QHS #30 05/24/18 02/13/21 20:00 Rx Clopidogrel Bisulfate [Plavix] 75 mg PO DAILY #30 05/24/18 02/12/21 09:00 Rx Tamsulosin HCl [Flomax] 0.4 mg PO QHS #30 05/24/18 02/13/21 20:00 Rx ALBUTEROL NEB's [Proventil 0.083% 2.5 mg IH Q6H PRN #1 box 06/17/20 02/13/21 09:00 Rx NEBS] Albuterol Mdi (or & Nicu Only) 2 puff IH QID PRN #8.5 gram 06/17/20 02/13/21 17:00 Rx [ProAir HFA Inhaler] oxyCODONE /ACETAMINOPHEN [Percocet 1 tab PO Q6H PRN #20 tablet 02/14/21 Unknown Rx 5/325 mg] Furosemide [Lasix TAB] 40 mg PO QDAY #14 tablet 02/17/21 Unknown Rx Allergies Allergy/AdvReac Type Severity Reaction Status Date / Time ampicillin Allergy Nausea Verified 05/26/21 17:44 hydralazine AdvReac Unknown Verified 05/26/21 17:44 ED Review of Systems ROS: Stated complaint: RT LEG KNOT Other details as noted in HPI Constitutional: denies: chills, fever, malaise Respiratory: denies: cough, shortness of breath Cardiovascular: denies: as per HPI Skin: as per HPI Neurological: denies: numbness, paresthesias, abnormal gait ED Past Medical Hx - Past Medical History Hx Hypertension: Yes (X AT LEAST 10 YRS) Hx Heart Attack/AMI: Yes (2018) Hx Congestive Heart Failure: Yes (2019) Hx GERD: Yes Hx Arthritis: Yes (HANDS) Hx Headaches / Migraines: Yes (MIGRAINES) Hx HIV: No Additional medical history: 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 hx Inguinal hernia - Surgical History Hx Coronary Stent: Yes (X 2 (2018)) Additional Surgical History: finger surgery, hernia repair - Social History Smoking Status: Never Smoker Substance Use Type: None - Medications Home Medications: Home Medications Medication Instructions Recorded Confirmed Last Taken Type ISOSORBIDE MONOnitrate [Imdur ER] 30 mg PO DAILY #0 10/05/17 02/16/21 02/13/21 09:00 History Atorvastatin Calcium [Lipitor] 80 mg PO QHS #30 05/24/18 02/16/21 02/13/21 20:00 Rx Clopidogrel Bisulfate [Plavix] 75 mg PO DAILY #30 05/24/18 02/16/21 02/12/21 09:00 Rx Tamsulosin HCl [Flomax] 0.4 mg PO QHS #30 05/24/18 02/16/21 02/13/21 20:00 Rx ALBUTEROL NEB's [Proventil 0.083% 2.5 mg IH Q6H PRN #1 box 06/17/20 02/16/21 02/13/21 09:00 Rx NEBS] Albuterol Mdi (or & Nicu Only) 2 puff IH QID PRN #8.5 gram 06/17/20 02/16/21 02/13/21 17:00 Rx [ProAir HFA Inhaler] Doxazosin Mesylate 2 mg PO DAILY 02/14/21 02/16/21 02/14/21 05:00 History Spironolactone 25 mg PO DAILY 02/14/21 02/16/21 02/13/21 09:00 History oxyCODONE /ACETAMINOPHEN [Percocet 1 tab PO Q6H PRN #20 tablet 02/14/21 02/16/21 Unknown Rx 5/325 mg] Furosemide [Lasix TAB] 40 mg PO QDAY #14 tablet 02/17/21 Unknown Rx ED Physical Exam - General Limitations: No Limitations General appearance: alert, in no apparent distress - Head Head exam: Present: atraumatic, normocephalic - Eye Eye exam: Present: normal appearance. Absent: scleral icterus - Respiratory Respiratory exam: Present: normal lung sounds bilaterally. Absent: respiratory distress - Cardiovascular Cardiovascular Exam: Present: regular rate, normal rhythm - Extremities Exam Extremities exam: Present: other (Right lower leg is normal without swelling, erythema, or decreased range of motion; normal pedal pulses noted and normal skin coloration). Absent: calf tenderness - Neurological Exam Neurological exam: Present: alert, oriented X3, normal gait - Psychiatric Psychiatric exam: Present: normal affect, normal mood - Skin Skin exam: Present: warm, dry, intact, normal color. Absent: rash ED Course Vital Signs 05/26/21 05/26/21 17:41 20:31 Temperature 98.2 F 98.0 F Pulse Rate 97 H 128 H Respiratory 16 16 Rate Blood Pressure 166/110 Blood Pressure 194/104 [Left] O2 Sat by Pulse 97 98 Oximetry ED Medical Decision Making - Radiology Data Radiology results: report reviewed DUPLEX DOPPLER LOWER EXTREMITY VEINS, RIGHT INDICATION / CLINICAL INFORMATION: Right lower extremity swelling. TECHNIQUE: Duplex doppler imaging was performed through the veins of the right lower extremity using venous compression and other maneuvers. COMPARISON: None available. FINDINGS: RIGHT COMMON FEMORAL VEIN: Negative. RIGHT FEMORAL VEIN: Negative. RIGHT POPLITEAL VEIN: Negative. RIGHT CALF VEINS: Negative. ADDITIONAL FINDINGS: None. IMPRESSION: 1. No sonographic evidence for DVT in the right lower extremity. - Medical Decision Making 71-year-old male patient presents with complaints of sudden onset of right lower leg pain and swelling earlier today. Patient states he had a sudden onset of pain and noticed that his leg was swollen and one area on the lateral portion. He states there was also some redness. Patient states his symptoms resolved prior to arrival. He has a history of CHF and AK and is currently on blood thinners. He denies any history of DVT/PE, cough, shortness of breath, recent long travel, chest pain, or swelling elsewhere. Patient states there is no longer any pain at this time. No DVT noted on ultrasound. Patient continues to deny any current symptoms. Blood pressure noted to be elevated, however patient does have history of hypertension and is compliant with his blood pressure medications. He reports he has a follow-up appointment with his doctor tomorrow for his blood pressure. He denies any neurologic symptoms. He is well-appearing and stable for discharge home. Strict return precautions were discussed in detail patient who verbalized understanding. Critical care attestation.: If time is entered above; I have spent that time in minutes in the direct care of this critically ill patient, excluding procedure time. ED Disposition Clinical Impression: Right leg pain Disposition: HOME / SELF CARE / HOMELESS Is pt being admited?: No Condition: Stable Instructions: Pain Without a Known Cause Referrals: PRIMARY CARE, [Referring] - 3-5 Days
--- NOTE | 2021-05-26 19:29 | Vascular Lab Report ---
DUPLEX DOPPLER LOWER EXTREMITY VEINS, RIGHT INDICATION / CLINICAL INFORMATION: Right lower extremity swelling. TECHNIQUE: Duplex doppler imaging was performed through the veins of the right lower extremity using venous comp ression and other maneuvers. COMPARISON: None available. FINDINGS: RIGHT COMMON FEMORAL VEIN: Negative. RIGHT FEMORAL VEIN: Negative. RIGHT POPLITEAL VEIN: Negative. RIGHT CALF VEINS: Negative. ADDITIONAL FINDINGS: None. IMPRESSION: 1. No sonographic evidence for DVT in the right lower extremity. Signer Name: Jose Hernandez MD Signed: 05/26/2021 7:24 PM Workstation Name: [id number]
[2021-05-26 21:27] VITALS: BP 166/110
== END 2021-05-26 20:33 | disposition home or self-care (01) ==
LOC: ED 17:08
DX: M79.661 Pain in right lower leg (principal); I11.0 Hypertensive heart disease with heart failure; I50.9 Heart failure, unspecified; Z88.0 Allergy status to penicillin; Z88.8 Allergy status to other drugs, medicaments and biological substances
CPT/HCPCS: 99283

== ENCOUNTER 2021-08-23 11:29 | Inpatient (IN) | payer MEDICAID, MEDICARE ==
[2021-08-23] MEDS ORDERED: SODIUM CHLORIDE 0.9% 1000 ML 1,000 ML IV ONE (11:33)
--- NOTE | 2021-08-23 11:37 | Emergency Department Report ---
<MICHELLE DAS - Last Filed: 08/23/21 15:13> ED General Adult HPI - General Chief complaint: Weakness Stated complaint: weakness Time Seen by Provider: 08/23/21 11:32 - Related Data Home Medications Medication Instructions Recorded Confirmed Last Taken ISOSORBIDE MONOnitrate [Imdur ER] 30 mg PO DAILY #0 10/05/17 02/16/21 02/13/21 09:00 Doxazosin Mesylate 2 mg PO DAILY 02/14/21 02/16/21 02/14/21 05:00 Spironolactone 25 mg PO DAILY 02/14/21 02/16/21 02/13/21 09:00 Previous Rx's Medication Instructions Recorded Last Taken Type Atorvastatin Calcium [Lipitor] 80 mg PO QHS #30 05/24/18 02/13/21 20:00 Rx Clopidogrel Bisulfate [Plavix] 75 mg PO DAILY #30 05/24/18 02/12/21 09:00 Rx Tamsulosin HCl [Flomax] 0.4 mg PO QHS #30 05/24/18 02/13/21 20:00 Rx ALBUTEROL NEB's [Proventil 0.083% 2.5 mg IH Q6H PRN #1 box 06/17/20 02/13/21 09:00 Rx NEBS] Albuterol Mdi (or & Nicu Only) 2 puff IH QID PRN #8.5 gram 06/17/20 02/13/21 17:00 Rx [ProAir HFA Inhaler] oxyCODONE /ACETAMINOPHEN [Percocet 1 tab PO Q6H PRN #20 tablet 02/14/21 Unknown Rx 5/325 mg] Furosemide [Lasix TAB] 40 mg PO QDAY #14 tablet 02/17/21 Unknown Rx Allergies Allergy/AdvReac Type Severity Reaction Status Date / Time ampicillin Allergy Nausea Verified 08/23/21 11:48 hydralazine AdvReac Unknown Verified 08/23/21 11:48 ED Past Medical Hx - Medications Home Medications: Home Medications Medication Instructions Recorded Confirmed Last Taken Type ISOSORBIDE MONOnitrate [Imdur ER] 30 mg PO DAILY #0 10/05/17 02/16/21 02/13/21 09:00 History Atorvastatin Calcium [Lipitor] 80 mg PO QHS #30 1002/16/21 02/13/21 20:00 Rx Clopidogrel Bisulfate [Plavix] 75 mg PO DAILY #30 05/24/18 02/16/21 02/12/21 09:00 Rx Tamsulosin HCl [Flomax] 0.4 mg PO QHS #30 05/24/18 02/16/21 02/13/21 20:00 Rx ALBUTEROL NEB's [Proventil 0.083% 2.5 mg IH Q6H PRN #1 box 06/17/20 02/16/21 02/13/21 09:00 Rx NEBS] Albuterol Mdi (or & Nicu Only) 2 puff IH QID PRN #8.5 gram 06/17/20 02/16/21 02/13/21 17:00 Rx [ProAir HFA Inhaler] Doxazosin Mesylate 2 mg PO DAILY 02/14/21 02/16/21 02/14/21 05:00 History Spironolactone 25 mg PO DAILY 02/14/21 02/16/21 02/13/21 09:00 History oxyCODONE /ACETAMINOPHEN [Percocet 1 tab PO Q6H PRN #20 tablet 02/14/21 02/16/21 Unknown Rx 5/325 mg] Furosemide [Lasix TAB] 40 mg PO QDAY #14 tablet 02/17/21 Unknown Rx ED Medical Decision Making - Radiology Data Radiology results: report reviewed ED Disposition Clinical Impression: RLL pneumonia Disposition: ADMITTED INPATIENT Condition: Stable Instructions: Bacterial Pneumonia (ED) Referrals: PRIMARY CARE, [Primary Care Provider] - 3-5 Days <PRINCE SRIVASTAVA - Last Filed: 08/23/21 18:19> ED General Adult HPI - History of Present Illness Initial comments: Patient presents as a questionable stroke from home. He has reported generalized weakness for the last couple of days. He has not noticed focal weakness. Paramedics did not find any concern for stroke. Patient admits that he has had a cough and congestion. He has been short of breath. He states that he just does not feel good. He has muscle aches and body aches. He was not vaccinated against COVID. He heard that the COVID-vaccine gave people trouble breathing. There has been no vomiting or diarrhea. There is no dysuria or frequency. Again, he has not noticed focal weakness. ED Review of Systems ROS: Stated complaint: weakness Other details as noted in HPI Comment: All other systems reviewed and negative Constitutional: denies: fever Eyes: denies: eye pain ENT: denies: throat pain Respiratory: see HPI Cardiovascular: denies: chest pain Endocrine: denies: unexplained weight loss Gastrointestinal: denies: vomiting Genitourinary: denies: dysuria Musculoskeletal: denies: back pain Skin: denies: rash Neurological: denies: headache Hematological/Lymphatic: easy bruising ED Past Medical Hx - Past Medical History Hx Hypertension: Yes (X AT LEAST 10 YRS) Hx Heart Attack/AMI: Yes (2018) Hx Congestive Heart Failure: Yes (2019) Hx GERD: Yes Hx Arthritis: Yes (HANDS) Hx Headaches / Migraines: Yes (MIGRAINES) Hx HIV: No Additional medical history: 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 hx Inguinal hernia - Surgical History Hx Coronary Stent: Yes (X 2 (2018)) Additional Surgical History: finger surgery, hernia repair - Social History Smoking Status: Never Smoker Substance Use Type: None ED Course Vital Signs 08/23/21 08/23/21 08/23/21 11:30 11:31 11:35 Temperature 98.4 F 98.3 F 98.3 F Pulse Rate 92 H 100 H 92 H Respiratory 20 20 20 Rate Blood Pressure 143/87 Blood Pressure 162/84 143/87 [Left] O2 Sat by Pulse 94 95 96 Oximetry 08/23/21 08/23/21 08/23/21 11:53 12:00 12:11 Temperature Pulse Rate 95 H 93 H 92 H Respiratory 27 H 13 Rate Blood Pressure 147/87 Blood Pressure [Left] O2 Sat by Pulse 94 94 Oximetry 08/23/21 08/23/21 08/23/21 12:16 12:30 12:46 Temperature Pulse Rate 88 118 H 86 Respiratory 26 H 16 24 Rate Blood Pressure 123/78 152/110 138/87 Blood Pressure [Left] O2 Sat by Pulse 94 96 94 Oximetry 08/23/21 08/23/21 08/23/21 13:00 13:16 13:30 Temperature Pulse Rate 91 H 84 92 H Respiratory 21 20 22 Rate Blood Pressure 127/80 128/86 138/90 Blood Pressure [Left] O2 Sat by Pulse 94 95 94 Oximetry 0108/23/21 08/23/21 13:46 14:00 14:16 Temperature Pulse Rate 117 H 84 85 Respiratory 20 24 24 Rate Blood Pressure 138/90 138/90 140/95 Blood Pressure [Left] O2 Sat by Pulse 96 95 93 Oximetry 08/23/21 08/23/21 08/23/21 14:30 14:46 15:00 Temperature Pulse Rate 87 94 H Respiratory 32 H 26 H 22 Rate Blood Pressure 140/95 140/95 150/93 Blood Pressure [Left] O2 Sat by Pulse 96 95 94 Oximetry 08/23/21 08/23/21 08/23/21 15:16 15:30 15:46 Temperature Pulse Rate Respiratory 23 21 23 Rate Blood Pressure 150/93 150/93 150/93 Blood Pressure [Left] O2 Sat by Pulse 94 96 95 Oximetry 08/23/21 08/23/21 08/23/21 16:00 16:16 16:30 Temperature Pulse Rate Respiratory 26 H 27 H Rate Blood Pressure 148/88 148/88 148/88 Blood Pressure [Left] O2 Sat by Pulse 94 96 93 Oximetry 08/23/21 08/23/21 08/23/21 16:46 17:00 17:30 Temperature Pulse Rate 94 H 88 95 H Respiratory 28 H 23 25 H Rate Blood Pressure 148/88 139/89 139/89 Blood Pressure [Left] O2 Sat by Pulse 96 96 96 Oximetry - Reevaluation(s) Reevaluation #1: 08/23/21 11:33 1115-EMS was met upon arrival. IV and labs are now ordered. EKG was ordered. Old records noted. Reevaluation #2: 08/23/21 18:17 Work-up was completed and the patient was admitted. ED Medical Decision Making - Lab Data Result diagrams: 08/23/21 14:27 08/23/21 14:27 Rhythm strip: Normal sinus rhythm without ectopy. Monitor observe 10 seconds. - EKG Data -: EKG Interpreted by Ne - EKG Data 08/23/21 12:14 1200-EKG shows atrial fibrillation with a flutter type pattern in addition. This appears to be more atrial flutter with a variable block. Patient has no ST elevation to suggest infarct. Rate is 92. QRS is normal at 96. QT corrected is normal at 435. LVH is noted. There is poor R wave progression. - Radiology Data Radiology results: report reviewed - Medical Decision Making Patient presented secondary to difficulty breathing and was found to be hypoxic. He did have a wet appear to be lobar pneumonia on x-ray. He still could have coronavirus. He would still be treated symptomatically. We treated him empirically with Rocephin and Zithromax for his community-acquired pneumonia. Patient does have hypoxia that has been responsive to oxygen therapy. He does not need to be intubated at this time. We will proceed with admission. There was no evidence of congestive heart failure. Critical care attestation.: If time is entered above; I have spent that time in minutes in the direct care of this critically ill patient, excluding procedure time. ED Disposition Is pt being admited?: Yes
--- NOTE | 2021-08-23 12:21 | XRay Report ---
CHEST 1 VIEW 08/23/2021 11:48 AM INDICATION / CLINICAL INFORMATION: weakness, cough. COMPARISON: 06/17/2020 FINDINGS: SUPPORT DEVICES: None. HEART / MEDIASTINUM: There is prominence the cardiac silhouette. LUNGS / PLEURA: There is some patchy airspace opacity in the right base. There is elevation of right hemidiaphragm. No pneumothorax. ADDITIONAL FINDINGS: No significant additional findings. IMPRESSION: 1. There is some patchy airspace opacity in the right base which could represent atelectasis or pneum onia. Signer Name: Donald Hunt MD Signed: 08/23/2021 12:16 PM Workstation Name: [id number]
[2021-08-23 15:20] LABS: Basophils % (Auto) 0.3 % (0.0-1.8); Eosinophils % (Auto) 0.4 % (0.0-4.3); Hematocrit 47.7 % (35.5-45.6); Hemoglobin 15.1 gm/dl (11.8-15.2); Lymphocytes # (Auto) 1.1 K/mm3 (1.2-5.4); Mean Corpuscular HGB Conc 32 % (32-34); Mean Corpuscular Volume 84 fl (84-94); Monocytes # (Auto) 0.6 K/mm3 (0.0-0.8); Monocytes % (Auto) 13.2 % (0.0-7.3); Platelet Count 190 K/mm3 (140-440); Red Blood Count 5.67 M/mm3 (3.65-5.03); Red Cell Distribution Width 15.7 % (13.2-15.2)
[2021-08-23] MEDS ORDERED: AZITHROMYCIN/NS 500 MG/250 ML 500 MG/250 ML BAG IV ONE (15:39)
[2021-08-23] MEDS ORDERED: cefTRIAXone/NS 1 GM/50 ML 1 GM/50 ML BAG IV ONE (15:39)
[2021-08-23 15:40] LABS: BUN/Creatinine Ratio 12; Blood Urea Nitrogen 13 mg/dL (9-20); Calcium 8.4 mg/dL (8.4-10.2); Hemolysis Index 88
[2021-08-23] MEDS ORDERED: ALBUTEROL 8.5 GM MDI INHALATION IH PRN (21:46)
--- NOTE | 2021-08-23 21:46 | History and Physical Report ---
History of Present Illness Date of examination: 08/23/21 Date of admission: August 23, 2021 Chief complaint: Shortness of breath 2 days History of present illness: Patient presents as a questionable stroke from home. He has reported generalized weakness for the last couple of days. He has not noticed focal weakness. Paramedics did not find any concern for stroke. Patient admits that he has had a cough and congestion. He has been short of breath. He states that he just does not feel good. He has muscle aches and body aches. He was not vaccinated against COVID. He heard that the COVID-vaccine gave people trouble breathing. There has been no vomiting or diarrhea. There is no dysuria or frequency. Again, he has not noticed focal weakness. 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 hx Inguinal hernia - Surgical History Hx Coronary Stent: Yes (X 2 (2018)) Additional Surgical History: finger surgery, hernia repair - Social History Smoking Status: Never Smoker Substance Use Type: None Review of Systems ROS: Stated complaint: weakness Other details as noted in HPI Comment: All other systems reviewed and negative Constitutional: denies: fever Eyes: denies: eye pain ENT: denies: throat pain Respiratory: see HPI Cardiovascular: denies: chest pain Endocrine: denies: unexplained weight loss Gastrointestinal: denies: vomiting Genitourinary: denies: dysuria Musculoskeletal: denies: back pain Skin: denies: rash Neurological: denies: headache Hematological/Lymphatic: easy bruising Medications and Allergies Allergies Allergy/AdvReac Type Severity Reaction Status Date / Time ampicillin Allergy Nausea Verified 08/23/21 11:48 hydralazine AdvReac Unknown Verified 08/23/21 11:48 Home Medications Medication Instructions Recorded Confirmed Last Taken Type ISOSORBIDE MONOnitrate [Imdur ER] 30 mg PO DAILY #0 10/05/17 08/23/21 02/13/21 09:00 History Atorvastatin Calcium [Lipitor] 80 mg PO QHS #30 05/24/18 08/23/21 02/13/21 20:00 Rx Clopidogrel Bisulfate [Plavix] 75 mg PO DAILY #30 05/24/18 08/23/21 02/12/21 09:00 Rx Tamsulosin HCl [Flomax] 0.4 mg PO QHS #30 05/24/18 08/23/21 02/13/21 20:00 Rx ALBUTEROL NEB's [Proventil 0.083% 2.5 mg IH Q6H PRN #1 box 06/17/20 08/23/21 02/13/21 09:00 Rx NEBS] Albuterol Mdi (or & Nicu Only) 2 puff IH QID PRN #8.5 gram 06/17/20 08/23/21 02/13/21 17:00 Rx [ProAir HFA Inhaler] Doxazosin Mesylate 2 mg PO DAILY 02/14/21 08/23/21 02/14/21 05:00 History Spironolactone 25 mg PO DAILY 02/14/21 08/23/21 02/13/21 09:00 History oxyCODONE /ACETAMINOPHEN [Percocet 1 tab PO Q6H PRN #20 tablet 02/14/21 08/23/21 Unknown Rx 5/325 mg] Furosemide [Lasix TAB] 40 mg PO QDAY #14 tablet 02/17/21 08/23/21 Unknown Rx Exam - Constitutional Vitals: Temp Pulse Resp BP Pulse Ox 98.3 F 94 H 30 H 163/108 95 08/23/21 11:35 08/23/21 18:00 08/23/21 18:00 08/23/21 18:00 08/23/21 18:00 General appearance: Present: mild distress, well-nourished - EENT Eyes: Present: PERRL ENT: hearing intact, clear oral mucosa - Neck Neck: Present: supple, normal ROM - Respiratory Respiratory effort: normal Respiratory: bilateral: rales, rhonchi, wheezing - Cardiovascular Heart rate: 98 Rhythm: regular Heart Sounds: Present: S1 & S2. Absent: rub, click - Extremities Extremities: pulses symmetrical, No edema Peripheral Pulses: within normal limits - Abdominal General gastrointestinal: Present: soft, non-tender, non-distended, normal bowel sounds Male genitourinary: Present: normal - Integumentary Integumentary: Present: clear, warm, dry - Musculoskeletal Musculoskeletal: gait normal, strength equal bilaterally - Psychiatric Psychiatric: appropriate mood/affect, intact judgment & insight - Neurologic Neurologic: CNII-XII intact, moves all extremities - Allied Health Allied health notes reviewed: nursing, case management HEART Score - HEART Score Troponin: Troponin T < 0.010 ng/mL (0.00-0.029) 08/23/21 14: Results - Labs CBC & Chem 7: 08/25/21 06:42 08/25/21 06:42 Labs: Laboratory Last Values WBC 4.4 K/mm3 (4.5-11.0) L 08/23/21 14: RBC 5.67 M/mm3 (3.65-5.03) H 08/23/21 14: Hgb 15.1 gm/dl (11.8-15.2) 08/23/21 14: Hct 47.7 % (35.5-45.6) H 08/23/21 14: MCV 84 fl (84-94) 08/23/21 14: MCH 27 pg (28-32) L 08/23/21 14: MCHC 32 % (32-34) 08/23/21 14: RDW 15.7 % (13.2-15.2) H 08/23/21 14: Plt Count 190 K/mm3 (140-440) 08/23/21 14: Lymph % (Auto) 25.0 % (13.4-35.0) 08/23/21 14: [place] % (Auto) 13.2 % (0.0-7.3) H 08/23/21 14: Eos % (Auto) 0.4 % (0.0-4.3) 08/23/21: Baso % (Auto) 0.3 % (0.0-1.8) 08/23/21: Lymph # (Auto) 1.1 K/mm3 (1.2-5.4) L 08/23/21: [place] # (Auto) 0.6 K/mm3 (0.0-0.8) 08/23/21 14: Eos # (Auto) 0.0 K/mm3 (0.0-0.4) 08/23/21: Baso # (Auto) 0.0 K/mm3 (0.0-0.1) 08/23/21 14: Seg Neutrophils % 61.1 % (40.0-70.0) 08/23/21 14: Seg Neutrophils # 2.7 K/mm3 (1.8-7.7) 08/23/21 14: D-Dimer 321.36 ng/mlDDU (0-234) H 08/23/21 14:27 Sodium 140 mmol/L (137-145) 08/23/21 14:27 Potassium 4.8 mmol/L (3.6-5.0) 08/23/21 14:27 Chloride 102.0 mmol/L (98-107) 08/23/21 14: Carbon Dioxide 23 mmol/L (22-30) 08/23/21 14: Anion Gap 20 mmol/L 08/23/21 14: BUN 13 mg/dL (9-20) 08/23/21 14: Creatinine 1.1 mg/dL (0.8-1.3) 08/23/21 14: Estimated GFR > 60 ml/min 08/23/21 14: BUN/Creatinine Ratio 12 % 08/23/21 14: Glucose 100 mg/dL (75-100) 08/23/21 14: Calcium 8.4 mg/dL (8.4-10.2) 08/23/21 14: Magnesium 2.10 mg/dL (1.7-2.3) 08/23/21 14: Ferritin 240.6 ng/mL (30.0-300.0) 08/23/21 14: Lactate Dehydrogenase 274 units/L (91-180) H 08/23/21 14:27 Troponin T < 0.010 ng/mL (0.00-0.029) 08/23/21 14: C-Reactive Protein 6.10 mg/dL (0.00-1.30) H 08/23/21 14:27 Procalcitonin < 0.05 ng/mL (<0.15) 08/23/21 14:27 Short CBC 08/23/21 Range/Units 14: WBC 4.4 L (4.5-11.0) K/mm3 Hgb 15.1 (11.8-15.2) gm/dl Hct 47.7 H (35.5-45.6) % Plt Count 190 (140-440) K/mm3 BMP 08/23/21 14:27 Sodium 140 Potassium 4.8 Chloride 102.0 Carbon Dioxide 23 BUN 13 Creatinine 1.1 Glucose 100 Calcium 8.4 Cardiac Enzymes 08/23/21 Range/Units 14:27 Troponin T < 0.010 (0.00-0.029) ng/mL - Imaging and Cardiology Chest x-ray: report reviewed Imaging and Cardiology: Chest x-ray There is patchy airspace opacity in the right base which could represent atelectasis or pneumonia Assessment and Plan Advance Directives: Yes Plan of care discussed with patient/family: Yes - Patient Problems (1) Acute respiratory failure with hypoxia Current Visit: Yes Status: Acute Plan to address problem: Patient on 50% Ventimask Respiratory assessment and therapy High flow oxygen if necessary (2) RLL pneumonia Current Visit: Yes Status: Acute Plan to address problem: IV Zithromax and IV ceftriaxone (3) Person under investigation for COVID-19 Current Visit: Yes Status: Acute Plan to address problem: Rule out coronavirus PCR Patient is unvaccinated (4) SIRS (systemic inflammatory response syndrome) Current Visit: Yes Status: Acute Plan to address problem: All inflammatory markers are elevated Clinical picture consistent with Sirs (5) Hypertension Current Visit: Yes Status: Chronic Qualifiers: Hypertension type: primary hypertension Qualified Code(s): I10 - Essential (primary) hypertension Plan to address problem: Continue antihypertensives (6) Coronary artery disease Current Visit: Yes Status: Chronic Qualifiers: Coronary Disease-Associated Artery/Lesion type: [place] artery [place] vs. transplanted heart: [place] heart Plan to address problem: Continue aspirin and isosorbide mononitrate (7) CHF (congestive heart failure) Current Visit: Yes Status: Chronic Qualifiers: Heart failure type: combined systolic and diastolic Heart failure chronicity: unspecified Qualified Code(s): I50.40 - Unspecified combined systolic (congestive) and diastolic (congestive) heart failure Plan to address problem: Will get echocardiogram for ejection fraction (8) GERD (gastroesophageal reflux disease) Current Visit: Yes Status: Chronic Qualifiers: Esophagitis presence: without esophagitis Qualified Code(s): K21.9 - Gastro-esophageal reflux disease without esophagitis Plan to address problem: On PPIs (9) DVT prophylaxis Current Visit: Yes Status: Acute Plan to address problem: On anticoagulation GI prophylaxis
[2021-08-23] MEDS ORDERED: ALBUTEROL 2.5 MG/3 ML NEBU IH PRN (21:55)
[2021-08-23] MEDS ORDERED: NON-FORMULARY EACH (Spironolactone 25 MG) PO SCH (22:00)
[2021-08-23] MEDS ORDERED: DOXAZOSIN MESYLATE 2 MG PO SCH (22:00)
[2021-08-23] MEDS ORDERED: NON-FORMULARY EACH (Atorvastatin Calcium [Lipitor] 80 MG Tablet) PO SCH (22:00)
[2021-08-23] MEDS: DOXAZOSIN 1 MG TAB PO SCH (23:40)
[2021-08-23] MEDS: TAMSULOSIN 0.4 MG CAP PO SCH (23:40)
[2021-08-23] MEDS: CLOPIDOGREL 75 MG TAB PO SCH (23:40)
[2021-08-23] MEDS: SPIRONOLACTONE 25 MG TAB PO SCH (23:40)
[2021-08-23] MEDS: dexAMETHasone 4 MG/ML VIAL IV SCH (23:40)
[2021-08-24] MEDS: FUROSEMIDE 40 MG TAB PO SCH ×2 (01:21→10:26)
[2021-08-24] MEDS ORDERED: SODIUM CHLORIDE 0.9% 1000 ML 1,000 ML IV ONE ×2 (03:40→06:51)
[2021-08-24] MEDS ORDERED: SODIUM CHLORIDE 0.9% 1000 ML 1,000 ML ONE (03:41)
[2021-08-24] MEDS ORDERED: ACETAMINOPHEN 325 MG TAB PO PRN ×2 (07:22→08:00)
[2021-08-24] MEDS ORDERED: ONDANSETRON 4 MG/2 ML INJ IV PRN ×2 (07:22→08:00)
[2021-08-24] MEDS ORDERED: METOCLOPRAMIDE 10 MG/2 ML INJ IV PRN (08:00)
[2021-08-24] MEDS ORDERED: HYDROmorphone 1 MG/1 ML INJ IV PRN (08:00)
[2021-08-24] MEDS ORDERED: oxyCODONE /ACETAMINOPHEN 5-325MG TAB PO PRN (08:00)
[2021-08-24] MEDS: HEPARIN 5,000 UNIT/1 ML VIAL SUB-Q SCH ×2 (08:15→23:57)
[2021-08-24 09:46] LABS: Hematocrit 42.6 % (35.5-45.6); Hemoglobin 13.5 gm/dl (11.8-15.2); Mean Corpuscular HGB Conc 32 % (32-34); Mean Corpuscular Volume 84 fl (84-94); Platelet Count 185 K/mm3 (140-440); Red Blood Count 5.06 M/mm3 (3.65-5.03); Red Cell Distribution Width 15.5 % (13.2-15.2)
[2021-08-24] MEDS: CLOPIDOGREL 75 MG TAB PO SCH (09:53)
[2021-08-24 10:12] LABS: Albumin 3.4 g/dL (3.9-5); C-Reactive Protein 6.5 mg/dL (0.00-1.30)
[2021-08-24] MEDS: SPIRONOLACTONE 25 MG TAB PO SCH (10:26)
[2021-08-24] MEDS: DOXAZOSIN 1 MG TAB PO SCH (10:26)
[2021-08-24 10:52] LABS: Eosinophils % (Manual) 0 % (0.0-4.3); Total Cells Counted 100
[2021-08-24 10:53] LABS: Burr Cells Few; Large Platelets Few; Platelet Estimate Consistent w Auto
[2021-08-24] MEDS: AZITHROMYCIN/NS 500 MG/250 ML 500 MG/250 ML BAG IV SCH ×2 (16:58→21:48)
[2021-08-24] MEDS ORDERED: cefTRIAXone/NS 2 GM/100 ML 2 GM/100 ML BAG IV SCH (17:00)
--- NOTE | 2021-08-24 22:46 | Progress Note ---
Assessment and Plan - Patient Problems (1) RLL pneumonia Current Visit: Yes Status: Acute Plan to address problem: IV Zithromax and IV ceftriaxone (2) DVT prophylaxis Current Visit: No Status: Deleted Plan to address problem: On Lovenox and GI prophylaxis Subjective Date of service: 08/24/21 Principal diagnosis: Right lower lobe pneumonia, COVID-positive Interval history: Patient presents as a questionable stroke from home. He has reported generalized weakness for the last couple of days. He has not noticed focal weakness. Paramedics did not find any concern for stroke. Patient admits that he has had a cough and congestion. He has been short of breath. He states that he just does not feel good. He has muscle aches and body aches. He was not vaccinated against COVID. He heard that the COVID-vaccine gave people trouble breathing. There has been no vomiting or diarrhea. There is no dysuria or frequency. Again, he has not noticed focal weakness. 08/24/2021 COVID-positive Patient on 50% Ventimask Objective - Constitutional Vitals: Vital Signs - 12hr 08/24/21 08/24/21 15:36 18:07 Pulse Rate 116 H Respiratory 16 20 Rate Blood Pressure 116/84 [Left] O2 Sat by Pulse 97 98 Oximetry General appearance: Present: mild distress, well-nourished - EENT Eyes: PERRL, EOM intact ENT: hearing intact, clear oral mucosa Ears: bilateral: normal - Neck Neck: supple, normal ROM - Respiratory Respiratory effort: normal Respiratory: bilateral: CTA, rales (Scattered), rhonchi (Scattered) - Breasts Breasts: normal - Cardiovascular Heart rate: 98 Rhythm: regular Heart Sounds: Present: S1 & S2. Absent: gallop, rub Extremities: pulses intact, No edema, normal color, Full ROM - Gastrointestinal General gastrointestinal: Present: soft, non-tender, non-distended, normal bowel sounds - Genitourinary Male genitourinary: normal - Integumentary Integumentary: clear, warm, dry - Musculoskeletal Musculoskeletal: 1, strength equal bilaterally - Neurologic Neurologic: moves all extremities - Psychiatric Psychiatric: memory intact, appropriate mood/affect, intact judgment & insight - Labs CBC & Chem 7: 08/25/21 06:42 08/25/21 06:42 Labs: Abnormal lab results 08/24/21 08/24/2108/24/22 Range/Units 09:08 09:08 09:08 WBC 1.7 L* (4.5-11.0) K/mm3 RBC 5.06 H (3.65-5.03) M/mm3 MCH 27 L (28-32) pg RDW 15.5 H (13.2-15.2) % Seg Neuts % (Manual) 76.0 H (40.0-70.0) % Seg Neutrophils # Man 1.3 L (1.8-7.7) K/mm3 Lymphocytes # (Manual) 0.3 L (1.2-5.4) K/mm3 D-Dimer 356.21 H (0-234) ng/mlDDU Carbon Dioxide 19 L (22-30) mmol/L Creatinine 1.6 H (0.8-1.3) mg/dL Glucose 207 H (75-100) mg/dL Calcium 8.0 L (8.4-10.2) mg/dL C-Reactive Protein 6.50 H (0.00-1.30) mg/dL Total Protein 6.1 L (6.3-8.2) g/dL Albumin 3.4 L (3.9-5) g/dL Coronavirus (PCR) (Negative) 08/24/21 Range/Units Unknown WBC (4.5-11.0) K/mm3 RBC (3.65-5.03) M/mm3 MCH (28-32) pg RDW (13.2-15.2) % Seg Neuts % (Manual) (40.0-70.0) % Seg Neutrophils # Man (1.8-7.7) K/mm3 Lymphocytes # (Manual) (1.2-5.4) K/mm3 D-Dimer (0-234) ng/mlDDU Carbon Dioxide (22-30) mmol/L Creatinine (0.8-1.3) mg/dL Glucose (75-100) mg/dL Calcium (8.4-10.2) mg/dL C-Reactive Protein (0.00-1.30) mg/dL Total Protein (6.3-8.2) g/dL Albumin (3.9-5) g/dL Coronavirus (PCR) Positive A (Negative) HEART Score - HEART Score Troponin: Troponin T < 0.010 ng/mL (0.00-0.029) 08/23/21 14:27
[2021-08-24] MEDS: dexAMETHasone 4 MG/ML VIAL IV SCH (23:58)
[2021-08-24] MEDS: TAMSULOSIN 0.4 MG CAP PO SCH (23:59)
[2021-08-25] MEDS ORDERED: guaiFENesin DM 200/20 MG ORAL LIQD 10 ML PO PRN (04:24)
[2021-08-25] MEDS: SODIUM CHLORIDE 0.9% 1000 ML 1,000 ML IV SCH ×2 (05:48→16:26)
[2021-08-25 08:22] LABS: Basophils % (Auto) 0.1 % (0.0-1.8); Hematocrit 41.1 % (35.5-45.6); Hemoglobin 13.1 gm/dl (11.8-15.2); Lymphocytes # (Auto) 0.4 K/mm3 (1.2-5.4); Lymphocytes % (Auto) 8.7 % (13.4-35.0); Mean Corpuscular HGB Conc 32 % (32-34); Mean Corpuscular Volume 84 fl (84-94); Monocytes # (Auto) 0.2 K/mm3 (0.0-0.8); Monocytes % (Auto) 3.2 % (0.0-7.3); Platelet Count 202 K/mm3 (140-440); Red Blood Count 4.92 M/mm3 (3.65-5.03); Red Cell Distribution Width 15.1 % (13.2-15.2)
[2021-08-25 08:45] LABS: BUN/Creatinine Ratio 18; Blood Urea Nitrogen 20 mg/dL (9-20); Calcium 8.4 mg/dL (8.4-10.2); Hemolysis Index 2
[2021-08-25] MEDS: SPIRONOLACTONE 25 MG TAB PO SCH (10:36)
[2021-08-25] MEDS: CLOPIDOGREL 75 MG TAB PO SCH (10:37)
[2021-08-25] MEDS: HEPARIN 5,000 UNIT/1 ML VIAL SUB-Q SCH ×2 (10:44→23:19)
[2021-08-25] MEDS: FUROSEMIDE 40 MG TAB PO SCH (10:45)
[2021-08-25] MEDS: DOXAZOSIN 1 MG TAB PO SCH (16:23)
[2021-08-25] MEDS: dexAMETHasone 4 MG/ML VIAL IV SCH (23:19)
[2021-08-25] MEDS: TAMSULOSIN 0.4 MG CAP PO SCH (23:19)
--- NOTE | 2021-08-26 08:59 | Progress Note ---
Assessment and Plan - Patient Problems (1) Acute respiratory failure with hypoxia Current Visit: Yes Status: Acute Plan to address problem: Patient on 50% Ventimask Respiratory assessment and therapy High flow oxygen if necessary (2) SIRS (systemic inflammatory response syndrome) Current Visit: Yes Status: Acute Plan to address problem: All inflammatory markers are elevated Clinical picture consistent with Sirs (3) Pneumonia due to COVID-19 virus Current Visit: Yes Status: Acute Plan to address problem: Patient on IV Decadron Patient to be started on remdesivir ID consult (4) RLL pneumonia Current Visit: Yes Status: Acute Plan to address problem: IV Zithromax and IV ceftriaxone (5) CHF (congestive heart failure) Current Visit: Yes Status: Chronic Qualifiers: Heart failure type: combined systolic and diastolic Heart failure chronicity: unspecified Qualified Code(s): I50.40 - Unspecified combined sys [place] (congestive) and diastolic (congestive) heart failure Plan to address problem: Will get echocardiogram for ejection fraction (6) Coronary artery disease Current Visit: Yes Status: Chronic Qualifiers: Coronary Disease-Associated Artery/Lesion type: [place] artery [place] vs. transplanted heart: [place] heart Plan to address problem: Continue aspirin and isosorbide mononitrate (7) GERD (gastroesophageal reflux disease) Current Visit: Yes Status: Chronic Qualifiers: Esophagitis presence: without esophagitis Qualified Code(s): K21.9 - Gastro-esophageal reflux disease without esophagitis Plan to address problem: On PPIs (8) DVT prophylaxis Current Visit: No Status: Deleted Plan to address problem: On Lovenox and GI prophylaxis Subjective Date of service: 08/25/21 Principal diagnosis: COVID-pneumonia Interval history: Patient presents as a questionable stroke from home. He has reported generalized weakness for the last couple of days. He has not noticed focal weakness. Paramedics did not find any concern for stroke. Patient admits that he has had a cough and congestion. He has been short of breath. He states that he just does not feel good. He has muscle aches and body aches. He was not vaccinated against COVID. He heard that the COVID-vaccine gave people trouble breathing. There has been no vomiting or diarrhea. There is no dysuria or frequency. Again, he has not noticed focal weakness. 08/24/2021 COVID-positive Patient on 50% Ventimask August 25, 2021 COVID-positive Patient on 50% Ventimask Objective - Constitutional Vitals: Vital Signs - 12hr 08/26/21 08/26/21 02:00 04:38 Temperature 97.6 F Pulse Rate 101 H Respiratory 16 Rate Blood Pressure 127/85 O2 Sat by Pulse 98 96 Oximetry General appearance: Present: mild distress, well-nourished - EENT Eyes: PERRL, EOM intact ENT: hearing intact, clear oral mucosa Ears: bilateral: normal - Neck Neck: supple, normal ROM - Respiratory Respiratory effort: normal Respiratory: bilateral: CTA - Breasts Breasts: normal - Cardiovascular Heart rate: 78 Rhythm: regular Heart Sounds: Present: S1 & S2. Absent: gallop, rub Extremities: pulses intact, No edema, normal color, Full ROM - Gastrointestinal General gastrointestinal: Present: soft, non-tender, non-distended, normal bowel sounds - Genitourinary Male genitourinary: normal - Integumentary Integumentary: clear, warm, dry - Musculoskeletal Musculoskeletal: 1, strength equal bilaterally - Neurologic Neurologic: moves all extremities - Psychiatric Psychiatric: memory intact, appropriate mood/affect, intact judgment & insight - Labs CBC & Chem 7: 08/25/21 06:42 08/25/21 06:42 HEART Score - HEART Score Troponin: Troponin T < 0.010 ng/mL (0.00-0.029) 08/23/21 14:27
--- NOTE | 2021-08-26 09:59 | Progress Note ---
Assessment and Plan - Patient Problems (1) Acute respiratory failure with hypoxia Current Visit: Yes Status: Acute Plan to address problem: Patient on 50% Ventimask Respiratory assessment and therapy High flow oxygen if necessary (2) SIRS (systemic inflammatory response syndrome) Current Visit: Yes Status: Acute Plan to address problem: All inflammatory markers are elevated Clinical picture consistent with Sirs (3) Pneumonia due to COVID-19 virus Current Visit: Yes Status: Acute Plan to address problem: Patient on IV Decadron Patient to be started on remdesivir ID consult (4) RLL pneumonia Current Visit: Yes Status: Acute Plan to address problem: IV Zithromax and IV ceftriaxone (5) CHF (congestive heart failure) Current Visit: Yes Status: Chronic Qualifiers: Heart failure type: combined systolic and diastolic Heart failure chronicity: unspecified Qualified Code(s): I50.40 - Unspecified combined sys tolic (congestive) and diastolic (congestive) heart failure Plan to address problem: Will get echocardiogram for ejection fraction (6) Coronary artery disease Current Visit: Yes Status: Chronic Qualifiers: Coronary Disease-Associated Artery/Lesion type: [place] artery [place] vs. transplanted heart: [place] heart Plan to address problem: Continue aspirin and isosorbide mononitrate (7) GERD (gastroesophageal reflux disease) Current Visit: Yes Status: Chronic Qualifiers: Esophagitis presence: without esophagitis Qualified Code(s): K21.9 - Gastro-esophageal reflux disease without esophagitis Plan to address problem: On PPIs (8) DVT prophylaxis Current Visit: No Status: Deleted Plan to address problem: On Lovenox and GI prophylaxis Subjective Date of service: 08/26/21 Principal diagnosis: COVID-pneumonia Interval history: Patient presents as a questionable stroke from home. He has reported generalized weakness for the last couple of days. He has not noticed focal weakness. Paramedics did not find any concern for stroke. Patient admits that he has had a cough and congestion. He has been short of breath. He states that he just does not feel good. He has muscle aches and body aches. He was not vaccinated against COVID. He heard that the COVID-vaccine gave people trouble breathing. There has been no vomiting or diarrhea. There is no dysuria or frequency. Again, he has not noticed focal weakness. 08/24/2021 COVID-positive Patient on 50% Ventimask August 25, 2021 COVID-positive Patient on 50% Ventimask Objective - Constitutional Vitals: Vital Signs - 12hr 08/26/21 08/26/21 02:00 04:38 Temperature 97.6 F Pulse Rate 101 H Respiratory 16 Rate Blood Pressure 127/85 O2 Sat by Pulse 98 96 Oximetry General appearance: Present: mild distress, well-nourished - EENT Eyes: PERRL, EOM intact ENT: hearing intact, clear oral mucosa Ears: bilateral: normal - Neck Neck: supple, normal ROM - Respiratory Respiratory effort: normal Respiratory: bilateral: CTA - Breasts Breasts: normal - Cardiovascular Rhythm: regular Heart Sounds: Present: S1 & S2. Absent: gallop, rub Extremities: pulses intact, No edema, normal color, Full ROM - Gastrointestinal General gastrointestinal: Present: soft, non-tender, non-distended, normal bowel sounds - Genitourinary Male genitourinary: normal - Integumentary Integumentary: clear, warm, dry - Musculoskeletal Musculoskeletal: 1, strength equal bilaterally - Neurologic Neurologic: moves all extremities - Psychiatric Psychiatric: memory intact, appropriate mood/affect, intact judgment & insight - Labs CBC & Chem 7: 08/25/21 06:42 08/25/21 06:42 HEART Score - HEART Score Troponin: Troponin T < 0.010 ng/mL (0.00-0.029) 08/23/21 14:27
[2021-08-26] MEDS: DOXAZOSIN 1 MG TAB PO SCH (11:03)
[2021-08-26] MEDS: SPIRONOLACTONE 25 MG TAB PO SCH (11:03)
[2021-08-26] MEDS: HEPARIN 5,000 UNIT/1 ML VIAL SUB-Q SCH (11:03)
[2021-08-26] MEDS: CLOPIDOGREL 75 MG TAB PO SCH (11:04)
[2021-08-26] MEDS: FUROSEMIDE 40 MG TAB PO SCH (11:04)
[2021-08-26 11:26] LABS: Alanine Aminotransferase 19 units/L (7-56); Albumin 3.8 g/dL (3.9-5); BUN/Creatinine Ratio 19; Blood Urea Nitrogen 19 mg/dL (9-20); Calcium 8.9 mg/dL (8.4-10.2); Hemolysis Index 7
[2021-08-26] MEDS ORDERED: SODIUM CHLORIDE 0.9% 50 ML IVPB IV SCH (12:00)
[2021-08-26] MEDS ORDERED: REMDESIVIR 200 MG in SODIUM CHLORIDE 0.9% 250ML 250 ML IV ONE (12:00)
--- NOTE | 2021-08-26 13:52 | Consultation ---
History of Present Illness - Reason for Consult Consult date: 08/26/21 COVID-19 Requesting physician: MATTHEW DON - History of Present Illness The patient is a 71-year-old male with coronary artery disease, CHF, GERD, presented on 08/23/2021 with generalized weakness and question of possible stroke. He was noted to have cough with congestion and hypoxia. Unvaccinated against COVID-19. Labs showed leukopenia, D-dimer 321, procalcitonin 0.05, CRP 6.5. Patient tested positive for COVID-19. Infectious diseases was consulted for additional evaluation. Chest x-ray showed patchy airspace opacities mainly on the right side. Review of Systems: reviewed in the chart, unable to obtain, minimize risk of transmission Medications and Allergies Allergies Allergy/AdvReac Type Severity Reaction Status Date / Time ampicillin Allergy Nausea Verified 08/23/21 11:48 hydralazine AdvReac Unknown Verified 08/23/21 11:48 Home Medications Medication Instructions Recorded Confirmed Last Taken Type ISOSORBIDE MONOnitrate [Imdur ER] 30 mg PO DAILY #0 10/05/17 08/23/21 02/13/21 09:00 History Atorvastatin Calcium [Lipitor] 80 mg PO QHS #30 05/24/18 08/23/21 02/13/21 20:00 Rx Clopidogrel Bisulfate [Plavix] 75 mg PO DAILY #30 05/24/18 08/23/21 02/12/21 09:00 Rx Tamsulosin HCl [Flomax] 0.4 mg PO QHS #30 05/24/18 08/23/21 02/13/21 20:00 Rx ALBUTEROL NEB's [Proventil 0.083% 2.5 mg IH Q6H PRN #1 box 06/17/20 08/23/21 02/13/21 09:00 Rx NEBS] Albuterol Mdi (or & Nicu Only) 2 puff IH QID PRN #8.5 gram 06/17/20 08/23/21 02/13/21 17:00 Rx [ProAir HFA Inhaler] Doxazosin Mesylate 2 mg PO DAILY 02/14/21 08/23/21 02/14/21 05:00 History Spironolactone 25 mg PO DAILY 02/14/21 08/23/21 02/13/21 09:00 History oxyCODONE /ACETAMINOPHEN [Percocet 1 tab PO Q6H PRN #20 tablet 02/14/21 08/23/21 Unknown Rx 5/325 mg] Furosemide [Lasix TAB] 40 mg PO QDAY #14 tablet 02/17/21 08/23/21 Unknown Rx Active Meds: Active Medications Acetaminophen (Acetaminophen 325 Mg Tab) 650 mg PO Q4H PRN PRN Reason: Pain MILD(1-3)/Fever >100.5/RAMOS Albuterol (Albuterol 2.5 Mg/3 Ml Nebu) 2.5 mg IH Q4HRT PRN PRN Reason: Shortness Of Breath Atorvastatin Calcium (Atorvastatin 40 Mg Tab) 80 mg PO QHS [facility] Last Admin: 08/25/21 23:19 Dose: 80 mg Clopidogrel Bisulfate (Clopidogrel 75 Mg Tab) 75 mg PO DAILY [facility] Last Admin: 08/26/21 11:04 Dose: 75 mg Dexamethasone (Dexamethasone 4 Mg/Ml Vial) 8 mg IV Q24H QUAN Stop: 09/01/21 22:01 Last Admin: 08/25/21 23:19 Dose: 8 mg Doxazosin Mesylate (Doxazosin 1 Mg Tab) 2 mg PO DAILY [facility] Last Admin: 08/26/21 11:03 Dose: 2 mg Furosemide (Furosemide 40 Mg Tab) 40 mg PO QDAY [facility] Last Admin: 08/26/21 11:04 Dose: 40 mg Guaifenesin (Guaifenesin Dm 200/20 Mg Oral Liqd 10 Ml) 10 ml PO Q6HR PRN PRN Reason: Cough Last Admin: 08/25/21 05:47 Dose: 10 ml Heparin Sodium (Porcine) (Heparin 5,000 Unit/1 Ml Vial) 5,000 unit SUB-Q Q12HR [facility] Last Admin: 08/26/21 11:03 Dose: 5,000 unit Hydromorphone HCl (Hydromorphone 1 Mg/1 Ml Inj) 0.5 mg IV Q3H PRN PRN Reason: Pain , Severe (7-10) Sodium Chloride (Nacl 0.9% 1000 Ml) 1,000 mls @ 150 mls/hr IV DIRECT [facility] Last Admin: 08/25/21 16:26 Dose: 150 mls/hr REMDESIVIR 100 mg/ Sodium (Chloride) 250 mls @ 500 mls/hr IV Q24HR@2100 [facility] Stop: 08/30/21 21:29 Isosorbide Mononitrate (Isosorbide Mononitrate Er 30 Mg Tab) 30 mg PO DAILY [facility] Last Admin: 08/26/21 11:04 Dose: 30 mg Metoclopramide HCl (Metoclopramide 10 Mg/2 Ml Inj) 10 mg IV Q6H PRN PRN Reason: Nausea And Vomiting Ondansetron HCl (Ondansetron 4 Mg/2 Ml Inj) 4 mg IV Q8H PRN PRN Reason: Nausea And Vomiting Oxycodone/Acetaminophen (Oxycodone /Acetaminophen 5-325mg Tab) 1 tab PO Q6H PRN PRN Reason: Pain, Moderate (4-6) Sodium Chloride (Sodium Chloride 0.9% 10 Ml Flush Syringe) 10 ml IV BID [facility] Last Admin: 08/26/21 11:04 Dose: 10 ml Sodium Chloride (Sodium Chloride 0.9% 10 Ml Flush Syringe) 10 ml IV PRN PRN PRN Reason: LINE FLUSH Sodium Chloride (Sodium Chloride 0.9% 50 Ml Ivpb) 50 ml IV Q24HR@2100 [facility] Stop: 08/30/21 21:01 Last Admin: 08/26/21 12:21 Dose: 50 ml Spironolactone (Spironolactone 25 Mg Tab) 25 mg PO DAILY [facility] Last Admin: 08/26/21 11:03 Dose: 25 mg Tamsulosin HCl (Tamsulosin 0.4 Mg Cap) 0.4 mg PO QHS [facility] Last Admin: 08/25/21 23:19 Dose: 0.4 mg Physical Examination - Physical Exam Narrative exam: Physical Exam (reviewed in chart to minimize risk of transmission) Constitutional: deferred Head, Ears, Nose: deferred Eyes: deferred Neck: deferred Oral: deferred Cardiovascular: deferred Respiratory: deferred GI: deferred Musculoskeletal: deferred Skin: deferred Hem/Lymphatic: deferred Psych: deferred Neurological: deferred - Constitutional Vitals: Vital Signs Temp Pulse Resp BP Pulse Ox 97.6 F 101 H 16 125/86 96 08/26/21 04:38 08/26/21 04:38 08/26/21 04:38 08/26/21 11:03 08/26/21 04:38 Temperature -Last 24 Hours Temperature 97.6 F Temperature 97.5 F Temperature 97.7 F Results - Labs CBC & Chem 7: 08/25/21 06:42 08/26/21 10:24 Labs: Abnormal lab results 08/26/21 Range/Units 10:24 Glucose 157 H (75-100) mg/dL Albumin 3.8 L (3.9-5) g/dL - Imaging and Cardiology Chest x-ray: report reviewed, image reviewed (patchy airspace opacities, mainly on R side) Assessment and Plan Cultures: SARS CoV2 PCR: Positive A/P: 71-year-old male with coronary artery disease, CHF, GERD, presented on 08/23/2021 with generalized weakness and question of possible stroke. He was noted to have cough with congestion and hypoxia. Unvaccinated against COVID-19: #Bilateral pneumonia: Secondary to COVID-19 #Acute hypoxic respiratory failure: On nasal cannula #RUSS: Improved #CHF Recs: -Continue IV/PO Dexamethasone x 10 days -Continue IV remdesivir x 5 days -Not a candidate for Actemra based on CRP and level of hypoxia -prophylactic anticoagulation based on d-dimer per hospital protocol -procalcitonin is low, abx not needed -trend ferritin, d-dimer, CRP every 2-3 days Keo Peterson MD, FACP, [facility] O: [phone] F: [phone]
--- NOTE | 2021-08-26 17:19 | Discharge Summary ---
Providers - Providers Date of Admission: 08/23/21 19:00 Date of discharge: 08/26/21 Attending physician: MATTHEW DON 08/26/21 10:01 Consult to Physician [CONS] Routine Comment: Consulting Provider: SOCORRO DILLON Physician Instructions: Reason For Exam: COVID-19 positive test (U07.1, COVID-19) with A Primary care physician: COMMUNICATIONS PROGRAMMER Hospitalization Condition: Stable Hospital course: Subjective Date of service: 08/26/21 Principal diagnosis: COVID-pneumonia Interval history: Patient presents as a questionable stroke from home. He has reported generalized weakness for the last couple of days. He has not noticed focal weakness. Paramedics did not find any concern for stroke. Patient admits that he has had a cough and congestion. He has been short of breath. He states that he just does not feel good. He has muscle aches and body aches. He was not vaccinated against COVID. He heard that the COVID-vaccine gave people trouble breathing. There has been no vomiting or diarrhea. There is no dysuria or frequency. Again, he has not noticed focal weakness. 08/24/2021 COVID-positive Patient on 50% Ventimask August 25, 2021 COVID-positive Patient on 50% Ventimask August 26, 2021 On room air ID consult appreciated Ambulatory sats are 96% on room air Patient to be discharged today Assessment and Plan - Patient Problems (1) Acute respiratory failure with hypoxia Current Visit: Yes Status: Acute Plan to address problem: Doing well on room air (2) SIRS (systemic inflammatory response syndrome) Current Visit: Yes Status: Acute Plan to address problem: All inflammatory markers are elevated Clinical picture consistent with Sirs Doing well on room air (3) Pneumonia due to COVID-19 virus Current Visit: Yes Status: Acute Plan to address problem: Continue oral Decadron (4) RLL pneumonia Current Visit: Yes Status: Acute Plan to address problem: Discontinue antibiotics (5) CHF (congestive heart failure) Current Visit: Yes Status: Chronic Qualifiers: Heart failure type: combined systolic and diastolic Heart failure chronicity: unspecified Qualified Code(s): I50.40 - Unspecified combined systolic (congestive) and diastolic (congestive) heart failure Plan to address problem: Will get echocardiogram for ejection fraction (6) Coronary artery disease Current Visit: Yes Status: Chronic Qualifiers: Coronary Disease-Associated Artery/Lesion type: [place] artery [place] vs. transplanted heart: [place] heart Plan to address problem: Continue aspirin and isosorbide mononitrate (7) GERD (gastroesophageal reflux disease) Current Visit: Yes Status: Chronic Qualifiers: Esophagitis presence: without esophagitis Qualified Code(s): K21.9 - Gastro-esophageal reflux disease without esophagitis Plan to address problem: On PPIs (8) DVT prophylaxis Current Visit: No Status: Deleted Plan to address problem: On Lovenox and GI prophylaxis Disposition: 01 HOME / SELF CARE / HOMELESS Final Discharge Diagnosis (Prints w/discharge instructions): Acute respiratory failure with hypoxia. SIRS. Pneumonia due to COVID-19. Right lower lobe pneumonia. CHF. Coronary artery disease. GERD Time spent for discharge: 40 minutes - Discharge Diagnoses (1) Acute respiratory failure with hypoxia Status: Acute (2) SIRS (systemic inflammatory response syndrome) Status: Acute (3) Pneumonia due to COVID-19 virus Status: Acute (4) RLL pneumonia Status: Acute (5) CHF (congestive heart failure) Status: Chronic Qualifiers: Heart failure type: combined systolic and diastolic Heart failure chronicity: unspecified Qualified Code(s): I50.40 - Unspecified combined systolic (congestive) and diastolic (congestive) heart failure (6) Coronary artery disease Status: Chronic Qualifiers: Coronary Disease-Associated Artery/Lesion type: [place] artery [place] vs. transplanted heart: [place] heart (7) GERD (gastroesophageal reflux disease) Status: Chronic Qualifiers: Esophagitis presence: without esophagitis Qualified Code(s): K21.9 - Gastro-esophageal reflux disease without esophagitis (8) DVT prophylaxis Status: Deleted Core Measure Documentation - Palliative Care Palliative Care/ Comfort Measures: Not Applicable - Core Measures Any of the following diagnoses?: none Exam - Constitutional Vitals: Temp Pulse Resp BP Pulse Ox 97.6 F 101 H 16 125/86 96 08/26/21 04:38 08/26/21 04:38 08/26/21 04:38 08/26/21 11:03 08/26/21 04:38 General appearance: Present: no acute distress, well-nourished - EENT Eyes: Present: PERRL ENT: hearing intact, clear oral mucosa - Neck Neck: Present: supple, normal ROM - Respiratory Respiratory effort: normal Respiratory: bilateral: CTA - Cardiovascular Heart rate: 78 Rhythm: regular Heart Sounds: Present: S1 & S2. Absent: rub, click - Extremities Extremities: pulses symmetrical, No edema Peripheral Pulses: within normal limits - Abdominal General gastrointestinal: Present: soft, non-tender, non-distended, normal bowel sounds Male genitourinary: Present: normal - Integumentary Integumentary: Present: clear, warm, dry - Musculoskeletal Musculoskeletal: gait normal, strength equal bilaterally - Psychiatric Psychiatric: appropriate mood/affect, intact judgment & insight - Neurologic Neurologic: CNII-XII intact, moves all extremities Plan Activity: no restrictions Diet: low salt Follow up with: PRIMARY CAREMD [Primary Care Provider] - 3-5 Days SOCORRO DILLON MD [Staff Physician] - 7 Days
[2021-08-26 18:17] VITALS: BP 136/92
--- NOTE | 2021-08-27 09:15 | Electrocardiograph Report ---
[facility] Test Date: 2021-08-23 Test Time: 12:00:35 Pat Name: JAXSON MURILLO SR Department: Room: A374 Gender: M Inspector General: [id number] : 1950 Requested By: PRINCE SRIVASTAVA Order Number: [id number] Reading MD: Jann Azar Measurements Intervals [place] Rate: 92 P: MS: QRS: -7 QRSD: 96 T: 140 QT: 351 QTc: 435 Interpretive Statements Atrial fibrillation LVH with secondary repolarization abnormality Inferior infarct, old Anterior Q waves, possibly due to LVH Compared to ECG 02/14/2021 13:25:24 Myocardial infarct finding now present Sinus rhythm no longer present Electronically Signed On 08-27-2021 9:14:52 EST by Jann Azar
[2021-08-27] MEDS ORDERED: REMDESIVIR 100 MG in SODIUM CHLORIDE 0.9% 250ML 250 ML IV SCH (21:00)
== END 2021-08-26 18:43 | disposition home or self-care (01) | DRG 177 ==
LOC: ED 11:29 → SUATTDRO 11:29 → 3A 19:00
PROVIDERS: ADMIT Internal Medicine; ATTEND Internal Medicine
PROC: XW033E5 Introduction of Remdesivir Anti-infective into Peripheral Vein, Percutaneous Approach, New Technology Group 5 (ICD-10-PCS; principal; 2021-08-26)
DX: U07.1 COVID-19 (principal); J96.01 Acute respiratory failure with hypoxia; J12.82 Pneumonia due to coronavirus disease 2019; K21.9 Gastro-esophageal reflux disease without esophagitis; G43.909 Migraine, unspecified, not intractable, without status migrainosus; Z95.5 Presence of coronary angioplasty implant and graft; Z88.8 Allergy status to other drugs, medicaments and biological substances; R65.10 Systemic inflammatory response syndrome (SIRS) of non-infectious origin without acute organ dysfunction; I25.10 Atherosclerotic heart disease of native coronary artery without angina pectoris; I50.42 Chronic combined systolic (congestive) and diastolic (congestive) heart failure; I11.0 Hypertensive heart disease with heart failure
CPT/HCPCS: 36415; 71045; 80048; 80053; 82728; 83615; 83735; 84145; 84484; 85007; 85025; 85379; 86140; 93005; G0378; Q0162; J0456; J0696; J1100; J1644; J7030; J7050; U0003

== ENCOUNTER 2022-01-21 19:25 | Emergency (ER) | payer MEDICARE ==
--- NOTE | 2022-01-21 20:22 | XRay Report ---
XR chest routine 2V INDICATION / CLINICAL INFORMATION: chest pain COMPARISON: 08/23/2020 FINDINGS: SUPPORT DEVICES: None. HEART / MEDIASTINUM: No significant abnormality. LUNGS / PLEURA: Interlobular septal thickening. No airspace disease. Costophrenic sulci are sharp. No pneumothorax. ADDITIONAL FINDINGS: No significant additional findings. IMPRESSION: 1. Interstitial edema. Signer Name: Jono Patterson MD Signed: 01/21/2022 8:18 PM Workstation Name: [id number]
[2022-01-21 21:08] LABS: Basophils # (Auto) 0.1 K/mm3 (0.0-0.1); Basophils % (Auto) 0.8 % (0.0-1.8); Eosinophils # (Auto) 0.2 K/mm3 (0.0-0.4); Eosinophils % (Auto) 1.7 % (0.0-4.3); Hematocrit 46.1 % (35.5-45.6); Hemoglobin 15.5 gm/dl (11.8-15.2); Lymphocytes # (Auto) 1.4 K/mm3 (1.2-5.4); Lymphocytes % (Auto) 13.7 % (13.4-35.0); Mean Corpuscular HGB Conc 34 % (32-34); Mean Corpuscular Volume 86 fl (84-94); Monocytes # (Auto) 0.7 K/mm3 (0.0-0.8); Monocytes % (Auto) 6.4 % (0.0-7.3); Platelet Count 216 K/mm3 (140-440); Red Blood Count 5.36 M/mm3 (3.65-5.03); Red Cell Distribution Width 15.6 % (13.2-15.2)
[2022-01-21 21:33] LABS: Alanine Aminotransferase 17 units/L (7-56); Albumin 4.5 g/dL (3.9-5); BUN/Creatinine Ratio 13; Blood Urea Nitrogen 15 mg/dL (9-20); Calcium 9.1 mg/dL (8.4-10.2); Hemolysis Index 17
--- NOTE | 2022-01-22 09:07 | Electrocardiograph Report ---
[facility] Test Date: 2022-01-21 Test Time: 20:19:43 Pat Name: JAXSON MURILLO SR Department: Room: Gender: M Machine Fastener: MISBAH : 1950 Requested By: ED DOC Order Number: [id number] Reading MD: Jann Azar Measurements Intervals [place] Rate: 108 P: CT: QRS: 7 QRSD: 96 T: 171 QT: 342 QTc: 460 Interpretive Statements Atrial fibrillation LVH with secondary repolarization abnormality Anterior ST elevation, probably due to LVH Compared to ECG 08/23/2021 12:00:35 ST (T wave) deviation now present Myocardial infarct finding no longer present Q waves no longer present Electronically Signed On 01-22-2022 9:06:46 EDT by Jann Azar
--- NOTE | 2022-01-22 10:41 | Emergency Department Report ---
ED Chest Pain HPI - General Chief Complaint: Chest Pain Stated Complaint: CHEST PAIN Time Seen by Provider: 01/22/22 09:50 Source: patient, EMS Mode of arrival: Ambulatory Limitations: No Limitations - History of Present Illness Initial Comments: 71-year-old male with a history of CHF, atrial fibrillation taking Plavix who now presented with palpitation associated with chest pressure and shortness of breath that started shortly after leaving his house this morning. Patient says he opened the door and stepped outside and started having some shortness of breath. Patient acknowledged that it was really hot outside and completely different between the home temperature and the outside temperature. No fever or chills reported. Patient denies any modifying or positive factors. Severity scale (0 -10): 0 - Related Data Home Medications Medication Instructions Recorded Confirmed Last Taken Clopidogrel [Plavix] 75 mg PO QDAY 01/22/22 01/22/22 Unknown Valsartan [Diovan] 320 mg PO QDAY 01/22/22 01/22/22 Unknown Previous Rx's Medication Instructions Recorded Last Taken Type ALBUTEROL NEB's [Proventil 0.083% 2.5 mg IH Q6H PRN #1 box 06/17/20 02/13/21 09:00 Rx NEBS] Albuterol Mdi (or & Nicu Only) 2 puff IH QID PRN #8.5 gram 06/17/20 02/13/21 17:00 Rx [ProAir HFA Inhaler] AtorvaSTATin [Lipitor] 80 mg PO QHS #30 tablet 08/26/21 Unknown Rx Clopidogrel [Plavix] 75 mg PO DAILY #30 tablet 08/26/21 Unknown Rx ISOSORBIDE MONOnitrate [Imdur ER] 30 mg PO DAILY #30 tablet 08/26/21 Unknown Rx Tamsulosin [Flomax] 0.4 mg PO QHS #30 capsule 08/26/21 Unknown Rx Allergies Allergy/AdvReac Type Severity Reaction Status Date / Time ampicillin Allergy Nausea Verified 01/22/22 10:14 hydralazine AdvReac Unknown Verified 01/22/22 10:14 Heart Score - HEART Score History: Slightly suspicious EKG: Normal Age: > 65 Risk factors: 1-2 risk factors Troponin: < normal limit HEART Score: 3 - EKG Read Time Time EKG Completed: 20:19 EKG Read Time: 08:36 - Critical Actions Critical Actions: 0-3 pts:0.9-1.7%risk of adverse cardiac event.Candidate for discharge ED Review of Systems ROS: Stated complaint: CHEST PAIN Other details as noted in HPI Comment: All other systems reviewed and negative Respiratory: shortness of breath Cardiovascular: chest pain, palpitations ED Past Medical Hx - Past Medical History Hx Hypertension: Yes (X AT LEAST 10 YRS) Hx Heart Attack/AMI: Yes (2018) Hx Congestive Heart Failure: Yes (2019) Hx GERD: Yes Hx Arthritis: Yes (HANDS) Hx Headaches / Migraines: Yes (MIGRAINES) Hx HIV: No Additional medical history: 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 hx Inguinal hernia - Surgical History Hx Coronary Stent: Yes (X 2 (2018)) Additional Surgical History: finger surgery, hernia repair - Social History Smoking Status: Never Smoker - Medications Home Medications: Home Medications Medication Instructions Recorded Confirmed Last Taken Type ALBUTEROL NEB's [Proventil 0.083% 2.5 mg IH Q6H PRN #1 box 06/17/20 08/23/21 02/13/21 09:00 Rx NEBS] Albuterol Mdi (or & Nicu Only) 2 puff IH QID PRN #8.5 gram 06/17/20 08/23/21 02/13/21 17:00 Rx [ProAir HFA Inhaler] AtorvaSTATin [Lipitor] 80 mg PO QHS #30 tablet 08/26/21 Unknown Rx Clopidogrel [Plavix] 75 mg PO DAILY #30 tablet 08/26/21 Unknown Rx ISOSORBIDE MONOnitrate [Imdur ER] 30 mg PO DAILY #30 tablet 08/26/21 01/22/22 Unknown Rx Tamsulosin [Flomax] 0.4 mg PO QHS #30 capsule 08/26/21 01/22/22 Unknown Rx Clopidogrel [Plavix] 75 mg PO QDAY 01/22/22 01/22/22 Unknown History Valsartan [Diovan] 320 mg PO QDAY 01/22/22 01/22/22 Unknown History ED Physical Exam - General Limitations: No Limitations General appearance: alert, in no apparent distress - Head Head exam: Present: normal inspection - Eye Eye exam: Present: normal appearance Pupils: Present: normal accommodation - ENT ENT exam: Present: normal exam, normal orophraynx, mucous membranes moist - Neck Neck exam: Present: normal inspection, full ROM. Absent: tenderness - Respiratory Respiratory exam: Present: normal lung sounds bilaterally. Absent: respiratory distress, accessory muscle use - Cardiovascular Cardiovascular Exam: Present: tachycardia, irregular rhythm (Atrial fibrillation), normal heart sounds - GI/Abdominal GI/Abdominal exam: Present: soft, normal bowel sounds. Absent: distended, tenderness - Extremities Exam Extremities exam: Present: normal inspection, normal capillary refill. Absent: tenderness - Back Exam Back exam: Absent: tenderness - Neurological Exam Neurological exam: Present: alert, oriented X3 - Psychiatric Psychiatric exam: Present: normal affect, normal mood - Skin Skin exam: Present: warm, normal color ED Course Vital Signs 01/21/22 01/21/22 01/22/22 19:47 20:19 09:50 Temperature 98.3 F 98.4 F Pulse Rate 105 H 108 H 97 H Respiratory 16 14 Rate Blood Pressure Blood Pressure 190/100 184/126 [Right] O2 Sat by Pulse 98 96 Oximetry 01/22/22 01/22/22 01/22/22 10:00 10:01 10:15 Temperature Pulse Rate 93 H 87 81 Respiratory 20 13 10 L Rate Blood Pressure 184/126 Blood Pressure 149/98 [Right] O2 Sat by Pulse 97 97 96 Oximetry 01/22/22 01/22/22 01/22/22 10:31 10:45 11:01 Temperature Pulse Rate 77 105 H 80 Respiratory 8 L 21 17 Rate Blood Pressure 145/105 132/97 132/97 Blood Pressure [Right] O2 Sat by Pulse 96 95 97 Oximetry 01/22/22 01/22/22 01/22/22 11:15 11:31 12:15 Temperature 98.2 F Pulse Rate 78 80 92 H Respiratory 18 22 17 Rate Blood Pressure 132/97 134/90 Blood Pressure 162/92 [Right] O2 Sat by Pulse 97 96 95 Oximetry - Reevaluation(s) Reevaluation #1: 01/22/22 10:46 here with cp with sob and noted in a-fib and hypertensive-- symptoms could be among others Myocardiac infarction, a-fib, Pulmonary Embolism, Pneumothorax, Pneumonia -- so in other to rule these out will order CBC, CMP, UA, CXR and give Labetolol 20 mg IV x 1 for the hypertension and the heart rate-- 01/22/22 10:49 Reevaluation #2: 01/22/22 11:25 Patient reevaluated with improved blood pressure at 132/97, O2 sat at 97%, respiration rate 17 and heart rate at 80 bpm--patient also reports feeling much better and stable to be discharged at this point. Also noted with -3 serial troponin which rules out myocardial infarction. Patient is encouraged to follow-up with his cardiology and PCP in the next 3 to 5 days for progress. 01/22/22 11:26 LOY score - Loy Score Age > 65: (1) Yes Aspirin use within the Past 7 Days: (0) No 3 or more CAD Risk Factors: (1) Yes 2 or more Angina events in past 24 hrs: (0) No Known CAD with more than 50% Stenosis: (0) No Elevated Cardiac Markers: (0) No ST Deviation Greater than 0.5mm: (0) No LOY Score: 2 ED Medical Decision Making - Lab Data Result diagrams: 01/21/22 20:56 01/21/22 20:56 - EKG Data -: EKG Interpreted by Ga Rate: tachycardia (Atrial fibrillation at the rate of 108 bpm) - EKG Data 01/22/22 10:51 Noted with atrial fibrillation at the rate of 108/min with no ST elevation or depression in this abnormal ECG. - Medical Decision Making See progress note for detail - Differential Diagnosis See progress note for detail Critical care attestation.: If time is entered above; I have spent that time in minutes in the direct care of this critically ill patient, excluding procedure time. ED Disposition Clinical Impression: Chest pain Qualifiers: Chest pain type: unspecified Qualified Code(s): R07.9 - Chest pain, unspecified A-fib Qualifiers: Atrial fibrillation type: unspecified chronic Qualified Code(s): I48.20 - Chronic atrial fibrillation, unspecified Disposition: 01 HOME / SELF CARE / HOMELESS Is pt being admited?: No Does the pt Need Aspirin: No Condition: Stable Instructions: Nonspecific Chest Pain, Adult, [id number], Atrial Fibrillation, [id number]-Hnun Additional Instructions: Continue your current medication as prescribed by your cardiology and primary doctor to continue to help your atrial fibrillation Increase your daily fluid to help your hydration Please call and schedule follow-up with your primary doctor/cardiology in the next 3 to 5 days for progress Please do not hesitate to call or return to emergency if your symptoms worsen Referrals: PATTI SANTILLAN MD [Referring] - 3-5 Days Time of Disposition: 11:28
[2022-01-22 12:16] VITALS: BP 162/92
== END 2022-01-22 12:20 | disposition home or self-care (01) ==
LOC: ED 19:25
DX: R07.9 Chest pain, unspecified (principal); I48.20 Chronic atrial fibrillation, unspecified; I10 Essential (primary) hypertension; Z88.0 Allergy status to penicillin
CPT/HCPCS: 36415; 71046; 80053; 84484; 85025; 93005; 96374; 99284; J3490